=== PATIENT | male | born 1995 | race African-American/Black ===

== ENCOUNTER 2021-08-07 18:01 | Inpatient (IN) | payer OTHER ==
[~2021-08-07] VITALS: Ht 188 cm; Wt 298.4 kg
--- NOTE | 2021-08-07 18:24 | EKG ---
[facility] [address] [place] [address] Test Date: 2021-08-07 Test Time: 18:20:31 Pat Name: GONZALEZ GUERRA Department: Room: Gender: M Director Of Accounts Receivable: : 1995 Requested By: JO BOSS Order Number: [id number] Reading MD: Temo Boss MD Measurements Intervals [place] Rate: 124 P: -109 CT: 134 QRS: 152 QRSD: 80 T: -9 QT: 284 QTc: 412 Interpretive Statements SINUS TACHYCARDIA PROBABLE LIMB LEAD MISPLACEMENT NON-SPECIFIC ST/T CHANGES Electronically Signed On 08-09-2021 13:56:01 PERIOPERATIVE NURSE by Temo Boss MD
--- NOTE | 2021-08-07 18:25 | PHYS DOC ---
Past Medical History Past Medical History: CHF, DVT Additional Past Medical Histor: obesity General Adult EDM: Chief Complaint: SHORTNESS OF BREATH HPI: HPI: Patient is a 26 year old male with hx of severe CHF, obesity, DVT on xarelto who presents with chest pain and shortness of breath. symptoms worsened over past 3-5 days. states he has become more short of breath with laying flat and has become generally weak. Now cannot stand unassisted. He feels that his legs have swollen to a large extent, R>L. He thinks he hasn't taken his xarelto for the past few days but is unsure. He tells me his torsemide has been increased, but that he has not really urinated much the past 2 days. he admits to chills, but denies fevers or cough. vaccinated for covid, and had a negative rapid test. He has been incarcerated for the past year. He is unsure of his EF but states he is on carvedilol and spirinolactone suggesting severe systolic dysfunction. Review of Systems: Review of Systems: Constitutional: Denies fever. Reports chills. [] Eyes: Denies change in visual acuity. [] HENT: Denies nasal congestion or sore throat. [] Respiratory: Denies cough. Reports shortness of breath. [] Cardiovascular: Reports chest pain and increasing lower extremity edema right greater than left. [] GI: Denies abdominal pain, nausea, vomiting, bloody stools or diarrhea. [] : Denies dysuria. Reports decreased urine output. [] Musculoskeletal: Denies back pain or joint pain. [] Integument: Denies rash. [] Neurologic: Denies headache, focal weakness or sensory changes. [] Endocrine: Denies polyuria or polydipsia. [] Lymphatic: Denies swollen glands. [] Psychiatric: Denies depression or anxiety. [] Heart Score: C/O Chest Pain: Yes HEART Score for Chest Pain: HEART Score for Chest Pain Response (Comments) Value History Moderately Suspicious 1 ECG Nonspecific Repolarizatio 1 Age < 45 0 Risk Factors >3 Risk Factors or Hx CAD 2 Total 4 Risk Factors: Risk Factors: DM, Current or recent (<one month) smoker, HTN, HLP, family history of CAD, obesity. Risk Scores: Score 4 - 6: 20.3% MACE over next 6 weeks - Admit for Clinical Observation Allergies: Allergies: Allergies Coded Allergies Type Severity Reaction Last Updated Verified Iodine and Iodide Containing Produc Allergy Unknown UNKNOWN 08/07/21 Yes amoxicillin Allergy Unknown UNKNOWN 08/07/21 Yes azithromycin Allergy Unknown UNKNOWN 08/07/21 Yes shellfish derived Allergy Unknown UNKNOWN 08/07/21 Yes Physical Exam: PE: Constitutional: Morbidly obese. Unable to get himself out of the wheelchair without multiple assistants. HENT: Normocephalic, atraumatic, bilateral external ears normal, oropharynx moist, no oral exudates, nose normal. [] Eyes: PERRLA, EOMI, conjunctiva normal, no discharge. [] Neck: Normal range of motion, no tenderness, supple, no stridor. [] Cardiovascular: Tachycardic and regular. Lungs & Thorax: Anterior chest exam limited with distant breath sounds due to habitus. Increased work of breathing, with tachypnea Abdomen: Bowel sounds normal, soft, no tenderness, no masses, no pulsatile masses. [] Skin: Warm, dry, no erythema, no rash. [] Back: No tenderness, no CVA tenderness. [] Extremities: Bilateral lower extremity edema, right greater than left Neurologic: Alert and oriented X 3, normal motor function, normal sensory function, no focal deficits noted. [] Psychologic: Affect normal, judgement normal, mood normal. [] EKG: EKG: Sinus rhythm. Rate 124. Right axis deviation. T wave inversions inferiorly. [] Radiology/Procedures: Radiology/Procedures: Indication: Vascular access. Difficulty with peripheral access and need for multiple incompatible medications. Consent: The patient provided consent verbally for this procedure. Procedure: The patient was positioned appropriately in a Trendelenburg position and the skin over the left internal jugular vein was prepped and draped in a sterile fashion. Local anesthesia was used. Ultrasound guidance utilized. A large bore needle was used to identify the vein. The vein was very small and was difficult to access. Briefly access with venous colored return, but was not able to maintain access to thread a guidewire. The procedure was aborted after several minutes of attempts to reaccess the internal jugular vein. One needle stick. No evidence of carotid cannulation or hematoma formation during the procedure. The patient tolerated the procedure well. Complications: Unsuccessful procedure. Otherwise no acute complications. Impression: [facility] [address] [place] [address] IMAGING REPORT Signed PATIENT: GONZALEZ GUERRA ACCOUNT: [id number] : 1995 LOCATION: ER AGE: 26 SEX: M EXAM STATUS: REG ER ORD. PHYSICIAN: JO BOSS MD REASON: shortness of breath, chest pain PROCEDURE: CHEST AP ONLY Exam: Chest one view INDICATION: Shortness of breath TECHNIQUE: Frontal view of the chest Comparisons: None FINDINGS: The cardiomediastinal silhouette and pulmonary vessels are within normal limits. Subtle bibasilar airspace disease. No pleural effusion IMPRESSION: Subtle bibasilar airspace disease may relate to atelectasis or developing infectious process. Electronically signed by: Laurent Kearney MD (08/07/2021 8:44 PM) [facility] DICTATED and SIGNED BY: LAURENT KEARNEY MD DATE: 08/07/[id number] 0 Course & Med Decision Making: Course & Med Decision Making Pertinent Labs and Imaging studies reviewed. (See chart for details) Patient 26-year-old mal with history of severe cardiomyopathy, DVT on Xarelto, and obesity who presents with 3-5 days of increasing chest pain dyspnea, lower extremity edema (R>L), and generalized weakness. On arrival is tachycardic to 124. Sinus tach. EKG with inferior T wave inversions. HEART Score prior to troponin is 4. will need further cardiac work up. DDx includes ACS, CHF exacerbation, Pneumonia, PE (states he has been off of his xarelto recently). He cannot have a CTA and he is reportedly too obese for our CT table. Will start IV heparin infusion. Labs including serial troponin, dimer, bnp, cbc, cmp, cxr. 0658 Labs notable for acute kidney failure creatinine 6.1, K5.3, bicarb 18, uric acid 13.4. Fortunately no EKG changes. CK added. Also notable for white count of 36.1 with abnormal differential. Calcium was 5.9. iCal ordered as well as PTH, magnesium, phosphorus. Given 1 g of calcium gluconate. Discussed with nephrology, Dr. Magana, who recommends a bicarb drip over the next 12 hours. Troponin elevated to 383. He is already on high intensity IV heparin infusion. Will add aspirin [address] Zaman of cardiology who will follow. He is given an empiric dose of ceftriaxone given his tachycardia and white count. No source of infection identified to this point. Patient will be admitted to ICU level care. Left internal jugular central line was attempted due to poor peripheral access. Unfortunately was not successful in getting central access. Fortunately, was able to obtain 2 peripheral IVs via ultrasound. [id number] Disclaimer: [employer] Disclaimer: This electronic medical record was generated, in whole or in part, using a voice recognition dictation system. Departure Departure Impression: Primary Impression: Acute renal failure Additional Impressions: NSTEMI (non-ST elevated myocardial infarction) Transaminitis Hypocalcemia Hyponatremia Hyperuricemia Morbid obesity Hyperkalemia Disposition: 09 ADMITTED INPATIENT Admitting Physician: NAGI LUO) Condition: CRITICAL JO BOSS MD Aug 07, 2021 18:25
[2021-08-07] MEDS ORDERED: HEPARIN 25,000UTS/250ML PREMIX 250 ML IV PRN (19:00)
[2021-08-07] MEDS ORDERED: HEPARIN for IV BOLUS 10,000 UNIT/10 ML VIAL. IV PRN ×5 (19:00→23:00)
[2021-08-07 20:34] LABS: BASO # 0.3 x10^3/uL (0.0-0.2); BASO % 1 % (0-3); EOS # 0.5 x10^3/uL (0.0-0.7); EOS % 1 % (0-3); HEMATOCRIT 49.3 % (39.0-53.0); HEMOGLOBIN 16.3 g/dL (13.0-17.5); LYMPH # 1.6 x10^3/uL (1.0-4.8); LYMPH % 4 % (24-48); MEAN CORPUSCULAR HEMOGLOBIN 27 pg (25-35); MEAN CORPUSCULAR HGB CONC 33 g/dL (31-37); MEAN CORPUSCULAR VOLUME 80 fL (79-100); MONO # 1.4 x10^3/uL (0.0-1.1); MONO % 4 % (0-9); NEUT # 32.4 x10^3/uL (1.8-7.7); NEUT % 90 % (31-73); PLATELET COUNT 243 x10^3/uL (140-400); RED BLOOD COUNT 6.15 x10^6/uL (4.30-5.70); RED CELL DISTRIBUTION WIDTH 16.3 % (11.5-14.5); WHITE BLOOD COUNT 36.1 x10^3/uL (4.0-11.0)
--- NOTE | 2021-08-07 20:47 | RAD ---
Exam: Chest one view INDICATION: Shortness of breath TECHNIQUE: Frontal view of the chest Comparisons: None FINDINGS: The cardiomediastinal silhouette and pulmonary vessels are within normal limits. Subtle bibasilar airspace disease. No pleural effusion IMPRESSION: Subtle bibasilar airspace disease may relate to atelectasis or developing infectious process. Electronically signed by: Laurent Avendaño MD (08/07/2021 8:44 PM) ASHLEY
[2021-08-07 20:57] LABS: ALBUMIN 2.5 g/dL (3.4-5.0); ALBUMIN/GLOBULIN RATIO 0.6 (1.0-1.7); CREATININE 6.1 mg/dL (0.7-1.3); GFR 13.6; MAGNESIUM 2.5 mg/dL (1.8-2.4); POTASSIUM 5.3 mmol/L (3.5-5.1); TOTAL BILIRUBIN 1.1 mg/dL (0.2-1.0); TOTAL PROTEIN 6.7 g/dL (6.4-8.2)
[2021-08-07] MEDS ORDERED: HEPARIN for IV BOLUS 10,000 UNIT/10 ML VIAL. IV ONE (21:00)
[2021-08-07 21:02] LABS: CALCIUM 5.9 mg/dL (8.5-10.1)
[2021-08-07 21:05] LABS: % ATYL 1 % (0-0); % BANDS 27 % (0-9); % LYMPHS 6 % (24-48); % MONOS 5 % (0-10); % SEGS 61 % (35-66)
[2021-08-07 21:07] LABS: PLT ESTIMATE ADEQUATE (ADEQUATE); TOXIC GRANULATION SLIGHT; TOXIC VACUOLATION MOD
[2021-08-07] MEDS ORDERED: CALCIUM GLUCONATE 1,000 MG/10 ML VIAL. IVP ONE (21:15)
[2021-08-07] MEDS ORDERED: IV NORMAL SALINE 500ML BAG 500 ML IV ONE (21:15)
[2021-08-07] MEDS ORDERED: cefTRIAXone IV Push 1 GM VIAL. IVP ONE (21:15)
[2021-08-07] MEDS ORDERED: ASPIRIN CHEWABLE 81 MG TABLET. PO ONE (21:30)
[2021-08-07] MEDS ORDERED: SODIUM BICARBONATE VIAL 150 MEQ in IV DEXTROSE 5% 1,000 ML IV ONE (22:00)
[2021-08-07] MEDS ORDERED: ONDANSETRON PF 4 MG/2 ML VIAL. ONE (22:20)
[2021-08-07] MEDS ORDERED: ONDANSETRON PF 4 MG/2 ML VIAL. IVP ONE (22:30)
[2021-08-07] MEDS: HEPARIN 25,000UTS/250ML PREMIX 250 ML IV PRN (23:50)
[2021-08-08] VITALS (23 sets, daily range): BP systolic 110–166; BP diastolic 36–105
--- NOTE | 2021-08-08 01:34 | NUR ---
Patient arrived to ICU room 113 from ED. From [facility] with 2 guards present. Shackles to right arm and left leg. Morbidly obese. Specialty bed. Bicarb and heparin infusing.
[2021-08-08] MEDS ORDERED: RIVA20TA2 PO (04:34)
[2021-08-08] MEDS: DOXYCYCLINE HYCLATE 100 MG TABLET PO SCH ×3 (05:53→21:12)
[2021-08-08 06:03] LABS: CREATININE 6.8 mg/dL (0.7-1.3); POTASSIUM 5.7 mmol/L (3.5-5.1)
[2021-08-08 06:05] LABS: CALCIUM 5.5 mg/dL (8.5-10.1)
[2021-08-08] MEDS ORDERED: CALCIUM GLUCONATE 2,000 MG in IV NORMAL SALINE 100ML 100 ML IV ONE (06:30)
[2021-08-08 06:46] LABS: BASO # 0.2 x10^3/uL (0.0-0.2); BASO % 1 % (0-3); EOS # 0.4 x10^3/uL (0.0-0.7); EOS % 1 % (0-3); HEMATOCRIT 45.5 % (39.0-53.0); HEMOGLOBIN 14.8 g/dL (13.0-17.5); LYMPH # 1.5 x10^3/uL (1.0-4.8); LYMPH % 4 % (24-48); MEAN CORPUSCULAR HEMOGLOBIN 26 pg (25-35); MEAN CORPUSCULAR HGB CONC 33 g/dL (31-37); MEAN CORPUSCULAR VOLUME 81 fL (79-100); MONO # 1.6 x10^3/uL (0.0-1.1); MONO % 4 % (0-9); NEUT % 90 % (31-73); PLATELET COUNT 224 x10^3/uL (140-400); RED BLOOD COUNT 5.64 x10^6/uL (4.30-5.70); RED CELL DISTRIBUTION WIDTH 16.6 % (11.5-14.5); WHITE BLOOD COUNT 36.7 x10^3/uL (4.0-11.0)
[2021-08-08] MEDS ORDERED: SODIUM BICARB ADULT 8.4% 50 MEQ/50 ML DISP.SYRIN. IV ONE (07:15)
[2021-08-08] MEDS: HEPARIN for IV BOLUS 10,000 UNIT/10 ML VIAL. IV PRN ×3 (08:28→21:36)
--- NOTE | 2021-08-08 08:29 | PDOC1 ---
History and Physical Date of Service: DOS: DATE: 08/08/21 TIME: 08:21 Chief Complaint: Chief Complain: Shortness of breath History of Present Illness: HPI: History obtained from discussion with the ED physician and chart review: 26-year-old male with past medical history of CHF, morbid obesity, DVT was on Xarelto comes in with shortness of breath and chest pressure that started on Tuesday. Apparently his symptoms got worse as the week progressed and by Tuesday he was unable to get out of bed and short of breath. He does endorse any exertional dyspnea. Patient is now unable to stand without some assistance. He does endorse swelling in his lower extremities right greater than left. He thinks he has not taken his Xarelto for a few days but he is not sure this. He also endorses that his torsemide dosing these and he has not had much urine in the past 2 days. Currently he does have a Castaneda in urine bag is dark brown. He is incarcerated for the past year. Denies fevers, nausea vomiting, abdominal pain, diarrhea or hematuria or palpitations. Past Medical/Surgical History: PMH/PSH: Past Medical History: CHF, DVT, obesity Allergies: Allergies: Coded Allergies: Iodine and Iodide Containing Produc (Verified Allergy, Unknown, UNKNOWN, 08/07/21) amoxicillin (Verified Allergy, Unknown, UNKNOWN, 08/07/21) azithromycin (Verified Allergy, Unknown, UNKNOWN, 08/07/21) shellfish derived (Verified Allergy, Unknown, UNKNOWN, 08/07/21) Family History: Family History: Reviewed with no relevant findings Social History: Social History: Denies any alcohol, drug or tobacco abuse Current Medications: Current Medications Current Medications Heparin Sodium (Porcine) (Heparin Sodium) 10,000 unit 1X ONCE IV Last administered on 08/07/21at 23:48; Start 08/07/21 at 21:00; Stop 08/07/21 at 21:01; Status DC Heparin Sodium/ Dextrose 250 ml @ 20 mls/hr CONT PRN IV PER PROTOCOL; Start 08/07/21 at 19:00; Status Cancel Heparin Sodium (Porcine) (Heparin Sodium) 7,500 unit PRN Q6HRS PRN IV FOR UFH LEVEL LESS THAN 0.2; Start 08/07/21 at 19:00; Stop 08/07/21 at 22:34; Status DC Heparin Sodium (Porcine) (Heparin Sodium) 3,750 unit PRN Q6HRS PRN IV FOR UFH LEVEL 0.2 - 0.29; Start 08/07/21 at 19:00; Stop 08/07/21 at 22:33; Status DC Ceftriaxone Sodium (Rocephin) 2 gm 1X ONCE IVP Last administered on 08/07/21at 22:11; Start 08/07/21 at 21:15; Stop 08/07/21 at 21:16; Status DC Calcium Gluconate (Calcium Gluconate) 1,000 mg 1X ONCE IVP Last administered on 08/08/21at 02:29; Start 08/07/21 at 21:15; Stop 08/07/21 at 21:16; Status DC Sodium Chloride 500 ml @ 500 mls/hr 1X ONCE IV Last administered on 08/07/21at 21:15; Start 08/07/21 at 21:15; Stop 08/07/21 at 22:14; Status DC Aspirin (Aspirin Chewable) 324 mg 1X ONCE PO Last administered on 08/07/21at 22:12; Start 08/07/21 at 21:30; Stop 08/07/21 at 21:31; Status DC Sodium Bicarbonate 150 meq/Dextrose 1,150 ml @ 100 mls/hr [id number] ONCE IV Last administered on 08/07/21at 23:51; Start 08/07/21 at 22:00; Stop 08/08/21 at 09:29 Ondansetron HCl (Zofran) 4 mg STK-MED ONCE .ROUTE ; Start 08/07/21 at 22:20; Stop 08/07/21 at 22:21; Status DC Ondansetron HCl (Zofran) 4 mg 1X ONCE IVP Last administered on 08/07/21at 22:36; Start 08/07/21 at 22:30; Stop 08/07/21 at 22:31; Status DC Heparin Sodium (Porcine) (Heparin Sodium) 4,300 unit PRN Q6HRS PRN IV FOR UFH LEVEL 0.2 - 0.29; Start 08/07/21 at 22:33; Status Cancel Heparin Sodium (Porcine) (Heparin Sodium) 8,600 unit PRN Q6HRS PRN IV FOR UFH LEVEL LESS THAN 0.2; Start 08/07/21 at 22:45; Status Cancel Heparin Sodium/ Dextrose 250 ml @ 20 mls/hr CONT PRN IV PER PROTOCOL Last administered on 08/07/21at 23:50; Start 08/07/21 at 23:00 Heparin Sodium (Porcine) (Heparin Sodium) 8,600 unit PRN Q6HRS PRN IV FOR PTT < 40; Start 08/07/21 at 23:00 Heparin Sodium (Porcine) (Heparin Sodium) 2,000 unit PRN Q6HRS PRN IV FOR PTT 40 - 58; Start 08/07/21 at 23:00 Heparin Sodium (Porcine) (Heparin Sodium) 1,000 unit PRN Q6HRS PRN IV FOR PTT 59 - 78; Start 08/07/21 at 23:00 Doxycycline Hyclate (Vibra-Tab) 100 mg BID PO ; Start 08/08/21 at 09:00; Stop 08/08/21 at 04:41; Status DC Doxycycline Hyclate (Vibra-Tab) 100 mg BID PO Last administered on 08/08/21at 05:53; Start 08/08/21 at 05:00 Calcium Gluconate 2000 mg/Sodium Chloride 120 ml @ 220 mls/hr 1X ONCE IV Last administered on 08/08/21at 06:30; Start 08/08/21 at 06:30; Stop 08/08/21 at 07:02; Status DC Lactobacillus Rhamnosus (Culturelle) 1 cap BID PO ; Start 08/08/21 at 09:00 Sodium Bicarbonate (Sodium Bicarb Adult 8.4% Syr) 150 meq 1X ONCE IV ; Start 08/08/21 at 07:15; Stop 08/08/21 at 07:19; Status DC Active Scripts Active Reported Xarelto (Rivaroxaban) 20 Mg Tablet Unknown Dose PO DAILY 30 Days with food ROS: Review of Systems Review of System REVIEW OF SYSTEMS: GENERAL: Denies weakness SKIN: No bruising, hair changes or rashes. EYES: No blurred, double or loss of vision. NOSE AND THROAT: No history of nosebleeds, hoarseness or sore throat. HEART: No history of palpitations, chest pain or shortness of breath on exertion. LUNGS: Positive for shortness of breath GASTROINTESTINAL: Denies changes in appetite, nausea, vomiting, diarrhea or constipation. GENITOURINARY: No history of frequency, urgency, hesitancy or nocturia. NEUROLOGIC: Denies history of numbness, tingling, or tremor. PSYCHIATRIC: No history of panic, anxiety or depression. ENDOCRINE: No history of heat or cold intolerance, polyuria or polydipsia. EXTREMITIES: Denies joint pain, pain on walking or stiffness. Physical Exam: Vital Signs: Vital Signs Date Time Temp Pulse Resp B/P (MAP) Pulse Ox O2 Delivery O2 Flow Rate FiO2 08/08/21 08:00 99.4 107 30 136/74 (94) 95 BiPAP/CPAP 99.4 08/08/21 03:13 4.0 Physcial Exam: General: Well developed, well nourished, no acute distress, well appearing HEENT: Pupils equally round and reactive to light, EOMI, no discharge, normal conjunctiva Neck: Supple, no nuchal rigidity, no JVD, trachea midline, no tenderness Cardiac: RRR, no murmurs, no gallops, no rubs Chest/Lungs: CTAB, no wheeze, no rhonchi, no crackles Abdomen: Obese, soft, non-distended, no guarding, no peritoneal signs, non- tender Back: No tenderness Extremities: no edema, pulses intact, non-tender,capillary refill <3 sec bilateral upper and lower extremities, bilateral +3 pedal edema Neuro: Alert and oriented x 4, no focal deficits, normal speech Labs: Labs: Laboratory Tests Test 08/07/21 20:08 08/07/21 21:00 08/07/21 23:46 08/08/21 05:30 White Blood Count 36.1 x10^3/uL (4.0-11.0) 36.7 x10^3/uL (4.0-11.0) Red Blood Count 6.15 x10^6/uL (4.30-5.70) 5.64 x10^6/uL (4.30-5.70) Hemoglobin 16.3 g/dL (13.0-17.5) 14.8 g/dL (13.0-17.5) Hematocrit 49.3 % (39.0-53.0) 45.5 % (39.0-53.0) Mean Corpuscular Volume 80 fL (79-100) 81 fL (79-100) Mean Corpuscular Hemoglobin 27 pg (25-35) 26 pg (25-35) Mean Corpuscular Hemoglobin Concent 33 g/dL (31-37) 33 g/dL (31-37) Red Cell Distribution Width 16.3 % (11.5-14.5) 16.6 % (11.5-14.5) Platelet Count 243 x10^3/uL (140-400) 224 x10^3/uL (140-400) Neutrophils (%) (Auto) 90 % (31-73) 90 % (31-73) Lymphocytes (%) (Auto) 4 % (24-48) 4 % (24-48) Monocytes (%) (Auto) 4 % (0-9) 4 % (0-9) Eosinophils (%) (Auto) 1 % (0-3) 1 % (0-3) Basophils (%) (Auto) 1 % (0-3) 1 % (0-3) Neutrophils # (Auto) 32.4 x10^3/uL (1.8-7.7) 33.0 x10^3/uL (1.8-7.7) Lymphocytes # (Auto) 1.6 x10^3/uL (1.0-4.8) 1.5 x10^3/uL (1.0-4.8) Monocytes # (Auto) 1.4 x10^3/uL (0.0-1.1) 1.6 x10^3/uL (0.0-1.1) Eosinophils # (Auto) 0.5 x10^3/uL (0.0-0.7) 0.4 x10^3/uL (0.0-0.7) Basophils # (Auto) 0.3 x10^3/uL (0.0-0.2) 0.2 x10^3/uL (0.0-0.2) Segmented Neutrophils % 61 % (35-66) Band Neutrophils % 27 % (0-9) Lymphocytes % 6 % (24-48) Atypical Lymphocytes % (Manual) 1 % (0-0) Monocytes % 5 % (0-10) Toxic Granulation Slight Toxic Vacuolation Mod Dohle Bodies Present Platelet Estimate Adequate (ADEQUATE) Large Platelets Mod Activated Partial Thromboplast Time 36 SEC (24-38) D-Dimer (Anna) 10.40 ug/mlFEU (0.00-0.50) Sodium Level 126 mmol/L (136-145) 124 mmol/L (136-145) Potassium Level 5.3 mmol/L (3.5-5.1) 5.7 mmol/L (3.5-5.1) Chloride Level 92 mmol/L (98-107) 93 mmol/L (98-107) Carbon Dioxide Level 18 mmol/L (21-32) 17 mmol/L (21-32) Anion Gap 16 (6-14) 14 (6-14) Blood Urea Nitrogen 49 mg/dL (8-26) 56 mg/dL (8-26) Creatinine 6.1 mg/dL (0.7-1.3) 6.8 mg/dL (0.7-1.3) Estimated GFR (Cockcroft-Gault) 13.6 12.0 BUN/Creatinine Ratio 8 (6-20) Glucose Level 99 mg/dL (70-99) 121 mg/dL (70-99) Uric Acid 13.4 mg/dL (3.5-7.2) Calcium Level 5.9 mg/dL (8.5-10.1) 5.5 mg/dL (8.5-10.1) Phosphorus Level 9.4 mg/dL (2.6-4.7) Magnesium Level 2.5 mg/dL (1.8-2.4) Total Bilirubin 1.1 mg/dL (0.2-1.0) Aspartate Amino Transf (AST/SGOT) 2647 U/L (15-37) Alanine Aminotransferase (ALT/SGPT) 395 U/L (16-63) Alkaline Phosphatase 94 U/L (46-116) Troponin I High Sensitivity 383 ng/L (4-75) 390 ng/L (4-75) AB-Gqg-P-Type Natriuretic Peptide 1502 pg/mL (0-124) Total Protein 6.7 g/dL (6.4-8.2) Albumin 2.5 g/dL (3.4-5.0) Albumin/Globulin Ratio 0.6 (1.0-1.7) Thyroid Stimulating Hormone (TSH) 1.854 uIU/mL (0.358-3.74) SARS-CoV-2 Antigen (Rapid) Negative (NEGATIVE) Ionized Calcium 0.61 mmol/L (1.13-1.32) Hepatitis A IgM Antibody Nonreactive (Nonreactive) Hepatitis B Surface Antigen Nonreactive (Nonreactive) Hepatitis B Core IgM Antibody Nonreactive (Nonreactive) Hepatitis C IgG Antibody Nonreactive (Nonreactive) Creatine Kinase > 356588 U/L (39-308) Test 08/08/21 06:00 Activated Partial Thromboplast Time 43 SEC (24-38) Laboratory Tests Test 08/07/21 20:08 08/07/21 21:00 08/07/21 23:46 08/08/21 05:30 White Blood Count 36.1 x10^3/uL (4.0-11.0) 36.7 x10^3/uL (4.0-11.0) Red Blood Count 6.15 x10^6/uL (4.30-5.70) 5.64 x10^6/uL (4.30-5.70) Hemoglobin 16.3 g/dL (13.0-17.5) 14.8 g/dL (13.0-17.5) Hematocrit 49.3 % (39.0-53.0) 45.5 % (39.0-53.0) Mean Corpuscular Volume 80 fL (79-100) 81 fL (79-100) Mean Corpuscular Hemoglobin 27 pg (25-35) 26 pg (25-35) Mean Corpuscular Hemoglobin Concent 33 g/dL (31-37) 33 g/dL (31-37) Red Cell Distribution Width 16.3 % (11.5-14.5) 16.6 % (11.5-14.5) Platelet Count 243 x10^3/uL (140-400) 224 x10^3/uL (140-400) Neutrophils (%) (Auto) 90 % (31-73) 90 % (31-73) Lymphocytes (%) (Auto) 4 % (24-48) 4 % (24-48) Monocytes (%) (Auto) 4 % (0-9) 4 % (0-9) Eosinophils (%) (Auto) 1 % (0-3) 1 % (0-3) Basophils (%) (Auto) 1 % (0-3) 1 % (0-3) Neutrophils # (Auto) 32.4 x10^3/uL (1.8-7.7) 33.0 x10^3/uL (1.8-7.7) Lymphocytes # (Auto) 1.6 x10^3/uL (1.0-4.8) 1.5 x10^3/uL (1.0-4.8) Monocytes # (Auto) 1.4 x10^3/uL (0.0-1.1) 1.6 x10^3/uL (0.0-1.1) Eosinophils # (Auto) 0.5 x10^3/uL (0.0-0.7) 0.4 x10^3/uL (0.0-0.7) Basophils # (Auto) 0.3 x10^3/uL (0.0-0.2) 0.2 x10^3/uL (0.0-0.2) Segmented Neutrophils % 61 % (35-66) Band Neutrophils % 27 % (0-9) Lymphocytes % 6 % (24-48) Atypical Lymphocytes % (Manual) 1 % (0-0) Monocytes % 5 % (0-10) Toxic Granulation Slight Toxic Vacuolation Mod Dohle Bodies Present Platelet Estimate Adequate (ADEQUATE) Large Platelets Mod Activated Partial Thromboplast Time 36 SEC (24-38) D-Dimer (Anna) 10.40 ug/mlFEU (0.00-0.50) Sodium Level 126 mmol/L (136-145) 124 mmol/L (136-145) Potassium Level 5.3 mmol/L (3.5-5.1) 5.7 mmol/L (3.5-5.1) Chloride Level 92 mmol/L (98-107) 93 mmol/L (98-107) Carbon Dioxide Level 18 mmol/L (21-32) 17 mmol/L (21-32) Anion Gap 16 (6-14) 14 (6-14) Blood Urea Nitrogen 49 mg/dL (8-26) 56 mg/dL (8-26) Creatinine 6.1 mg/dL (0.7-1.3) 6.8 mg/dL (0.7-1.3) Estimated GFR (Cockcroft-Gault) 13.6 12.0 BUN/Creatinine Ratio 8 (6-20) Glucose Level 99 mg/dL (70-99) 121 mg/dL (70-99) Uric Acid 13.4 mg/dL (3.5-7.2) Calcium Level 5.9 mg/dL (8.5-10.1) 5.5 mg/dL (8.5-10.1) Phosphorus Level 9.4 mg/dL (2.6-4.7) Magnesium Level 2.5 mg/dL (1.8-2.4) Total Bilirubin 1.1 mg/dL (0.2-1.0) Aspartate Amino Transf (AST/SGOT) 2647 U/L (15-37) Alanine Aminotransferase (ALT/SGPT) 395 U/L (16-63) Alkaline Phosphatase 94 U/L (46-116) Troponin I High Sensitivity 383 ng/L (4-75) 390 ng/L (4-75) JL-Xmf-J-Type Natriuretic Peptide 1502 pg/mL (0-124) Total Protein 6.7 g/dL (6.4-8.2) Albumin 2.5 g/dL (3.4-5.0) Albumin/Globulin Ratio 0.6 (1.0-1.7) Thyroid Stimulating Hormone (TSH) 1.854 uIU/mL (0.358-3.74) SARS-CoV-2 Antigen (Rapid) Negative (NEGATIVE) Ionized Calcium 0.61 mmol/L (1.13-1.32) Hepatitis A IgM Antibody Nonreactive (Nonreactive) Hepatitis B Surface Antigen Nonreactive (Nonreactive) Hepatitis B Core IgM Antibody Nonreactive (Nonreactive) Hepatitis C IgG Antibody Nonreactive (Nonreactive) Creatine Kinase > 047687 U/L (39-308) Test 08/08/21 06:00 Activated Partial Thromboplast Time 43 SEC (24-38) Images: Images PROCEDURE: CHEST AP ONLY IMPRESSION: Subtle bibasilar airspace disease may relate to atelectasis or developing infectious process. Assessment/Plan Assessment/Plan Sepsis Bilateral pneumonia, possible gram-negative organisms Acute electrolyte derangement due to acute kidney injury Hypocalcemia Metabolic acidosis, non-anion gap Acute renal failure due to vasomotor nephropathy and rhabdomyolysis Acute rhabdomyolysis Atypical chest pain concerning for non-STEMI Elevated troponin troponin suggestive of either type II demand ischemia versus renal disease History of morbid obesity History of CHF History of DVT Admit to ICU for further management Continue empiric IV antibiotics Pending blood cultures Pending MRSA screen and Legionella Nephrology consult Cardiology consult for CHF Counseled on weight loss via diet and exercise Strict I's and O's Avoid further nephrotoxic agents Continue heparin for DVT history Trend electrolytes and replace as needed Heparin drip for DVT prophylaxis Protonix while in the ICU GI prophylaxis ADA diet CODE STATUS full Discussed with RN and SW Disposition inpatient management as above DPOA: Undesignated, and incarcerated A total of 45 minutes of critical care time was spent in reviewing chart, labs, and images. Discussed with RN and SW. Justifications for Admission Other Justification AMOS MADISON MD Aug 08, 2021 08:28
[2021-08-08] MEDS: LACTOBACILLUS RHAMNOSUS GG 1 CAPSULE. PO SCH ×2 (08:38→21:12)
[2021-08-08] MEDS ORDERED: DOXYCYCLINE HYCLATE 100 MG TABLET PO SCH (09:00)
[2021-08-08 10:08] LABS: % BANDS 8 % (0-9); % LYMPHS 3 % (24-48); % MONOS 3 % (0-10); % SEGS 86 % (35-66); PLT ESTIMATE ADEQUATE (ADEQUATE)
--- NOTE | 2021-08-08 11:07 | PDOC2 ---
CONSULT Date of Consult Date of Consult DATE: 08/08/21 TIME: 11:04 Reason for Consult Reason for Consult: Critical calcium Referring Physician Referring Physician: Robert Identification/Chief Complaint Chief Complaint Decreased urination Source Source: Chart review, Patient History of Present Illness Reason for Visit: History obtained from chart review. Patient currently on BiPAP and unable to converse much. He answers "I do not know what happened" to most questions Patient is a 26-year-old morbidly obese -[place] gentleman with history of CHF per the ER notes. He is currently incarcerated. No echocardiogram in our system available at this time. He does not know his EF either. He has been on diuretics which according to him were increased recently. He has not been urinating much for the last few days. He presented to the ER for the same. He became increasingly weak and had some orthopnea also. In the ER he was unable to stand unassisted. It was noted that he had worsening edema in his lower extremities also. I was called by the ER physician regarding he has renal failure and critically low calcium. IV calcium was administered In the ER and has been repeated currently this morning. In the ER his sodium was 126 potassium 5.3 bicarb 18 anion gap 16 BUN 49 creatinine 6.1 and a calcium of 5.9 with a magnesium of 2.5 and an albumin of 2.5. His LFTs were also noted to be grossly elevated. I was again called by the ER physician regarding a critical uric acid of 13.4. BNP was only 1500 with a phosphorus of 9.4. His troponins were elevated and I was informed that he was diagnosed with a non-STEMI. At time of my visit with the patient he has been evaluated by cardiology. Their note is pending at this time hence plan is not known. Calcium was again 5.5 this morning and more supplementation has been ordered. It is now noted that his CPK is greater than 100,000 Past Medical History Past Medical History Past medical history positive for congestive heart failure, atrial fibrillation, hypertension, DVT, sleep apnea, morbid obesity and previous history of smoking. No renal insufficiency noted Family History Family History Unable to reliably obtain from the patient due to BiPAP use Current Problem List Problem List Problems Medical Problems: (1) Acute renal failure Status: Acute (2) Hyperkalemia Status: Acute (3) Hyperuricemia Status: Acute (4) Hypocalcemia Status: Acute (5) Hyponatremia Status: Acute (6) Morbid obesity Status: Acute (7) NSTEMI (non-ST elevated myocardial infarction) Status: Acute (8) Transaminitis Status: Acute Current Medications Current Medications Current Medications Heparin Sodium (Porcine) (Heparin Sodium) 10,000 unit 1X ONCE IV Last administered on 08/07/21at 23:48; Start 08/07/21 at 21:00; Stop 08/07/21 at 21:01; Status DC Heparin Sodium/ Dextrose 250 ml @ 20 mls/hr CONT PRN IV PER PROTOCOL; Start 08/07/21 at 19:00; Status Cancel Heparin Sodium (Porcine) (Heparin Sodium) 7,500 unit PRN Q6HRS PRN IV FOR UFH LEVEL LESS THAN 0.2; Start 08/07/21 at 19:00; Stop 08/07/21 at 22:34; Status DC Heparin Sodium (Porcine) (Heparin Sodium) 3,750 unit PRN Q6HRS PRN IV FOR UFH LEVEL 0.2 - 0.29; Start 08/07/21 at 19:00; Stop 08/07/21 at 22:33; Status DC Ceftriaxone Sodium (Rocephin) 2 gm 1X ONCE IVP Last administered on 08/07/21at 22:11; Start 08/07/21 at 21:15; Stop 08/07/21 at 21:16; Status DC Calcium Gluconate (Calcium Gluconate) 1,000 mg 1X ONCE IVP Last administered on 08/08/21at 02:29; Start 08/07/21 at 21:15; Stop 08/07/21 at 21:16; Status DC Sodium Chloride 500 ml @ 500 mls/hr 1X ONCE IV Last administered on 08/07/21at 21:15; Start 08/07/21 at 21:15; Stop 08/07/21 at 22:14; Status DC Aspirin (Aspirin Chewable) 324 mg 1X ONCE PO Last administered on 08/07/21at 22:12; Start 08/07/21 at 21:30; Stop 08/07/21 at 21:31; Status DC Sodium Bicarbonate 150 meq/Dextrose 1,150 ml @ 100 mls/hr [id number] ONCE IV Last administered on 08/07/21at 23:51; Start 08/07/21 at 22:00; Stop 08/08/21 at 09:29; Status DC Ondansetron HCl (Zofran) 4 mg STK-MED ONCE .ROUTE ; Start 08/07/21 at 22:20; Stop 08/07/21 at 22:21; Status DC Ondansetron HCl (Zofran) 4 mg 1X ONCE IVP Last administered on 08/07/21at 22:36; Start 08/07/21 at 22:30; Stop 08/07/21 at 22:31; Status DC Heparin Sodium (Porcine) (Heparin Sodium) 4,300 unit PRN Q6HRS PRN IV FOR UFH LEVEL 0.2 - 0.29; Start 08/07/21 at 22:33; Status Cancel Heparin Sodium (Porcine) (Heparin Sodium) 8,600 unit PRN Q6HRS PRN IV FOR UFH LEVEL LESS THAN 0.2; Start 08/07/21 at 22:45; Status Cancel Heparin Sodium/ Dextrose 250 ml @ 20 mls/hr CONT PRN IV PER PROTOCOL Last administered on 08/07/21at 23:50; Start 08/07/21 at 23:00 Heparin Sodium (Porcine) (Heparin Sodium) 8,600 unit PRN Q6HRS PRN IV FOR PTT < 40; Start 08/07/21 at 23:00 Heparin Sodium (Porcine) (Heparin Sodium) 2,000 unit PRN Q6HRS PRN IV FOR PTT 40 - 58 Last administered on 08/08/21at 08:28; Start 08/07/21 at 23:00 Heparin Sodium (Porcine) (Heparin Sodium) 1,000 unit PRN Q6HRS PRN IV FOR PTT 59 - 78; Start 08/07/21 at 23:00 Doxycycline Hyclate (Vibra-Tab) 100 mg BID PO ; Start 08/08/21 at 09:00; Stop 08/08/21 at 04:41; Status DC Doxycycline Hyclate (Vibra-Tab) 100 mg BID PO Last administered on 08/08/21at 05:53; Start 08/08/21 at 05:00 Calcium Gluconate 2000 mg/Sodium Chloride 120 ml @ 220 mls/hr 1X ONCE IV Last administered on 08/08/21at 06:30; Start 08/08/21 at 06:30; Stop 08/08/21 at 07:02; Status DC Lactobacillus Rhamnosus (Culturelle) 1 cap BID PO Last administered on 08/08/21at 08:38; Start 08/08/21 at 09:00 Sodium Bicarbonate (Sodium Bicarb Adult 8.4% Syr) 150 meq 1X ONCE IV Last administered on 08/08/21at 08:27; Start 08/08/21 at 07:15; Stop 08/08/21 at 07:19; Status DC Active Scripts Active Reported Xarelto (Rivaroxaban) 20 Mg Tablet Unknown Dose PO DAILY 30 Days with food Allergies Allergies: Coded Allergies: Iodine and Iodide Containing Produc (Verified Allergy, Unknown, UNKNOWN, 08/07/21) amoxicillin (Verified Allergy, Unknown, UNKNOWN, 08/07/21) azithromycin (Verified Allergy, Unknown, UNKNOWN, 08/07/21) shellfish derived (Verified Allergy, Unknown, UNKNOWN, 08/07/21) ROS Review of System As reviewed under HPI. Physical Exam Physical Exam General Appearance: Awake not fully alert Oriented x ? In no obvious respiratory distress while on the BiPAP Eyes: Sclera anicteric conjunctiva Normal EN: No EN Drainage Mucous Memb. Dry on BiPAP Neck: Unable to visualize JVD or JVP due to short thick neck, supple no palpable thyromegaly CVS: S1 S2 unable to hear obvious murmur No Gallop No Rub signi ficant lower extremity edema Resp: No audible Rales or rhonchi no obvious Acc. Muscle use GI: BAS +ve NO Bruit Non Tender Non Distended, morbidly obese : No obvious CVA tenderness; or suprapubic Tenderness SKIN: No visible rashes Breast Exam deferred Mu.Sk: Some lower extremity weakness without obvious muscle Atrophy Heme: Unable to palpate Obvious LAD no palpable splenomegaly NEURO: Decreased strength in lower extremities. Unable to assess currently while on BiPAP Psych: Unable to assess currently while on BiPAP Vital Signs Vital Signs Date Time Temp Pulse Resp B/P (MAP) Pulse Ox O2 Delivery O2 Flow Rate FiO2 08/08/21 10:00 106 27 137/71 (93) 95 BiPAP/CPAP 08/08/21 08:00 99.4 99.4 08/08/21 03:13 4.0 Assessment & Plan Acute kidney injury, possible ATN associated with rhabdomyolysis: Patient remains oligoanuric at this time. We will proceed with dialysis: ARF? ATN : Dialysis as below F 180 NR 3.5 Hrs 3 K 3.5 Ca 135 Na 40 HC03 Qb 350 + Qd 500+ Heparin 0 Units Uf 0 Kgs or to dry weight as tolerated May give 25-50 gms of 25% Albumin if needed to maintain Hemodynamic stability Treatment plan reviewed and discussed with manager field Rhabdomyolysis: Unclear etiology. Currently oligoanuric with possible ATN hence proceed with dialysis Hyperkalemia: Anticipate correction with correction of acidosis Metabolic acidosis probably associated with renal failure Possible volume depletion cannot be ruled out however given patient's history of CHF hesitant to aggressively volume replete at this time. Hyponatremia: We will proceed with isotonic fluids for volume repletion for now. Anticipate some correction with dialysis also Severe hypocalcemia presumably due to rhabdomyolysis History of CHF: Clinically appears to be well compensated at this time. Non-STEMI: Defer to cardiology Possible sepsis of unclear source at this time patient had significant bandemia at presentation yesterday. Critical care time spent 30 minutes reviewing records as well as discussing with the patient who is agreeable to proceed with dialysis. Dialysis catheter arrangement on the weekend and coordination of dialysis arrangements Labs Labs Laboratory Tests Test 08/07/21 20:08 08/07/21 21:00 08/07/21 23:46 08/08/21 05:30 White Blood Count 36.1 x10^3/uL (4.0-11.0) 36.7 x10^3/uL (4.0-11.0) Red Blood Count 6.15 x10^6/uL (4.30-5.70) 5.64 x10^6/uL (4.30-5.70) Hemoglobin 16.3 g/dL (13.0-17.5) 14.8 g/dL (13.0-17.5) Hematocrit 49.3 % (39.0-53.0) 45.5 % (39.0-53.0) Mean Corpuscular Volume 80 fL (79-100) 81 fL (79-100) Mean Corpuscular Hemoglobin 27 pg (25-35) 26 pg (25-35) Mean Corpuscular Hemoglobin Concent 33 g/dL (31-37) 33 g/dL (31-37) Red Cell Distribution Width 16.3 % (11.5-14.5) 16.6 % (11.5-14.5) Platelet Count 243 x10^3/uL (140-400) 224 x10^3/uL (140-400) Neutrophils (%) (Auto) 90 % (31-73) 90 % (31-73) Lymphocytes (%) (Auto) 4 % (24-48) 4 % (24-48) Monocytes (%) (Auto) 4 % (0-9) 4 % (0-9) Eosinophils (%) (Auto) 1 % (0-3) 1 % (0-3) Basophils (%) (Auto) 1 % (0-3) 1 % (0-3) Neutrophils # (Auto) 32.4 x10^3/uL (1.8-7.7) 33.0 x10^3/uL (1.8-7.7) Lymphocytes # (Auto) 1.6 x10^3/uL (1.0-4.8) 1.5 x10^3/uL (1.0-4.8) Monocytes # (Auto) 1.4 x10^3/uL (0.0-1.1) 1.6 x10^3/uL (0.0-1.1) Eosinophils # (Auto) 0.5 x10^3/uL (0.0-0.7) 0.4 x10^3/uL (0.0-0.7) Basophils # (Auto) 0.3 x10^3/uL (0.0-0.2) 0.2 x10^3/uL (0.0-0.2) Segmented Neutrophils % 61 % (35-66) 86 % (35-66) Band Neutrophils % 27 % (0-9) 8 % (0-9) Lymphocytes % 6 % (24-48) 3 % (24-48) Atypical Lymphocytes % (Manual) 1 % (0-0) Monocytes % 5 % (0-10) 3 % (0-10) Toxic Granulation Slight Toxic Vacuolation Mod Dohle Bodies Present Platelet Estimate Adequate (ADEQUATE) Adequate (ADEQUATE) Large Platelets Mod Activated Partial Thromboplast Time 36 SEC (24-38) D-Dimer (Anna) 10.40 ug/mlFEU (0.00-0.50) Sodium Level 126 mmol/L (136-145) 124 mmol/L (136-145) Potassium Level 5.3 mmol/L (3.5-5.1) 5.7 mmol/L (3.5-5.1) Chloride Level 92 mmol/L (98-107) 93 mmol/L (98-107) Carbon Dioxide Level 18 mmol/L (21-32) 17 mmol/L (21-32) Anion Gap 16 (6-14) 14 (6-14) Blood Urea Nitrogen 49 mg/dL (8-26) 56 mg/dL (8-26) Creatinine 6.1 mg/dL (0.7-1.3) 6.8 mg/dL (0.7-1.3) Estimated GFR (Cockcroft-Gault) 13.6 12.0 BUN/Creatinine Ratio 8 (6-20) Glucose Level 99 mg/dL (70-99) 121 mg/dL (70-99) Uric Acid 13.4 mg/dL (3.5-7.2) Calcium Level 5.9 mg/dL (8.5-10.1) 5.5 mg/dL (8.5-10.1) Phosphorus Level 9.4 mg/dL (2.6-4.7) Magnesium Level 2.5 mg/dL (1.8-2.4) Total Bilirubin 1.1 mg/dL (0.2-1.0) Aspartate Amino Transf (AST/SGOT) 2647 U/L (15-37) Alanine Aminotransferase (ALT/SGPT) 395 U/L (16-63) Alkaline Phosphatase 94 U/L (46-116) Troponin I High Sensitivity 383 ng/L (4-75) 390 ng/L (4-75) 324 ng/L (4-75) GC-Zzy-H-Type Natriuretic Peptide 1502 pg/mL (0-124) Total Protein 6.7 g/dL (6.4-8.2) Albumin 2.5 g/dL (3.4-5.0) Albumin/Globulin Ratio 0.6 (1.0-1.7) Thyroid Stimulating Hormone (TSH) 1.854 uIU/mL (0.358-3.74) SARS-CoV-2 Antigen (Rapid) Negative (NEGATIVE) Ionized Calcium 0.61 mmol/L (1.13-1.32) Hepatitis A IgM Antibody Nonreactive (Nonreactive) Hepatitis B Surface Antigen Nonreactive (Nonreactive) Hepatitis B Core IgM Antibody Nonreactive (Nonreactive) Hepatitis C IgG Antibody Nonreactive (Nonreactive) Creatine Kinase > 403041 U/L (39-308) Test 08/08/21 06:00 Activated Partial Thromboplast Time 43 SEC (24-38) Laboratory Tests Test 08/07/21 20:08 08/07/21 21:00 08/07/21 23:46 08/08/21 05:30 White Blood Count 36.1 x10^3/uL (4.0-11.0) 36.7 x10^3/uL (4.0-11.0) Red Blood Count 6.15 x10^6/uL (4.30-5.70) 5.64 x10^6/uL (4.30-5.70) Hemoglobin 16.3 g/dL (13.0-17.5) 14.8 g/dL (13.0-17.5) Hematocrit 49.3 % (39.0-53.0) 45.5 % (39.0-53.0) Mean Corpuscular Volume 80 fL (79-100) 81 fL (79-100) Mean Corpuscular Hemoglobin 27 pg (25-35) 26 pg (25-35) Mean Corpuscular Hemoglobin Concent 33 g/dL (31-37) 33 g/dL (31-37) Red Cell Distribution Width 16.3 % (11.5-14.5) 16.6 % (11.5-14.5) Platelet Count 243 x10^3/uL (140-400) 224 x10^3/uL (140-400) Neutrophils (%) (Auto) 90 % (31-73) 90 % (31-73) Lymphocytes (%) (Auto) 4 % (24-48) 4 % (24-48) Monocytes (%) (Auto) 4 % (0-9) 4 % (0-9) Eosinophils (%) (Auto) 1 % (0-3) 1 % (0-3) Basophils (%) (Auto) 1 % (0-3) 1 % (0-3) Neutrophils # (Auto) 32.4 x10^3/uL (1.8-7.7) 33.0 x10^3/uL (1.8-7.7) Lymphocytes # (Auto) 1.6 x10^3/uL (1.0-4.8) 1.5 x10^3/uL (1.0-4.8) Monocytes # (Auto) 1.4 x10^3/uL (0.0-1.1) 1.6 x10^3/uL (0.0-1.1) Eosinophils # (Auto) 0.5 x10^3/uL (0.0-0.7) 0.4 x10^3/uL (0.0-0.7) Basophils # (Auto) 0.3 x10^3/uL (0.0-0.2) 0.2 x10^3/uL (0.0-0.2) Segmented Neutrophils % 61 % (35-66) 86 % (35-66) Band Neutrophils % 27 % (0-9) 8 % (0-9) Lymphocytes % 6 % (24-48) 3 % (24-48) Atypical Lymphocytes % (Manual) 1 % (0-0) Monocytes % 5 % (0-10) 3 % (0-10) Toxic Granulation Slight Toxic Vacuolation Mod Dohle Bodies Present Platelet Estimate Adequate (ADEQUATE) Adequate (ADEQUATE) Large Platelets Mod Activated Partial Thromboplast Time 36 SEC (24-38) D-Dimer (Anna) 10.40 ug/mlFEU (0.00-0.50) Sodium Level 126 mmol/L (136-145) 124 mmol/L (136-145) Potassium Level 5.3 mmol/L (3.5-5.1) 5.7 mmol/L (3.5-5.1) Chloride Level 92 mmol/L (98-107) 93 mmol/L (98-107) Carbon Dioxide Level 18 mmol/L (21-32) 17 mmol/L (21-32) Anion Gap 16 (6-14) 14 (6-14) Blood Urea Nitrogen 49 mg/dL (8-26) 56 mg/dL (8-26) Creatinine 6.1 mg/dL (0.7-1.3) 6.8 mg/dL (0.7-1.3) Estimated GFR (Cockcroft-Gault) 13.6 12.0 BUN/Creatinine Ratio 8 (6-20) Glucose Level 99 mg/dL (70-99) 121 mg/dL (70-99) Uric Acid 13.4 mg/dL (3.5-7.2) Calcium Level 5.9 mg/dL (8.5-10.1) 5.5 mg/dL (8.5-10.1) Phosphorus Level 9.4 mg/dL (2.6-4.7) Magnesium Level 2.5 mg/dL (1.8-2.4) Total Bilirubin 1.1 mg/dL (0.2-1.0) Aspartate Amino Transf (AST/SGOT) 2647 U/L (15-37) Alanine Aminotransferase (ALT/SGPT) 395 U/L (16-63) Alkaline Phosphatase 94 U/L (46-116) Troponin I High Sensitivity 383 ng/L (4-75) 390 ng/L (4-75) 324 ng/L (4-75) XP-Ffb-H-Type Natriuretic Peptide 1502 pg/mL (0-124) Total Protein 6.7 g/dL (6.4-8.2) Albumin 2.5 g/dL (3.4-5.0) Albumin/Globulin Ratio 0.6 (1.0-1.7) Thyroid Stimulating Hormone (TSH) 1.854 uIU/mL (0.358-3.74) SARS-CoV-2 Antigen (Rapid) Negative (NEGATIVE) Ionized Calcium 0.61 mmol/L (1.13-1.32) Hepatitis A IgM Antibody Nonreactive (Nonreactive) Hepatitis B Surface Antigen Nonreactive (Nonreactive) Hepatitis B Core IgM Antibody Nonreactive (Nonreactive) Hepatitis C IgG Antibody Nonreactive (Nonreactive) Creatine Kinase > 696467 U/L (39-308) Test 08/08/21 06:00 Activated Partial Thromboplast Time 43 SEC (24-38) Review All relevant outside records, renal labs, imaging studies, telemetry/EKG's were reviewed. Images Images FINDINGS: The cardiomediastinal silhouette and pulmonary vessels are within normal limits. Subtle bibasilar airspace disease. No pleural effusion IMPRESSION: Subtle bibasilar airspace disease may relate to atelectasis or developing infectious process. CHRISTIANE SALEH MD Aug 08, 2021 11:07
[2021-08-08] MEDS: HEPARIN 25,000UTS/250ML PREMIX 250 ML IV PRN ×2 (11:10→23:42)
[2021-08-08 11:28] LABS: CLARITY,URINE TURBID; COLOR,URINE RED; PH,URINE 5.5 (<5.0-8.0); PROTEIN,URINE >=300 mg/dL (NEG-TRACE)
[2021-08-08] MEDS ORDERED: ONDANSETRON PF 4 MG/2 ML VIAL. IVP PRN (11:30)
[2021-08-08] MEDS ORDERED: DOCUSATE SODIUM 100 MG CAPSULE. PO PRN (11:30)
[2021-08-08] MEDS ORDERED: SENNOSIDES 8.6 MG TABLET PO PRN (11:30)
[2021-08-08] MEDS ORDERED: cefTRIAXone IV Push 1 GM VIAL. IVP SCH (11:30)
[2021-08-08] MEDS ORDERED: PROCHLORPERAZINE 10 MG/2 ML VIAL. IV PRN (11:30)
[2021-08-08] MEDS ORDERED: DEXTROSE 50% 25 GM / 50ML DISP.SYRIN. IV PRN (11:30)
[2021-08-08] MEDS ORDERED: ACETAMINOPHEN 325 MG TABLET. PO PRN (11:30)
[2021-08-08 11:43] LABS: BACTERIA,URINE FEW /HPF (0-FEW)
[2021-08-08] MEDS: FAMOTIDINE 20 MG/2 ML VIAL IVP SCH (11:43)
[2021-08-08 11:44] LABS: GRANULAR CASTS,URINE OCCASIONAL /HPF; RBC CASTS,URINE FEW /HPF
[2021-08-08] MEDS: cefTRIAXone IV Push 2 GM VIAL. IVP SCH (11:44)
[2021-08-08] MEDS: CALCIUM GLUCONATE 1,000 MG/10 ML VIAL. IVP SCH ×3 (11:51→15:33)
[2021-08-08] MEDS ORDERED: LIDOCAINE WITH 8.4% SOD BICARB 3 ML DISP.SYRIN. ONE (12:10)
[2021-08-08] MEDS ORDERED: LIDOCAINE WITH 8.4% SOD BICARB 3 ML DISP.SYRIN. INJ ONE (13:00)
--- NOTE | 2021-08-08 13:09 | PDOC2 ---
CONSULT Date of Consult Date of Consult DATE: 08/08/21 TIME: 13:01 Reason for Consult Reason for Consult: Acute heart failure. Elevated troponin Referring Physician Referring Physician: Dr. Roberts Identification/Chief Complaint Chief Complaint Increasing shortness of breath Source Source: Chart review, Patient History of Present Illness Reason for Visit: The patient is a 26-year-old incarcerated male who reports of history of 3 to 4 days of increasing shortness of breath associated with occasional episodes of mild chest pressure. He has reported history of a possible cardiomyopathy as well as lower extremity DVTs and super morbid obesity with a weight of 285 kg. His initial chest x-ray showed slight bibasilar airway disease. His EKG showed a sinus tachycardia with mild nonspecific ST-T wave changes. However lab testing is showing a white count of 36.7, potassium 5.7, creatinine 6.8, calcium of 5.5, CK of greater than 100,000, a D-dimer of 10.40 and a peak troponin of 390. He has been placed on IV heparin and antibiotics. He is being evaluated by the renal service for urgent dialysis. This morning he reports his shortness of breath is somewhat improved but is still present. His chest discomfort has largely resolved. He is unclear on his heart cardiac history but may have a history of a cardiomyopathy. Past Medical History Cardiovascular: AFIB, CHF, HTN, Other (Possible cardiomyopathy, DVTs) Pulmonary: Other (Sleep apnea) Musculoskeletal: low back pain Past Surgical History Past Surgical History: No pertinent history Family History Family History: Heart Disease, Hypertension Social History Quit Current Problem List Problem List Problems Medical Problems: (1) Acute renal failure Status: Acute (2) Hyperkalemia Status: Acute (3) Hyperuricemia Status: Acute (4) Hypocalcemia Status: Acute (5) Hyponatremia Status: Acute (6) Morbid obesity Status: Acute (7) NSTEMI (non-ST elevated myocardial infarction) Status: Acute (8) Transaminitis Status: Acute Current Medications Current Medications Current Medications Heparin Sodium (Porcine) (Heparin Sodium) 10,000 unit 1X ONCE IV Last administered on 08/07/21at 23:48; Start 08/07/21 at 21:00; Stop 08/07/21 at 21:01; Status DC Heparin Sodium/ Dextrose 250 ml @ 20 mls/hr CONT PRN IV PER PROTOCOL; Start 08/07/21 at 19:00; Status Cancel Heparin Sodium (Porcine) (Heparin Sodium) 7,500 unit PRN Q6HRS PRN IV FOR UFH LEVEL LESS THAN 0.2; Start 08/07/21 at 19:00; Stop 08/07/21 at 22:34; Status DC Heparin Sodium (Porcine) (Heparin Sodium) 3,750 unit PRN Q6HRS PRN IV FOR UFH LEVEL 0.2 - 0.29; Start 08/07/21 at 19:00; Stop 08/07/21 at 22:33; Status DC Ceftriaxone Sodium (Rocephin) 2 gm 1X ONCE IVP Last administered on 08/07/21at 22:11; Start 08/07/21 at 21:15; Stop 08/07/21 at 21:16; Status DC Calcium Gluconate (Calcium Gluconate) 1,000 mg 1X ONCE IVP Last administered on 08/08/21at 02:29; Start 08/07/21 at 21:15; Stop 08/07/21 at 21:16; Status DC Sodium Chloride 500 ml @ 500 mls/hr 1X ONCE IV Last administered on 08/07/21at 21:15; Start 08/07/21 at 21:15; Stop 08/07/21 at 22:14; Status DC Aspirin (Aspirin Chewable) 324 mg 1X ONCE PO Last administered on 08/07/21at 22:12; Start 08/07/21 at 21:30; Stop 08/07/21 at 21:31; Status DC Sodium Bicarbonate 150 meq/Dextrose 1,150 ml @ 100 mls/hr [id number] ONCE IV Last administered on 08/07/21at 23:51; Start 08/07/21 at 22:00; Stop 08/08/21 at 09:29; Status DC Ondansetron HCl (Zofran) 4 mg STK-MED ONCE .ROUTE ; Start 08/07/21 at 22:20; Stop 08/07/21 at 22:21; Status DC Ondansetron HCl (Zofran) 4 mg 1X ONCE IVP Last administered on 08/07/21at 22:36; Start 08/07/21 at 22:30; Stop 08/07/21 at 22:31; Status DC Heparin Sodium (Porcine) (Heparin Sodium) 4,300 unit PRN Q6HRS PRN IV FOR UFH LEVEL 0.2 - 0.29; Start 08/07/21 at 22:33; Status Cancel Heparin Sodium (Porcine) (Heparin Sodium) 8,600 unit PRN Q6HRS PRN IV FOR UFH LEVEL LESS THAN 0.2; Start 08/07/21 at 22:45; Status Cancel Heparin Sodium/ Dextrose 250 ml @ 20 mls/hr CONT PRN IV PER PROTOCOL Last administered on 08/08/21at 11:10; Start 08/07/21 at 23:00 Heparin Sodium (Porcine) (Heparin Sodium) 8,600 unit PRN Q6HRS PRN IV FOR PTT < 40; Start 08/07/21 at 23:00 Heparin Sodium (Porcine) (Heparin Sodium) 2,000 unit PRN Q6HRS PRN IV FOR PTT 40 - 58 Last administered on 08/08/21at 08:28; Start 08/07/21 at 23:00 Heparin Sodium (Porcine) (Heparin Sodium) 1,000 unit PRN Q6HRS PRN IV FOR PTT 59 - 78; Start 08/07/21 at 23:00 Doxycycline Hyclate (Vibra-Tab) 100 mg BID PO ; Start 08/08/21 at 09:00; Stop 08/08/21 at 04:41; Status DC Doxycycline Hyclate (Vibra-Tab) 100 mg BID PO Last administered on 08/08/21at 11:07; Start 08/08/21 at 05:00 Calcium Gluconate 2000 mg/Sodium Chloride 120 ml @ 220 mls/hr 1X ONCE IV Last administered on 08/08/21at 06:30; Start 08/08/21 at 06:30; Stop 08/08/21 at 07:02; Status DC Lactobacillus Rhamnosus (Culturelle) 1 cap BID PO Last administered on 08/08/21at 08:38; Start 08/08/21 at 09:00 Sodium Bicarbonate (Sodium Bicarb Adult 8.4% Syr) 150 meq 1X ONCE IV Last administered on 08/08/21at 08:27; Start 08/08/21 at 07:15; Stop 08/08/21 at 07:19; Status DC Ceftriaxone Sodium (Rocephin) 1 gm Q24H IVP ; Start 08/08/21 at 11:30; Status UNV Ceftriaxone Sodium (Rocephin) 2 gm Q24H IVP Last administered on 08/08/21at 11:44; Start 08/08/21 at 12:00 Sennosides (Senna) 17.2 mg PRN BID PRN PO CONSTIPATION; Start 08/08/21 at 11:30 Docusate Sodium (Colace) 100 mg PRN DAILY PRN PO HARD STOOLS; Start 08/08/21 at 11:30 Ondansetron HCl (Zofran) 4 mg PRN Q6HRS PRN IVP NAUSEA/VOMITING; Start 08/08/21 at 11:30 Dextrose (Dextrose 50%-Water Syringe) 12.5 gm PRN Q15MIN PRN IV SEE COMMENTS; Start 08/08/21 at 11:30 Acetaminophen (Tylenol) 650 mg PRN Q4HRS PRN PO TEMP OVER 100.4F OR MILD PAIN; Start 08/08/21 at 11:30 Lorazepam (Ativan) 0.5 mg PRN Q6HRS PRN PO ANXIETY / AGITATION; Start 08/08/21 at 11:30 Lorazepam (Ativan Inj) 0.25 mg PRN Q4HRS PRN IV ANXIETY / AGITATION; Start 08/08/21 at 11:30 Famotidine (Pepcid Vial) 20 mg DAILY IVP Last administered on 08/08/21at 11:43; Start 08/08/21 at 12:00 Prochlorperazine Edisylate (Compazine) 10 mg PRN Q6HRS PRN IV NAUSEA/VOMITING, 2ND CHOICE; Start 08/08/21 at 11:30 Zolpidem Tartrate (Ambien) 2.5 mg PRN QHS PRN PO INSOMNIA; Start 08/08/21 at 11:30 Calcium Gluconate (Calcium Gluconate) 1,000 mg Q2H IVP Last administered on 08/08/21at 11:51; Start 08/08/21 at 11:30; Stop 08/08/21 at 15:31 Lidocaine HCl (Buffered Lidocaine 1%) 3 ml STK-MED ONCE .ROUTE ; Start 08/08/21 at 12:10; Stop 08/08/21 at 12:11; Status DC Lidocaine HCl (Buffered Lidocaine 1%) 6 ml 1X ONCE INJ ; Start 08/08/21 at 13:00; Stop 08/08/21 at 13:01 Active Scripts Active Reported Xarelto (Rivaroxaban) 20 Mg Tablet Unknown Dose PO DAILY 30 Days with food Allergies Allergies: Coded Allergies: Iodine and Iodide Containing Produc (Verified Allergy, Unknown, UNKNOWN, 08/07/21) amoxicillin (Verified Allergy, Unknown, UNKNOWN, 08/07/21) azithromycin (Verified Allergy, Unknown, UNKNOWN, 08/07/21) shellfish derived (Verified Allergy, Unknown, UNKNOWN, 08/07/21) ROS General: YES: Fatigue Respiratory: YES: Shortness of breath, SOB with excertion Cardiovascular: yes Chest Pain Physical Exam General: moderate distress HEENT: Atraumatic Lungs: Other (Decreased breath sounds) Heart: Regular rate Abdomen: Normal bowel sounds Vitals VITALS Vital Signs Date Time Temp Pulse Resp B/P (MAP) Pulse Ox O2 Delivery O2 Flow Rate FiO2 08/08/21 12:00 Room Air 08/08/21 12:00 99.6 102 29 122/79 (93) 97 99.6 08/08/21 11:00 21.0 Labs Labs Laboratory Tests Test 08/07/21 20:08 08/07/21 21:00 08/07/21 23:46 08/08/21 05:30 White Blood Count 36.1 x10^3/uL (4.0-11.0) 36.7 x10^3/uL (4.0-11.0) Red Blood Count 6.15 x10^6/uL (4.30-5.70) 5.64 x10^6/uL (4.30-5.70) Hemoglobin 16.3 g/dL (13.0-17.5) 14.8 g/dL (13.0-17.5) Hematocrit 49.3 % (39.0-53.0) 45.5 % (39.0-53.0) Mean Corpuscular Volume 80 fL (79-100) 81 fL (79-100) Mean Corpuscular Hemoglobin 27 pg (25-35) 26 pg (25-35) Mean Corpuscular Hemoglobin Concent 33 g/dL (31-37) 33 g/dL (31-37) Red Cell Distribution Width 16.3 % (11.5-14.5) 16.6 % (11.5-14.5) Platelet Count 243 x10^3/uL (140-400) 224 x10^3/uL (140-400) Neutrophils (%) (Auto) 90 % (31-73) 90 % (31-73) Lymphocytes (%) (Auto) 4 % (24-48) 4 % (24-48) Monocytes (%) (Auto) 4 % (0-9) 4 % (0-9) Eosinophils (%) (Auto) 1 % (0-3) 1 % (0-3) Basophils (%) (Auto) 1 % (0-3) 1 % (0-3) Neutrophils # (Auto) 32.4 x10^3/uL (1.8-7.7) 33.0 x10^3/uL (1.8-7.7) Lymphocytes # (Auto) 1.6 x10^3/uL (1.0-4.8) 1.5 x10^3/uL (1.0-4.8) Monocytes # (Auto) 1.4 x10^3/uL (0.0-1.1) 1.6 x10^3/uL (0.0-1.1) Eosinophils # (Auto) 0.5 x10^3/uL (0.0-0.7) 0.4 x10^3/uL (0.0-0.7) Basophils # (Auto) 0.3 x10^3/uL (0.0-0.2) 0.2 x10^3/uL (0.0-0.2) Segmented Neutrophils % 61 % (35-66) 86 % (35-66) Band Neutrophils % 27 % (0-9) 8 % (0-9) Lymphocytes % 6 % (24-48) 3 % (24-48) Atypical Lymphocytes % (Manual) 1 % (0-0) Monocytes % 5 % (0-10) 3 % (0-10) Toxic Granulation Slight Toxic Vacuolation Mod Dohle Bodies Present Platelet Estimate Adequate (ADEQUATE) Adequate (ADEQUATE) Large Platelets Mod Activated Partial Thromboplast Time 36 SEC (24-38) D-Dimer (Anna) 10.40 ug/mlFEU (0.00-0.50) Sodium Level 126 mmol/L (136-145) 124 mmol/L (136-145) Potassium Level 5.3 mmol/L (3.5-5.1) 5.7 mmol/L (3.5-5.1) Chloride Level 92 mmol/L (98-107) 93 mmol/L (98-107) Carbon Dioxide Level 18 mmol/L (21-32) 17 mmol/L (21-32) Anion Gap 16 (6-14) 14 (6-14) Blood Urea Nitrogen 49 mg/dL (8-26) 56 mg/dL (8-26) Creatinine 6.1 mg/dL (0.7-1.3) 6.8 mg/dL (0.7-1.3) Estimated GFR (Cockcroft-Gault) 13.6 12.0 BUN/Creatinine Ratio 8 (6-20) Glucose Level 99 mg/dL (70-99) 121 mg/dL (70-99) Uric Acid 13.4 mg/dL (3.5-7.2) Calcium Level 5.9 mg/dL (8.5-10.1) 5.5 mg/dL (8.5-10.1) Phosphorus Level 9.4 mg/dL (2.6-4.7) Magnesium Level 2.5 mg/dL (1.8-2.4) Total Bilirubin 1.1 mg/dL (0.2-1.0) Aspartate Amino Transf (AST/SGOT) 2647 U/L (15-37) Alanine Aminotransferase (ALT/SGPT) 395 U/L (16-63) Alkaline Phosphatase 94 U/L (46-116) Troponin I High Sensitivity 383 ng/L (4-75) 390 ng/L (4-75) 324 ng/L (4-75) EI-Hoc-G-Type Natriuretic Peptide 1502 pg/mL (0-124) Total Protein 6.7 g/dL (6.4-8.2) Albumin 2.5 g/dL (3.4-5.0) Albumin/Globulin Ratio 0.6 (1.0-1.7) Thyroid Stimulating Hormone (TSH) 1.854 uIU/mL (0.358-3.74) SARS-CoV-2 RNA (ESTEPHANIE) Negative (Negative) SARS-CoV-2 Antigen (Rapid) Negative (NEGATIVE) Ionized Calcium 0.61 mmol/L (1.13-1.32) Hepatitis A IgM Antibody Nonreactive (Nonreactive) Hepatitis B Surface Antigen Nonreactive (Nonreactive) Hepatitis B Core IgM Antibody Nonreactive (Nonreactive) Hepatitis C IgG Antibody Nonreactive (Nonreactive) Creatine Kinase > 800580 U/L (39-308) Test 08/08/21 06:00 08/08/21 07:30 Activated Partial Thromboplast Time 43 SEC (24-38) Urine Collection Type Unknown Urine Color Red Urine Clarity Turbid Urine pH 5.5 (<5.0-8.0) Urine Specific [place] 1.025 (1.000-1.030) Urine Protein >=300 mg/dL (NEG-TRACE) Urine Glucose (UA) mg/dL (NEG) Urine Ketones (Stick) mg/dL (NEG) Urine Blood Large (NEG) Urine Nitrite (NEG) Urine Bilirubin (NEG) Urine Urobilinogen Dipstick mg/dL (0.2 mg/dL) Urine Leukocyte Esterase (NEG) Urine RBC 11-20 /HPF (0-2) Urine WBC 5-10 /HPF (0-4) Urine Squamous Epithelial Cells Occ /LPF Urine Transitional Epithelial Cells Occ /LPF Urine Renal Epithelial Cells Occ /LPF Urine Bacteria Few /HPF (0-FEW) Urine Granular Casts Occasional /HPF Urine Red Blood Cell Casts Few /HPF Urine Mucus Slight /LPF Laboratory Tests Test 08/07/21 20:08 08/07/21 21:00 08/07/21 23:46 08/08/21 05:30 White Blood Count 36.1 x10^3/uL (4.0-11.0) 36.7 x10^3/uL (4.0-11.0) Red Blood Count 6.15 x10^6/uL (4.30-5.70) 5.64 x10^6/uL (4.30-5.70) Hemoglobin 16.3 g/dL (13.0-17.5) 14.8 g/dL (13.0-17.5) Hematocrit 49.3 % (39.0-53.0) 45.5 % (39.0-53.0) Mean Corpuscular Volume 80 fL (79-100) 81 fL (79-100) Mean Corpuscular Hemoglobin 27 pg (25-35) 26 pg (25-35) Mean Corpuscular Hemoglobin Concent 33 g/dL (31-37) 33 g/dL (31-37) Red Cell Distribution Width 16.3 % (11.5-14.5) 16.6 % (11.5-14.5) Platelet Count 243 x10^3/uL (140-400) 224 x10^3/uL (140-400) Neutrophils (%) (Auto) 90 % (31-73) 90 % (31-73) Lymphocytes (%) (Auto) 4 % (24-48) 4 % (24-48) Monocytes (%) (Auto) 4 % (0-9) 4 % (0-9) Eosinophils (%) (Auto) 1 % (0-3) 1 % (0-3) Basophils (%) (Auto) 1 % (0-3) 1 % (0-3) Neutrophils # (Auto) 32.4 x10^3/uL (1.8-7.7) 33.0 x10^3/uL (1.8-7.7) Lymphocytes # (Auto) 1.6 x10^3/uL (1.0-4.8) 1.5 x10^3/uL (1.0-4.8) Monocytes # (Auto) 1.4 x10^3/uL (0.0-1.1) 1.6 x10^3/uL (0.0-1.1) Eosinophils # (Auto) 0.5 x10^3/uL (0.0-0.7) 0.4 x10^3/uL (0.0-0.7) Basophils # (Auto) 0.3 x10^3/uL (0.0-0.2) 0.2 x10^3/uL (0.0-0.2) Segmented Neutrophils % 61 % (35-66) 86 % (35-66) Band Neutrophils % 27 % (0-9) 8 % (0-9) Lymphocytes % 6 % (24-48) 3 % (24-48) Atypical Lymphocytes % (Manual) 1 % (0-0) Monocytes % 5 % (0-10) 3 % (0-10) Toxic Granulation Slight Toxic Vacuolation Mod Dohle Bodies Present Platelet Estimate Adequate (ADEQUATE) Adequate (ADEQUATE) Large Platelets Mod Activated Partial Thromboplast Time 36 SEC (24-38) D-Dimer (Anna) 10.40 ug/mlFEU (0.00-0.50) Sodium Level 126 mmol/L (136-145) 124 mmol/L (136-145) Potassium Level 5.3 mmol/L (3.5-5.1) 5.7 mmol/L (3.5-5.1) Chloride Level 92 mmol/L (98-107) 93 mmol/L (98-107) Carbon Dioxide Level 18 mmol/L (21-32) 17 mmol/L (21-32) Anion Gap 16 (6-14) 14 (6-14) Blood Urea Nitrogen 49 mg/dL (8-26) 56 mg/dL (8-26) Creatinine 6.1 mg/dL (0.7-1.3) 6.8 mg/dL (0.7-1.3) Estimated GFR (Cockcroft-Gault) 13.6 12.0 BUN/Creatinine Ratio 8 (6-20) Glucose Level 99 mg/dL (70-99) 121 mg/dL (70-99) Uric Acid 13.4 mg/dL (3.5-7.2) Calcium Level 5.9 mg/dL (8.5-10.1) 5.5 mg/dL (8.5-10.1) Phosphorus Level 9.4 mg/dL (2.6-4.7) Magnesium Level 2.5 mg/dL (1.8-2.4) Total Bilirubin 1.1 mg/dL (0.2-1.0) Aspartate Amino Transf (AST/SGOT) 2647 U/L (15-37) Alanine Aminotransferase (ALT/SGPT) 395 U/L (16-63) Alkaline Phosphatase 94 U/L (46-116) Troponin I High Sensitivity 383 ng/L (4-75) 390 ng/L (4-75) 324 ng/L (4-75) VV-Vpv-X-Type Natriuretic Peptide 1502 pg/mL (0-124) Total Protein 6.7 g/dL (6.4-8.2) Albumin 2.5 g/dL (3.4-5.0) Albumin/Globulin Ratio 0.6 (1.0-1.7) Thyroid Stimulating Hormone (TSH) 1.854 uIU/mL (0.358-3.74) SARS-CoV-2 RNA (ESTEPHANIE) Negative (Negative) SARS-CoV-2 Antigen (Rapid) Negative (NEGATIVE) Ionized Calcium 0.61 mmol/L (1.13-1.32) Hepatitis A IgM Antibody Nonreactive (Nonreactive) Hepatitis B Surface Antigen Nonreactive (Nonreactive) Hepatitis B Core IgM Antibody Nonreactive (Nonreactive) Hepatitis C IgG Antibody Nonreactive (Nonreactive) Creatine Kinase > 718288 U/L (39-308) Test 08/08/21 06:00 08/08/21 07:30 Activated Partial Thromboplast Time 43 SEC (24-38) Urine Collection Type Unknown Urine Color Red Urine Clarity Turbid Urine pH 5.5 (<5.0-8.0) Urine Specific [place] 1.025 (1.000-1.030) Urine Protein >=300 mg/dL (NEG-TRACE) Urine Glucose (UA) mg/dL (NEG) Urine Ketones (Stick) mg/dL (NEG) Urine Blood Large (NEG) Urine Nitrite (NEG) Urine Bilirubin (NEG) Urine Urobilinogen Dipstick mg/dL (0.2 mg/dL) Urine Leukocyte Esterase (NEG) Urine RBC 11-20 /HPF (0-2) Urine WBC 5-10 /HPF (0-4) Urine Squamous Epithelial Cells Occ /LPF Urine Transitional Epithelial Cells Occ /LPF Urine Renal Epithelial Cells Occ /LPF Urine Bacteria Few /HPF (0-FEW) Urine Granular Casts Occasional /HPF Urine Red Blood Cell Casts Few /HPF Urine Mucus Slight /LPF Images Images Chest x-ray with mild bibasilar airway disease. Assessment/Plan Assessment/Plan 1. Acute renal failure. Patient is being evaluated by the renal service and probable hemodialysis will be performed today. 2. Acute heart failure. Fluid management as above. Possible history of a c ardiomyopathy. We will check an echo and attempt to obtain further old records although the patient states he has not been hospitalized in more than 2 years. 3. History of bilateral lower extremity DVTs. Apparently previously treated with anticoagulation although he is unclear on his anticoagulation status. We will continue treatment with IV heparin. 4. Occasional episodes of chest pain with a mildly elevated troponin of 390. EKG shows no acute infarct. We will continue heparin as above. Echocardiogram. Continue baseline medications. 5. Possible history of paroxysmal atrial fibrillation. We will continue on monitoring. 6. Sleep apnea. 7. Super morbid obesity. KATY WILLARD MD Aug 08, 2021 13:09
--- NOTE | 2021-08-08 13:20 | NUR ---
Cannot put pneumatic compression deivce on patient's both legs. Patient both lower extremities are swollen. Patient on heparin drip for DVT prophylaxis.
--- NOTE | 2021-08-08 13:22 | RAD ---
EXAM: CHEST 1 VIEW History: Line placement COMPARISON: 08/07/2021 TECHNIQUE: Single portable radiograph of the chest FINDINGS: Mild cardiomegaly. Right internal jugular line identified with the tip projecting in the S VC region. Mild prominent bilateral lung markings likely mild congestive changes. Mild bibasilar lung atelectasis. IMPRESSION: Right internal jugular line placement. No pneumothorax. Electronically signed by: Louis Mohr MD (08/08/2021 1:19 PM) [id number]
[2021-08-08] MEDS ORDERED: IV NORMAL SALINE 1000ML BAG 1,000 ML IV PRN (14:45)
[2021-08-08] MEDS ORDERED: DIALYSIS PATIENT. MC PRN ×2 (14:45)
[2021-08-08] MEDS ORDERED: ALBUMIN HUMAN 25% 200 ML IV PRN (14:45)
[2021-08-08] MEDS ORDERED: CARV25TA2 PO (14:46)
[2021-08-08] MEDS ORDERED: TORS20TA2 PO (14:46)
[2021-08-08] MEDS ORDERED: LOSA-73 PO (14:46)
[2021-08-08] MEDS ORDERED: AMLO-187 PO (14:46)
[2021-08-08] MEDS ORDERED: ALBU2.5V8 INH (14:46)
[2021-08-08] MEDS ORDERED: SPIR100T4 PO (14:46)
[2021-08-08] MEDS ORDERED: SULF1TAB24 PO (14:46)
[2021-08-08] MEDS ORDERED: POTA20TA4 PO (14:46)
[2021-08-08] MEDS ORDERED: BUSP10TA PO (14:46)
--- NOTE | 2021-08-08 15:56 | CONS ---
DATE OF CONSULTATION: 08/08/2021 HISTORY OF PRESENT ILLNESS: I was asked to see this 26-year-old gentleman for acute respiratory failure. He is currently on CPAP of 18, FiO2 of 21% and he has a full face mask on, so it is difficult to obtain information from him. He is incarcerated. For the past few days, he has had increased shortness of breath, chest pain, and apparently has had increased lower extremity edema. His Lasix dose was increased. He has been weak. He has a history of CHF, probable cardiomyopathy, DVT and obstructive sleep apnea-hypopnea syndrome. He is currently on CPAP. He denies cough. The patient was found to have electrolyte abnormality and low calcium and calcium was given. Nephrology and Cardiology are consulted. He had 7 mL urine output. PAST MEDICAL HISTORY: CHF, on Xarelto, but has not showed when the last dose was; obstructive sleep apnea-hypopnea syndrome, CHF, possible atrial fibrillation, possible cardiomyopathy. ALLERGIES: IODINE, AMOXICILLIN, AZITHROMYCIN, SHELLFISH. MEDICATIONS: Currently he is on heparin drip, Pepcid, Rocephin and doxycycline. SOCIAL HISTORY: Ex-smoker, quit smoking a few years ago. FAMILY HISTORY: Hypertension. REVIEW OF SYSTEMS: As mentioned as above, all other systems otherwise negative. PHYSICAL EXAMINATION: GENERAL: This is a morbidly obese gentleman with a BMI of 80.8. VITAL SIGNS: Heart rate 100, blood pressure 135/66, temperature 99.6, respiratory rate 24. He is on CPAP of 18, FiO2 of 21%. HEENT: Normocephalic, atraumatic. Pupils equal, round, reactive to light. He has a BiPAP mask on. NECK: Short, thick, no lymphadenopathy or thyromegaly. CARDIOVASCULAR: Distant heart sounds, regular rate and rhythm. CHEST: Inspection is normal. LUNGS: There are bilateral diminished breath sounds. ABDOMEN: Soft and obese. EXTREMITIES: There are chronic changes and edema. NEUROLOGIC: Alert and oriented. SKIN: Chronic changes. LABORATORY DATA: I reviewed the following lab data: Chest x-ray shows cardiomegaly, increased vascular marking, bibasilar infiltrate versus atelectasis. WBC 36.1, hemoglobin 16.3, platelet 243. On arrival last night, sodium 126, potassium 5.3, chloride 92, CO2 of 18, BUN 49, creatinine 6.1, calcium 5.9, albumin 2.5, total bilirubin 1.1, AST 2647, ALT 395. BNP 1502. CK more than 100,000. Troponin 383, repeat 390, repeat 324. COVID rapid test and RNA negative. Hepatitis A, B and C antibodies nonreactive. IMPRESSION: 1. Acute respiratory failure, multifactorial in etiology including acute kidney injury with volume overload, acute systolic versus diastolic congestive heart failure, pneumonia, rule out thromboembolic disease versus others. 2. Abnormal chest x-ray. 3. Acute kidney injury secondary to rhabdomyolysis. 4. Electrolyte abnormality. 5. Leukocytosis, rule out sepsis. 6. Obstructive sleep apnea-hypopnea syndrome. 7. History of deep venous thrombosis. 8. (?) paroxysmal atrial fibrillation. 9. (?) cardiomyopathy. 10. Ex-smoker. PLAN AND RECOMMENDATION: 1. Titrate FiO2 to keep O2 saturation 92%. 2. Continue CPAP p.r.n. during day, continuously at night. 3. Agree with antibiotic. Monitor liver function test while he is on doxycycline. 4. Follow up cultures. 5. Nephrology is consulted. He would require hemodialysis. 6. Cardiology is consulted. 7. Agree with heparin drip. 8. Pepcid for stress ulcer prophylaxis. 9. Start bronchodilator. 10. Monitor respiratory status very closely. 11. Full code. 12. Check procalcitonin and lactate and influenza A and B. 13. Elevate head of bed. 14. Lower extremity venous Doppler. 15. Monitor electrolyte and CK. 16. Monitor respiratory status very closely in ICU. 17. The findings and recommendations were discussed with Dr. Jones, admitting physician and RN. Thank you very much for allowing me to participate in care of this very nice gentleman. The patient is critically ill. This is critical care time 30 minutes without overlap. FREDERICK DR: Herlinda TID: [id number]
[2021-08-08] MEDS: IPRATROPIUM BROMIDE 0.5 MG/2.5 ML NEBU. NEB SCH (17:56)
[2021-08-08 18:23] LABS: INFLUENZA A PATIENT NEGATIVE (NEGATIVE); INFLUENZA B PATIENT NEGATIVE (NEGATIVE)
--- NOTE | 2021-08-08 23:42 | RAD ---
Bilateral Lower Extremity Venous Doppler Ultrasound History: Reason: le edema / Spl. Instructions: / History: Comparison: None Procedure: Color flow, duplex, spectral analysis and 2D images are obtained with and without compress ion in the area of the common femoral vein, superficial femoral vein - femoral vein junction, main fe moral vein (superficial femoral vein) and popliteal vein. Veins of the proximal calf are also imaged. Findings: The study is extremely limited due to the patient's large body habitus. The patient also had difficul ty tolerating the examination especially on the right. There is normal duplex flow, color flow and compressibility of all visualized vein segments. No evide nce of deep venous thrombus is present. Impression: No evidence of DVT. Electronically signed by: Vernon Soriano III, MD (08/08/2021 11:40 PM) [facility]
--- NOTE | 2021-08-08 23:43 | RAD ---
EXAM: RENAL ULTRASOUND CLINICAL HISTORY: Renal failure, dark urine COMPARISON: None available. TECHNIQUE: Ultrasound examination of the bilateral kidneys and urinary bladder was performed. FINDINGS: The kidneys and bladder could not be visualized due to large body habitus. There is a Castaneda in the ur inary bladder. IMPRESSION: Nondiagnostic examination due to large body habitus. Electronically signed by: Vernon Soriano III, MD (08/08/2021 11:41 PM) [facility]
[2021-08-09] VITALS (19 sets, daily range): BP systolic 101–185; BP diastolic 47–110
[2021-08-09] MEDS ORDERED: CALCIUM CARBONATE 500 MG TAB.CHEW PO PRN (01:30)
--- NOTE | 2021-08-09 01:47 | CONS ---
DATE OF CONSULTATION: 08/08/2021 REFERRING PHYSICIAN: Dr. Roberts. REASON FOR CONSULTATION: Leukocytosis. HISTORY OF PRESENT ILLNESS: A 26-year-old morbidly obese -[place] male with history of DVT, CHF, currently incarcerated at [place], was brought in to the ER with complaints of chest pain and shortness of breath, which started 3 days prior to admission. The patient stopped passing urine about 2 days per staff. Also had swelling of both lower extremities, right greater than left. Left has improved, right remains about the same. The patient had exposure to COVID at his work place, but his was reported negative per history. White count on presentation was 36.1, lymphocyte of 4, bands of 27, calcium of 5.9. Sodium 126, potassium of 5.3, chloride 92, bicarbonate 18, creatinine 6.1. AST 2647, ALT 395, CK greater than 100,000. Hepatitis profile negative. Rapid COVID negative. UA showed large blood, 5-10 wbc's. Chest x-ray showed subtle bibasilar airspace disease, atelectasis versus developing infectious process. The patient is on ceftriaxone and doxycycline. Legionella has been sent. ID consultation has been requested for antibiotic management. The patient is awaiting to be started on dialysis soon. T-max was 100.0, currently he is ____. He has not made any urine for the last 2 days. Currently, has Castaneda in place with dark urine. He denies any fevers, chills, nausea, vomiting, diarrhea, sore throat, headache, abdominal pain, diarrhea, burning while passing urine, or hematuria. PAST MEDICAL HISTORY: History of deep venous thrombosis, CHF, obesity. ALLERGIES: TO IODINE AND AMOXICILLIN, UNKNOWN REACTION A CHILD. AZITHROMYCIN, UNKNOWN REACTION A CHILD. He states his mother told him that he is allergic to these two antibiotics. He does not recall taking AUGMENTIN, SHELLFISH. FAMILY HISTORY: As per HPI. SOCIAL HISTORY: Denies smoking, ETOH, or illicit drug use. Currently incarcerated. CURRENT MEDICATIONS: Ceftriaxone and doxycycline. Other medications reviewed in medication list. REVIEW OF SYSTEMS: Limited, but negative for above in HPI. PHYSICAL EXAMINATION: VITAL SIGNS: Temperature 99.4, pulse 107, respiratory rate 30, blood pressure 136/74, oxygen saturation 95%. GENERAL: Morbidly obese, alert, oriented, well-developed, well-nourished male, in no acute distress, nontoxic appearing. HEENT: Normocephalic, atraumatic. Anicteric. No thrush. Oral mucosa moist. NECK: Supple. Short neck. LUNGS: Clear bilaterally. HEART: S1, S2. No murmurs. ABDOMEN: Soft, nontender, nondistended. No rebound, no guarding. GENITOURINARY: Castaneda in place with concentrated urine. EXTREMITIES: Bilateral lymphedema. Right lower extremity erythematous, mild tenderness, dry scabs present. NEUROLOGIC: Alert and oriented x3, grossly nonfocal. PSYCHIATRIC: Calm and cooperative. LABORATORY DATA: UA shows large blood, 5-10 wbc's. WBC 36.7, hemoglobin 14.8, hematocrit 45.5, platelets 224. Sodium 126, potassium 5.3, chloride 92, bicarbonate 18, BUN 49, creatinine 6.1, calcium is 5.9, total bilirubin 1.1, AST 2647, ALT 395, alkaline phosphatase 94. CK greater than 100,000. Albumin 2.1. SARS COVID rapid antigen negative. Hepatitis B negative. IMAGING: Diagnostic chest x-ray revealed subtle bibasilar airspace disease, may relate to atelectasis or developing infectious process. IMPRESSION: 1. Leukocytosis. 2. Low-grade febrile illness. 3. Acute kidney injury. 4. Hyperkalemia. 5. Hyponatremia. 6. Hypocalcemia. 7. Hypouricemia. 8. Severe rhabdomyolysis. 9. Bilateral lower extremity edema, right greater than left. 10. Right lower extremity cellulitis. 11. Morbid obesity. 12. History of congestive heart failure. 13. History of deep venous thrombosis. 14. History of ALLERGIES TO AMOXICILLIN AND AZITHROMYCIN. 15. Non-STEMI. 16. Metabolic acidosis. 17. Abnormal LFTs, likely from rhabdomyolysis. RECOMMENDATIONS: 1. Continue ceftriaxone and doxycycline. 2. Follow up labs and cultures. 3. Continue supportive care. 4. The patient is awaiting dialysis today. Thank you for allowing me to participate in this patient's care. If you have any questions, do not hesitate to contact me. Discussed with nursing staff. CCT 35 minutes. BRUNO/FLAKITA/CAMILLA SYLVESTER: Yolis TID: [id number]
[2021-08-09] MEDS: HEPARIN for IV BOLUS 10,000 UNIT/10 ML VIAL. IV PRN ×3 (04:44→18:47)
--- NOTE | 2021-08-09 06:02 | PDOC ---
PULMONARY PROGRESS NOTES DATE: 08/09/21 TIME: 05:58 Subjective on cpap removed on RA sob better is tired no cp no uo Vitals Vital Signs Date Time Temp Pulse Resp B/P (MAP) Pulse Ox O2 Delivery O2 Flow Rate FiO2 08/09/21 04:00 Room Air 08/09/21 03:45 97 08/09/21 02:00 105 26 145/85 (105) 08/08/21 20:00 99.0 99.0 08/08/21 11:00 21.0 Comments ros as mentioned as above other sys otherwise neg ROS: No Nausea, No Chest Pain General: Alert HEENT: Other (nc at perrl shallow oropharynx. nose cleaer neck no lad no thyromegaly ) Lungs: Other (b lat diminished ) Cardiovascular: S1, S2 Abdomen: Soft, Non-tender, Other (obese no mass) Neuro Exam: Alert, Oriented Extremities: Other (lymphedema chronic changes) Skin: Warm Labs Laboratory Tests Test 08/07/21 20:08 08/07/21 21:00 08/07/21 23:46 08/08/21 05:30 White Blood Count 36.1 x10^3/uL (4.0-11.0) 36.7 x10^3/uL (4.0-11.0) Red Blood Count 6.15 x10^6/uL (4.30-5.70) 5.64 x10^6/uL (4.30-5.70) Hemoglobin 16.3 g/dL (13.0-17.5) 14.8 g/dL (13.0-17.5) Hematocrit 49.3 % (39.0-53.0) 45.5 % (39.0-53.0) Mean Corpuscular Volume 80 fL (79-100) 81 fL (79-100) Mean Corpuscular Hemoglobin 27 pg (25-35) 26 pg (25-35) Mean Corpuscular Hemoglobin Concent 33 g/dL (31-37) 33 g/dL (31-37) Red Cell Distribution Width 16.3 % (11.5-14.5) 16.6 % (11.5-14.5) Platelet Count 243 x10^3/uL (140-400) 224 x10^3/uL (140-400) Neutrophils (%) (Auto) 90 % (31-73) 90 % (31-73) Lymphocytes (%) (Auto) 4 % (24-48) 4 % (24-48) Monocytes (%) (Auto) 4 % (0-9) 4 % (0-9) Eosinophils (%) (Auto) 1 % (0-3) 1 % (0-3) Basophils (%) (Auto) 1 % (0-3) 1 % (0-3) Neutrophils # (Auto) 32.4 x10^3/uL (1.8-7.7) 33.0 x10^3/uL (1.8-7.7) Lymphocytes # (Auto) 1.6 x10^3/uL (1.0-4.8) 1.5 x10^3/uL (1.0-4.8) Monocytes # (Auto) 1.4 x10^3/uL (0.0-1.1) 1.6 x10^3/uL (0.0-1.1) Eosinophils # (Auto) 0.5 x10^3/uL (0.0-0.7) 0.4 x10^3/uL (0.0-0.7) Basophils # (Auto) 0.3 x10^3/uL (0.0-0.2) 0.2 x10^3/uL (0.0-0.2) Segmented Neutrophils % 61 % (35-66) 86 % (35-66) Band Neutrophils % 27 % (0-9) 8 % (0-9) Lymphocytes % 6 % (24-48) 3 % (24-48) Atypical Lymphocytes % (Manual) 1 % (0-0) Monocytes % 5 % (0-10) 3 % (0-10) Toxic Granulation Slight Toxic Vacuolation Mod Dohle Bodies Present Platelet Estimate Adequate (ADEQUATE) Adequate (ADEQUATE) Large Platelets Mod Activated Partial Thromboplast Time 36 SEC (24-38) D-Dimer (Anna) 10.40 ug/mlFEU (0.00-0.50) Sodium Level 126 mmol/L (136-145) 124 mmol/L (136-145) Potassium Level 5.3 mmol/L (3.5-5.1) 5.7 mmol/L (3.5-5.1) Chloride Level 92 mmol/L (98-107) 93 mmol/L (98-107) Carbon Dioxide Level 18 mmol/L (21-32) 17 mmol/L (21-32) Anion Gap 16 (6-14) 14 (6-14) Blood Urea Nitrogen 49 mg/dL (8-26) 56 mg/dL (8-26) Creatinine 6.1 mg/dL (0.7-1.3) 6.8 mg/dL (0.7-1.3) Estimated GFR (Cockcroft-Gault) 13.6 12.0 BUN/Creatinine Ratio 8 (6-20) Glucose Level 99 mg/dL (70-99) 121 mg/dL (70-99) Uric Acid 13.4 mg/dL (3.5-7.2) Calcium Level 5.9 mg/dL (8.5-10.1) 5.5 mg/dL (8.5-10.1) Phosphorus Level 9.4 mg/dL (2.6-4.7) Magnesium Level 2.5 mg/dL (1.8-2.4) Total Bilirubin 1.1 mg/dL (0.2-1.0) Aspartate Amino Transf (AST/SGOT) 2647 U/L (15-37) Alanine Aminotransferase (ALT/SGPT) 395 U/L (16-63) Alkaline Phosphatase 94 U/L (46-116) Troponin I High Sensitivity 383 ng/L (4-75) 390 ng/L (4-75) 324 ng/L (4-75) EO-Jzp-P-Type Natriuretic Peptide 1502 pg/mL (0-124) Total Protein 6.7 g/dL (6.4-8.2) Albumin 2.5 g/dL (3.4-5.0) Albumin/Globulin Ratio 0.6 (1.0-1.7) Thyroid Stimulating Hormone (TSH) 1.854 uIU/mL (0.358-3.74) SARS-CoV-2 RNA (ESTEPHANIE) Negative (Negative) SARS-CoV-2 Antigen (Rapid) Negative (NEGATIVE) Ionized Calcium 0.61 mmol/L (1.13-1.32) Hepatitis A IgM Antibody Nonreactive (Nonreactive) Hepatitis B Surface Antigen Nonreactive (Nonreactive) Hepatitis B Core IgM Antibody Nonreactive (Nonreactive) Hepatitis C IgG Antibody Nonreactive (Nonreactive) Creatine Kinase > 033535 U/L (39-308) Test 08/08/21 06:00 08/08/21 07:30 08/08/21 13:40 08/08/21 14:55 Activated Partial Thromboplast Time 43 SEC (24-38) 52 SEC (24-38) Urine Collection Type Unknown Urine Color Red Urine Clarity Turbid Urine pH 5.5 (<5.0-8.0) Urine Specific [place] 1.025 (1.000-1.030) Urine Protein >=300 mg/dL (NEG-TRACE) Urine Glucose (UA) mg/dL (NEG) Urine Ketones (Stick) mg/dL (NEG) Urine Blood Large (NEG) Urine Nitrite (NEG) Urine Bilirubin (NEG) Urine Urobilinogen Dipstick mg/dL (0.2 mg/dL) Urine Leukocyte Esterase (NEG) Urine RBC 11-20 /HPF (0-2) Urine WBC 5-10 /HPF (0-4) Urine Squamous Epithelial Cells Occ /LPF Urine Transitional Epithelial Cells Occ /LPF Urine Renal Epithelial Cells Occ /LPF Urine Bacteria Few /HPF (0-FEW) Urine Granular Casts Occasional /HPF Urine Red Blood Cell Casts Few /HPF Urine Mucus Slight /LPF Hepatitis B Surface Antibody Nonreactive Lactic Acid Level 1.2 mmol/L (0.4-2.0) Procalcitonin > 125.00 ng/mL (0.00-0.10) Test 08/08/21 18:00 08/08/21 20:50 08/09/21 03:45 Influenza Type A Antigen Negative (NEGATIVE) Influenza Type B Antigen Negative (NEGATIVE) Activated Partial Thromboplast Time 50 SEC (24-38) 52 SEC (24-38) Laboratory Tests Test 08/08/21 06:00 08/08/21 07:30 08/08/21 13:40 08/08/21 14:55 Activated Partial Thromboplast Time 43 SEC (24-38) 52 SEC (24-38) Urine Collection Type Unknown Urine Color Red Urine Clarity Turbid Urine pH 5.5 (<5.0-8.0) Urine Specific [place] 1.025 (1.000-1.030) Urine Protein >=300 mg/dL (NEG-TRACE) Urine Glucose (UA) mg/dL (NEG) Urine Ketones (Stick) mg/dL (NEG) Urine Blood Large (NEG) Urine Nitrite (NEG) Urine Bilirubin (NEG) Urine Urobilinogen Dipstick mg/dL (0.2 mg/dL) Urine Leukocyte Esterase (NEG) Urine RBC 11-20 /HPF (0-2) Urine WBC 5-10 /HPF (0-4) Urine Squamous Epithelial Cells Occ /LPF Urine Transitional Epithelial Cells Occ /LPF Urine Renal Epithelial Cells Occ /LPF Urine Bacteria Few /HPF (0-FEW) Urine Granular Casts Occasional /HPF Urine Red Blood Cell Casts Few /HPF Urine Mucus Slight /LPF Hepatitis B Surface Antibody Nonreactive Lactic Acid Level 1.2 mmol/L (0.4-2.0) Procalcitonin > 125.00 ng/mL (0.00-0.10) Test 08/08/21 18:00 08/08/21 20:50 08/09/21 03:45 Influenza Type A Antigen Negative (NEGATIVE) Influenza Type B Antigen Negative (NEGATIVE) Activated Partial Thromboplast Time 50 SEC (24-38) 52 SEC (24-38) Medications Active Scripts Medications Dose Route/Sig Max Daily Dose Days Date Category Dose Instructions Torsemide 20 Mg Tablet 4 Tab PO DAILY 08/08/21 Reported Bactrim Ds Tablet (Sulfamethoxazole/Trimethoprim) 1 Each Tablet 1 Tab PO BID 10 08/08/21 Reported Spironolactone 100 Mg Tablet 1 Tab PO DAILY 08/08/21 Reported Potassium Chloride (Potassium Chloride) 20 Meq Tablet.er 1 Meq PO DAILY 08/08/21 Reported Losartan Potassium 50 Mg Tablet 2 Mg PO DAILY 08/08/21 Reported Carvedilol 25 Mg Tablet 2 Mg PO BIDWMEALS 08/08/21 Reported Buspirone Hcl 10 Mg Tablet 10 Mg PO BID 08/08/21 Reported Amlodipine Besylate 10 Mg Tablet 10 Mg PO DAILY 08/08/21 Reported Proair Hfa (Albuterol Sulfate) 8.5 Gm Hfa.aer.ad 1 Puff INH PRN Q6HRS PRN 08/08/21 Reported Xarelto (Rivaroxaban) 20 Mg Tablet Unknown Dose PO DAILY 30 08/08/21 Reported with food Comments cxr reviewed 08/08 Mild cardiomegaly. Right internal jugular line identified with the tip projecting in the SVC region. Mild prominent bilateral lung markings likely mild congestive changes. Mild bibasilar lung atelectasis. Impression . IMPRESSION: 1. Acute respiratory failure, multifactorial in etiology including acute kidney injury with volume overload, acute systolic versus diastolic congestive heart failure, r/o pneumonia, rule out thromboembolic disease versus others. 2. Abnormal chest x-ray. 3. Acute kidney injury secondary to rhabdomyolysis. 4. Electrolyte abnormality. 5. Leukocytosis, rule out sepsis. coming down 6. Obstructive sleep apnea-hypopnea syndrome. 7. History of deep venous thrombosis. 8. ? hx of paroxysmal atrial fibrillation. 9. ? hx of cardiomyopathy. 10. Ex-smoker. Plan . PLAN AND RECOMMENDATION: 1. Titrate FiO2 to keep O2 saturation 92%. 2. Continue CPAP p.r.n. during day, continuously at night. 3. cont antibiotic per id Monitor liver function test while he is on doxycycline. 4. Follow up cultures. 5. follow Nephrology recommendation. s/p hemodialysis 08/08 no uo HD per nephro 6. follow Cardiology recommendation 7. cont heparin drip. add coumadin when stable not a candidate for DOAC bmi 80 8. Pepcid for stress ulcer prophylaxis. 9. bronchodilator. 10. start IS. 11. Full code. 12. procalcitonin elevated lactate nl influenza A and B neg. covid neg 13. Elevate head of bed. 14. Lower extremity venous Doppler. no dvt 15. Monitor electrolyte and CK. 16. Monitor respiratory status very closely in ICU. The findings and recommendations were discussed RN, pt. SOLO MIX MD Aug 09, 2021 06:02
[2021-08-09 06:57] LABS: BASO # 0.1 x10^3/uL (0.0-0.2); BASO % 0 % (0-3); EOS # 0.1 x10^3/uL (0.0-0.7); EOS % 0 % (0-3); HEMATOCRIT 39.1 % (39.0-53.0); HEMOGLOBIN 12.4 g/dL (13.0-17.5); LYMPH # 1.3 x10^3/uL (1.0-4.8); LYMPH % 4 % (24-48); MEAN CORPUSCULAR HEMOGLOBIN 25 pg (25-35); MEAN CORPUSCULAR HGB CONC 32 g/dL (31-37); MEAN CORPUSCULAR VOLUME 80 fL (79-100); MONO # 2.5 x10^3/uL (0.0-1.1); MONO % 8 % (0-9); NEUT # 27.1 x10^3/uL (1.8-7.7); NEUT % 87 % (31-73); PLATELET COUNT 193 x10^3/uL (140-400); RED CELL DISTRIBUTION WIDTH 16.5 % (11.5-14.5); WHITE BLOOD COUNT 31.1 x10^3/uL (4.0-11.0)
[2021-08-09 07:20] LABS: CREATININE 6.8 mg/dL (0.7-1.3); MAGNESIUM 2.3 mg/dL (1.8-2.4); PHOSPHORUS 7.5 mg/dL (2.6-4.7); POTASSIUM 4.6 mmol/L (3.5-5.1)
[2021-08-09 07:25] LABS: CALCIUM 5.8 mg/dL (8.5-10.1)
[2021-08-09] MEDS: FAMOTIDINE 20 MG/2 ML VIAL IVP SCH (08:05)
[2021-08-09] MEDS: DOXYCYCLINE HYCLATE 100 MG TABLET PO SCH ×2 (08:05→22:03)
[2021-08-09] MEDS: LACTOBACILLUS RHAMNOSUS GG 1 CAPSULE. PO SCH ×2 (08:05→21:39)
[2021-08-09] MEDS: IPRATROPIUM BROMIDE 0.5 MG/2.5 ML NEBU. NEB SCH ×4 (08:32→19:50)
[2021-08-09] MEDS: CALCIUM GLUCONATE 1,000 MG/10 ML VIAL. IVP SCH ×3 (09:01→12:16)
[2021-08-09] MEDS: HEPARIN 25,000UTS/250ML PREMIX 250 ML IV PRN ×2 (10:38→20:06)
[2021-08-09] MEDS ORDERED: PERFLUTREN PROTEIN-A MICROSPHR 0.22 MG/ML 3 ML VIAL. IV ONE ×2 (10:56→11:00)
--- NOTE | 2021-08-09 11:00 | PDOC ---
Infectious Disease Note Subjective Subjective pt is feeling ok, some abd pain, loose stool ROS ROS no n/v/cp/fever Vital Sign Vital Signs Vital Signs Date Time Temp Pulse Resp B/P (MAP) Pulse Ox O2 Delivery O2 Flow Rate FiO2 08/09/21 10:00 97 25 185/110 (135) 95 BiPAP/CPAP 08/09/21 08:00 98.6 98.6 08/08/21 11:00 21.0 Physical Exam PHYSICAL EXAM VITAL SIGNS: stable GENERAL: Morbidly obese, alert, oriented, well-developed, well-nourished male, in no acute distress, nontoxic appearing. HEENT: Normocephalic, atraumatic. Anicteric. No thrush. Oral mucosa moist. NECK: Supple. Short neck. LUNGS: Clear bilaterally. HEART: S1, S2. No murmurs. ABDOMEN: Soft, nontender, nondistended. No rebound, no guarding. GENITOURINARY: Castaneda in place with concentrated urine. EXTREMITIES: Bilateral lymphedema. Right lower extremity erythematous, mild tenderness, dry scabs present. NEUROLOGIC: Alert and oriented x3, grossly nonfocal. PSYCHIATRIC: Calm and cooperative. Labs Lab Laboratory Tests Test 08/08/21 12:45 08/08/21 13:40 08/08/21 14:55 08/08/21 18:00 Nasal Screen MRSA (PCR) Negative (NEGATIVE) Activated Partial Thromboplast Time 52 SEC (24-38) Hepatitis B Surface Antibody Nonreactive Lactic Acid Level 1.2 mmol/L (0.4-2.0) Procalcitonin > 125.00 ng/mL (0.00-0.10) Influenza Type A Antigen Negative (NEGATIVE) Influenza Type B Antigen Negative (NEGATIVE) Test 08/08/21 20:50 08/09/21 03:45 08/09/21 06:45 Activated Partial Thromboplast Time 50 SEC (24-38) 52 SEC (24-38) White Blood Count 31.1 x10^3/uL (4.0-11.0) Red Blood Count 4.90 x10^6/uL (4.30-5.70) Hemoglobin 12.4 g/dL (13.0-17.5) Hematocrit 39.1 % (39.0-53.0) Mean Corpuscular Volume 80 fL (79-100) Mean Corpuscular Hemoglobin 25 pg (25-35) Mean Corpuscular Hemoglobin Concent 32 g/dL (31-37) Red Cell Distribution Width 16.5 % (11.5-14.5) Platelet Count 193 x10^3/uL (140-400) Neutrophils (%) (Auto) 87 % (31-73) Lymphocytes (%) (Auto) 4 % (24-48) Monocytes (%) (Auto) 8 % (0-9) Eosinophils (%) (Auto) 0 % (0-3) Basophils (%) (Auto) 0 % (0-3) Neutrophils # (Auto) 27.1 x10^3/uL (1.8-7.7) Lymphocytes # (Auto) 1.3 x10^3/uL (1.0-4.8) Monocytes # (Auto) 2.5 x10^3/uL (0.0-1.1) Eosinophils # (Auto) 0.1 x10^3/uL (0.0-0.7) Basophils # (Auto) 0.1 x10^3/uL (0.0-0.2) Sodium Level 128 mmol/L (136-145) Potassium Level 4.6 mmol/L (3.5-5.1) Chloride Level 93 mmol/L (98-107) Carbon Dioxide Level 27 mmol/L (21-32) Anion Gap 8 (6-14) Blood Urea Nitrogen 50 mg/dL (8-26) Creatinine 6.8 mg/dL (0.7-1.3) Estimated GFR (Cockcroft-Gault) 12.0 Glucose Level 104 mg/dL (70-99) Calcium Level 5.8 mg/dL (8.5-10.1) Phosphorus Level 7.5 mg/dL (2.6-4.7) Magnesium Level 2.3 mg/dL (1.8-2.4) Objective Assessment IMPRESSION: 1. Leukocytosis. 2. Low-grade febrile illness. 3. Acute kidney injury. 4. Hyperkalemia. 5. Hyponatremia. 6. Hypocalcemia. 7. Hypouricemia. 8. Severe rhabdomyolysis. 9. Bilateral lower extremity edema, right greater than left. 10. Right lower extremity cellulitis. 11. Morbid obesity. 12. History of congestive heart failure. 13. History of deep venous thrombosis. 14. History of ALLERGIES TO AMOXICILLIN AND AZITHROMYCIN. 15. Non-STEMI. 16. Metabolic acidosis. 17. Abnormal LFTs, likely from rhabdomyolysis. Plan Plan of Care c diff pending cont rocephine and doxy supportive care start po vanc for now MARIANELA SALEH MD Aug 09, 2021 11:00
--- NOTE | 2021-08-09 11:29 | PDOC ---
[facility] PROGRESS NOTE Date of Service DOS: DATE: 08/09/21 TIME: 11:23 Chief Complaint Chief Complaint Sepsis Bilateral pneumonia, possible gram-negative organisms Acute electrolyte derangement due to acute kidney injury Hypocalcemia Metabolic acidosis, non-anion gap Acute renal failure due to vasomotor nephropathy and rhabdomyolysis Acute severe rhabdomyolysis Atypical chest pain concerning for non-STEMI Elevated troponin troponin suggestive of either type II demand ischemia versus renal disease History of morbid obesity History of CHF History of DVT Pending C. difficile Start p.o. Vanco per ID for possible C. difficile infection Continue empiric IV antibiotics Pending blood cultures Pending MRSA screen and Legionella Nephrology consult Cardiology consult for CHF Counseled on weight loss via diet and exercise Strict I's and O's Avoid further nephrotoxic agents Continue heparin for DVT history Trend electrolytes and replace as needed Heparin drip for DVT prophylaxis Protonix while in the ICU GI prophylaxis ADA diet CODE STATUS full Discussed with RN and SW Disposition inpatient management as above DPOA: Undesignated, and incarcerated History of Present Illness History of Present Illness 26-year-old male with past medical history of CHF, morbid obesity, DVT was on Xarelto comes in with shortness of breath and chest pressure that started on Tuesday. Apparently his symptoms got worse as the week progressed and by Tuesday he was unable to get out of bed and short of breath. He does endorse any exertional dyspnea. Patient is now unable to stand without some assistance. He does endorse swelling in his lower extremities right greater than left. He thinks he has not taken his Xarelto for a few days but he is not sure this. He also endorses that his torsemide dosing these and he has not had much urine in the past 2 days. Currently he does have a Castaneda in urine bag is dark brown. He is incarcerated for the past year. Denies fevers, nausea vomiting, abdominal pain, diarrhea or hematuria or palpitations. 08/09/2021 No acute events overnight. Patient vital signs are stable. Creatinine is stable and elevated at 6.8. Attempt catheter in place for hemodialysis which will start today. Patient's chart, labs, images were reviewed and discussed with RN. Vitals/I&O Vitals/I&O: Vital Signs Date Time Temp Pulse Resp B/P (MAP) Pulse Ox O2 Delivery O2 Flow Rate FiO2 08/09/21 10:00 97 25 185/110 (135) 95 BiPAP/CPAP 08/09/21 08:00 98.6 98.6 08/08/21 11:00 21.0 I & O 08/08/21 08/08/21 08/09/21 15:00 23:00 07:00 Intake Total 1423.1 ml 350.9 ml 240 ml Output Total 7 ml 8 ml 10 ml Balance 1416.1 ml 342.9 ml 230 ml Physical Exam Physical Exam: VITAL SIGNS: stable GENERAL: Morbidly obese, alert, oriented, well-developed, well-nourished male, in no acute distress, nontoxic appearing. HEENT: Normocephalic, atraumatic. Anicteric. No thrush. Oral mucosa moist. NECK: Supple. Short neck. LUNGS: Clear bilaterally. HEART: S1, S2. No murmurs. ABDOMEN: Soft, nontender, nondistended. No rebound, no guarding. GENITOURINARY: Castaneda in place with concentrated urine. EXTREMITIES: Bilateral lymphedema. Right lower extremity erythematous, mild tenderness, dry scabs present. NEUROLOGIC: Alert and oriented x3, grossly nonfocal. PSYCHIATRIC: Calm and cooperative. General: Alert, moderate distress Heart: Regular rate Lungs: Other (b lat diminished ) Abdomen: Normal bowel sounds Extremities: No clubbing, Other (Bilateral +3 pedal edema) Skin: No rashes Labs Labs: Laboratory Tests Test 08/08/21 12:45 08/08/21 13:40 08/08/21 14:55 08/08/21 18:00 Nasal Screen MRSA (PCR) Negative (NEGATIVE) Activated Partial Thromboplast Time 52 SEC (24-38) Hepatitis B Surface Antibody Nonreactive Lactic Acid Level 1.2 mmol/L (0.4-2.0) Procalcitonin > 125.00 ng/mL (0.00-0.10) Influenza Type A Antigen Negative (NEGATIVE) Influenza Type B Antigen Negative (NEGATIVE) Test 08/08/21 20:50 08/09/21 03:45 08/09/21 06:45 Activated Partial Thromboplast Time 50 SEC (24-38) 52 SEC (24-38) White Blood Count 31.1 x10^3/uL (4.0-11.0) Red Blood Count 4.90 x10^6/uL (4.30-5.70) Hemoglobin 12.4 g/dL (13.0-17.5) Hematocrit 39.1 % (39.0-53.0) Mean Corpuscular Volume 80 fL (79-100) Mean Corpuscular Hemoglobin 25 pg (25-35) Mean Corpuscular Hemoglobin Concent 32 g/dL (31-37) Red Cell Distribution Width 16.5 % (11.5-14.5) Platelet Count 193 x10^3/uL (140-400) Neutrophils (%) (Auto) 87 % (31-73) Lymphocytes (%) (Auto) 4 % (24-48) Monocytes (%) (Auto) 8 % (0-9) Eosinophils (%) (Auto) 0 % (0-3) Basophils (%) (Auto) 0 % (0-3) Neutrophils # (Auto) 27.1 x10^3/uL (1.8-7.7) Lymphocytes # (Auto) 1.3 x10^3/uL (1.0-4.8) Monocytes # (Auto) 2.5 x10^3/uL (0.0-1.1) Eosinophils # (Auto) 0.1 x10^3/uL (0.0-0.7) Basophils # (Auto) 0.1 x10^3/uL (0.0-0.2) Sodium Level 128 mmol/L (136-145) Potassium Level 4.6 mmol/L (3.5-5.1) Chloride Level 93 mmol/L (98-107) Carbon Dioxide Level 27 mmol/L (21-32) Anion Gap 8 (6-14) Blood Urea Nitrogen 50 mg/dL (8-26) Creatinine 6.8 mg/dL (0.7-1.3) Estimated GFR (Cockcroft-Gault) 12.0 Glucose Level 104 mg/dL (70-99) Calcium Level 5.8 mg/dL (8.5-10.1) Phosphorus Level 7.5 mg/dL (2.6-4.7) Magnesium Level 2.3 mg/dL (1.8-2.4) Assessment and Plan Assessmemt and Plan Problems Medical Problems: (1) Acute renal failure Status: Acute (2) Hyperkalemia Status: Acute (3) Hyperuricemia Status: Acute (4) Hypocalcemia Status: Acute (5) Hyponatremia Status: Acute (6) Morbid obesity Status: Acute (7) NSTEMI (non-ST elevated myocardial infarction) Status: Acute (8) Transaminitis Status: Acute Comment Review of Relevant I have reviewed the following items sabina (where applicable) has been applied. Medications: Current Medications Medications (Trade) Dose Ordered Sig/Keith Route PRN Reason Start Time Stop Time Status Last Admin Dose Admin Ceftriaxone Sodium (Rocephin) 2 gm Q24H IVP 08/08/21 12:00 08/08/21 11:44 Ondansetron HCl (Zofran) 4 mg PRN Q6HRS PRN IVP NAUSEA/VOMITING 08/08/21 11:30 08/09/21 01:25 Famotidine (Pepcid Vial) 20 mg DAILY IVP 08/08/21 12:00 08/09/21 08:05 Calcium Gluconate (Calcium Gluconate) 1,000 mg Q2H IVP 08/08/21 11:30 08/08/21 15:31 DC 08/08/21 15:33 Ipratropium [place] (Atrovent) 0.5 mg RTQID NEB 08/08/21 16:00 08/09/21 08:32 Calcium Gluconate (Calcium Gluconate) 1,000 mg Q2H IVP 08/09/21 08:30 08/09/21 12:31 08/09/21 10:32 Justifications for Admission Other Justification AMOS MADISON MD Aug 09, 2021 11:29
[2021-08-09] MEDS: cefTRIAXone IV Push 2 GM VIAL. IVP SCH (11:35)
--- NOTE | 2021-08-09 12:09 | PDOC ---
DATE OF SERVICE: DOS: DATE: 08/09/21 TIME: 12:09 SUBJECTIVE ROS Follow-up for acute kidney injury Patient now off of BiPAP currently getting an echocardiogram done. Denies shortness of breath CVS: no Orthopnea, no CP RESP: no SOB, no COOPER GI: no Nausea, no Vomiting : no Dysuria, no Urgency, Castaneda in place with minimal urine output OBJECTIVE Vital Signs Vital Signs Date Time Temp Pulse Resp B/P (MAP) Pulse Ox O2 Delivery O2 Flow Rate FiO2 08/09/21 11:00 95 23 140/72 (94) 96 Room Air 08/09/21 08:00 98.6 98.6 08/08/21 11:00 21.0 I & 0 Intake and Output 08/09/21 07:00 Intake Total 2014.0 ml Output Total 25 ml Balance 1989.0 ml Intake Oral 1050 ml IV Total 964.0 ml Output Urine Total 25 ml # Bowel Movements 3 PHYSICAL EXAM Physical Exam General Appearance: Awake appears more oriented, getting an echocardiogram in no obvious respiratory distress, off BiPAP, morbidly obese Eyes: Sclera anicteric conjunctiva Normal EN: No EN Drainage Mucous Memb. Moist Neck: Unable to visualize JVD or JVP due to short thick neck, supple no palpable thyromegaly CVS: S1 S2 unable to hear obvious murmur No Gallop No Rub significant lower extremity edema Resp: No audible Rales or rhonchi no obvious Acc. Muscle use GI: BS +ve NO Bruit Non Tender Non Distended, morbidly obese : No obvious CVA tenderness; or suprapubic Tenderness SKIN: No visible rashes Breast Exam deferred Mu.Sk: Some lower extremity weakness without obvious muscle Atrophy Heme: Unable to palpate Obvious LAD no palpable splenomegaly NEURO: Decreased strength in lower extremities. Unable to assess currently while getting echocardiogram Psych: Does not appear depressed or actively hallucinating DIAGNOSIS/ASSESSMENT Assessment & Plan Acute kidney injury: ATN now oligoanuric presumably due to rhabdomyolysis. Next dialysis tomorrow Rhabdomyolysis: Unclear etiology. Currently oligoanuric with possible ATN hence proceed with dialysis. Trend CPK Hyperkalemia: Now corrected Metabolic acidosis currently corrected and compensated Possible volume depletion cannot be ruled out however given patient's history of CHF hesitant to aggressively volume replete at this time. Echocardiogram being done at bedside. Will await the same to assess for volume repletion Hyponatremia: Anticipate some correction with dialysis also Severe hypocalcemia presumably due to rhabdomyolysis: Calcium drip will be devised by pharmacy and will check frequent calcium levels to correct the same gradually History of CHF: Clinically appears to be clinically compensated at this time. Await echocardiogram Non-STEMI: Defer to cardiology Possible sepsis of unclear source at this time patient had significant bandemia at presentation yesterday. Defer to infectious disease specialist COMMENT/RELEVANT DATA Meds Current Medications Medications (Trade) Dose Ordered Sig/Keith Start Time Stop Time Status Last Admin Dose Admin Acetaminophen (Tylenol) 650 mg PRN Q4HRS PRN 08/08/21 11:30 Albumin Human 200 ml @ 200 mls/hr 1X PRN PRN 08/08/21 14:45 08/08/21 20:44 DC Aspirin (Aspirin Chewable) 324 mg 1X ONCE 08/07/21 21:30 08/07/21 21:31 DC 08/07/21 22:12 324 MG Calcium Carbonate/ Glycine (Tums) 500 mg PRN AFTMEALHC PRN 08/09/21 01:30 Calcium Gluconate (Calcium Gluconate) 1,000 mg Q2H 08/09/21 08:30 08/09/21 12:31 08/09/21 10:32 1,000 MG Calcium Gluconate 2000 mg/Sodium Chloride 120 ml @ 220 mls/hr 1X ONCE 08/08/21 06:30 08/08/21 07:02 DC 08/08/21 06:30 220 MLS/HR Ceftriaxone Sodium (Rocephin) 2 gm Q24H 08/08/21 12:00 08/09/21 11:35 2 GM Dextrose (Dextrose 50%-Water Syringe) 12.5 gm PRN Q15MIN PRN 08/08/21 11:30 Docusate Sodium (Colace) 100 mg PRN DAILY PRN 08/08/21 11:30 Doxycycline Hyclate (Vibra-Tab) 100 mg BID 08/08/21 05:00 08/09/21 08:05 100 MG Famotidine (Pepcid Vial) 20 mg DAILY 08/08/21 12:00 08/09/21 08:05 20 MG Heparin Sodium (Porcine) (Heparin Sodium) 1,000 unit PRN Q6HRS PRN 08/07/21 23:00 Heparin Sodium/ Dextrose 250 ml @ 20 mls/hr CONT PRN 08/07/21 23:00 08/09/21 10:38 26 MLS/HR Info (PHARMACY MONITORING -- do not chart) 1 each PRN DAILY PRN 08/08/21 14:45 Ipratropium [place] (Atrovent) 0.5 mg RTQID 08/08/21 16:00 08/09/21 08:32 0.5 MG Lactobacillus Rhamnosus (Culturelle) 1 cap BID 08/08/21 09:00 08/09/21 08:05 1 CAP Lidocaine HCl (Buffered Lidocaine 1%) 6 ml 1X ONCE 08/08/21 13:00 08/08/21 13:01 DC Lorazepam (Ativan Inj) 0.25 mg PRN Q4HRS PRN 08/08/21 11:30 Lorazepam (Ativan) 0.5 mg PRN Q6HRS PRN 08/08/21 11:30 Ondansetron HCl (Zofran) 4 mg PRN Q6HRS PRN 08/08/21 11:30 08/09/21 01:25 4 MG Perflutren Protein Type A Microsphe (Optison) 0.66 mg STK-MED ONCE 08/09/21 10:56 08/09/21 10:57 DC Prochlorperazine Edisylate (Compazine) 10 mg PRN Q6HRS PRN 08/08/21 11:30 Sennosides (Senna) 17.2 mg PRN BID PRN 08/08/21 11:30 Sodium Bicarbonate 150 meq/Dextrose 1,150 ml @ 100 mls/hr [id number] ONCE 08/07/21 22:00 08/08/21 09:29 DC 08/07/21 23:51 100 MLS/HR Sodium Bicarbonate (Sodium Bicarb Adult 8.4% Syr) 150 meq 1X ONCE 08/08/21 07:15 08/08/21 07:19 DC 08/08/21 08:27 150 MEQ Sodium Chloride 1,000 ml @ 1,000 mls/hr Q1H PRN 08/08/21 14:45 08/08/21 20:44 DC Vancomycin HCl (Vancomycin Oral Solution) 125 mg [id number] 08/09/21 13:00 Zolpidem Tartrate (Ambien) 2.5 mg PRN QHS PRN 08/08/21 11:30 Lab Laboratory Tests Test 08/08/21 12:45 08/08/21 13:40 08/08/21 14:55 08/08/21 18:00 Nasal Screen MRSA (PCR) Negative (NEGATIVE) Activated Partial Thromboplast Time 52 SEC (24-38) Hepatitis B Surface Antibody Nonreactive Lactic Acid Level 1.2 mmol/L (0.4-2.0) Procalcitonin > 125.00 ng/mL (0.00-0.10) Influenza Type A Antigen Negative (NEGATIVE) Influenza Type B Antigen Negative (NEGATIVE) Test 08/08/21 20:50 08/09/21 03:45 08/09/21 06:45 08/09/21 11:33 Activated Partial Thromboplast Time 50 SEC (24-38) 52 SEC (24-38) 49 SEC (24-38) White Blood Count 31.1 x10^3/uL (4.0-11.0) Red Blood Count 4.90 x10^6/uL (4.30-5.70) Hemoglobin 12.4 g/dL (13.0-17.5) Hematocrit 39.1 % (39.0-53.0) Mean Corpuscular Volume 80 fL (79-100) Mean Corpuscular Hemoglobin 25 pg (25-35) Mean Corpuscular Hemoglobin Concent 32 g/dL (31-37) Red Cell Distribution Width 16.5 % (11.5-14.5) Platelet Count 193 x10^3/uL (140-400) Neutrophils (%) (Auto) 87 % (31-73) Lymphocytes (%) (Auto) 4 % (24-48) Monocytes (%) (Auto) 8 % (0-9) Eosinophils (%) (Auto) 0 % (0-3) Basophils (%) (Auto) 0 % (0-3) Neutrophils # (Auto) 27.1 x10^3/uL (1.8-7.7) Lymphocytes # (Auto) 1.3 x10^3/uL (1.0-4.8) Monocytes # (Auto) 2.5 x10^3/uL (0.0-1.1) Eosinophils # (Auto) 0.1 x10^3/uL (0.0-0.7) Basophils # (Auto) 0.1 x10^3/uL (0.0-0.2) Sodium Level 128 mmol/L (136-145) Potassium Level 4.6 mmol/L (3.5-5.1) Chloride Level 93 mmol/L (98-107) Carbon Dioxide Level 27 mmol/L (21-32) Anion Gap 8 (6-14) Blood Urea Nitrogen 50 mg/dL (8-26) Creatinine 6.8 mg/dL (0.7-1.3) Estimated GFR (Cockcroft-Gault) 12.0 Glucose Level 104 mg/dL (70-99) Calcium Level 5.8 mg/dL (8.5-10.1) Phosphorus Level 7.5 mg/dL (2.6-4.7) Magnesium Level 2.3 mg/dL (1.8-2.4) Results All relevant outside records, renal labs, imaging studies, telemetry/EKG's were reviewed. Justicifation of Admission Dx: Justifications for Admission: Justification of Admission Dx: N/A CHRISTIANE SALEH MD Aug 09, 2021 12:09
[2021-08-09] MEDS: VANCOMYCIN 125 MG/2.5 ML ORAL SOLUTION. PO SCH ×3 (12:31→21:39)
[2021-08-09] MEDS: NORMAL SALINE IV SCH ×2 (12:47→23:24)
[2021-08-09] MEDS: CALCIUM GLUCONATE IV SCH ×2 (12:47→23:24)
--- NOTE | 2021-08-09 12:53 | PDOC2 ---
CONSULT Date of Consult Date of Consult DATE: 08/09/21 TIME: 12:51 Reason for Consult Reason for Consult: transaminitis Past Medical History Cardiovascular: AFIB, CHF, HTN, Other (Possible cardiomyopathy, DVTs) Pulmonary: Other (Sleep apnea) Musculoskeletal: low back pain Past Surgical History Past Surgical History: No pertinent history Family History Family History: Heart Disease, Hypertension Social History Quit Current Problem List Problem List Problems Medical Problems: (1) Acute renal failure Status: Acute (2) Hyperkalemia Status: Acute (3) Hyperuricemia Status: Acute (4) Hypocalcemia Status: Acute (5) Hyponatremia Status: Acute (6) Morbid obesity Status: Acute (7) NSTEMI (non-ST elevated myocardial infarction) Status: Acute (8) Transaminitis Status: Acute Current Medications Current Medications Current Medications Heparin Sodium (Porcine) (Heparin Sodium) 10,000 unit 1X ONCE IV Last administered on 08/07/21at 23:48; Start 08/07/21 at 21:00; Stop 08/07/21 at 21:01; Status DC Heparin Sodium/ Dextrose 250 ml @ 20 mls/hr CONT PRN IV PER PROTOCOL; Start 08/07/21 at 19:00; Status Cancel Heparin Sodium (Porcine) (Heparin Sodium) 7,500 unit PRN Q6HRS PRN IV FOR UFH LEVEL LESS THAN 0.2; Start 08/07/21 at 19:00; Stop 08/07/21 at 22:34; Status DC Heparin Sodium (Porcine) (Heparin Sodium) 3,750 unit PRN Q6HRS PRN IV FOR UFH LEVEL 0.2 - 0.29; Start 08/07/21 at 19:00; Stop 08/07/21 at 22:33; Status DC Ceftriaxone Sodium (Rocephin) 2 gm 1X ONCE IVP Last administered on 08/07/21at 22:11; Start 08/07/21 at 21:15; Stop 08/07/21 at 21:16; Status DC Calcium Gluconate (Calcium Gluconate) 1,000 mg 1X ONCE IVP Last administered on 08/08/21at 02:29; Start 08/07/21 at 21:15; Stop 08/07/21 at 21:16; Status DC Sodium Chloride 500 ml @ 500 mls/hr 1X ONCE IV Last administered on 11/12/21at 21:15; Start 08/07/21 at 21:15; Stop 08/07/21 at 22:14; Status DC Aspirin (Aspirin Chewable) 324 mg 1X ONCE PO Last administered on 08/07/21at 22:12; Start 08/07/21 at 21:30; Stop 08/07/21 at 21:31; Status DC Sodium Bicarbonate 150 meq/Dextrose 1,150 ml @ 100 mls/hr [id number] ONCE IV Last administered on 08/07/21at 23:51; Start 08/07/21 at 22:00; Stop 08/08/21 at 09:29; Status DC Ondansetron HCl (Zofran) 4 mg STK-MED ONCE .ROUTE ; Start 08/07/21 at 22:20; Stop 08/07/21 at 22:21; Status DC Ondansetron HCl (Zofran) 4 mg 1X ONCE IVP Last administered on 08/07/21at 22:36; Start 08/07/21 at 22:30; Stop 08/07/21 at 22:31; Status DC Heparin Sodium (Porcine) (Heparin Sodium) 4,300 unit PRN Q6HRS PRN IV FOR UFH LEVEL 0.2 - 0.29; Start 08/07/21 at 22:33; Status Cancel Heparin Sodium (Porcine) (Heparin Sodium) 8,600 unit PRN Q6HRS PRN IV FOR UFH LEVEL LESS THAN 0.2; Start 08/07/21 at 22:45; Status Cancel Heparin Sodium/ Dextrose 250 ml @ 20 mls/hr CONT PRN IV PER PROTOCOL Last administered on 08/09/21at 10:38; Start 08/07/21 at 23:00 Heparin Sodium (Porcine) (Heparin Sodium) 8,600 unit PRN Q6HRS PRN IV FOR PTT < 40; Start 08/07/21 at 23:00 Heparin Sodium (Porcine) (Heparin Sodium) 2,000 unit PRN Q6HRS PRN IV FOR PTT 40 - 58 Last administered on 08/09/21at 12:15; Start 08/07/21 at 23:00 Heparin Sodium (Porcine) (Heparin Sodium) 1,000 unit PRN Q6HRS PRN IV FOR PTT 59 - 78; Start 08/07/21 at 23:00 Doxycycline Hyclate (Vibra-Tab) 100 mg BID PO ; Start 08/08/21 at 09:00; Stop 08/08/21 at 04:41; Status DC Doxycycline Hyclate (Vibra-Tab) 100 mg BID PO Last administered on 08/09/21at 08:05; Start 08/08/21 at 05:00 Calcium Gluconate 2000 mg/Sodium Chloride 120 ml @ 220 mls/hr 1X ONCE IV Last administered on 08/08/21at 06:30; Start 08/08/21 at 06:30; Stop 08/08/21 at 07:02; Status DC Lactobacillus Rhamnosus (Culturelle) 1 cap BID PO Last administered on 08/09/21at 08:05; Start 08/08/21 at 09:00 Sodium Bicarbonate (Sodium Bicarb Adult 8.4% Syr) 150 meq 1X ONCE IV Last administered on 08/08/21at 08:27; Start 08/08/21 at 07:15; Stop 08/08/21 at 07:19; Status DC Ceftriaxone Sodium (Rocephin) 1 gm Q24H IVP ; Start 08/08/21 at 11:30; Status UNV Ceftriaxone Sodium (Rocephin) 2 gm Q24H IVP Last administered on 08/09/21at 11:35; Start 08/08/21 at 12:00 Sennosides (Senna) 17.2 mg PRN BID PRN PO CONSTIPATION; Start 08/08/21 at 11:30 Docusate Sodium (Colace) 100 mg PRN DAILY PRN PO HARD STOOLS; Start 08/08/21 at 11:30 Ondansetron HCl (Zofran) 4 mg PRN Q6HRS PRN IVP NAUSEA/VOMITING Last administered on 08/09/21at 01:25; Start 08/08/21 at 11:30 Dextrose (Dextrose 50%-Water Syringe) 12.5 gm PRN Q15MIN PRN IV SEE COMMENTS; Start 08/08/21 at 11:30 Acetaminophen (Tylenol) 650 mg PRN Q4HRS PRN PO TEMP OVER 100.4F OR MILD PAIN; Start 08/08/21 at 11:30 Lorazepam (Ativan) 0.5 mg PRN Q6HRS PRN PO ANXIETY / AGITATION; Start 08/08/21 at 11:30 Lorazepam (Ativan Inj) 0.25 mg PRN Q4HRS PRN IV ANXIETY / AGITATION; Start 08/08/21 at 11:30 Famotidine (Pepcid Vial) 20 mg DAILY IVP Last administered on 08/09/21at 08:05; Start 08/08/21 at 12:00 Prochlorperazine Edisylate (Compazine) 10 mg PRN Q6HRS PRN IV NAUSEA/VOMITING, 2ND CHOICE; Start 08/08/21 at 11:30 Zolpidem Tartrate (Ambien) 2.5 mg PRN QHS PRN PO INSOMNIA; Start 08/08/21 at 11:30 Calcium Gluconate (Calcium Gluconate) 1,000 mg Q2H IVP Last administered on 08/08/21at 15:33; Start 08/08/21 at 11:30; Stop 08/08/21 at 15:31; Status DC Lidocaine HCl (Buffered Lidocaine 1%) 3 ml STK-MED ONCE .ROUTE ; Start 08/08/21 at 12:10; Stop 08/08/21 at 12:11; Status DC Lidocaine HCl (Buffered Lidocaine 1%) 6 ml 1X ONCE INJ ; Start 08/08/21 at 13:00; Stop 08/08/21 at 13:01; Status DC Ipratropium [place] (Atrovent) 0.5 mg RTQID NEB Last administered on 08/09/21at 08:32; Start 08/08/21 at 16:00 Sodium Chloride 1,000 ml @ 1,000 mls/hr Q1H PRN IV hypotension; Start 08/08/21 at 14:45; Stop 08/08/21 at 20:44; Status DC Albumin Human 200 ml @ 200 mls/hr 1X PRN PRN IV Hypotension; Start 08/08/21 at 14:45; Stop 08/08/21 at 20:44; Status DC Info (PHARMACY MONITORING -- do not chart) 1 each PRN DAILY PRN MC SEE COMMENTS; Start 08/08/21 at 14:45; Status UNV Info (PHARMACY MONITORING -- do not chart) 1 each PRN DAILY PRN MC SEE COMMENTS; Start 08/08/21 at 14:45 Calcium Carbonate/ Glycine (Tums) 500 mg PRN AFTMEALHC PRN PO INDIGESTION; Start 08/09/21 at 01:30 Calcium Gluconate (Calcium Gluconate) 1,000 mg Q2H IVP Last administered on 08/09/21at 12:16; Start 08/09/21 at 08:30; Stop 08/09/21 at 12:31; Status DC Perflutren Protein Type A Microsphe (Optison) 0.66 mg STK-MED ONCE IV ; Start 08/09/21 at 10:56; Stop 08/09/21 at 10:57; Status DC Vancomycin HCl (Vancomycin Oral Solution) 125 mg [id number] PO Last administered on 08/09/21at 12:31; Start 08/09/21 at 13:00 Calcium Gluconate 5000 mg/Sodium Chloride 500 ml @ 50 mls/hr Q10H IV ; Start 08/09/21 at 12:30 Active Scripts Active Reported Torsemide 20 Mg Tablet 4 Tab PO DAILY Bactrim Ds Tablet (Sulfamethoxazole/Trimethoprim) 1 Each Tablet 1 Tab PO BID 10 Days Spironolactone 100 Mg Tablet 1 Tab PO DAILY Potassium Chloride (Potassium Chloride) 20 Meq Tablet.er 1 Meq PO DAILY Losartan Potassium 50 Mg Tablet 2 Mg PO DAILY Carvedilol 25 Mg Tablet 2 Mg PO BIDWMEALS Buspirone Hcl 10 Mg Tablet 10 Mg PO BID Amlodipine Besylate 10 Mg Tablet 10 Mg PO DAILY Proair Hfa (Albuterol Sulfate) 8.5 Gm Hfa.aer.ad 1 Puff INH PRN Q6HRS PRN Xarelto (Rivaroxaban) 20 Mg Tablet Unknown Dose PO DAILY 30 Days with food Allergies Allergies: Coded Allergies: Iodine and Iodide Containing Produc (Verified Allergy, Unknown, UNKNOWN, 08/07/21) amoxicillin (Verified Allergy, Unknown, UNKNOWN, 08/07/21) azithromycin (Verified Allergy, Unknown, UNKNOWN, 08/07/21) shellfish derived (Verified Allergy, Unknown, UNKNOWN, 08/07/21) Vitals VITALS Vital Signs Date Time Temp Pulse Resp B/P (MAP) Pulse Ox O2 Delivery O2 Flow Rate FiO2 08/09/21 12:00 99.0 101 22 101/47 (65) 93 Room Air 99.0 08/08/21 11:00 21.0 Labs Labs Laboratory Tests Test 08/07/21 20:08 08/07/21 21:00 08/07/21 23:46 08/08/21 05:30 White Blood Count 36.1 x10^3/uL (4.0-11.0) 36.7 x10^3/uL (4.0-11.0) Red Blood Count 6.15 x10^6/uL (4.30-5.70) 5.64 x10^6/uL (4.30-5.70) Hemoglobin 16.3 g/dL (13.0-17.5) 14.8 g/dL (13.0-17.5) Hematocrit 49.3 % (39.0-53.0) 45.5 % (39.0-53.0) Mean Corpuscular Volume 80 fL (79-100) 81 fL (79-100) Mean Corpuscular Hemoglobin 27 pg (25-35) 26 pg (25-35) Mean Corpuscular Hemoglobin Concent 33 g/dL (31-37) 33 g/dL (31-37) Red Cell Distribution Width 16.3 % (11.5-14.5) 16.6 % (11.5-14.5) Platelet Count 243 x10^3/uL (140-400) 224 x10^3/uL (140-400) Neutrophils (%) (Auto) 90 % (31-73) 90 % (31-73) Lymphocytes (%) (Auto) 4 % (24-48) 4 % (24-48) Monocytes (%) (Auto) 4 % (0-9) 4 % (0-9) Eosinophils (%) (Auto) 1 % (0-3) 1 % (0-3) Basophils (%) (Auto) 1 % (0-3) 1 % (0-3) Neutrophils # (Auto) 32.4 x10^3/uL (1.8-7.7) 33.0 x10^3/uL (1.8-7.7) Lymphocytes # (Auto) 1.6 x10^3/uL (1.0-4.8) 1.5 x10^3/uL (1.0-4.8) Monocytes # (Auto) 1.4 x10^3/uL (0.0-1.1) 1.6 x10^3/uL (0.0-1.1) Eosinophils # (Auto) 0.5 x10^3/uL (0.0-0.7) 0.4 x10^3/uL (0.0-0.7) Basophils # (Auto) 0.3 x10^3/uL (0.0-0.2) 0.2 x10^3/uL (0.0-0.2) Segmented Neutrophils % 61 % (35-66) 86 % (35-66) Band Neutrophils % 27 % (0-9) 8 % (0-9) Lymphocytes % 6 % (24-48) 3 % (24-48) Atypical Lymphocytes % (Manual) 1 % (0-0) Monocytes % 5 % (0-10) 3 % (0-10) Toxic Granulation Slight Toxic Vacuolation Mod Dohle Bodies Present Platelet Estimate Adequate (ADEQUATE) Adequate (ADEQUATE) Large Platelets Mod Activated Partial Thromboplast Time 36 SEC (24-38) D-Dimer (Anna) 10.40 ug/mlFEU (0.00-0.50) Sodium Level 126 mmol/L (136-145) 124 mmol/L (136-145) Potassium Level 5.3 mmol/L (3.5-5.1) 5.7 mmol/L (3.5-5.1) Chloride Level 92 mmol/L (98-107) 93 mmol/L (98-107) Carbon Dioxide Level 18 mmol/L (21-32) 17 mmol/L (21-32) Anion Gap 16 (6-14) 14 (6-14) Blood Urea Nitrogen 49 mg/dL (8-26) 56 mg/dL (8-26) Creatinine 6.1 mg/dL (0.7-1.3) 6.8 mg/dL (0.7-1.3) Estimated GFR (Cockcroft-Gault) 13.6 12.0 BUN/Creatinine Ratio 8 (6-20) Glucose Level 99 mg/dL (70-99) 121 mg/dL (70-99) Uric Acid 13.4 mg/dL (3.5-7.2) Calcium Level 5.9 mg/dL (8.5-10.1) 5.5 mg/dL (8.5-10.1) Phosphorus Level 9.4 mg/dL (2.6-4.7) Magnesium Level 2.5 mg/dL (1.8-2.4) Total Bilirubin 1.1 mg/dL (0.2-1.0) Aspartate Amino Transf (AST/SGOT) 2647 U/L (15-37) Alanine Aminotransferase (ALT/SGPT) 395 U/L (16-63) Alkaline Phosphatase 94 U/L (46-116) Troponin I High Sensitivity 383 ng/L (4-75) 390 ng/L (4-75) 324 ng/L (4-75) VL-Oab-T-Type Natriuretic Peptide 1502 pg/mL (0-124) Total Protein 6.7 g/dL (6.4-8.2) Albumin 2.5 g/dL (3.4-5.0) Albumin/Globulin Ratio 0.6 (1.0-1.7) Thyroid Stimulating Hormone (TSH) 1.854 uIU/mL (0.358-3.74) SARS-CoV-2 RNA (ESTEPHANIE) Negative (Negative) SARS-CoV-2 Antigen (Rapid) Negative (NEGATIVE) Ionized Calcium 0.61 mmol/L (1.13-1.32) Hepatitis A IgM Antibody Nonreactive (Nonreactive) Hepatitis B Surface Antigen Nonreactive (Nonreactive) Hepatitis B Core IgM Antibody Nonreactive (Nonreactive) Hepatitis C IgG Antibody Nonreactive (Nonreactive) Creatine Kinase > 132168 U/L (39-308) Test 08/08/21 06:00 08/08/21 07:30 08/08/21 12:45 08/08/21 13:40 Activated Partial Thromboplast Time 43 SEC (24-38) 52 SEC (24-38) Urine Collection Type Unknown Urine Color Red Urine Clarity Turbid Urine pH 5.5 (<5.0-8.0) Urine Specific Lynch 1.025 (1.000-1.030) Urine Protein >=300 mg/dL (NEG-TRACE) Urine Glucose (UA) mg/dL (NEG) Urine Ketones (Stick) mg/dL (NEG) Urine Blood Large (NEG) Urine Nitrite (NEG) Urine Bilirubin (NEG) Urine Urobilinogen Dipstick mg/dL (0.2 mg/dL) Urine Leukocyte Esterase (NEG) Urine RBC 11-20 /HPF (0-2) Urine WBC 5-10 /HPF (0-4) Urine Squamous Epithelial Cells Occ /LPF Urine Transitional Epithelial Cells Occ /LPF Urine Renal Epithelial Cells Occ /LPF Urine Bacteria Few /HPF (0-FEW) Urine Granular Casts Occasional /HPF Urine Red Blood Cell Casts Few /HPF Urine Mucus Slight /LPF Nasal Screen MRSA (PCR) Negative (NEGATIVE) Hepatitis B Surface Antibody Nonreactive Test 08/08/21 14:55 08/08/21 18:00 08/08/21 20:50 08/09/21 03:45 Lactic Acid Level 1.2 mmol/L (0.4-2.0) Procalcitonin > 125.00 ng/mL (0.00-0.10) Influenza Type A Antigen Negative (NEGATIVE) Influenza Type B Antigen Negative (NEGATIVE) Activated Partial Thromboplast Time 50 SEC (24-38) 52 SEC (24-38) Test 08/09/21 06:45 08/09/21 11:33 White Blood Count 31.1 x10^3/uL (4.0-11.0) Red Blood Count 4.90 x10^6/uL (4.30-5.70) Hemoglobin 12.4 g/dL (13.0-17.5) Hematocrit 39.1 % (39.0-53.0) Mean Corpuscular Volume 80 fL (79-100) Mean Corpuscular Hemoglobin 25 pg (25-35) Mean Corpuscular Hemoglobin Concent 32 g/dL (31-37) Red Cell Distribution Width 16.5 % (11.5-14.5) Platelet Count 193 x10^3/uL (140-400) Neutrophils (%) (Auto) 87 % (31-73) Lymphocytes (%) (Auto) 4 % (24-48) Monocytes (%) (Auto) 8 % (0-9) Eosinophils (%) (Auto) 0 % (0-3) Basophils (%) (Auto) 0 % (0-3) Neutrophils # (Auto) 27.1 x10^3/uL (1.8-7.7) Lymphocytes # (Auto) 1.3 x10^3/uL (1.0-4.8) Monocytes # (Auto) 2.5 x10^3/uL (0.0-1.1) Eosinophils # (Auto) 0.1 x10^3/uL (0.0-0.7) Basophils # (Auto) 0.1 x10^3/uL (0.0-0.2) Sodium Level 128 mmol/L (136-145) Potassium Level 4.6 mmol/L (3.5-5.1) Chloride Level 93 mmol/L (98-107) Carbon Dioxide Level 27 mmol/L (21-32) Anion Gap 8 (6-14) Blood Urea Nitrogen 50 mg/dL (8-26) Creatinine 6.8 mg/dL (0.7-1.3) Estimated GFR (Cockcroft-Gault) 12.0 Glucose Level 104 mg/dL (70-99) Calcium Level 5.8 mg/dL (8.5-10.1) Phosphorus Level 7.5 mg/dL (2.6-4.7) Magnesium Level 2.3 mg/dL (1.8-2.4) Activated Partial Thromboplast Time 49 SEC (24-38) Laboratory Tests Test 08/08/21 13:40 08/08/21 14:55 08/08/21 18:00 08/08/21 20:50 Activated Partial Thromboplast Time 52 SEC (24-38) 50 SEC (24-38) Hepatitis B Surface Antibody Nonreactive Lactic Acid Level 1.2 mmol/L (0.4-2.0) Procalcitonin > 125.00 ng/mL (0.00-0.10) Influenza Type A Antigen Negative (NEGATIVE) Influenza Type B Antigen Negative (NEGATIVE) Test 08/09/21 03:45 08/09/21 06:45 08/09/21 11:33 Activated Partial Thromboplast Time 52 SEC (24-38) 49 SEC (24-38) White Blood Count 31.1 x10^3/uL (4.0-11.0) Red Blood Count 4.90 x10^6/uL (4.30-5.70) Hemoglobin 12.4 g/dL (13.0-17.5) Hematocrit 39.1 % (39.0-53.0) Mean Corpuscular Volume 80 fL (79-100) Mean Corpuscular Hemoglobin 25 pg (25-35) Mean Corpuscular Hemoglobin Concent 32 g/dL (31-37) Red Cell Distribution Width 16.5 % (11.5-14.5) Platelet Count 193 x10^3/uL (140-400) Neutrophils (%) (Auto) 87 % (31-73) Lymphocytes (%) (Auto) 4 % (24-48) Monocytes (%) (Auto) 8 % (0-9) Eosinophils (%) (Auto) 0 % (0-3) Basophils (%) (Auto) 0 % (0-3) Neutrophils # (Auto) 27.1 x10^3/uL (1.8-7.7) Lymphocytes # (Auto) 1.3 x10^3/uL (1.0-4.8) Monocytes # (Auto) 2.5 x10^3/uL (0.0-1.1) Eosinophils # (Auto) 0.1 x10^3/uL (0.0-0.7) Basophils # (Auto) 0.1 x10^3/uL (0.0-0.2) Sodium Level 128 mmol/L (136-145) Potassium Level 4.6 mmol/L (3.5-5.1) Chloride Level 93 mmol/L (98-107) Carbon Dioxide Level 27 mmol/L (21-32) Anion Gap 8 (6-14) Blood Urea Nitrogen 50 mg/dL (8-26) Creatinine 6.8 mg/dL (0.7-1.3) Estimated GFR (Cockcroft-Gault) 12.0 Glucose Level 104 mg/dL (70-99) Calcium Level 5.8 mg/dL (8.5-10.1) Phosphorus Level 7.5 mg/dL (2.6-4.7) Magnesium Level 2.3 mg/dL (1.8-2.4) Assessment/Plan Assessment/Plan Transaminitis- most likely secondary to rhabdo-myolysis and/or ARF with hepatic congestions. Viral hepatitis with tattoos possible as well Plan supportive therapy with dialysis serial LFTS hepatitis serologies Full note dictated ROLANDO MORGAN MD Aug 09, 2021 12:53
--- NOTE | 2021-08-09 13:23 | NUR ---
1200h- patient complained of abdominal pain, 6/10 intensity, does not want to take acetaminophen. Ongoing 2d echo. Abdomen is soft, tender, patient withdraws to pain even with light touch. Dr. Wagner seen and examined the patient at around 1230h, noted the abdominal pain and told him that patient does not want to take acetaminophen. He told that abdominal pain might be caused by his liver and kidneys. Will try to distract patient and to do deep breathing exercise, as medications are also affecting patient's liver. 1300, had the patient eat lunch, still with abdominal pain at 5/10 intesity. Will monitor for progress.
--- NOTE | 2021-08-09 13:28 | PDOC ---
PROGRESS NOTES Date of Service DATE: 08/09/21 TIME: 13:26 Subjective Subjective Patient seen and examined Objective Objective Vital Signs Date Time Temp Pulse Resp B/P (MAP) Pulse Ox O2 Delivery O2 Flow Rate FiO2 08/09/21 13:00 101 28 120/89 (99) 95 Room Air 08/09/21 12:00 99.0 99.0 08/08/21 11:00 21.0 Intake and Output 08/09/21 07:00 Intake Total 2014.0 ml Output Total 25 ml Balance 1989.0 ml Intake Oral 1050 ml IV Total 964.0 ml Output Urine Total 25 ml # Bowel Movements 3 Physical Exam Abdomen: Normal bowel sounds Heart: Regular rate General: mild distress Lungs: Other (Mildly decreased breath sounds) Assessment Assessment Problems Medical Problems: (1) Acute renal failure Status: Acute (2) Hyperkalemia Status: Acute (3) Hyperuricemia Status: Acute (4) Hypocalcemia Status: Acute (5) Hyponatremia Status: Acute (6) Morbid obesity Status: Acute (7) NSTEMI (non-ST elevated myocardial infarction) Status: Acute (8) Transaminitis Status: Acute 1. Acute renal failure. Morning lab includes a potassium of 4.6, creatinine of 6.8 and calcium of 5.8. Patient is being followed by the renal service. 2. Acute heart failure. Fluid management as above. Possible history of a c ardiomyopathy. Echo pending. Patient states that he is less short of breath today. 3. History of bilateral lower extremity DVTs. Apparently previously treated with anticoagulation although he is unclear on his anticoagulation status. We will continue treatment with IV heparin. 4. Occasional episodes of chest pain with a mildly elevated troponin of 390. EKG shows no acute infarct. We will continue heparin as above. Echocardiogram pending. Continue baseline medications. 5. Possible history of paroxysmal atrial fibrillation. We will continue on monitoring. 6. Sleep apnea. 7. Super morbid obesity. Comment Review of Relevant I have reviewed the following items sabina (where applicable) has been applied. Labs Laboratory Tests Test 08/07/21 20:08 08/07/21 21:00 08/07/21 23:46 08/08/21 05:30 White Blood Count 36.1 x10^3/uL (4.0-11.0) 36.7 x10^3/uL (4.0-11.0) Red Blood Count 6.15 x10^6/uL (4.30-5.70) 5.64 x10^6/uL (4.30-5.70) Hemoglobin 16.3 g/dL (13.0-17.5) 14.8 g/dL (13.0-17.5) Hematocrit 49.3 % (39.0-53.0) 45.5 % (39.0-53.0) Mean Corpuscular Volume 80 fL (79-100) 81 fL (79-100) Mean Corpuscular Hemoglobin 27 pg (25-35) 26 pg (25-35) Mean Corpuscular Hemoglobin Concent 33 g/dL (31-37) 33 g/dL (31-37) Red Cell Distribution Width 16.3 % (11.5-14.5) 16.6 % (11.5-14.5) Platelet Count 243 x10^3/uL (140-400) 224 x10^3/uL (140-400) Neutrophils (%) (Auto) 90 % (31-73) 90 % (31-73) Lymphocytes (%) (Auto) 4 % (24-48) 4 % (24-48) Monocytes (%) (Auto) 4 % (0-9) 4 % (0-9) Eosinophils (%) (Auto) 1 % (0-3) 1 % (0-3) Basophils (%) (Auto) 1 % (0-3) 1 % (0-3) Neutrophils # (Auto) 32.4 x10^3/uL (1.8-7.7) 33.0 x10^3/uL (1.8-7.7) Lymphocytes # (Auto) 1.6 x10^3/uL (1.0-4.8) 1.5 x10^3/uL (1.0-4.8) Monocytes # (Auto) 1.4 x10^3/uL (0.0-1.1) 1.6 x10^3/uL (0.0-1.1) Eosinophils # (Auto) 0.5 x10^3/uL (0.0-0.7) 0.4 x10^3/uL (0.0-0.7) Basophils # (Auto) 0.3 x10^3/uL (0.0-0.2) 0.2 x10^3/uL (0.0-0.2) Segmented Neutrophils % 61 % (35-66) 86 % (35-66) Band Neutrophils % 27 % (0-9) 8 % (0-9) Lymphocytes % 6 % (24-48) 3 % (24-48) Atypical Lymphocytes % (Manual) 1 % (0-0) Monocytes % 5 % (0-10) 3 % (0-10) Toxic Granulation Slight Toxic Vacuolation Mod Dohle Bodies Present Platelet Estimate Adequate (ADEQUATE) Adequate (ADEQUATE) Large Platelets Mod Activated Partial Thromboplast Time 36 SEC (24-38) D-Dimer (Anna) 10.40 ug/mlFEU (0.00-0.50) Sodium Level 126 mmol/L (136-145) 124 mmol/L (136-145) Potassium Level 5.3 mmol/L (3.5-5.1) 5.7 mmol/L (3.5-5.1) Chloride Level 92 mmol/L (98-107) 93 mmol/L (98-107) Carbon Dioxide Level 18 mmol/L (21-32) 17 mmol/L (21-32) Anion Gap 16 (6-14) 14 (6-14) Blood Urea Nitrogen 49 mg/dL (8-26) 56 mg/dL (8-26) Creatinine 6.1 mg/dL (0.7-1.3) 6.8 mg/dL (0.7-1.3) Estimated GFR (Cockcroft-Gault) 13.6 12.0 BUN/Creatinine Ratio 8 (6-20) Glucose Level 99 mg/dL (70-99) 121 mg/dL (70-99) Uric Acid 13.4 mg/dL (3.5-7.2) Calcium Level 5.9 mg/dL (8.5-10.1) 5.5 mg/dL (8.5-10.1) Phosphorus Level 9.4 mg/dL (2.6-4.7) Magnesium Level 2.5 mg/dL (1.8-2.4) Total Bilirubin 1.1 mg/dL (0.2-1.0) Aspartate Amino Transf (AST/SGOT) 2647 U/L (15-37) Alanine Aminotransferase (ALT/SGPT) 395 U/L (16-63) Alkaline Phosphatase 94 U/L (46-116) Troponin I High Sensitivity 383 ng/L (4-75) 390 ng/L (4-75) 324 ng/L (4-75) JE-Fim-J-Type Natriuretic Peptide 1502 pg/mL (0-124) Total Protein 6.7 g/dL (6.4-8.2) Albumin 2.5 g/dL (3.4-5.0) Albumin/Globulin Ratio 0.6 (1.0-1.7) Thyroid Stimulating Hormone (TSH) 1.854 uIU/mL (0.358-3.74) SARS-CoV-2 RNA (ESTEPHANIE) Negative (Negative) SARS-CoV-2 Antigen (Rapid) Negative (NEGATIVE) Ionized Calcium 0.61 mmol/L (1.13-1.32) Hepatitis A IgM Antibody Nonreactive (Nonreactive) Hepatitis B Surface Antigen Nonreactive (Nonreactive) Hepatitis B Core IgM Antibody Nonreactive (Nonreactive) Hepatitis C IgG Antibody Nonreactive (Nonreactive) Creatine Kinase > 198664 U/L (39-308) Test 08/08/21 06:00 08/08/21 07:30 08/08/21 12:45 08/08/21 13:40 Activated Partial Thromboplast Time 43 SEC (24-38) 52 SEC (24-38) Urine Collection Type Unknown Urine Color Red Urine Clarity Turbid Urine pH 5.5 (<5.0-8.0) Urine Specific [place] 1.025 (1.000-1.030) Urine Protein >=300 mg/dL (NEG-TRACE) Urine Glucose (UA) mg/dL (NEG) Urine Ketones (Stick) mg/dL (NEG) Urine Blood Large (NEG) Urine Nitrite (NEG) Urine Bilirubin (NEG) Urine Urobilinogen Dipstick mg/dL (0.2 mg/dL) Urine Leukocyte Esterase (NEG) Urine RBC 11-20 /HPF (0-2) Urine WBC 5-10 /HPF (0-4) Urine Squamous Epithelial Cells Occ /LPF Urine Transitional Epithelial Cells Occ /LPF Urine Renal Epithelial Cells Occ /LPF Urine Bacteria Few /HPF (0-FEW) Urine Granular Casts Occasional /HPF Urine Red Blood Cell Casts Few /HPF Urine Mucus Slight /LPF Nasal Screen MRSA (PCR) Negative (NEGATIVE) Hepatitis B Surface Antibody Nonreactive Test 08/08/21 14:55 08/08/21 18:00 08/08/21 20:50 08/09/21 03:45 Lactic Acid Level 1.2 mmol/L (0.4-2.0) Procalcitonin > 125.00 ng/mL (0.00-0.10) Influenza Type A Antigen Negative (NEGATIVE) Influenza Type B Antigen Negative (NEGATIVE) Activated Partial Thromboplast Time 50 SEC (24-38) 52 SEC (24-38) Test 08/09/21 06:45 08/09/21 11:33 White Blood Count 31.1 x10^3/uL (4.0-11.0) Red Blood Count 4.90 x10^6/uL (4.30-5.70) Hemoglobin 12.4 g/dL (13.0-17.5) Hematocrit 39.1 % (39.0-53.0) Mean Corpuscular Volume 80 fL (79-100) Mean Corpuscular Hemoglobin 25 pg (25-35) Mean Corpuscular Hemoglobin Concent 32 g/dL (31-37) Red Cell Distribution Width 16.5 % (11.5-14.5) Platelet Count 193 x10^3/uL (140-400) Neutrophils (%) (Auto) 87 % (31-73) Lymphocytes (%) (Auto) 4 % (24-48) Monocytes (%) (Auto) 8 % (0-9) Eosinophils (%) (Auto) 0 % (0-3) Basophils (%) (Auto) 0 % (0-3) Neutrophils # (Auto) 27.1 x10^3/uL (1.8-7.7) Lymphocytes # (Auto) 1.3 x10^3/uL (1.0-4.8) Monocytes # (Auto) 2.5 x10^3/uL (0.0-1.1) Eosinophils # (Auto) 0.1 x10^3/uL (0.0-0.7) Basophils # (Auto) 0.1 x10^3/uL (0.0-0.2) Sodium Level 128 mmol/L (136-145) Potassium Level 4.6 mmol/L (3.5-5.1) Chloride Level 93 mmol/L (98-107) Carbon Dioxide Level 27 mmol/L (21-32) Anion Gap 8 (6-14) Blood Urea Nitrogen 50 mg/dL (8-26) Creatinine 6.8 mg/dL (0.7-1.3) Estimated GFR (Cockcroft-Gault) 12.0 Glucose Level 104 mg/dL (70-99) Calcium Level 5.8 mg/dL (8.5-10.1) Phosphorus Level 7.5 mg/dL (2.6-4.7) Magnesium Level 2.3 mg/dL (1.8-2.4) Activated Partial Thromboplast Time 49 SEC (24-38) Laboratory Tests Test 08/08/21 13:40 08/08/21 14:55 08/08/21 18:00 08/08/21 20:50 Activated Partial Thromboplast Time 52 SEC (24-38) 50 SEC (24-38) Hepatitis B Surface Antibody Nonreactive Lactic Acid Level 1.2 mmol/L (0.4-2.0) Procalcitonin > 125.00 ng/mL (0.00-0.10) Influenza Type A Antigen Negative (NEGATIVE) Influenza Type B Antigen Negative (NEGATIVE) Test 08/09/21 03:45 08/09/21 06:45 08/09/21 11:33 Activated Partial Thromboplast Time 52 SEC (24-38) 49 SEC (24-38) White Blood Count 31.1 x10^3/uL (4.0-11.0) Red Blood Count 4.90 x10^6/uL (4.30-5.70) Hemoglobin 12.4 g/dL (13.0-17.5) Hematocrit 39.1 % (39.0-53.0) Mean Corpuscular Volume 80 fL (79-100) Mean Corpuscular Hemoglobin 25 pg (25-35) Mean Corpuscular Hemoglobin Concent 32 g/dL (31-37) Red Cell Distribution Width 16.5 % (11.5-14.5) Platelet Count 193 x10^3/uL (140-400) Neutrophils (%) (Auto) 87 % (31-73) Lymphocytes (%) (Auto) 4 % (24-48) Monocytes (%) (Auto) 8 % (0-9) Eosinophils (%) (Auto) 0 % (0-3) Basophils (%) (Auto) 0 % (0-3) Neutrophils # (Auto) 27.1 x10^3/uL (1.8-7.7) Lymphocytes # (Auto) 1.3 x10^3/uL (1.0-4.8) Monocytes # (Auto) 2.5 x10^3/uL (0.0-1.1) Eosinophils # (Auto) 0.1 x10^3/uL (0.0-0.7) Basophils # (Auto) 0.1 x10^3/uL (0.0-0.2) Sodium Level 128 mmol/L (136-145) Potassium Level 4.6 mmol/L (3.5-5.1) Chloride Level 93 mmol/L (98-107) Carbon Dioxide Level 27 mmol/L (21-32) Anion Gap 8 (6-14) Blood Urea Nitrogen 50 mg/dL (8-26) Creatinine 6.8 mg/dL (0.7-1.3) Estimated GFR (Cockcroft-Gault) 12.0 Glucose Level 104 mg/dL (70-99) Calcium Level 5.8 mg/dL (8.5-10.1) Phosphorus Level 7.5 mg/dL (2.6-4.7) Magnesium Level 2.3 mg/dL (1.8-2.4) Medications Current Medications Heparin Sodium (Porcine) (Heparin Sodium) 10,000 unit 1X ONCE IV Last administered on 08/07/21at 23:48; Start 08/07/21 at 21:00; Stop 08/07/21 at 21:01; Status DC Heparin Sodium/ Dextrose 250 ml @ 20 mls/hr CONT PRN IV PER PROTOCOL; Start 08/07/21 at 19:00; Status Cancel Heparin Sodium (Porcine) (Heparin Sodium) 7,500 unit PRN Q6HRS PRN IV FOR UFH LEVEL LESS THAN 0.2; Start 08/07/21 at 19:00; Stop 08/07/21 at 22:34; Status DC Heparin Sodium (Porcine) (Heparin Sodium) 3,750 unit PRN Q6HRS PRN IV FOR UFH LEVEL 0.2 - 0.29; Start 08/07/21 at 19:00; Stop 08/07/21 at 22:33; Status DC Ceftriaxone Sodium (Rocephin) 2 gm 1X ONCE IVP Last administered on 08/07/21at 22:11; Start 08/07/21 at 21:15; Stop 08/07/21 at 21:16; Status DC Calcium Gluconate (Calcium Gluconate) 1,000 mg 1X ONCE IVP Last administered on 08/08/21at 02:29; Start 08/07/21 at 21:15; Stop 08/07/21 at 21:16; Status DC Sodium Chloride 500 ml @ 500 mls/hr 1X ONCE IV Last administered on 08/07/21at 21:15; Start 08/07/21 at 21:15; Stop 08/07/21 at 22:14; Status DC Aspirin (Aspirin Chewable) 324 mg 1X ONCE PO Last administered on 08/07/21at 2 2:12; Start 08/07/21 at 21:30; Stop 08/07/21 at 21:31; Status DC Sodium Bicarbonate 150 meq/Dextrose 1,150 ml @ 100 mls/hr [id number] ONCE IV Last administered on 08/07/21at 23:51; Start 08/07/21 at 22:00; Stop 08/08/21 at 09:29; Status DC Ondansetron HCl (Zofran) 4 mg STK-MED ONCE .ROUTE ; Start 08/07/21 at 22:20; Stop 08/07/21 at 22:21; Status DC Ondansetron HCl (Zofran) 4 mg 1X ONCE IVP Last administered on 08/07/21at 22:36; Start 08/07/21 at 22:30; Stop 08/07/21 at 22:31; Status DC Heparin Sodium (Porcine) (Heparin Sodium) 4,300 unit PRN Q6HRS PRN IV FOR UFH LEVEL 0.2 - 0.29; Start 08/07/21 at 22:33; Status Cancel Heparin Sodium (Porcine) (Heparin Sodium) 8,600 unit PRN Q6HRS PRN IV FOR UFH LEVEL LESS THAN 0.2; Start 08/07/21 at 22:45; Status Cancel Heparin Sodium/ Dextrose 250 ml @ 20 mls/hr CONT PRN IV PER PROTOCOL Last administered on 08/09/21at 10:38; Start 08/07/21 at 23:00 Heparin Sodium (Porcine) (Heparin Sodium) 8,600 unit PRN Q6HRS PRN IV FOR PTT < 40; Start 08/07/21 at 23:00 Heparin Sodium (Porcine) (Heparin Sodium) 2,000 unit PRN Q6HRS PRN IV FOR PTT 40 - 58 Last administered on 08/09/21at 12:15; Start 08/07/21 at 23:00 Heparin Sodium (Porcine) (Heparin Sodium) 1,000 unit PRN Q6HRS PRN IV FOR PTT 59 - 78; Start 08/07/21 at 23:00 Doxycycline Hyclate (Vibra-Tab) 100 mg BID PO ; Start 08/08/21 at 09:00; Stop 08/08/21 at 04:41; Status DC Doxycycline Hyclate (Vibra-Tab) 100 mg BID PO Last administered on 08/09/21at 08:05; Start 08/08/21 at 05:00 Calcium Gluconate 2000 mg/Sodium Chloride 120 ml @ 220 mls/hr 1X ONCE IV Last administered on 08/08/21at 06:30; Start 08/08/21 at 06:30; Stop 08/08/21 at 07:02; Status DC Lactobacillus Rhamnosus (Culturelle) 1 cap BID PO Last administered on 08/09/21at 08:05; Start 08/08/21 at 09:00 Sodium Bicarbonate (Sodium Bicarb Adult 8.4% Syr) 150 meq 1X ONCE IV Last administered on 08/08/21at 08:27; Start 08/08/21 at 07:15; Stop 08/08/21 at 07:19; Status DC Ceftriaxone Sodium (Rocephin) 1 gm Q24H IVP ; Start 08/08/21 at 11:30; Status UNV Ceftriaxone Sodium (Rocephin) 2 gm Q24H IVP Last administered on 08/09/21at 11:35; Start 08/08/21 at 12:00 Sennosides (Senna) 17.2 mg PRN BID PRN PO CONSTIPATION; Start 08/08/21 at 11:30 Docusate Sodium (Colace) 100 mg PRN DAILY PRN PO HARD STOOLS; Start 08/08/21 at 11:30 Ondansetron HCl (Zofran) 4 mg PRN Q6HRS PRN IVP NAUSEA/VOMITING Last administered on 08/09/21at 01:25; Start 08/08/21 at 11:30 Dextrose (Dextrose 50%-Water Syringe) 12.5 gm PRN Q15MIN PRN IV SEE COMMENTS; Start 08/08/21 at 11:30 Acetaminophen (Tylenol) 650 mg PRN Q4HRS PRN PO TEMP OVER 100.4F OR MILD PAIN; Start 08/08/21 at 11:30 Lorazepam (Ativan) 0.5 mg PRN Q6HRS PRN PO ANXIETY / AGITATION; Start 08/08/21 at 11:30 Lorazepam (Ativan Inj) 0.25 mg PRN Q4HRS PRN IV ANXIETY / AGITATION; Start 08/08/21 at 11:30 Famotidine (Pepcid Vial) 20 mg DAILY IVP Last administered on 08/09/21at 08:05; Start 08/08/21 at 12:00 Prochlorperazine Edisylate (Compazine) 10 mg PRN Q6HRS PRN IV NAUSEA/VOMITING, 2ND CHOICE; Start 08/08/21 at 11:30 Zolpidem Tartrate (Ambien) 2.5 mg PRN QHS PRN PO INSOMNIA; Start 08/08/21 at 11:30 Calcium Gluconate (Calcium Gluconate) 1,000 mg Q2H IVP Last administered on 08/08/21at 15:33; Start 08/08/21 at 11:30; Stop 08/08/21 at 15:31; Status DC Lidocaine HCl (Buffered Lidocaine 1%) 3 ml STK-MED ONCE .ROUTE ; Start 08/08/21 at 12:10; Stop 08/08/21 at 12:11; Status DC Lidocaine HCl (Buffered Lidocaine 1%) 6 ml 1X ONCE INJ ; Start 08/08/21 at 13:00; Stop 08/08/21 at 13:01; Status DC Ipratropium [place] (Atrovent) 0.5 mg RTQID NEB Last administered on 08/09/21at 08:32; Start 08/08/21 at 16:00 Sodium Chloride 1,000 ml @ 1,000 mls/hr Q1H PRN IV hypotension; Start 08/08/21 at 14:45; Stop 08/08/21 at 20:44; Status DC Albumin Human 200 ml @ 200 mls/hr 1X PRN PRN IV Hypotension; Start 08/08/21 at 14:45; Stop 08/08/21 at 20:44; Status DC Info (PHARMACY MONITORING -- do not chart) 1 each PRN DAILY PRN MC SEE COMMENTS; Start 08/08/21 at 14:45; Status UNV Info (PHARMACY MONITORING -- do not chart) 1 each PRN DAILY PRN MC SEE COMMENTS; Start 08/08/21 at 14:45 Calcium Carbonate/ Glycine (Tums) 500 mg PRN AFTMEALHC PRN PO INDIGESTION; Start 08/09/21 at 01:30 Calcium Gluconate (Calcium Gluconate) 1,000 mg Q2H IVP Last administered on 08/09/21at 12:16; Start 08/09/21 at 08:30; Stop 08/09/21 at 12:31; Status DC Perflutren Protein Type A Microsphe (Optison) 0.66 mg STK-MED ONCE IV ; Start 08/09/21 at 10:56; Stop 08/09/21 at 10:57; Status DC Vancomycin HCl (Vancomycin Oral Solution) 125 mg [id number] PO Last administered on 08/09/21at 12:31; Start 08/09/21 at 13:00 Calcium Gluconate 5000 mg/Sodium Chloride 500 ml @ 50 mls/hr Q10H IV Last administered on 08/09/21at 12:47; Start 08/09/21 at 12:30 Active Scripts Active Reported Torsemide 20 Mg Tablet 4 Tab PO DAILY Bactrim Ds Tablet (Sulfamethoxazole/Trimethoprim) 1 Each Tablet 1 Tab PO BID 10 Days Spironolactone 100 Mg Tablet 1 Tab PO DAILY Potassium Chloride (Potassium Chloride) 20 Meq Tablet.er 1 Meq PO DAILY Losartan Potassium 50 Mg Tablet 2 Mg PO DAILY Carvedilol 25 Mg Tablet 2 Mg PO BIDWMEALS Buspirone Hcl 10 Mg Tablet 10 Mg PO BID Amlodipine Besylate 10 Mg Tablet 10 Mg PO DAILY Proair Hfa (Albuterol Sulfate) 8.5 Gm Hfa.aer.ad 1 Puff INH PRN Q6HRS PRN Xarelto (Rivaroxaban) 20 Mg Tablet Unknown Dose PO DAILY 30 Days with food Vitals/I & O Vital Sign - Last 24 Hours 08/08/21 08/08/21 08/08/21 08/08/21 14:00 15:00 16:00 16:00 Temp 99.0 99.0 Pulse 104 104 101 Resp 27 26 29 B/P (MAP) 135/66 (89) 142/93 (109) 141/36 (71) Pulse Ox 96 95 97 O2 Delivery Room Air Room Air Room Air Room Air 08/08/21 08/08/21 08/08/21 08/08/21 17:00 17:55 18:00 19:00 Pulse 105 105 94 Resp 29 28 25 B/P (MAP) 166/97 (120) 146/93 (110) 147/105 (119) Pulse Ox 92 96 92 99 O2 Delivery Room Air Room Air Room Air Room Air 08/08/21 08/08/21 08/08/21 08/08/21 20:00 20:00 21:00 22:00 Temp 99.0 99.0 Pulse 100 100 108 Resp 30 26 27 B/P (MAP) 137/67 (90) Pulse Ox 100 96 95 O2 Delivery Room Air Room Air Room Air Room Air 08/08/21 08/09/21 08/09/21 08/09/21 23:00 00:00 00:00 01:00 Pulse 108 108 106 Resp 34 27 27 B/P (MAP) 138/67 (90) Pulse Ox 97 97 O2 Delivery Room Air Room Air Room Air 08/09/21 08/09/21 08/09/21 08/09/21 02:00 03:00 03:45 04:00 Temp 98.6 98.6 Pulse 105 106 106 Resp 26 24 24 B/P (MAP) 145/85 (105) 140/77 (98) 112/72 (85) Pulse Ox 95 93 97 93 O2 Delivery Room Air BiPAP/CPAP BiPAP/CPAP Room Air 08/09/21 08/09/21 08/09/21 08/09/21 04:00 05:00 06:00 07:00 Temp 98.3 98.3 Pulse 96 104 102 Resp 25 25 25 B/P (MAP) 135/88 (104) 114/70 (85) 133/70 (91) Pulse Ox 97 92 95 O2 Delivery Room Air BiPAP/CPAP BiPAP/CPAP Room Air 08/09/21 08/09/21 08/09/21 08/09/21 08:00 08:00 08:32 09:00 Temp 98.6 98.6 Pulse 102 102 Resp 25 B/P (MAP) 127/78 (94) 142/106 (118) Pulse Ox 96 96 95 O2 Delivery Room Air Room Air Room Air Room Air 08/09/21 08/09/21 08/09/21 08/09/21 10:00 11:00 12:00 12:00 Temp 99.0 99.0 Pulse 97 95 101 Resp 22 B/P (MAP) 185/110 (135) 140/72 (94) 101/47 (65) Pulse Ox 95 96 93 O2 Delivery BiPAP/CPAP Room Air Room Air Room Air 08/09/21 13:00 Pulse 101 Resp 28 B/P (MAP) 120/89 (99) Pulse Ox 95 O2 Delivery Room Air Intake and Output 08/08/21 08/08/21 08/09/21 15:00 23:00 07:00 Intake Total 1423.1 ml 350.9 ml 240 ml Output Total 7 ml 8 ml 10 ml Balance 1416.1 ml 342.9 ml 230 ml Justifications for Admission Other Justification KATY WILLARD MD Aug 09, 2021 13:28
--- NOTE | 2021-08-09 15:01 | CARD ---
MR#: [id number] Date of Study: 08/09/2021 Ordering Physician: JO BOSS, Referring Physician: JO BOSS, Tech: Amparo Thomson, [facility] APPROVED REPORT EXAM: Two-dimensional and M-mode echocardiogram with Doppler and color Doppler. Other Information Quality : FairHR: 98bpm Technically limited study due to morbid obesity INDICATION Dyspnea Chest Pain Congestive Heart Failure Non STEMI 2D DIMENSIONS Left Atrium(2D)4.0 (1.6-4.0cm)IVSd1.6 (0.7-1.1cm) Aortic Root(2D)3.3 (2.0-3.7cm)LVDd6.0 (3.9-5.9cm) LVOT Diameter2.3 (1.8-2.4cm)PWd1.5 (0.7-1.1cm) LVDs4.7 (2.5-4.0cm)FS (%) 22.1 % SV78.6 ml Aortic Valve AoV Peak Bossman.132.4cm/sAoV VTI19.5cm AO Peak GR.7.0mmHgLVOT VTI 14.92cm AO Mean GR.4mmHg Mitral Valve MV E Apiwfzew72.1cm/sMV E Peak Gr.4mmHg MV A Kthedyot98.4cm/sMV E Mean Gr.3mmHg E/A Ratio1.0 TDI Lateral E' P. V5.92cm/sMedial E' P. V5.66cm/s E/Lateral E'16.4E/Medial E'17.2 Tricuspid Valve TR P. [id number]/sRAP [id number] TR Peak Gr.[id number] Pulmonary Vein S1 Kzsllwoo61.6cm/sS2 Univdsdd48.33cm/s D2 Kkemabjn37.3cm/sPVa [id number] LEFT VENTRICLE The Left Ventricle is mildly dilated. There is milld to moderate concentric left ventricular hypertro phy. LV systolic function is low normal. LV ejection fraction is estimated at 50%. Septal motion co nsistent with a possible conduction abnormality. Tissue Doppler imaging reveals moderate left ventric ular diastolic dysfunction. RIGHT VENTRICLE The right ventricle is not well visualized. The right ventricle is mildly hypertrophied. The right ve ntricular systolic function is normal. ATRIA The left atrium size is normal. The right atrium is mildly dilated. AORTIC VALVE The aortic valve is normal in structure and function. Doppler and Color Flow revealed trace aortic re gurgitation. There is no significant aortic valvular stenosis. Calculated aortic valve area is 2.67 c m2 with maximum pressure gradient of 7 mmHg and mean pressure gradient of 4 mmHg. MITRAL VALVE The mitral valve is normal in structure and function. There is no evidence of mitral valve prolapse. There is no mitral valve stenosis. Doppler and Color-flow revealed trace mitral regurgitation. TRICUSPID VALVE The tricuspid valve is normal in structure and function. Doppler and Color Flow revealed trace to mil d tricuspid regurgitation with an estimated PAP of 51 mmHg. There is no tricuspid valve stenosis. PULMONIC VALVE The pulmonic valve is not well visualized. Doppler and Color Flow revealed no pulmonic valvular regur gitation. GREAT VESSELS The aortic root is normal in size. The IVC is dilated. PERICARDIAL EFFUSION There is no evidence of significant pericardial effusion. Critical Notification Critical Value: No <Conclusion> The Left Ventricle is mildly dilated. LV systolic function is low normal. LV ejection fraction is estimated at 50%. Septal motion consistent with a possible conduction abnormality. There is milld to moderate concentric left ventricular hypertrophy. Doppler and Color Flow revealed trace aortic regurgitation. There is no significant aortic valvular stenosis. Doppler and Color-flow revealed trace mitral regurgitation. Doppler and Color Flow revealed trace to mild tricuspid regurgitation with an estimated PAP of 51 mmH g. Signed by : Baljinder Perales MD Electronically Approved : 08/09/2021 15:00:53
[2021-08-09] MEDS: LORazepam 0.5 MG TABLET PO PRN (21:39)
[2021-08-09] MEDS: ZOLPIDEM 5 MG TABLET. PO PRN (21:40)
[2021-08-10 00:01] VITALS: BP 152/94
[2021-08-10] MEDS: HEPARIN for IV BOLUS 10,000 UNIT/10 ML VIAL. IV PRN ×3 (01:53→18:44)
[2021-08-10] MEDS: HEPARIN 25,000UTS/250ML PREMIX 250 ML IV PRN ×3 (03:59→22:32)
[2021-08-10 04:00] VITALS: BP 153/87
--- NOTE | 2021-08-10 06:18 | CONS ---
DATE OF CONSULTATION: 08/09/2021 GASTROENTEROLOGY CONSULTATION REFERRING PHYSICIAN: Juliane Jones MD REASON FOR CONSULTATION: Transaminitis. HISTORY OF PRESENT ILLNESS: A 26-year-old -Iranian male whose past medical history is significant for congestive heart failure, hypertension, AFib, cardiomyopathy, DVTs, acute renal failure and admitted to [facility] with rhabdomyolysis. The patient does have a history of ____ history, but no recent drug use or other risk factors for viral hepatitis. States that his appetite is poor. He has persistent pain and wishes to have more narcotic analgesics for relief. He is otherwise without additional complaints. PAST MEDICAL HISTORY: AFib, CHF, hypertension, cardiomyopathy. ALLERGIES: IODINE, AMOXICILLIN, ZITHROMAX, SHELLFISH. MEDICATIONS: Include vancomycin, calcium, Atrovent, famotidine, zolpidem, lorazepam, acetaminophen, dextrose, Zofran. SOCIAL HISTORY: He is presently incarcerated. Does not drink or smoke. FAMILY HISTORY: Noncontributory. REVIEW OF SYSTEMS: Per records. PHYSICAL EXAMINATION: GENERAL: Reveals a well-nourished, well-developed male. VITAL SIGNS: Temp is 99, pulse 101, respiratory rate 22, blood pressure 141/47, his weight is 285.4 kilos bedside. HEENT: Normocephalic and atraumatic head. Pupils and extraocular muscles not tested. Sclerae are anicteric. NECK: Supple. LUNGS: Clear. CARDIOVASCULAR: Reveals an S1 and S2 without S3 or S4 or appreciable murmur. ABDOMEN: Reveals a rotund abdomen with diffuse tenderness, multiple tattoos throughout. EXTREMITIES: Reveal 2+ edema and painful extremities. LABORATORY STUDIES: Hemoglobin 12.4, hematocrit 39.1, white count 31.1 and platelet count is 193,000. Sodium 128, potassium 4.6, chloride 93, bicarb is 27, BUN is 50, creatinine is 6.8, calcium is 5.6, phosphorus 7.5. Procalcitonin is greater than 125 and CK is over 100,000. Alk phos is 94, AST is 2647, ALT is 395. IMPRESSION AND PLAN: Transaminitis, most likely is a combination of hepatic congestion, rhabdomyolysis and fatty liver. We therefore recommend medical therapy with dialysis as needed for diuresis. Further consideration in this individual should be considered for possible potential gastric bypass due to the increased morbidity and mortality at young age with end-organ damage at this time. RONALDO/DORYS DR: Jackie TID: [id number] CC: Juliane Jones MD
[2021-08-10 06:57] LABS: CREATININE 8.2 mg/dL (0.7-1.3); GFR 9.6; MAGNESIUM 2.4 mg/dL (1.8-2.4); POTASSIUM 4.8 mmol/L (3.5-5.1)
[2021-08-10 06:58] LABS: BASO % 0 % (0-3); EOS # 0.2 x10^3/uL (0.0-0.7); EOS % 1 % (0-3); HEMATOCRIT 36.1 % (39.0-53.0); HEMOGLOBIN 11.5 g/dL (13.0-17.5); LYMPH # 1.5 x10^3/uL (1.0-4.8); LYMPH % 6 % (24-48); MEAN CORPUSCULAR HEMOGLOBIN 26 pg (25-35); MEAN CORPUSCULAR HGB CONC 32 g/dL (31-37); MEAN CORPUSCULAR VOLUME 81 fL (79-100); MONO # 1.9 x10^3/uL (0.0-1.1); MONO % 8 % (0-9); NEUT # 19.8 x10^3/uL (1.8-7.7); NEUT % 84 % (31-73); PLATELET COUNT 173 x10^3/uL (140-400); RED BLOOD COUNT 4.49 x10^6/uL (4.30-5.70); WHITE BLOOD COUNT 23.5 x10^3/uL (4.0-11.0)
[2021-08-10 07:01] LABS: CALCIUM 5.7 mg/dL (8.5-10.1)
[2021-08-10] MEDS: IPRATROPIUM BROMIDE 0.5 MG/2.5 ML NEBU. NEB SCH ×4 (07:58→20:00)
[2021-08-10 08:00] VITALS: BP 167/100
--- NOTE | 2021-08-10 08:02 | PDOC ---
Infectious Disease Note Subjective Subjective pt is feeling ok, some abd pain, loose stool ROS ROS No nausea vomiting or shortness of breath Vital Sign Vital Signs Vital Signs Date Time Temp Pulse Resp B/P (MAP) Pulse Ox O2 Delivery O2 Flow Rate FiO2 08/10/21 07:59 96 BiPAP/CPAP 08/10/21 04:00 97.9 94 16 153/87 (109) 97.9 08/09/21 23:00 4.0 Physical Exam PHYSICAL EXAM VITAL SIGNS: stable GENERAL: Morbidly obese, alert, oriented, well-developed, well-nourished male, in no acute distress, nontoxic appearing. HEENT: Normocephalic, atraumatic. Anicteric. No thrush. Oral mucosa moist. NECK: Supple. Short neck. LUNGS: Clear bilaterally. HEART: S1, S2. No murmurs. ABDOMEN: Soft, nontender, nondistended. No rebound, no guarding. GENITOURINARY: Castaneda in place with concentrated urine. EXTREMITIES: Bilateral lymphedema. Right lower extremity erythematous, mild tenderness, dry scabs present. NEUROLOGIC: Alert and oriented x3, grossly nonfocal. PSYCHIATRIC: Calm and cooperative. Labs Lab Laboratory Tests Test 08/09/21 11:33 08/09/21 13:05 08/09/21 16:04 08/09/21 18:10 Activated Partial Thromboplast Time 49 SEC (24-38) 52 SEC (24-38) Calcium Level 5.7 mg/dL (8.5-10.1) 5.9 mg/dL (8.5-10.1) Test 08/09/21 18:45 08/09/21 23:10 08/10/21 00:55 08/10/21 06:15 Calcium Level 5.9 mg/dL (8.5-10.1) 5.6 mg/dL (8.5-10.1) 5.7 mg/dL (8.5-10.1) Activated Partial Thromboplast Time 62 SEC (24-38) White Blood Count 23.5 x10^3/uL (4.0-11.0) Red Blood Count 4.49 x10^6/uL (4.30-5.70) Hemoglobin 11.5 g/dL (13.0-17.5) Hematocrit 36.1 % (39.0-53.0) Mean Corpuscular Volume 81 fL (79-100) Mean Corpuscular Hemoglobin 26 pg (25-35) Mean Corpuscular Hemoglobin Concent 32 g/dL (31-37) Red Cell Distribution Width 17.0 % (11.5-14.5) Platelet Count 173 x10^3/uL (140-400) Neutrophils (%) (Auto) 84 % (31-73) Lymphocytes (%) (Auto) 6 % (24-48) Monocytes (%) (Auto) 8 % (0-9) Eosinophils (%) (Auto) 1 % (0-3) Basophils (%) (Auto) 0 % (0-3) Neutrophils # (Auto) 19.8 x10^3/uL (1.8-7.7) Lymphocytes # (Auto) 1.5 x10^3/uL (1.0-4.8) Monocytes # (Auto) 1.9 x10^3/uL (0.0-1.1) Eosinophils # (Auto) 0.2 x10^3/uL (0.0-0.7) Basophils # (Auto) 0.0 x10^3/uL (0.0-0.2) Sodium Level 127 mmol/L (136-145) Potassium Level 4.8 mmol/L (3.5-5.1) Chloride Level 90 mmol/L (98-107) Carbon Dioxide Level 26 mmol/L (21-32) Anion Gap 11 (6-14) Blood Urea Nitrogen 67 mg/dL (8-26) Creatinine 8.2 mg/dL (0.7-1.3) Estimated GFR (Cockcroft-Gault) 9.6 Glucose Level 83 mg/dL (70-99) Magnesium Level 2.4 mg/dL (1.8-2.4) Objective Assessment IMPRESSION: 1. Leukocytosis. 2. Low-grade febrile illness. 3. Acute kidney injury. 4. Hyperkalemia. 5. Hyponatremia. 6. Hypocalcemia. 7. Hypouricemia. 8. Severe rhabdomyolysis. 9. Bilateral lower extremity edema, right greater than left. 10. Right lower extremity cellulitis. 11. Morbid obesity. 12. History of congestive heart failure. 13. History of deep venous thrombosis. 14. History of ALLERGIES TO AMOXICILLIN AND AZITHROMYCIN. 15. Non-STEMI. 16. Metabolic acidosis. 17. Abnormal LFTs, likely from rhabdomyolysis. Plan Plan of Care c diff negative cont rocephine and doxy supportive care MARIANELA SALEH MD Aug 10, 2021 08:02
[2021-08-10 08:09] LABS: CALCIUM PTH 5.3 mg/dL (8.7-10.2); CREATININE PTH 7.49 mg/dL (0.76-1.27); PHOSPHORUS PTH 9.2 mg/dL (2.8-4.1); PTH INTACT 933 pg/mL (15-65)
--- NOTE | 2021-08-10 08:23 | RAD ---
Procedure: Temporary hemodialysis catheter placement Sterility: All elements of maximal sterile barrier technique including the use of a cap, mask, steril e gown, sterile gloves, large sterile sheet, appropriate hand hygiene, and 2% chlorhexidine for cutan eous antisepsis (or acceptable alternative antiseptic per current guidelines) were followed for this procedure. Consent: The procedure was explained in its entirety to the patient or the patients designated repres entative by a member of the treatment team, including a discussion of the risks, benefits and commonl y accepted alternatives to the procedure, as well as the expected consequences of no therapy whatsoev er. Discussion of the risks included, but was not limited to, those that are most frequent and thos e that are rare but possibly severe or life-threatening, as well as the possibility of unforeseen com plications. Technique and Findings: Following informed consent, the patient was prepped and draped in the usual s terile fashion. Ultrasound interrogation of the right neck revealed patency and compressibility of t he right internal jugular vein. A 21-gauge micropuncture was then used to gain access to this vein u nder ultrasound guidance. A hard copy ultrasound image was recorded. A guidewire was advanced centra lly over which, following dilatation, a 20 cm temporary dialysis catheter was placed. The new cathet er was found to flush and aspirate normally. The catheter was secured in place. Sterile dressings wer e applied. No immediate complications were identified. IMPRESSION: Ultrasound-guided placement of right internal jugular temporary hemodialysis catheter Electronically signed by: Gabriele Ma MD (08/10/2021 8:20 AM) [id number]
--- NOTE | 2021-08-10 09:22 | PDOC ---
DATE OF SERVICE DATE: 08/10/21 TIME: 09:22 SUBJECTIVE ROS No acute concerns, stable OBJECTIVE Vital Signs Vital Signs Date Time Temp Pulse Resp B/P (MAP) Pulse Ox O2 Delivery O2 Flow Rate FiO2 08/10/21 07:59 96 BiPAP/CPAP 08/10/21 04:00 97.9 94 16 153/87 (109) 97.9 08/09/21 23:00 4.0 I & 0 Intake and Output 08/10/21 07:00 Intake Total 1682.63 ml Output Total 20 ml Balance 1662.63 ml Intake Oral 1240 ml IV Total 442.63 ml Output Urine Total 20 ml # Bowel Movements 2 PHYSICAL EXAM Physical Exam GENERAL: Morbidly obese, alert, oriented , NAD HEENT: Normocephalic, atraumatic. Anicteric. No thrush. Oral mucosa moist. NECK: Supple. LUNGS: Clear bilaterally. HEART: S1, S2. No murmurs. ABDOMEN: Soft, nontender,Obese GENITOURINARY: Castaneda in place EXTREMITIES: Bilateral lymphedema. Right lower extremity erythematous, mild tenderness NEUROLOGIC: Alert and oriented x3, grossly nonfocal. PSYCHIATRIC: Calm and cooperative. DIAGNOSIS/ASSESSMENT Assessment & Plan Acute kidney injury: ATN , oligoanuric due to rhabdomyolysis. Needing dialysis 1st on Tuesday; No improvement in renal function, No significant UOP, dialysis today, discussed treatment plan with Mary Supportive care, flush Castaneda , avoid Nephrotoxins Rhabdomyolysis: Unclear etiology. Denies statin, reports he was started on new K pill- doesnt recall name, he walks a lot as well, stays hydrated Elevated LFT's Hyperkalemia: corrected Metabolic acidosis currently corrected and compensated Hyponatremia: 2/2 severe Rhabdo Severe hypocalcemia presumably due to rhabdomyolysis: On Calcium gtt ; Ca after Correcting for Low Albumin is 7.6 History of CHF: Clinically appears to be clinically compensated at this time. Non-STEMI: Defer to cardiology COMMENT/RELEVANT DATA Meds Current Medications Medications (Trade) Dose Ordered Sig/Keith Start Time Stop Time Status Last Admin Dose Admin Acetaminophen (Tylenol) 650 mg PRN Q4HRS PRN 08/08/21 11:30 Albumin Human 200 ml @ 200 mls/hr 1X PRN PRN 08/08/21 14:45 08/08/21 20:44 DC Aspirin (Aspirin Chewable) 324 mg 1X ONCE 08/07/21 21:30 08/07/21 21:31 DC 08/07/21 22:12 324 MG Calcium Carbonate/ Glycine (Tums) 500 mg PRN AFTMEALHC PRN 08/09/21 01:30 Calcium Gluconate (Calcium Gluconate) 1,000 mg Q2H 08/09/21 08:30 08/09/21 12:31 DC 08/09/21 12:16 1,000 MG Calcium Gluconate 2000 mg/Sodium Chloride 120 ml @ 220 mls/hr 1X ONCE 08/08/21 06:30 08/08/21 07:02 DC 08/08/21 06:30 220 MLS/HR Calcium Gluconate 5000 mg/Sodium Chloride 500 ml @ 50 mls/hr Q10H 08/09/21 12:30 08/09/21 23:24 50 MLS/HR Ceftriaxone Sodium (Rocephin) 2 gm Q24H 08/08/21 12:00 08/09/21 11:35 2 GM Dextrose (Dextrose 50%-Water Syringe) 12.5 gm PRN Q15MIN PRN 08/08/21 11:30 Docusate Sodium (Colace) 100 mg PRN DAILY PRN 08/08/21 11:30 Doxycycline Hyclate (Vibra-Tab) 100 mg BID 08/08/21 05:00 08/09/21 22:03 100 MG Famotidine (Pepcid Vial) 20 mg DAILY 08/08/21 12:00 08/09/21 08:05 20 MG Heparin Sodium (Porcine) (Heparin Sodium) 1,000 unit PRN Q6HRS PRN 08/07/21 23:00 08/10/21 01:53 1,000 UNIT Heparin Sodium/ Dextrose 250 ml @ 20 mls/hr CONT PRN 08/07/21 23:00 08/10/21 03:59 31 MLS/HR Info (PHARMACY MONITORING -- do not chart) 1 each PRN DAILY PRN 08/08/21 14:45 Ipratropium [place] (Atrovent) 0.5 mg RTQID 08/08/21 16:00 08/10/21 07:58 0.5 MG Lactobacillus Rhamnosus (Culturelle) 1 cap BID 08/08/21 09:00 08/09/21 21:39 1 CAP Lidocaine HCl (Buffered Lidocaine 1%) 6 ml 1X ONCE 08/08/21 13:00 08/08/21 13:01 DC Lorazepam (Ativan Inj) 0.25 mg PRN Q4HRS PRN 08/08/21 11:30 Lorazepam (Ativan) 0.5 mg PRN Q6HRS PRN 08/08/21 11:30 08/09/21 21:39 0.5 MG Ondansetron HCl (Zofran) 4 mg PRN Q6HRS PRN 08/08/21 11:30 08/09/21 01:25 4 MG Perflutren Protein Type A Microsphe (Optison) 0.66 mg STK-MED ONCE 08/09/21 10:56 08/09/21 10:57 DC Prochlorperazine Edisylate (Compazine) 10 mg PRN Q6HRS PRN 08/08/21 11:30 Sennosides (Senna) 17.2 mg PRN BID PRN 08/08/21 11:30 Sodium Bicarbonate 150 meq/Dextrose 1,150 ml @ 100 mls/hr [id number] ONCE 08/07/21 22:00 08/08/21 09:29 DC 08/07/21 23:51 100 MLS/HR Sodium Bicarbonate (Sodium Bicarb Adult 8.4% Syr) 150 meq 1X ONCE 08/08/21 07:15 08/08/21 07:19 DC 08/08/21 08:27 150 MEQ Sodium Chloride 1,000 ml @ 1,000 mls/hr Q1H PRN 08/08/21 14:45 08/08/21 20:44 DC Vancomycin HCl (Vancomycin Oral Solution) 125 mg [id number] 08/09/21 13:00 08/09/21 21:39 125 MG Zolpidem Tartrate (Ambien) 2.5 mg PRN QHS PRN 08/08/21 11:30 08/09/21 21:40 2.5 MG Lab Laboratory Tests Test 08/09/21 11:33 08/09/21 13:05 08/09/21 16:04 08/09/21 18:10 Activated Partial Thromboplast Time 49 SEC (24-38) 52 SEC (24-38) Calcium Level 5.7 mg/dL (8.5-10.1) 5.9 mg/dL (8.5-10.1) Test 08/09/21 18:45 08/09/21 23:10 08/10/21 00:55 08/10/21 06:15 Calcium Level 5.9 mg/dL (8.5-10.1) 5.6 mg/dL (8.5-10.1) 5.7 mg/dL (8.5-10.1) Activated Partial Thromboplast Time 62 SEC (24-38) 53 SEC (24-38) White Blood Count 23.5 x10^3/uL (4.0-11.0) Red Blood Count 4.49 x10^6/uL (4.30-5.70) Hemoglobin 11.5 g/dL (13.0-17.5) Hematocrit 36.1 % (39.0-53.0) Mean Corpuscular Volume 81 fL (79-100) Mean Corpuscular Hemoglobin 26 pg (25-35) Mean Corpuscular Hemoglobin Concent 32 g/dL (31-37) Red Cell Distribution Width 17.0 % (11.5-14.5) Platelet Count 173 x10^3/uL (140-400) Neutrophils (%) (Auto) 84 % (31-73) Lymphocytes (%) (Auto) 6 % (24-48) Monocytes (%) (Auto) 8 % (0-9) Eosinophils (%) (Auto) 1 % (0-3) Basophils (%) (Auto) 0 % (0-3) Neutrophils # (Auto) 19.8 x10^3/uL (1.8-7.7) Lymphocytes # (Auto) 1.5 x10^3/uL (1.0-4.8) Monocytes # (Auto) 1.9 x10^3/uL (0.0-1.1) Eosinophils # (Auto) 0.2 x10^3/uL (0.0-0.7) Basophils # (Auto) 0.0 x10^3/uL (0.0-0.2) Sodium Level 127 mmol/L (136-145) Potassium Level 4.8 mmol/L (3.5-5.1) Chloride Level 90 mmol/L (98-107) Carbon Dioxide Level 26 mmol/L (21-32) Anion Gap 11 (6-14) Blood Urea Nitrogen 67 mg/dL (8-26) Creatinine 8.2 mg/dL (0.7-1.3) Estimated GFR (Cockcroft-Gault) 9.6 Glucose Level 83 mg/dL (70-99) Magnesium Level 2.4 mg/dL (1.8-2.4) Creatine Kinase > 115901 U/L (39-308) Results All relevant outside records, renal labs, imaging studies, telemetry/EKG's were reviewed. Justicifation of Admission Dx: Justifications for Admission: Justification of Admission Dx: N/A JEAN CRUZ MD Aug 10, 2021 09:22
--- NOTE | 2021-08-10 09:25 | PDOC ---
PULMONARY PROGRESS NOTES DATE: 08/10/21 TIME: 09:11 Subjective Patient not more short of air, currently on room air Wore CPAP last night Vitals Vital Signs Date Time Temp Pulse Resp B/P (MAP) Pulse Ox O2 Delivery O2 Flow Rate FiO2 08/10/21 07:59 96 BiPAP/CPAP 08/10/21 04:00 97.9 94 16 153/87 (109) 97.9 08/09/21 23:00 4.0 ROS: No Nausea, No Chest Pain, No Abdominal Pain, No Increase Cough General: Alert Lungs: Other (b lat diminished ) Cardiovascular: S1, S2 Abdomen: Soft, Non-tender, Other (obese no mass) Neuro Exam: Alert, Oriented Extremities: Other (lymphedema chronic changes) Skin: Warm Labs Laboratory Tests Test 08/08/21 12:45 08/08/21 13:40 08/08/21 14:55 08/08/21 16:15 Nasal Screen MRSA (PCR) Negative (NEGATIVE) Activated Partial Thromboplast Time 52 SEC (24-38) Estimated GFR (Non- 9 (>59) EGFR 10 (>59) PTH (Intact) Specimen Description Comment (.) Parathyroid Hormone (Intact) 933 pg/mL (15-65) Calcium (PTH Intact) 5.3 mg/dL (8.7-10.2) Creatinine (PTH Intact) 7.49 mg/dL (0.76-1.27) Phosphorus (PTH Intact) 9.2 mg/dL (2.8-4.1) Hepatitis B Surface Antibody Nonreactive Lactic Acid Level 1.2 mmol/L (0.4-2.0) Procalcitonin > 125.00 ng/mL (0.00-0.10) Clostridium difficile Toxin (PCR) Negative (NEGATIVE) Test 08/08/21 18:00 08/08/21 20:50 08/09/21 03:45 08/09/21 06:45 Influenza Type A Antigen Negative (NEGATIVE) Influenza Type B Antigen Negative (NEGATIVE) Activated Partial Thromboplast Time 50 SEC (24-38) 52 SEC (24-38) White Blood Count 31.1 x10^3/uL (4.0-11.0) Red Blood Count 4.90 x10^6/uL (4.30-5.70) Hemoglobin 12.4 g/dL (13.0-17.5) Hematocrit 39.1 % (39.0-53.0) Mean Corpuscular Volume 80 fL (79-100) Mean Corpuscular Hemoglobin 25 pg (25-35) Mean Corpuscular Hemoglobin Concent 32 g/dL (31-37) Red Cell Distribution Width 16.5 % (11.5-14.5) Platelet Count 193 x10^3/uL (140-400) Neutrophils (%) (Auto) 87 % (31-73) Lymphocytes (%) (Auto) 4 % (24-48) Monocytes (%) (Auto) 8 % (0-9) Eosinophils (%) (Auto) 0 % (0-3) Basophils (%) (Auto) 0 % (0-3) Neutrophils # (Auto) 27.1 x10^3/uL (1.8-7.7) Lymphocytes # (Auto) 1.3 x10^3/uL (1.0-4.8) Monocytes # (Auto) 2.5 x10^3/uL (0.0-1.1) Eosinophils # (Auto) 0.1 x10^3/uL (0.0-0.7) Basophils # (Auto) 0.1 x10^3/uL (0.0-0.2) Sodium Level 128 mmol/L (136-145) Potassium Level 4.6 mmol/L (3.5-5.1) Chloride Level 93 mmol/L (98-107) Carbon Dioxide Level 27 mmol/L (21-32) Anion Gap 8 (6-14) Blood Urea Nitrogen 50 mg/dL (8-26) Creatinine 6.8 mg/dL (0.7-1.3) Estimated GFR (Cockcroft-Gault) 12.0 Glucose Level 104 mg/dL (70-99) Calcium Level 5.8 mg/dL (8.5-10.1) Phosphorus Level 7.5 mg/dL (2.6-4.7) Magnesium Level 2.3 mg/dL (1.8-2.4) Test 08/09/21 11:33 08/09/21 13:05 08/09/21 16:04 08/09/21 18:10 Activated Partial Thromboplast Time 49 SEC (24-38) 52 SEC (24-38) Calcium Level 5.7 mg/dL (8.5-10.1) 5.9 mg/dL (8.5-10.1) Test 08/09/21 18:45 08/09/21 23:10 08/10/21 00:55 08/10/21 06:15 Calcium Level 5.9 mg/dL (8.5-10.1) 5.6 mg/dL (8.5-10.1) 5.7 mg/dL (8.5-10.1) Activated Partial Thromboplast Time 62 SEC (24-38) 53 SEC (24-38) White Blood Count 23.5 x10^3/uL (4.0-11.0) Red Blood Count 4.49 x10^6/uL (4.30-5.70) Hemoglobin 11.5 g/dL (13.0-17.5) Hematocrit 36.1 % (39.0-53.0) Mean Corpuscular Volume 81 fL (79-100) Mean Corpuscular Hemoglobin 26 pg (25-35) Mean Corpuscular Hemoglobin Concent 32 g/dL (31-37) Red Cell Distribution Width 17.0 % (11.5-14.5) Platelet Count 173 x10^3/uL (140-400) Neutrophils (%) (Auto) 84 % (31-73) Lymphocytes (%) (Auto) 6 % (24-48) Monocytes (%) (Auto) 8 % (0-9) Eosinophils (%) (Auto) 1 % (0-3) Basophils (%) (Auto) 0 % (0-3) Neutrophils # (Auto) 19.8 x10^3/uL (1.8-7.7) Lymphocytes # (Auto) 1.5 x10^3/uL (1.0-4.8) Monocytes # (Auto) 1.9 x10^3/uL (0.0-1.1) Eosinophils # (Auto) 0.2 x10^3/uL (0.0-0.7) Basophils # (Auto) 0.0 x10^3/uL (0.0-0.2) Sodium Level 127 mmol/L (136-145) Potassium Level 4.8 mmol/L (3.5-5.1) Chloride Level 90 mmol/L (98-107) Carbon Dioxide Level 26 mmol/L (21-32) Anion Gap 11 (6-14) Blood Urea Nitrogen 67 mg/dL (8-26) Creatinine 8.2 mg/dL (0.7-1.3) Estimated GFR (Cockcroft-Gault) 9.6 Glucose Level 83 mg/dL (70-99) Magnesium Level 2.4 mg/dL (1.8-2.4) Creatine Kinase > 018284 U/L (39-308) Laboratory Tests Test 08/09/21 11:33 08/09/21 13:05 08/09/21 16:04 08/09/21 18:10 Activated Partial Thromboplast Time 49 SEC (24-38) 52 SEC (24-38) Calcium Level 5.7 mg/dL (8.5-10.1) 5.9 mg/dL (8.5-10.1) Test 08/09/21 18:45 08/09/21 23:10 08/10/21 00:55 08/10/21 06:15 Calcium Level 5.9 mg/dL (8.5-10.1) 5.6 mg/dL (8.5-10.1) 5.7 mg/dL (8.5-10.1) Activated Partial Thromboplast Time 62 SEC (24-38) 53 SEC (24-38) White Blood Count 23.5 x10^3/uL (4.0-11.0) Red Blood Count 4.49 x10^6/uL (4.30-5.70) Hemoglobin 11.5 g/dL (13.0-17.5) Hematocrit 36.1 % (39.0-53.0) Mean Corpuscular Volume 81 fL (79-100) Mean Corpuscular Hemoglobin 26 pg (25-35) Mean Corpuscular Hemoglobin Concent 32 g/dL (31-37) Red Cell Distribution Width 17.0 % (11.5-14.5) Platelet Count 173 x10^3/uL (140-400) Neutrophils (%) (Auto) 84 % (31-73) Lymphocytes (%) (Auto) 6 % (24-48) Monocytes (%) (Auto) 8 % (0-9) Eosinophils (%) (Auto) 1 % (0-3) Basophils (%) (Auto) 0 % (0-3) Neutrophils # (Auto) 19.8 x10^3/uL (1.8-7.7) Lymphocytes # (Auto) 1.5 x10^3/uL (1.0-4.8) Monocytes # (Auto) 1.9 x10^3/uL (0.0-1.1) Eosinophils # (Auto) 0.2 x10^3/uL (0.0-0.7) Basophils # (Auto) 0.0 x10^3/uL (0.0-0.2) Sodium Level 127 mmol/L (136-145) Potassium Level 4.8 mmol/L (3.5-5.1) Chloride Level 90 mmol/L (98-107) Carbon Dioxide Level 26 mmol/L (21-32) Anion Gap 11 (6-14) Blood Urea Nitrogen 67 mg/dL (8-26) Creatinine 8.2 mg/dL (0.7-1.3) Estimated GFR (Cockcroft-Gault) 9.6 Glucose Level 83 mg/dL (70-99) Magnesium Level 2.4 mg/dL (1.8-2.4) Creatine Kinase > 304324 U/L (39-308) Medications Active Scripts Medications Dose Route/Sig Max Daily Dose Days Date Category Dose Instructions Torsemide 20 Mg Tablet 4 Tab PO DAILY 08/08/21 Reported Bactrim Ds Tablet (Sulfamethoxazole/Trimethoprim) 1 Each Tablet 1 Tab PO BID 10 08/08/21 Reported Spironolactone 100 Mg Tablet 1 Tab PO DAILY 08/08/21 Reported Potassium Chloride (Potassium Chloride) 20 Meq Tablet.er 1 Meq PO DAILY 08/08/21 Reported Losartan Potassium 50 Mg Tablet 2 Mg PO DAILY 08/08/21 Reported Carvedilol 25 Mg Tablet 2 Mg PO BIDWMEALS 08/08/21 Reported Buspirone Hcl 10 Mg Tablet 10 Mg PO BID 08/08/21 Reported Amlodipine Besylate 10 Mg Tablet 10 Mg PO DAILY 08/08/21 Reported Proair Hfa (Albuterol Sulfate) 8.5 Gm Hfa.aer.ad 1 Puff INH PRN Q6HRS PRN 08/08/21 Reported Xarelto (Rivaroxaban) 20 Mg Tablet Unknown Dose PO DAILY 30 08/08/21 Reported with food Comments cxr reviewed 08/08 Mild cardiomegaly. Right internal jugular line identified with the tip projecting in the SVC region. Mild prominent bilateral lung markings likely mild congestive changes. Mild bibasilar lung atelectasis. Impression . IMPRESSION: 1. Acute respiratory failure, secondary to pulmonary edema 2. Abnormal chest x-ray. Secondary to above 3. Acute kidney injury secondary to rhabdomyolysis. 4. Electrolyte abnormality. 5. Leukocytosis, per ID 6. Obstructive sleep apnea-hypopnea syndrome. 7. History of deep venous thrombosis. Negative venous Dopplers on this admission 8. History of paroxysmal A. fib 9. Secondary pulmonary arterial hypertension, PA pressures calculated at 51 10. Ex-smoker. 11. Morbid obesity BMI of 80 Plan . Updated 08/10 Continue to diurese CPAP nightly No need for oxygen supplementation throughout the day Hemodialysis per nephrology Follow cardiology input Anticoagulation per cardiology Antibiotics per ID PORTIA LARA MD Aug 10, 2021 09:25
--- NOTE | 2021-08-10 09:38 | PDOC ---
SAVANAH GU WENDI 08/10/21 0938: CARDIO Progress Notes Date and Time Date of Service 08/10/21 Time of Evaluation 0940 Subjective Subjective: No Chest Pain, No Palpitations, No Dizziness, Other (breathing improved. Drowsy this morning ) Vitals Vitals Vital Signs Date Time Temp Pulse Resp B/P (MAP) Pulse Ox O2 Delivery O2 Flow Rate FiO2 08/10/21 07:59 96 BiPAP/CPAP 08/10/21 04:00 97.9 94 16 153/87 (109) 97.9 08/09/21 23:00 4.0 Weight Weight [ ] Input and Output Intake and Output Intake and Output 08/10/21 07:00 Intake Total 1682.63 ml Output Total 20 ml Balance 1662.63 ml Intake Oral 1240 ml IV Total 442.63 ml Output Urine Total 20 ml # Bowel Movements 2 Laboratory Labs Laboratory Tests Test 08/09/21 11:33 08/09/21 13:05 08/09/21 16:04 08/09/21 18:10 Activated Partial Thromboplast Time 49 SEC (24-38) 52 SEC (24-38) Calcium Level 5.7 mg/dL (8.5-10.1) 5.9 mg/dL (8.5-10.1) Test 08/09/21 18:45 08/09/21 23:10 08/10/21 00:55 08/10/21 06:15 Calcium Level 5.9 mg/dL (8.5-10.1) 5.6 mg/dL (8.5-10.1) 5.7 mg/dL (8.5-10.1) Activated Partial Thromboplast Time 62 SEC (24-38) 53 SEC (24-38) White Blood Count 23.5 x10^3/uL (4.0-11.0) Red Blood Count 4.49 x10^6/uL (4.30-5.70) Hemoglobin 11.5 g/dL (13.0-17.5) Hematocrit 36.1 % (39.0-53.0) Mean Corpuscular Volume 81 fL (79-100) Mean Corpuscular Hemoglobin 26 pg (25-35) Mean Corpuscular Hemoglobin Concent 32 g/dL (31-37) Red Cell Distribution Width 17.0 % (11.5-14.5) Platelet Count 173 x10^3/uL (140-400) Neutrophils (%) (Auto) 84 % (31-73) Lymphocytes (%) (Auto) 6 % (24-48) Monocytes (%) (Auto) 8 % (0-9) Eosinophils (%) (Auto) 1 % (0-3) Basophils (%) (Auto) 0 % (0-3) Neutrophils # (Auto) 19.8 x10^3/uL (1.8-7.7) Lymphocytes # (Auto) 1.5 x10^3/uL (1.0-4.8) Monocytes # (Auto) 1.9 x10^3/uL (0.0-1.1) Eosinophils # (Auto) 0.2 x10^3/uL (0.0-0.7) Basophils # (Auto) 0.0 x10^3/uL (0.0-0.2) Sodium Level 127 mmol/L (136-145) Potassium Level 4.8 mmol/L (3.5-5.1) Chloride Level 90 mmol/L (98-107) Carbon Dioxide Level 26 mmol/L (21-32) Anion Gap 11 (6-14) Blood Urea Nitrogen 67 mg/dL (8-26) Creatinine 8.2 mg/dL (0.7-1.3) Estimated GFR (Cockcroft-Gault) 9.6 Glucose Level 83 mg/dL (70-99) Magnesium Level 2.4 mg/dL (1.8-2.4) Creatine Kinase > [id number] U/L (39-308) Microbiology Micro Microbiology 08/08/21 Urine Culture - Final, Complete Physical Exam HEENT: Neck Supple W Full Motion Chest: Symmetric LUNGS: Other (diminished ) Heart: RRR Abdomen: Other (obese) Extremities: Other (2+ bilateral LE edema. RLE erythema ) Neurology: alert, oriented, follow commands Assessment Assessment 1. FRAN; HD initiated 2. Rhabdomyolysis; CK > 100,000 3. Acute diastolic CHF; Echo with preserved LV systolic function, PAP of 51 mmHg. 4. Acute respiratory failure; multifactorial with CHF, pulm HTN, obesity- hypoventilation syndrome 5. Mild troponin elevation; trop peak 390. Type II, demand ischemia 6. H/o bilateral LE DVT; on chronic OAC with Xarelto 7. FREYA, obesity- hypoventilation syndrome. BMI 80. CPAP at HS 8. H/o PAFIB?; details unknown presently SR 9. Hypocalcemia, hyponatremia 9. Leukocytosis 10. Elevated LFTs 11. RLE cellulitis Recommendations Fluid offloading via HD Avoid nephrotoxins Weight loss Supportive care from a CV standpoint Justicifation of Admission Dx: Justifications for Admission: Justification of Admission Dx: N/A KATY WILLARD MD 08/10/21 1540: CARDIO Progress Notes Assessment Assessment Patient seen and examined I agree with our nurse practitioners assessment and plan. FRAN; HD initiated. Followed by renal. Rhabdomyolysis; CK > 100,000 Acute diastolic CHF; Echo with preserved LV systolic function, PAP of 51 mmHg. Acute respiratory failure; multifactorial with CHF, pulm HTN, obesity- hypoventilation syndrome Mild troponin elevation; trop peak 390. Type II, demand ischemia H/o bilateral LE DVT; on chronic OAC with Xarelto FREYA, obesity- hypoventilation syndrome. BMI 80. CPAP at HS H/o PAFIB?; details unknown presently SR Hypocalcemia, hyponatremia Elevated LFTs RLE cellulitis SAVANAH GU APRN Aug 10, 2021 09:38 KATY WILLARD MD Aug 10, 2021 15:40
[2021-08-10] MEDS: LACTOBACILLUS RHAMNOSUS GG 1 CAPSULE. PO SCH ×2 (09:43→21:09)
[2021-08-10] MEDS: NORMAL SALINE IV SCH ×2 (09:44→21:09)
[2021-08-10] MEDS: FAMOTIDINE 20 MG/2 ML VIAL IVP SCH (09:44)
[2021-08-10] MEDS: CALCIUM GLUCONATE IV SCH ×2 (09:44→21:09)
--- NOTE | 2021-08-10 09:46 | PDOC ---
Date of Service: DATE: 08/10/21 TIME: 09:37 Subjective: Subjective: Epigastric discomfort, lots of stools. Mostly just drinking - avoiding food. Legs hurt. Objective: Objective: No GI concern per nurse. LFTs last checked 08/07. Vital Signs: Vital Signs Date Time Temp Pulse Resp B/P (MAP) Pulse Ox O2 Delivery O2 Flow Rate FiO2 08/10/21 07:59 96 BiPAP/CPAP 08/10/21 04:00 97.9 94 16 153/87 (109) 97.9 08/09/21 23:00 4.0 Labs: Laboratory Tests Test 08/09/21 11:33 08/09/21 13:05 08/09/21 16:04 08/09/21 18:10 Activated Partial Thromboplast Time 49 SEC 52 SEC Calcium Level 5.7 mg/dL 5.9 mg/dL Test 08/09/21 18:45 08/09/21 23:10 08/10/21 00:55 08/10/21 06:15 Calcium Level 5.9 mg/dL 5.6 mg/dL 5.7 mg/dL Activated Partial Thromboplast Time 62 SEC 53 SEC White Blood Count 23.5 x10^3/uL Red Blood Count 4.49 x10^6/uL Hemoglobin 11.5 g/dL Hematocrit 36.1 % Mean Corpuscular Volume 81 fL Mean Corpuscular Hemoglobin 26 pg Mean Corpuscular Hemoglobin Concent 32 g/dL Red Cell Distribution Width 17.0 % Platelet Count 173 x10^3/uL Neutrophils (%) (Auto) 84 % Lymphocytes (%) (Auto) 6 % Monocytes (%) (Auto) 8 % Eosinophils (%) (Auto) 1 % Basophils (%) (Auto) 0 % Neutrophils # (Auto) 19.8 x10^3/uL Lymphocytes # (Auto) 1.5 x10^3/uL Monocytes # (Auto) 1.9 x10^3/uL Eosinophils # (Auto) 0.2 x10^3/uL Basophils # (Auto) 0.0 x10^3/uL Sodium Level 127 mmol/L Potassium Level 4.8 mmol/L Chloride Level 90 mmol/L Carbon Dioxide Level 26 mmol/L Anion Gap 11 Blood Urea Nitrogen 67 mg/dL Creatinine 8.2 mg/dL Estimated GFR (Cockcroft-Gault) 9.6 Glucose Level 83 mg/dL Magnesium Level 2.4 mg/dL Creatine Kinase > 529864 U/L URINE CULTURE Final Final No Growth on 08/10/21 at 0910 Imaging: Echo <Conclusion> The Left Ventricle is mildly dilated. LV systolic function is low normal. LV ejection fraction is estimated at 50%. Septal motion consistent with a possible conduction abnormality. There is milld to moderate concentric left ventricular hypertrophy. Doppler and Color Flow revealed trace aortic regurgitation. There is no significant aortic valvular stenosis. Doppler and Color-flow revealed trace mitral regurgitation. Doppler and Color Flow revealed trace to mild tricuspid regurgitation with an estimated PAP of 51 mmHg. PE: GEN: NAD LUNGS: diminished HEART: RRR ABD: exam difficult, morbidly obese NEURO/PSYCH: A & O 3 A/P: Rhabdo - FRAN, elevated LFTs - LFTs last checked 08/07, viral Hep panel negative Heart and resp failure, cellulitis Leukocytosis, hypocalcemia Epigastric discomfort Loose stools - C Diff negative Flu and COVID negative BMI 80 -- Imaging difficult due to body habitus. Continue acid-hollock maker in some form - currently receiving IV H2 alyce, could change to PPI if okay w/ nephrology. Monitor stools. Follow labs. Justicifation of Admission Dx: Justifications for Admission: Justification of Admission Dx: N/A ERICH KAY Aug 10, 2021 09:46
[2021-08-10] MEDS ORDERED: LIDO:MAALOX 1:1 20 ML SINGLE DOSE. PO PRN (10:00)
[2021-08-10] MEDS: DOXYCYCLINE HYCLATE 100 MG TABLET PO SCH ×2 (10:13→21:09)
[2021-08-10 12:00] VITALS: BP 154/82
[2021-08-10] MEDS: cefTRIAXone IV Push 2 GM VIAL. IVP SCH (13:02)
--- NOTE | 2021-08-10 13:18 | PDOC ---
[facility] PROGRESS NOTE Date of Service DOS: DATE: 08/10/21 TIME: 13:11 Chief Complaint Chief Complaint Sepsis Bilateral pneumonia, possible gram-negative organisms Acute electrolyte derangement due to acute kidney injury Hypocalcemia Metabolic acidosis, non-anion gap Acute renal failure due to vasomotor nephropathy and rhabdomyolysis Acute severe rhabdomyolysis Atypical chest pain concerning for non-STEMI Elevated troponin troponin suggestive of either type II demand ischemia versus renal disease Severe transaminitis possible shock liver versus hepatotoxicity versus medication induced Concern for OHS/FREYA History of morbid obesity History of CHF History of DVT Continue BiPAP as needed and nocturnal Pending C. difficile Start p.o. Vanco per ID for possible C. difficile infection Continue empiric IV antibiotics Pending blood cultures Pending MRSA screen and Legionella Nephrology consult Cardiology consult for CHF Counseled on weight loss via diet and exercise Strict I's and O's Avoid further nephrotoxic agents Continue heparin for DVT history Trend electrolytes and replace as needed Heparin drip for DVT prophylaxis Protonix while in the ICU GI prophylaxis ADA diet CODE STATUS full Discussed with RN and SW Disposition inpatient management as above DPOA: Undesignated, and incarcerated History of Present Illness History of Present Illness 26-year-old male with past medical history of CHF, morbid obesity, DVT was on Xarelto comes in with shortness of breath and chest pressure that started on Tuesday. Apparently his symptoms got worse as the week progressed and by Tuesday he was unable to get out of bed and short of breath. He does endorse any exertional dyspnea. Patient is now unable to stand without some assistance. He does endorse swelling in his lower extremities right greater than left. He thinks he has not taken his Xarelto for a few days but he is not sure this. He also endorses that his torsemide dosing these and he has not had much urine in the past 2 days. Currently he does have a Castaneda in urine bag is dark brown. He is incarcerated for the past year. Denies fevers, nausea vomiting, abdominal pain, diarrhea or hematuria or palpitations. 08/09/2021 No acute events overnight. Patient vital signs are stable. Creatinine is stable and elevated at 6.8. Attempt catheter in place for hemodialysis which will start today. Patient's chart, labs, images were reviewed and discussed with RN. 08/10/2021 No acute events overnight. Patient seen and examined bedside. Creatinine elevating to 8.2. Pending dialysis. Patient's chart, labs, images were reviewed and discussed with RN Vitals/I&O Vitals/I&O: Vital Signs Date Time Temp Pulse Resp B/P (MAP) Pulse Ox O2 Delivery O2 Flow Rate FiO2 08/10/21 11:15 96 BiPAP/CPAP 08/10/21 04:00 97.9 94 16 153/87 (109) 97.9 08/09/21 23:00 4.0 I & O 08/09/21 08/09/21 08/10/21 15:00 23:00 07:00 Intake Total 770 ml 912.63 ml Output Total 0 ml 15 ml 5 ml Balance 770 ml 897.63 ml -5 ml Physical Exam Physical Exam: VITAL SIGNS: stable GENERAL: Morbidly obese, alert, oriented, well-developed, well-nourished male, in no acute distress, nontoxic appearing. HEENT: Normocephalic, atraumatic. Anicteric. No thrush. Oral mucosa moist. NECK: Supple. Short neck. LUNGS: Clear bilaterally. HEART: S1, S2. No murmurs. ABDOMEN: Soft, nontender, nondistended. No rebound, no guarding. GENITOURINARY: Castaneda in place with concentrated urine. EXTREMITIES: Bilateral lymphedema. Right lower extremity erythematous, mild tenderness, dry scabs present. NEUROLOGIC: Alert and oriented x3, grossly nonfocal. PSYCHIATRIC: Calm and cooperative. General: Alert, mild distress Heart: Regular rate Lungs: Other (b lat diminished ) Abdomen: Normal bowel sounds Extremities: No clubbing, Other (Bilateral +3 pedal edema) Skin: No rashes Labs Labs: Laboratory Tests Test 08/09/21 16:04 08/09/21 18:10 08/09/21 18:45 08/09/21 23:10 Calcium Level 5.9 mg/dL (8.5-10.1) 5.9 mg/dL (8.5-10.1) 5.6 mg/dL (8.5-10.1) Activated Partial Thromboplast Time 52 SEC (24-38) Test 08/10/21 00:55 08/10/21 06:15 Activated Partial Thromboplast Time 62 SEC (24-38) 53 SEC (24-38) White Blood Count 23.5 x10^3/uL (4.0-11.0) Red Blood Count 4.49 x10^6/uL (4.30-5.70) Hemoglobin 11.5 g/dL (13.0-17.5) Hematocrit 36.1 % (39.0-53.0) Mean Corpuscular Volume 81 fL (79-100) Mean Corpuscular Hemoglobin 26 pg (25-35) Mean Corpuscular Hemoglobin Concent 32 g/dL (31-37) Red Cell Distribution Width 17.0 % (11.5-14.5) Platelet Count 173 x10^3/uL (140-400) Neutrophils (%) (Auto) 84 % (31-73) Lymphocytes (%) (Auto) 6 % (24-48) Monocytes (%) (Auto) 8 % (0-9) Eosinophils (%) (Auto) 1 % (0-3) Basophils (%) (Auto) 0 % (0-3) Neutrophils # (Auto) 19.8 x10^3/uL (1.8-7.7) Lymphocytes # (Auto) 1.5 x10^3/uL (1.0-4.8) Monocytes # (Auto) 1.9 x10^3/uL (0.0-1.1) Eosinophils # (Auto) 0.2 x10^3/uL (0.0-0.7) Basophils # (Auto) 0.0 x10^3/uL (0.0-0.2) Sodium Level 127 mmol/L (136-145) Potassium Level 4.8 mmol/L (3.5-5.1) Chloride Level 90 mmol/L (98-107) Carbon Dioxide Level 26 mmol/L (21-32) Anion Gap 11 (6-14) Blood Urea Nitrogen 67 mg/dL (8-26) Creatinine 8.2 mg/dL (0.7-1.3) Estimated GFR (Cockcroft-Gault) 9.6 Glucose Level 83 mg/dL (70-99) Calcium Level 5.7 mg/dL (8.5-10.1) Magnesium Level 2.4 mg/dL (1.8-2.4) Creatine Kinase > 812452 U/L (39-308) Assessment and Plan Assessmemt and Plan Problems Medical Problems: (1) Acute renal failure Status: Acute (2) Hyperkalemia Status: Acute (3) Hyperuricemia Status: Acute (4) Hypocalcemia Status: Acute (5) Hyponatremia Status: Acute (6) Morbid obesity Status: Acute (7) NSTEMI (non-ST elevated myocardial infarction) Status: Acute (8) Transaminitis Status: Acute Comment Review of Relevant I have reviewed the following items sabina (where applicable) has been applied. Justifications for Admission Other Justification AMOS MADISON MD Aug 10, 2021 13:18
[2021-08-10 13:36] LABS: ALBUMIN 1.6 g/dL (3.4-5.0); DIRECT BILIRUBIN 0.5 mg/dL (0.0-0.2); TOTAL BILIRUBIN 0.6 mg/dL (0.2-1.0); TOTAL PROTEIN 5.1 g/dL (6.4-8.2)
[2021-08-10 16:00] VITALS: BP 134/80
[2021-08-10] MEDS ORDERED: IV NORMAL SALINE 1000ML BAG 1,000 ML IV PRN ×2 (16:45)
[2021-08-10] MEDS ORDERED: DIALYSIS PATIENT. MC PRN (16:45)
[2021-08-10] MEDS ORDERED: ALBUMIN HUMAN 25% 200 ML IV PRN (16:45)
[2021-08-10 20:00] VITALS: BP 160/88
[2021-08-11] VITALS (7 sets, daily range): BP systolic 144–192; BP diastolic 75–104
[2021-08-11] MEDS: HEPARIN for IV BOLUS 10,000 UNIT/10 ML VIAL. IV PRN (01:18)
[2021-08-11] MEDS: HEPARIN 25,000UTS/250ML PREMIX 250 ML IV PRN ×2 (05:38→20:22)
[2021-08-11 06:35] LABS: BASO # 0.1 x10^3/uL (0.0-0.2); BASO % 0 % (0-3); EOS # 0.4 x10^3/uL (0.0-0.7); EOS % 2 % (0-3); HEMATOCRIT 33.8 % (39.0-53.0); HEMOGLOBIN 11.2 g/dL (13.0-17.5); LYMPH # 1.4 x10^3/uL (1.0-4.8); LYMPH % 6 % (24-48); MEAN CORPUSCULAR HEMOGLOBIN 27 pg (25-35); MEAN CORPUSCULAR HGB CONC 33 g/dL (31-37); MEAN CORPUSCULAR VOLUME 80 fL (79-100); MONO # 1.4 x10^3/uL (0.0-1.1); MONO % 6 % (0-9); NEUT # 19.8 x10^3/uL (1.8-7.7); NEUT % 86 % (31-73); PLATELET COUNT 203 x10^3/uL (140-400); RED BLOOD COUNT 4.22 x10^6/uL (4.30-5.70); RED CELL DISTRIBUTION WIDTH 16.6 % (11.5-14.5); WHITE BLOOD COUNT 23.1 x10^3/uL (4.0-11.0)
[2021-08-11 06:54] LABS: CALCIUM 6.6 mg/dL (8.5-10.1); CREATININE 7.4 mg/dL (0.7-1.3); GFR 10.9; MAGNESIUM 2.2 mg/dL (1.8-2.4); POTASSIUM 4.5 mmol/L (3.5-5.1)
[2021-08-11 06:56] LABS: ALBUMIN 1.4 g/dL (3.4-5.0); PHOSPHORUS 6.6 mg/dL (2.6-4.7)
[2021-08-11] MEDS: IPRATROPIUM BROMIDE 0.5 MG/2.5 ML NEBU. NEB SCH ×4 (07:32→19:15)
--- NOTE | 2021-08-11 07:59 | PDOC ---
Infectious Disease Note Subjective Subjective pt is feeling ok, right leg pain ROS ROS No nausea vomiting diarrhea chest pain shortness of breath Vital Sign Vital Signs Vital Signs Date Time Temp Pulse Resp B/P (MAP) Pulse Ox O2 Delivery O2 Flow Rate FiO2 08/11/21 07:34 94 Room Air 08/11/21 04:00 98.4 95 18 149/77 (101) 98.4 08/10/21 21:00 4.0 Physical Exam PHYSICAL EXAM VITAL SIGNS: stable GENERAL: Morbidly obese, alert, oriented, well-developed, well-nourished male, in no acute distress, nontoxic appearing. HEENT: Normocephalic, atraumatic. Anicteric. No thrush. Oral mucosa moist. NECK: Supple. Short neck. LUNGS: Clear bilaterally. HEART: S1, S2. No murmurs. ABDOMEN: Soft, nontender, nondistended. No rebound, no guarding. GENITOURINARY: Castaneda in place with concentrated urine. EXTREMITIES: Bilateral lymphedema. Right lower extremity erythematous, mild tenderness, dry scabs present. NEUROLOGIC: Alert and oriented x3, grossly nonfocal. PSYCHIATRIC: Calm and cooperative. Labs Lab Laboratory Tests Test 08/10/21 16:30 08/11/21 00:30 08/11/21 06:00 Activated Partial Thromboplast Time 70 SEC (24-38) 75 SEC (24-38) Calcium Level 6.2 mg/dL (8.5-10.1) 6.6 mg/dL (8.5-10.1) White Blood Count 23.1 x10^3/uL (4.0-11.0) Red Blood Count 4.22 x10^6/uL (4.30-5.70) Hemoglobin 11.2 g/dL (13.0-17.5) Hematocrit 33.8 % (39.0-53.0) Mean Corpuscular Volume 80 fL (79-100) Mean Corpuscular Hemoglobin 27 pg (25-35) Mean Corpuscular Hemoglobin Concent 33 g/dL (31-37) Red Cell Distribution Width 16.6 % (11.5-14.5) Platelet Count 203 x10^3/uL (140-400) Neutrophils (%) (Auto) 86 % (31-73) Lymphocytes (%) (Auto) 6 % (24-48) Monocytes (%) (Auto) 6 % (0-9) Eosinophils (%) (Auto) 2 % (0-3) Basophils (%) (Auto) 0 % (0-3) Neutrophils # (Auto) 19.8 x10^3/uL (1.8-7.7) Lymphocytes # (Auto) 1.4 x10^3/uL (1.0-4.8) Monocytes # (Auto) 1.4 x10^3/uL (0.0-1.1) Eosinophils # (Auto) 0.4 x10^3/uL (0.0-0.7) Basophils # (Auto) 0.1 x10^3/uL (0.0-0.2) Sodium Level 128 mmol/L (136-145) Potassium Level 4.5 mmol/L (3.5-5.1) Chloride Level 90 mmol/L (98-107) Carbon Dioxide Level 25 mmol/L (21-32) Anion Gap 13 (6-14) Blood Urea Nitrogen 58 mg/dL (8-26) Creatinine 7.4 mg/dL (0.7-1.3) Estimated GFR (Cockcroft-Gault) 10.9 Glucose Level 94 mg/dL (70-99) Phosphorus Level 6.6 mg/dL (2.6-4.7) Magnesium Level 2.2 mg/dL (1.8-2.4) Creatine Kinase > 586842 U/L (39-308) Albumin 1.4 g/dL (3.4-5.0) Micro Microbiology 08/08/21 Urine Culture - Final, Complete Objective Assessment IMPRESSION: 1. Leukocytosis. 2. Low-grade febrile illness. 3. Acute kidney injury. 4. Hyperkalemia. 5. Hyponatremia. 6. Hypocalcemia. 7. Hypouricemia. 8. Severe rhabdomyolysis. 9. Bilateral lower extremity edema, right greater than left. 10. Right lower extremity cellulitis. 11. Morbid obesity. 12. History of congestive heart failure. 13. History of deep venous thrombosis. 14. History of ALLERGIES TO AMOXICILLIN AND AZITHROMYCIN. 15. Non-STEMI. 16. Metabolic acidosis. 17. Abnormal LFTs, likely from rhabdomyolysis. Plan Plan of Care c diff negative cont rocephine and doxy supportive care Right leg CT MARIANELA SALEH MD Aug 11, 2021 07:59
--- NOTE | 2021-08-11 08:29 | PDOC ---
PULMONARY PROGRESS NOTES DATE: 08/11/21 TIME: 08:29 Subjective Patient currently on CPAP Not short of air Vitals Vital Signs Date Time Temp Pulse Resp B/P (MAP) Pulse Ox O2 Delivery O2 Flow Rate FiO2 08/11/21 08:06 98.3 96 18 167/75 (105) 96 Room Air 98.3 08/10/21 21:00 4.0 ROS: No Nausea, No Chest Pain, No Abdominal Pain, No Increase Cough General: Alert Lungs: Other (b lat diminished ) Cardiovascular: S1, S2 Abdomen: Soft, Non-tender, Other (obese no mass) Neuro Exam: Alert, Oriented Extremities: Other (lymphedema chronic changes) Skin: Warm Labs Laboratory Tests Test 08/09/21 11:33 08/09/21 13:05 08/09/21 16:04 08/09/21 18:10 Activated Partial Thromboplast Time 49 SEC (24-38) 52 SEC (24-38) Calcium Level 5.7 mg/dL (8.5-10.1) 5.9 mg/dL (8.5-10.1) Test 08/09/21 18:45 08/09/21 23:10 08/10/21 00:55 08/10/21 06:15 Calcium Level 5.9 mg/dL (8.5-10.1) 5.6 mg/dL (8.5-10.1) 5.7 mg/dL (8.5-10.1) Activated Partial Thromboplast Time 62 SEC (24-38) 53 SEC (24-38) White Blood Count 23.5 x10^3/uL (4.0-11.0) Red Blood Count 4.49 x10^6/uL (4.30-5.70) Hemoglobin 11.5 g/dL (13.0-17.5) Hematocrit 36.1 % (39.0-53.0) Mean Corpuscular Volume 81 fL (79-100) Mean Corpuscular Hemoglobin 26 pg (25-35) Mean Corpuscular Hemoglobin Concent 32 g/dL (31-37) Red Cell Distribution Width 17.0 % (11.5-14.5) Platelet Count 173 x10^3/uL (140-400) Neutrophils (%) (Auto) 84 % (31-73) Lymphocytes (%) (Auto) 6 % (24-48) Monocytes (%) (Auto) 8 % (0-9) Eosinophils (%) (Auto) 1 % (0-3) Basophils (%) (Auto) 0 % (0-3) Neutrophils # (Auto) 19.8 x10^3/uL (1.8-7.7) Lymphocytes # (Auto) 1.5 x10^3/uL (1.0-4.8) Monocytes # (Auto) 1.9 x10^3/uL (0.0-1.1) Eosinophils # (Auto) 0.2 x10^3/uL (0.0-0.7) Basophils # (Auto) 0.0 x10^3/uL (0.0-0.2) Sodium Level 127 mmol/L (136-145) Potassium Level 4.8 mmol/L (3.5-5.1) Chloride Level 90 mmol/L (98-107) Carbon Dioxide Level 26 mmol/L (21-32) Anion Gap 11 (6-14) Blood Urea Nitrogen 67 mg/dL (8-26) Creatinine 8.2 mg/dL (0.7-1.3) Estimated GFR (Cockcroft-Gault) 9.6 Glucose Level 83 mg/dL (70-99) Magnesium Level 2.4 mg/dL (1.8-2.4) Total Bilirubin 0.6 mg/dL (0.2-1.0) Direct Bilirubin 0.5 mg/dL (0.0-0.2) Aspartate Amino Transf (AST/SGOT) 1129 U/L (15-37) Alanine Aminotransferase (ALT/SGPT) 267 U/L (16-63) Alkaline Phosphatase 90 U/L (46-116) Creatine Kinase > 874470 U/L (39-308) Total Protein 5.1 g/dL (6.4-8.2) Albumin 1.6 g/dL (3.4-5.0) Test 08/10/21 16:30 08/11/21 00:30 08/11/21 06:00 08/11/21 07:30 Activated Partial Thromboplast Time 70 SEC (24-38) 75 SEC (24-38) 79 SEC (24-38) Calcium Level 6.2 mg/dL (8.5-10.1) 6.6 mg/dL (8.5-10.1) White Blood Count 23.1 x10^3/uL (4.0-11.0) Red Blood Count 4.22 x10^6/uL (4.30-5.70) Hemoglobin 11.2 g/dL (13.0-17.5) Hematocrit 33.8 % (39.0-53.0) Mean Corpuscular Volume 80 fL (79-100) Mean Corpuscular Hemoglobin 27 pg (25-35) Mean Corpuscular Hemoglobin Concent 33 g/dL (31-37) Red Cell Distribution Width 16.6 % (11.5-14.5) Platelet Count 203 x10^3/uL (140-400) Neutrophils (%) (Auto) 86 % (31-73) Lymphocytes (%) (Auto) 6 % (24-48) Monocytes (%) (Auto) 6 % (0-9) Eosinophils (%) (Auto) 2 % (0-3) Basophils (%) (Auto) 0 % (0-3) Neutrophils # (Auto) 19.8 x10^3/uL (1.8-7.7) Lymphocytes # (Auto) 1.4 x10^3/uL (1.0-4.8) Monocytes # (Auto) 1.4 x10^3/uL (0.0-1.1) Eosinophils # (Auto) 0.4 x10^3/uL (0.0-0.7) Basophils # (Auto) 0.1 x10^3/uL (0.0-0.2) Sodium Level 128 mmol/L (136-145) Potassium Level 4.5 mmol/L (3.5-5.1) Chloride Level 90 mmol/L (98-107) Carbon Dioxide Level 25 mmol/L (21-32) Anion Gap 13 (6-14) Blood Urea Nitrogen 58 mg/dL (8-26) Creatinine 7.4 mg/dL (0.7-1.3) Estimated GFR (Cockcroft-Gault) 10.9 Glucose Level 94 mg/dL (70-99) Phosphorus Level 6.6 mg/dL (2.6-4.7) Magnesium Level 2.2 mg/dL (1.8-2.4) Creatine Kinase > 070098 U/L (39-308) Albumin 1.4 g/dL (3.4-5.0) Laboratory Tests Test 08/10/21 16:30 08/11/21 00:30 08/11/21 06:00 08/11/21 07:30 Activated Partial Thromboplast Time 70 SEC (24-38) 75 SEC (24-38) 79 SEC (24-38) Calcium Level 6.2 mg/dL (8.5-10.1) 6.6 mg/dL (8.5-10.1) White Blood Count 23.1 x10^3/uL (4.0-11.0) Red Blood Count 4.22 x10^6/uL (4.30-5.70) Hemoglobin 11.2 g/dL (13.0-17.5) Hematocrit 33.8 % (39.0-53.0) Mean Corpuscular Volume 80 fL (79-100) Mean Corpuscular Hemoglobin 27 pg (25-35) Mean Corpuscular Hemoglobin Concent 33 g/dL (31-37) Red Cell Distribution Width 16.6 % (11.5-14.5) Platelet Count 203 x10^3/uL (140-400) Neutrophils (%) (Auto) 86 % (31-73) Lymphocytes (%) (Auto) 6 % (24-48) Monocytes (%) (Auto) 6 % (0-9) Eosinophils (%) (Auto) 2 % (0-3) Basophils (%) (Auto) 0 % (0-3) Neutrophils # (Auto) 19.8 x10^3/uL (1.8-7.7) Lymphocytes # (Auto) 1.4 x10^3/uL (1.0-4.8) Monocytes # (Auto) 1.4 x10^3/uL (0.0-1.1) Eosinophils # (Auto) 0.4 x10^3/uL (0.0-0.7) Basophils # (Auto) 0.1 x10^3/uL (0.0-0.2) Sodium Level 128 mmol/L (136-145) Potassium Level 4.5 mmol/L (3.5-5.1) Chloride Level 90 mmol/L (98-107) Carbon Dioxide Level 25 mmol/L (21-32) Anion Gap 13 (6-14) Blood Urea Nitrogen 58 mg/dL (8-26) Creatinine 7.4 mg/dL (0.7-1.3) Estimated GFR (Cockcroft-Gault) 10.9 Glucose Level 94 mg/dL (70-99) Phosphorus Level 6.6 mg/dL (2.6-4.7) Magnesium Level 2.2 mg/dL (1.8-2.4) Creatine Kinase > 095794 U/L (39-308) Albumin 1.4 g/dL (3.4-5.0) Medications Active Scripts Medications Dose Route/Sig Max Daily Dose Days Date Category Dose Instructions Torsemide 20 Mg Tablet 4 Tab PO DAILY 08/08/21 Reported Bactrim Ds Tablet (Sulfamethoxazole/Trimethoprim) 1 Each Tablet 1 Tab PO BID 10 08/08/21 Reported Spironolactone 100 Mg Tablet 1 Tab PO DAILY 08/08/21 Reported Potassium Chloride (Potassium Chloride) 20 Meq Tablet.er 1 Meq PO DAILY 08/08/21 Reported Losartan Potassium 50 Mg Tablet 2 Mg PO DAILY 08/08/21 Reported Carvedilol 25 Mg Tablet 2 Mg PO BIDWMEALS 08/08/21 Reported Buspirone Hcl 10 Mg Tablet 10 Mg PO BID 08/08/21 Reported Amlodipine Besylate 10 Mg Tablet 10 Mg PO DAILY 08/08/21 Reported Proair Hfa (Albuterol Sulfate) 8.5 Gm Hfa.aer.ad 1 Puff INH PRN Q6HRS PRN 08/08/21 Reported Xarelto (Rivaroxaban) 20 Mg Tablet Unknown Dose PO DAILY 30 08/08/21 Reported with food Comments cxr reviewed 08/08 Mild cardiomegaly. Right internal jugular line identified with the tip projecting in the SVC region. Mild prominent bilateral lung markings likely mild congestive changes. Mild bibasilar lung atelectasis. Impression . IMPRESSION: 1. Acute respiratory failure, secondary to pulmonary edema 2. Abnormal chest x-ray. Secondary to above 3. Acute kidney injury secondary to rhabdomyolysis. 4. Electrolyte abnormality. 5. Leukocytosis, per ID 6. Obstructive sleep apnea-hypopnea syndrome. 7. History of deep venous thrombosis. Negative venous Dopplers on this admission 8. History of paroxysmal A. fib 9. Secondary pulmonary arterial hypertension, PA pressures calculated at 51 10. Ex-smoker. 11. Morbid obesity BMI of 80 Plan . Updated 11/16 Continue CPAP Hemodialysis per nephrology Antibiotics per ID Respiratory status appears to be compensated Updated 08/10 Continue to diurese CPAP nightly No need for oxygen supplementation throughout the day Hemodialysis per nephrology Follow cardiology input Anticoagulation per cardiology Antibiotics per ID PORTIA LARA MD Aug 11, 2021 08:29
--- NOTE | 2021-08-11 08:58 | PDOC ---
DATE OF SERVICE DATE: 08/11/21 TIME: 08:56 SUBJECTIVE ROS No acute concerns, stablE. Denies increase in SOB. OBJECTIVE Vital Signs Vital Signs Date Time Temp Pulse Resp B/P (MAP) Pulse Ox O2 Delivery O2 Flow Rate FiO2 08/11/21 08:06 98.3 96 18 167/75 (105) 96 Room Air 98.3 08/10/21 21:00 4.0 I & 0 Intake and Output 08/11/21 07:00 Intake Total 2314 ml Output Total 85 ml Balance 2229 ml Intake Oral 1330 ml IV Total 984 ml Output Urine Total 85 ml PHYSICAL EXAM Physical Exam GENERAL: Morbidly obese, alert, oriented , NAD HEENT: Normocephalic, atraumatic. Anicteric. No thrush. Oral mucosa moist. NECK: Supple. LUNGS: Clear bilaterally. HEART: S1, S2. No murmurs. ABDOMEN: Soft, nontender,Obese GENITOURINARY: Castaneda in place EXTREMITIES: Bilateral lymphedema. Right lower extremity erythematous, mild tenderness NEUROLOGIC: Alert and oriented x3, grossly nonfocal. PSYCHIATRIC: Calm and cooperative. DIAGNOSIS/ASSESSMENT Assessment & Plan Acute kidney injury: ATN , oligoanuric due to rhabdomyolysis. Needing dialysis 1st on Tuesday; No improvement in renal function, tolerated HD well yesterday Dialysis again today discussed treatment plan with Mary . Supportive care, flush Castaneda , avoid Nephrotoxins Rhabdomyolysis: Unclear etiology. Denies statin, reports he was started on new K pill- doesnt recall name, he walks a lot as well, stays hydrated Elevated LFT's Hyperkalemia: corrected Metabolic acidosis currently corrected and compensated Hyponatremia: 2/2 severe Rhabdo Severe hypocalcemia presumably due to rhabdomyolysis: On Calcium gtt ; Ca after Correcting for Low Albumin is 7.6 History of CHF: Clinically appears to be clinically compensated at this time. Non-STEMI: Defer to cardiology COMMENT/RELEVANT DATA Meds Current Medications Medications (Trade) Dose Ordered Sig/Keith Start Time Stop Time Status Last Admin Dose Admin Acetaminophen (Tylenol) 650 mg PRN Q4HRS PRN 08/08/21 11:30 Albumin Human 200 ml @ 200 mls/hr 1X PRN PRN 08/10/21 16:45 08/10/21 22:45 DC Aspirin (Aspirin Chewable) 324 mg 1X ONCE 08/07/21 21:30 08/07/21 21:31 DC 08/07/21 22:12 324 MG Calcium Carbonate/ Glycine (Tums) 500 mg PRN AFTMEALHC PRN 08/09/21 01:30 Calcium Gluconate (Calcium Gluconate) 1,000 mg Q2H 08/09/21 08:30 08/09/21 12:31 DC 08/09/21 12:16 1,000 MG Calcium Gluconate 2000 mg/Sodium Chloride 120 ml @ 220 mls/hr 1X ONCE 08/08/21 06:30 08/08/21 07:02 DC 08/08/21 06:30 220 MLS/HR Calcium Gluconate 5000 mg/Sodium Chloride 500 ml @ 50 mls/hr Q10H 08/09/21 12:30 08/10/21 21:09 50 MLS/HR Ceftriaxone Sodium (Rocephin) 2 gm Q24H 08/08/21 12:00 08/10/21 13:02 2 GM Dextrose (Dextrose 50%-Water Syringe) 12.5 gm PRN Q15MIN PRN 08/08/21 11:30 Docusate Sodium (Colace) 100 mg PRN DAILY PRN 08/08/21 11:30 Doxycycline Hyclate (Vibra-Tab) 100 mg BID 08/08/21 05:00 08/10/21 21:09 100 MG Famotidine (Pepcid Vial) 20 mg DAILY 08/08/21 12:00 08/10/21 09:44 20 MG Heparin Sodium (Porcine) (Heparin Sodium) 1,000 unit PRN Q6HRS PRN 08/07/21 23:00 08/11/21 01:18 1,000 UNIT Heparin Sodium/ Dextrose 250 ml @ 20 mls/hr CONT PRN 08/07/21 23:00 08/11/21 05:38 35 MLS/HR Info (PHARMACY MONITORING -- do not chart) 1 each PRN DAILY PRN 08/10/21 16:45 Ipratropium Moseley (Atrovent) 0.5 mg RTQID 08/08/21 16:00 08/11/21 07:32 0.5 MG Lactobacillus Rhamnosus (Culturelle) 1 cap BID 08/08/21 09:00 08/10/21 21:09 1 CAP Lidocaine HCl (Buffered Lidocaine 1%) 6 ml 1X ONCE 08/08/21 13:00 08/08/21 13:01 DC Lorazepam (Ativan Inj) 0.25 mg PRN Q4HRS PRN 08/08/21 11:30 Lorazepam (Ativan) 0.5 mg PRN Q6HRS PRN 08/08/21 11:30 08/09/21 21:39 0.5 MG Multi-Ingredient Mouthwash/Gargle (Gi Cocktail) 20 ml PRN QID PRN 08/10/21 10:00 Ondansetron HCl (Zofran) 4 mg PRN Q6HRS PRN 08/08/21 11:30 08/09/21 01:25 4 MG Perflutren Protein Type A Microsphe (Optison) 0.66 mg STK-MED ONCE 08/09/21 11:00 08/10/21 12:58 DC Prochlorperazine Edisylate (Compazine) 10 mg PRN Q6HRS PRN 08/08/21 11:30 Sennosides (Senna) 17.2 mg PRN BID PRN 08/08/21 11:30 Sodium Bicarbonate 150 meq/Dextrose 1,150 ml @ 100 mls/hr [id number] ONCE 08/07/21 22:00 08/08/21 09:29 DC 08/07/21 23:51 100 MLS/HR Sodium Bicarbonate (Sodium Bicarb Adult 8.4% Syr) 150 meq 1X ONCE 08/08/21 07:15 08/08/21 07:19 DC 08/08/21 08:27 150 MEQ Sodium Chloride 1,000 ml @ 400 mls/hr [id number] PRN 08/10/21 16:45 08/11/21 04:44 DC Vancomycin HCl (Vancomycin Oral Solution) 125 mg [id number] 08/09/21 13:00 08/10/21 09:44 DC 08/09/21 21:39 125 MG Zolpidem Tartrate (Ambien) 2.5 mg PRN QHS PRN 08/08/21 11:30 08/09/21 21:40 2.5 MG Lab Laboratory Tests Test 08/10/21 16:30 08/11/21 00:30 08/11/21 06:00 08/11/21 07:30 Activated Partial Thromboplast Time 70 SEC (24-38) 75 SEC (24-38) 79 SEC (24-38) Calcium Level 6.2 mg/dL (8.5-10.1) 6.6 mg/dL (8.5-10.1) White Blood Count 23.1 x10^3/uL (4.0-11.0) Red Blood Count 4.22 x10^6/uL (4.30-5.70) Hemoglobin 11.2 g/dL (13.0-17.5) Hematocrit 33.8 % (39.0-53.0) Mean Corpuscular Volume 80 fL (79-100) Mean Corpuscular Hemoglobin 27 pg (25-35) Mean Corpuscular Hemoglobin Concent 33 g/dL (31-37) Red Cell Distribution Width 16.6 % (11.5-14.5) Platelet Count 203 x10^3/uL (140-400) Neutrophils (%) (Auto) 86 % (31-73) Lymphocytes (%) (Auto) 6 % (24-48) Monocytes (%) (Auto) 6 % (0-9) Eosinophils (%) (Auto) 2 % (0-3) Basophils (%) (Auto) 0 % (0-3) Neutrophils # (Auto) 19.8 x10^3/uL (1.8-7.7) Lymphocytes # (Auto) 1.4 x10^3/uL (1.0-4.8) Monocytes # (Auto) 1.4 x10^3/uL (0.0-1.1) Eosinophils # (Auto) 0.4 x10^3/uL (0.0-0.7) Basophils # (Auto) 0.1 x10^3/uL (0.0-0.2) Sodium Level 128 mmol/L (136-145) Potassium Level 4.5 mmol/L (3.5-5.1) Chloride Level 90 mmol/L (98-107) Carbon Dioxide Level 25 mmol/L (21-32) Anion Gap 13 (6-14) Blood Urea Nitrogen 58 mg/dL (8-26) Creatinine 7.4 mg/dL (0.7-1.3) Estimated GFR (Cockcroft-Gault) 10.9 Glucose Level 94 mg/dL (70-99) Phosphorus Level 6.6 mg/dL (2.6-4.7) Magnesium Level 2.2 mg/dL (1.8-2.4) Creatine Kinase > 324893 U/L (39-308) Albumin 1.4 g/dL (3.4-5.0) Results All relevant outside records, renal labs, imaging studies, telemetry/EKG's were reviewed. Justicifation of Admission Dx: Justifications for Admission: Justification of Admission Dx: N/A JEAN CRUZ MD Aug 11, 2021 08:58
[2021-08-11] MEDS: FAMOTIDINE 20 MG/2 ML VIAL IVP SCH (09:16)
[2021-08-11] MEDS: LACTOBACILLUS RHAMNOSUS GG 1 CAPSULE. PO SCH ×2 (09:16→20:57)
[2021-08-11] MEDS: DOXYCYCLINE HYCLATE 100 MG TABLET PO SCH ×2 (09:16→20:58)
--- NOTE | 2021-08-11 10:18 | PDOC ---
Date of Service: DATE: 08/11/21 TIME: 10:12 Objective: Objective: D/w nurse - requesting a big breakfast, has been sleeping so far this morning w/ CPAP. Unable to do CT of leg due to body habitus. 2 stools charted yesterday. Vital Signs: Vital Signs Date Time Temp Pulse Resp B/P (MAP) Pulse Ox O2 Delivery O2 Flow Rate FiO2 08/11/21 08:06 98.3 96 18 167/75 (105) 96 Room Air 98.3 08/10/21 21:00 4.0 Labs: Laboratory Tests Test 08/10/21 16:30 08/11/21 00:30 08/11/21 06:00 08/11/21 07:30 Activated Partial Thromboplast Time 70 SEC 75 SEC 79 SEC Calcium Level 6.2 mg/dL 6.6 mg/dL White Blood Count 23.1 x10^3/uL Red Blood Count 4.22 x10^6/uL Hemoglobin 11.2 g/dL Hematocrit 33.8 % Mean Corpuscular Volume 80 fL Mean Corpuscular Hemoglobin 27 pg Mean Corpuscular Hemoglobin Concent 33 g/dL Red Cell Distribution Width 16.6 % Platelet Count 203 x10^3/uL Neutrophils (%) (Auto) 86 % Lymphocytes (%) (Auto) 6 % Monocytes (%) (Auto) 6 % Eosinophils (%) (Auto) 2 % Basophils (%) (Auto) 0 % Neutrophils # (Auto) 19.8 x10^3/uL Lymphocytes # (Auto) 1.4 x10^3/uL Monocytes # (Auto) 1.4 x10^3/uL Eosinophils # (Auto) 0.4 x10^3/uL Basophils # (Auto) 0.1 x10^3/uL Sodium Level 128 mmol/L Potassium Level 4.5 mmol/L Chloride Level 90 mmol/L Carbon Dioxide Level 25 mmol/L Anion Gap 13 Blood Urea Nitrogen 58 mg/dL Creatinine 7.4 mg/dL Estimated GFR (Cockcroft-Gault) 10.9 Glucose Level 94 mg/dL Phosphorus Level 6.6 mg/dL Magnesium Level 2.2 mg/dL Creatine Kinase > [id number] U/L Albumin 1.4 g/dL PE: GEN: NAD, guard present LUNGS: CPAP HEART: RRR ABD: obese, soft NEURO/PSYCH: sleeping, did not awaken A/P: Rhabdo, FRAN, elevated AST and ALT (better) - CK still >100,000 Heart and resp failure, cellulitis -- Yesterday c/o not wanting to eat - apparently better today. 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 Justicifation of Admission Dx: Justifications for Admission: Justification of Admission Dx: N/A ERICH KAY Aug 11, 2021 10:18
--- NOTE | 2021-08-11 10:52 | PDOC ---
CARDIO Progress Notes Date and Time Date of Service 08/11/21 Time of Evaluation 1220 Subjective Subjective: No Chest Pain, No Palpitations, No Dizziness, Other (legs hurt ) Vitals Vitals Vital Signs Date Time Temp Pulse Resp B/P (MAP) Pulse Ox O2 Delivery O2 Flow Rate FiO2 08/11/21 08:06 98.3 96 18 167/75 (105) 96 Room Air 98.3 08/10/21 21:00 4.0 Weight Weight [ ] Input and Output Intake and Output Intake and Output 08/11/21 07:00 Intake Total 2314 ml Output Total 85 ml Balance 2229 ml Intake Oral 1330 ml IV Total 984 ml Output Urine Total 85 ml Laboratory Labs Laboratory Tests Test 08/10/21 16:30 08/11/21 00:30 08/11/21 06:00 08/11/21 07:30 Activated Partial Thromboplast Time 70 SEC (24-38) 75 SEC (24-38) 79 SEC (24-38) Calcium Level 6.2 mg/dL (8.5-10.1) 6.6 mg/dL (8.5-10.1) White Blood Count 23.1 x10^3/uL (4.0-11.0) Red Blood Count 4.22 x10^6/uL (4.30-5.70) Hemoglobin 11.2 g/dL (13.0-17.5) Hematocrit 33.8 % (39.0-53.0) Mean Corpuscular Volume 80 fL (79-100) Mean Corpuscular Hemoglobin 27 pg (25-35) Mean Corpuscular Hemoglobin Concent 33 g/dL (31-37) Red Cell Distribution Width 16.6 % (11.5-14.5) Platelet Count 203 x10^3/uL (140-400) Neutrophils (%) (Auto) 86 % (31-73) Lymphocytes (%) (Auto) 6 % (24-48) Monocytes (%) (Auto) 6 % (0-9) Eosinophils (%) (Auto) 2 % (0-3) Basophils (%) (Auto) 0 % (0-3) Neutrophils # (Auto) 19.8 x10^3/uL (1.8-7.7) Lymphocytes # (Auto) 1.4 x10^3/uL (1.0-4.8) Monocytes # (Auto) 1.4 x10^3/uL (0.0-1.1) Eosinophils # (Auto) 0.4 x10^3/uL (0.0-0.7) Basophils # (Auto) 0.1 x10^3/uL (0.0-0.2) Sodium Level 128 mmol/L (136-145) Potassium Level 4.5 mmol/L (3.5-5.1) Chloride Level 90 mmol/L (98-107) Carbon Dioxide Level 25 mmol/L (21-32) Anion Gap 13 (6-14) Blood Urea Nitrogen 58 mg/dL (8-26) Creatinine 7.4 mg/dL (0.7-1.3) Estimated GFR (Cockcroft-Gault) 10.9 Glucose Level 94 mg/dL (70-99) Phosphorus Level 6.6 mg/dL (2.6-4.7) Magnesium Level 2.2 mg/dL (1.8-2.4) Creatine Kinase > 911197 U/L (39-308) Albumin 1.4 g/dL (3.4-5.0) Microbiology Micro Microbiology 08/08/21 Urine Culture - Final, Complete Physical Exam HEENT: Neck Supple W Full Motion Chest: Symmetric LUNGS: Other (diminished ) Heart: RRR Abdomen: Other (obese) Extremities: Other (2+ bilateral LE edema. RLE erythema ) Neurology: alert, oriented, follow commands Assessment Assessment 1. FRAN; HD initiated 2. Rhabdomyolysis; CK > 100,000 3. Acute on chronic diastolic CHF; Echo with preserved LV systolic function, PAP of 51 mmHg. 4. Acute respiratory failure; multifactorial with CHF, pulm HTN, obesity- hypoventilation syndrome 5. Mild troponin elevation; trop peak 390. Type II, demand ischemia 6. H/o bilateral LE DVT; previously on chronic OAC with Xarelto. currently on heparin gtt. as per IM 7. FREYA, obesity- hypoventilation syndrome. BMI 80. CPAP at HS 8. H/o PAFIB?; details unknown presently SR 9. Hypocalcemia, hyponatremia 9. Leukocytosis 10. Elevated LFTs 11. RLE cellulitis Recommendations Fluid offloading via HD Avoid nephrotoxins Weight loss Supportive care from a CV standpoint Justicifation of Admission Dx: Justifications for Admission: Justification of Admission Dx: N/A BRITTANIE,SAVANAH SWEATBAND DRUMMER Aug 11, 2021 10:52
[2021-08-11] MEDS: CALCIUM GLUCONATE IV SCH ×2 (12:00→20:57)
[2021-08-11] MEDS: NORMAL SALINE IV SCH ×2 (12:00→20:57)
[2021-08-11] MEDS: cefTRIAXone IV Push 2 GM VIAL. IVP SCH (12:41)
--- NOTE | 2021-08-11 14:50 | PDOC ---
[facility] PROGRESS NOTE Date of Service DOS: DATE: 08/11/21 TIME: 14:48 Chief Complaint Chief Complaint Sepsis Bilateral pneumonia, possible gram-negative organisms Acute electrolyte derangement due to acute kidney injury Hypocalcemia Metabolic acidosis, non-anion gap Acute renal failure due to vasomotor nephropathy and rhabdomyolysis Acute severe rhabdomyolysis Atypical chest pain concerning for non-STEMI Elevated troponin troponin suggestive of either type II demand ischemia versus renal disease Severe transaminitis possible shock liver versus hepatotoxicity versus medication induced Concern for OHS/FREYA History of morbid obesity History of CHF History of DVT Continue BiPAP as needed and nocturnal Pending C. difficile Start p.o. Vanco per ID for possible C. difficile infection Continue empiric IV antibiotics Pending blood cultures Pending MRSA screen and Legionella Nephrology consult Cardiology consult for CHF Counseled on weight loss via diet and exercise Strict I's and O's Avoid further nephrotoxic agents Continue heparin for DVT history Trend electrolytes and replace as needed Heparin drip for DVT prophylaxis Protonix while in the ICU GI prophylaxis ADA diet CODE STATUS full Discussed with RN and SW Disposition inpatient management as above DPOA: Undesignated, and incarcerated History of Present Illness History of Present Illness 26-year-old male with past medical history of CHF, morbid obesity, DVT was on Xarelto comes in with shortness of breath and chest pressure that started on Tuesday. Apparently his symptoms got worse as the week progressed and by Tuesday he was unable to get out of bed and short of breath. He does endorse any exertional dyspnea. Patient is now unable to stand without some assistance. He does endorse swelling in his lower extremities right greater than left. He thinks he has not taken his Xarelto for a few days but he is not sure this. He also endorses that his torsemide dosing these and he has not had much urine in the past 2 days. Currently he does have a Castaneda in urine bag is dark brown. He is incarcerated for the past year. Denies fevers, nausea vomiting, abdominal pain, diarrhea or hematuria or palpitations. 08/09/2021 No acute events overnight. Patient vital signs are stable. Creatinine is stable and elevated at 6.8. Attempt catheter in place for hemodialysis which will start today. Patient's chart, labs, images were reviewed and discussed with RN. 08/10/2021 No acute events overnight. Patient seen and examined bedside. Creatinine elevating to 8.2. Pending dialysis. Patient's chart, labs, images were reviewed and discussed with RN 08/11/2021 No acute events overnight. Patient seen and examined bedside. Dialysis today and yesterday. Creatinine improved to 7.4. CK level still greater than 100,000. Patient is complaining of right leg pain and ID recommended for CT of the lower extremity. Unfortunately, patient is unable to fit in the scanner. We will continue with heparin drip. Patient's chart, labs, images were reviewed and discussed with RN Vitals/I&O Vitals/I&O: Vital Signs Date Time Temp Pulse Resp B/P (MAP) Pulse Ox O2 Delivery O2 Flow Rate FiO2 08/11/21 12:15 96 167/75 (105) 95 Room Air 4.0 08/11/21 08:06 98.3 18 98.3 I & O 08/10/21 08/10/21 08/11/21 15:00 23:00 07:00 Intake Total 1584 ml 730 ml Output Total 20 ml 5 ml 60 ml Balance -20 ml 1579 ml 670 ml Physical Exam Physical Exam: VITAL SIGNS: stable GENERAL: Morbidly obese, alert, oriented, well-developed, well-nourished male, in no acute distress, nontoxic appearing. HEENT: Normocephalic, atraumatic. Anicteric. No thrush. Oral mucosa moist. NECK: Supple. Short neck. LUNGS: Clear bilaterally. HEART: S1, S2. No murmurs. ABDOMEN: Soft, nontender, nondistended. No rebound, no guarding. GENITOURINARY: Castaneda in place with concentrated urine. EXTREMITIES: Bilateral lymphedema. Right lower extremity erythematous, mild tenderness, dry scabs present. NEUROLOGIC: Alert and oriented x3, grossly nonfocal. PSYCHIATRIC: Calm and cooperative. General: Alert, mild distress Heart: Regular rate Lungs: Other (b lat diminished ) Abdomen: Normal bowel sounds Extremities: No clubbing, Other (Bilateral +3 pedal edema) Skin: No rashes Labs Labs: Laboratory Tests Test 08/10/21 16:30 08/11/21 00:30 08/11/21 06:00 08/11/21 07:30 Activated Partial Thromboplast Time 70 SEC (24-38) 75 SEC (24-38) 79 SEC (24-38) Calcium Level 6.2 mg/dL (8.5-10.1) 6.6 mg/dL (8.5-10.1) White Blood Count 23.1 x10^3/uL (4.0-11.0) Red Blood Count 4.22 x10^6/uL (4.30-5.70) Hemoglobin 11.2 g/dL (13.0-17.5) Hematocrit 33.8 % (39.0-53.0) Mean Corpuscular Volume 80 fL (79-100) Mean Corpuscular Hemoglobin 27 pg (25-35) Mean Corpuscular Hemoglobin Concent 33 g/dL (31-37) Red Cell Distribution Width 16.6 % (11.5-14.5) Platelet Count 203 x10^3/uL (140-400) Neutrophils (%) (Auto) 86 % (31-73) Lymphocytes (%) (Auto) 6 % (24-48) Monocytes (%) (Auto) 6 % (0-9) Eosinophils (%) (Auto) 2 % (0-3) Basophils (%) (Auto) 0 % (0-3) Neutrophils # (Auto) 19.8 x10^3/uL (1.8-7.7) Lymphocytes # (Auto) 1.4 x10^3/uL (1.0-4.8) Monocytes # (Auto) 1.4 x10^3/uL (0.0-1.1) Eosinophils # (Auto) 0.4 x10^3/uL (0.0-0.7) Basophils # (Auto) 0.1 x10^3/uL (0.0-0.2) Sodium Level 128 mmol/L (136-145) Potassium Level 4.5 mmol/L (3.5-5.1) Chloride Level 90 mmol/L (98-107) Carbon Dioxide Level 25 mmol/L (21-32) Anion Gap 13 (6-14) Blood Urea Nitrogen 58 mg/dL (8-26) Creatinine 7.4 mg/dL (0.7-1.3) Estimated GFR (Cockcroft-Gault) 10.9 Glucose Level 94 mg/dL (70-99) Phosphorus Level 6.6 mg/dL (2.6-4.7) Magnesium Level 2.2 mg/dL (1.8-2.4) Creatine Kinase > 188638 U/L (39-308) Albumin 1.4 g/dL (3.4-5.0) Assessment and Plan Assessmemt and Plan Problems Medical Problems: (1) Acute renal failure Status: Acute (2) Hyperkalemia Status: Acute (3) Hyperuricemia Status: Acute (4) Hypocalcemia Status: Acute (5) Hyponatremia Status: Acute (6) Morbid obesity Status: Acute (7) NSTEMI (non-ST elevated myocardial infarction) Status: Acute (8) Transaminitis Status: Acute Comment Review of Relevant I have reviewed the following items sabina (where applicable) has been applied. Justifications for Admission Other Justification AMOS MADISON MD Aug 11, 2021 14:50
[2021-08-11] MEDS ORDERED: DIALYSIS PATIENT. MC PRN (15:00)
[2021-08-11] MEDS ORDERED: IV NORMAL SALINE 1000ML BAG 1,000 ML IV PRN ×2 (15:00)
[2021-08-11] MEDS: FAMOTIDINE 20 MG TABLET. PO SCH (20:57)
[2021-08-12] VITALS (7 sets, daily range): BP systolic 154–185; BP diastolic 76–97
[2021-08-12] MEDS: HEPARIN 25,000UTS/250ML PREMIX 250 ML IV PRN ×2 (03:09→11:00)
[2021-08-12 07:09] LABS: ALBUMIN 1.3 g/dL (3.4-5.0); CALCIUM 7.3 mg/dL (8.5-10.1); CREATININE 6.9 mg/dL (0.7-1.3); GFR 11.8; PHOSPHORUS 5.3 mg/dL (2.6-4.7); POTASSIUM 4.5 mmol/L (3.5-5.1)
[2021-08-12] MEDS: IPRATROPIUM BROMIDE 0.5 MG/2.5 ML NEBU. NEB SCH ×4 (07:34→20:00)
--- NOTE | 2021-08-12 07:58 | PDOC ---
Infectious Disease Note Subjective Subjective pt is feeling ok, right leg pain ROS ROS No nausea vomiting diarrhea chest pain shortness of breath Vital Sign Vital Signs Vital Signs Date Time Temp Pulse Resp B/P (MAP) Pulse Ox O2 Delivery O2 Flow Rate FiO2 08/12/21 07:34 99 BiPAP/CPAP 08/12/21 03:00 98.1 97 24 154/76 (102) 98.1 08/11/21 16:25 4.0 Physical Exam PHYSICAL EXAM VITAL SIGNS: stable GENERAL: Morbidly obese, alert, oriented, well-developed, well-nourished male, in no acute distress, nontoxic appearing. HEENT: Normocephalic, atraumatic. Anicteric. No thrush. Oral mucosa moist. NECK: Supple. Short neck. LUNGS: Clear bilaterally. HEART: S1, S2. No murmurs. ABDOMEN: Soft, nontender, nondistended. No rebound, no guarding. GENITOURINARY: Castaneda in place with concentrated urine. EXTREMITIES: Bilateral lymphedema. Right lower extremity erythematous, mild tenderness, dry scabs present. NEUROLOGIC: Alert and oriented x3, grossly nonfocal. PSYCHIATRIC: Calm and cooperative. Labs Lab Laboratory Tests Test 08/12/21 06:33 08/12/21 06:38 Sodium Level 128 mmol/L (136-145) Potassium Level 4.5 mmol/L (3.5-5.1) Chloride Level 91 mmol/L (98-107) Carbon Dioxide Level 27 mmol/L (21-32) Anion Gap 10 (6-14) Blood Urea Nitrogen 54 mg/dL (8-26) Creatinine 6.9 mg/dL (0.7-1.3) Estimated GFR (Cockcroft-Gault) 11.8 Glucose Level 75 mg/dL (70-99) Calcium Level 7.3 mg/dL (8.5-10.1) Phosphorus Level 5.3 mg/dL (2.6-4.7) Creatine Kinase 90674 U/L (39-308) Albumin 1.3 g/dL (3.4-5.0) Activated Partial Thromboplast Time 81 SEC (24-38) Micro Microbiology 08/08/21 Urine Culture - Final, Complete Objective Assessment IMPRESSION: 1. Leukocytosis. 2. Low-grade febrile illness. 3. Acute kidney injury. 4. Hyperkalemia. 5. Hyponatremia. 6. Hypocalcemia. 7. Hypouricemia. 8. Severe rhabdomyolysis. 9. Bilateral lower extremity edema, right greater than left. 10. Right lower extremity cellulitis. 11. Morbid obesity. 12. History of congestive heart failure. 13. History of deep venous thrombosis. 14. History of ALLERGIES TO AMOXICILLIN AND AZITHROMYCIN. 15. Non-STEMI. 16. Metabolic acidosis. 17. Abnormal LFTs, likely from rhabdomyolysis. Plan Plan of Care c diff negative cont rocephine and doxy supportive care Right leg CT unable to do because of the patient weight MARIANELA SALEH MD Aug 12, 2021 07:58
[2021-08-12] MEDS: NORMAL SALINE IV SCH (09:13)
[2021-08-12] MEDS: CALCIUM GLUCONATE IV SCH (09:13)
[2021-08-12] MEDS: LACTOBACILLUS RHAMNOSUS GG 1 CAPSULE. PO SCH ×2 (09:13→20:33)
[2021-08-12] MEDS: DOXYCYCLINE HYCLATE 100 MG TABLET PO SCH ×2 (09:13→20:33)
[2021-08-12] MEDS: HYDROcodone/APAP 5/325MG 1 TAB TABLET PO PRN ×2 (09:13→20:37)
--- NOTE | 2021-08-12 09:15 | PDOC ---
PULMONARY PROGRESS NOTES DATE: 08/12/21 TIME: 09:15 Subjective Patient on BiPAP, no respiratory distress Vitals Vital Signs Date Time Temp Pulse Resp B/P (MAP) Pulse Ox O2 Delivery O2 Flow Rate FiO2 08/12/21 09:13 18 94 Room Air 08/12/21 03:00 98.1 97 154/76 (102) 98.1 08/11/21 16:25 4.0 ROS: No Nausea, No Chest Pain, No Abdominal Pain, No Increase Cough General: Alert Lungs: Other (b lat diminished ) Cardiovascular: S1, S2 Abdomen: Soft, Non-tender, Other (obese no mass) Neuro Exam: Alert, Oriented Extremities: Other (lymphedema chronic changes) Skin: Warm Labs Laboratory Tests Test 08/10/21 16:30 08/11/21 00:30 08/11/21 06:00 08/11/21 07:30 Activated Partial Thromboplast Time 70 SEC (24-38) 75 SEC (24-38) 79 SEC (24-38) Calcium Level 6.2 mg/dL (8.5-10.1) 6.6 mg/dL (8.5-10.1) White Blood Count 23.1 x10^3/uL (4.0-11.0) Red Blood Count 4.22 x10^6/uL (4.30-5.70) Hemoglobin 11.2 g/dL (13.0-17.5) Hematocrit 33.8 % (39.0-53.0) Mean Corpuscular Volume 80 fL (79-100) Mean Corpuscular Hemoglobin 27 pg (25-35) Mean Corpuscular Hemoglobin Concent 33 g/dL (31-37) Red Cell Distribution Width 16.6 % (11.5-14.5) Platelet Count 203 x10^3/uL (140-400) Neutrophils (%) (Auto) 86 % (31-73) Lymphocytes (%) (Auto) 6 % (24-48) Monocytes (%) (Auto) 6 % (0-9) Eosinophils (%) (Auto) 2 % (0-3) Basophils (%) (Auto) 0 % (0-3) Neutrophils # (Auto) 19.8 x10^3/uL (1.8-7.7) Lymphocytes # (Auto) 1.4 x10^3/uL (1.0-4.8) Monocytes # (Auto) 1.4 x10^3/uL (0.0-1.1) Eosinophils # (Auto) 0.4 x10^3/uL (0.0-0.7) Basophils # (Auto) 0.1 x10^3/uL (0.0-0.2) Sodium Level 128 mmol/L (136-145) Potassium Level 4.5 mmol/L (3.5-5.1) Chloride Level 90 mmol/L (98-107) Carbon Dioxide Level 25 mmol/L (21-32) Anion Gap 13 (6-14) Blood Urea Nitrogen 58 mg/dL (8-26) Creatinine 7.4 mg/dL (0.7-1.3) Estimated GFR (Cockcroft-Gault) 10.9 Glucose Level 94 mg/dL (70-99) Phosphorus Level 6.6 mg/dL (2.6-4.7) Magnesium Level 2.2 mg/dL (1.8-2.4) Creatine Kinase > 341915 U/L (39-308) Albumin 1.4 g/dL (3.4-5.0) Test 08/12/21 06:33 08/12/21 06:38 Sodium Level 128 mmol/L (136-145) Potassium Level 4.5 mmol/L (3.5-5.1) Chloride Level 91 mmol/L (98-107) Carbon Dioxide Level 27 mmol/L (21-32) Anion Gap 10 (6-14) Blood Urea Nitrogen 54 mg/dL (8-26) Creatinine 6.9 mg/dL (0.7-1.3) Estimated GFR (Cockcroft-Gault) 11.8 Glucose Level 75 mg/dL (70-99) Calcium Level 7.3 mg/dL (8.5-10.1) Phosphorus Level 5.3 mg/dL (2.6-4.7) Creatine Kinase 82267 U/L (39-308) Albumin 1.3 g/dL (3.4-5.0) Activated Partial Thromboplast Time 81 SEC (24-38) Laboratory Tests Test 08/12/21 06:33 08/12/21 06:38 Sodium Level 128 mmol/L (136-145) Potassium Level 4.5 mmol/L (3.5-5.1) Chloride Level 91 mmol/L (98-107) Carbon Dioxide Level 27 mmol/L (21-32) Anion Gap 10 (6-14) Blood Urea Nitrogen 54 mg/dL (8-26) Creatinine 6.9 mg/dL (0.7-1.3) Estimated GFR (Cockcroft-Gault) 11.8 Glucose Level 75 mg/dL (70-99) Calcium Level 7.3 mg/dL (8.5-10.1) Phosphorus Level 5.3 mg/dL (2.6-4.7) Creatine Kinase 14345 U/L (39-308) Albumin 1.3 g/dL (3.4-5.0) Activated Partial Thromboplast Time 81 SEC (24-38) Medications Active Scripts Medications Dose Route/Sig Max Daily Dose Days Date Category Dose Instructions Torsemide 20 Mg Tablet 4 Tab PO DAILY 08/08/21 Reported Bactrim Ds Tablet (Sulfamethoxazole/Trimethoprim) 1 Each Tablet 1 Tab PO BID 10 08/08/21 Reported Spironolactone 100 Mg Tablet 1 Tab PO DAILY 08/08/21 Reported Potassium Chloride (Potassium Chloride) 20 Meq Tablet.er 1 Meq PO DAILY 08/08/21 Reported Losartan Potassium 50 Mg Tablet 2 Mg PO DAILY 08/08/21 Reported Carvedilol 25 Mg Tablet 2 Mg PO BIDWMEALS 08/08/21 Reported Buspirone Hcl 10 Mg Tablet 10 Mg PO BID 08/08/21 Reported Amlodipine Besylate 10 Mg Tablet 10 Mg PO DAILY 08/08/21 Reported Proair Hfa (Albuterol Sulfate) 8.5 Gm Hfa.aer.ad 1 Puff INH PRN Q6HRS PRN 08/08/21 Reported Xarelto (Rivaroxaban) 20 Mg Tablet Unknown Dose PO DAILY 30 08/08/21 Reported with food Comments cxr reviewed 08/08 Mild cardiomegaly. Right internal jugular line identified with the tip projecting in the SVC region. Mild prominent bilateral lung markings likely mild congestive changes. Mild bibasilar lung atelectasis. Impression . IMPRESSION: 1. Acute respiratory failure, secondary to pulmonary edema 2. Abnormal chest x-ray. Secondary to above 3. Acute kidney injury secondary to rhabdomyolysis. 4. Electrolyte abnormality. 5. Leukocytosis, per ID 6. Obstructive sleep apnea-hypopnea syndrome. 7. History of deep venous thrombosis. Negative venous Dopplers on this admission 8. History of paroxysmal A. fib 9. Secondary pulmonary arterial hypertension, PA pressures calculated at 51 10. Ex-smoker. 11. Morbid obesity BMI of 80 Note from nephrology, 08/02 DIAGNOSIS/ASSESSMENT Assessment & Plan Acute kidney injury: ATN , oligoanuric due to rhabdomyolysis. Needing dialysis 1st on Tuesday; No improvement in renal function, tolerated HD well yesterday. Hold Off Dialysis today. IVF today , Dw nursing Supportive care, flush Castaneda , avoid Nephrotoxins . Monitor for renal Recovery . Access Currently has Temp HDC Rhabdomyolysis: Unclear etiology. Denies statin, reports he was started on new K pill- doesnt recall name, he walks a lot as well, stays hydrated . CK trending down . Phos Improving Plan . Updated 08/12 See nephrology note Continue current support Antibiotics per ID Currently on CPAP 16 cm of water pressure, FiO2 21% Updated 08/11 Continue CPAP Hemodialysis per nephrology Antibiotics per ID Respiratory status appears to be compensated Updated 08/10 Continue to diurese CPAP nightly No need for oxygen supplementation throughout the day Hemodialysis per nephrology Follow cardiology input Anticoagulation per cardiology Antibiotics per ID PORTIA LARA MD Aug 12, 2021 09:15
--- NOTE | 2021-08-12 09:24 | PDOC ---
Date of Service: DATE: 08/12/21 TIME: 09:12 Subjective: Subjective: Feels so-so, has a little stomach pain but better. Going to eat breakfast in a bit. Objective: Objective: 1 stool charted. Vital Signs: Vital Signs Date Time Temp Pulse Resp B/P (MAP) Pulse Ox O2 Delivery O2 Flow Rate FiO2 08/12/21 07:34 99 BiPAP/CPAP 08/12/21 03:00 98.1 97 24 154/76 (102) 98.1 08/11/21 16:25 4.0 Labs: Laboratory Tests Test 08/12/21 06:33 08/12/21 06:38 Sodium Level 128 mmol/L Potassium Level 4.5 mmol/L Chloride Level 91 mmol/L Carbon Dioxide Level 27 mmol/L Anion Gap 10 Blood Urea Nitrogen 54 mg/dL Creatinine 6.9 mg/dL Estimated GFR (Cockcroft-Gault) 11.8 Glucose Level 75 mg/dL Calcium Level 7.3 mg/dL Phosphorus Level 5.3 mg/dL Creatine Kinase 94967 U/L Albumin 1.3 g/dL Activated Partial Thromboplast Time 81 SEC PE: GEN: was sleeping LUNGS: BiPAP HEART: RRR ABD: morbidly obese, non-tender NEURO/PSYCH: briefly opens eyes, nods and shakes head A/P: Rhabdo, elevated AST and ALT (better) - CK dropped a bit Morbid obesity, heart/resp/renal failure, cellulitis -- Continue support GI-freitas, follow labs. Justicifation of Admission Dx: Justifications for Admission: Justification of Admission Dx: N/A ERICH KAY Aug 12, 2021 09:24
--- NOTE | 2021-08-12 10:45 | PDOC ---
DATE OF SERVICE DATE: 08/12/21 TIME: 10:42 SUBJECTIVE ROS No acute concerns stable, No SOB, No N/V Still No UOP OBJECTIVE Vital Signs Vital Signs Date Time Temp Pulse Resp B/P (MAP) Pulse Ox O2 Delivery O2 Flow Rate FiO2 08/12/21 09:43 18 94 Room Air 08/12/21 03:00 98.1 97 154/76 (102) 98.1 08/11/21 16:25 4.0 I & 0 Intake and Output 08/12/21 07:00 Intake Total 3178 ml Output Total 35 ml Balance 3143 ml Intake Oral 1900 ml IV Total 1278 ml Output Urine Total 35 ml # Bowel Movements 1 PHYSICAL EXAM Physical Exam GENERAL: Morbidly obese, alert, oriented , NAD HEENT: Normocephalic, atraumatic. Anicteric. No thrush. Oral mucosa moist. NECK: Supple. LUNGS: Clear bilaterally. HEART: S1, S2. No murmurs. ABDOMEN: Soft, nontender,Obese GENITOURINARY: Castaneda in place EXTREMITIES: Bilateral lymphedema. Right lower extremity erythematous, mild tenderness NEUROLOGIC: Alert and oriented x3, grossly nonfocal. PSYCHIATRIC: Calm and cooperative. DIAGNOSIS/ASSESSMENT Assessment & Plan Acute kidney injury: ATN , oligoanuric due to rhabdomyolysis. Needing dialysis 1st on Tuesday; No improvement in renal function, tolerated HD well yesterday. Hold Off Dialysis today. IVF today , Dw nursing Supportive care, flush Castaneda , avoid Nephrotoxins . Monitor for renal Recovery . Access Currently has Temp HDC Rhabdomyolysis: Unclear etiology. Denies statin, reports he was started on new K pill- doesnt recall name, he walks a lot as well, stays hydrated . CK trending down . Phos Improving Elevated LFT's Hyperkalemia: corrected Metabolic acidosis currently corrected and compensated Hyponatremia: 2/2 severe Rhabdo , IV NS today Severe hypocalcemia presumably due to rhabdomyolysis POA : Improved, DC Calcium gtt History of CHF: Clinically appears to be clinically compensated at this time. Non-STEMI: Defer to cardiology COMMENT/RELEVANT DATA Meds Current Medications Medications (Trade) Dose Ordered Sig/Keith Start Time Stop Time Status Last Admin Dose Admin Acetaminophen (Tylenol) 650 mg PRN Q4HRS PRN 08/08/21 11:30 Acetaminophen/ Hydrocodone Bitart (Lortab 5/325) 1 tab PRN Q6HRS PRN 08/12/21 09:00 08/12/21 09:13 1 TAB Albumin Human 200 ml @ 200 mls/hr 1X PRN PRN 08/10/21 16:45 08/10/21 22:45 DC Aspirin (Aspirin Chewable) 324 mg 1X ONCE 08/07/21 21:30 08/07/21 21:31 DC 08/07/21 22:12 324 MG Calcium Carbonate/ Glycine (Tums) 500 mg PRN AFTMEALHC PRN 08/09/21 01:30 Calcium Gluconate (Calcium Gluconate) 1,000 mg Q2H 08/09/21 08:30 08/09/21 12:31 DC 08/09/21 12:16 1,000 MG Calcium Gluconate 2000 mg/Sodium Chloride 120 ml @ 220 mls/hr 1X ONCE 08/08/21 06:30 08/08/21 07:02 DC 08/08/21 06:30 220 MLS/HR Calcium Gluconate 5000 mg/Sodium Chloride 500 ml @ 50 mls/hr Q10H 08/09/21 12:30 08/12/21 10:19 DC 08/12/21 09:13 50 MLS/HR Ceftriaxone Sodium (Rocephin) 2 gm Q24H 08/08/21 12:00 08/11/21 12:41 2 GM Dextrose (Dextrose 50%-Water Syringe) 12.5 gm PRN Q15MIN PRN 08/08/21 11:30 Docusate Sodium (Colace) 100 mg PRN DAILY PRN 08/08/21 11:30 Doxycycline Hyclate (Vibra-Tab) 100 mg BID 08/08/21 05:00 08/12/21 09:13 100 MG Famotidine (Pepcid Vial) 20 mg DAILY 08/08/21 12:00 08/11/21 10:19 DC 08/11/21 09:16 20 MG Famotidine (Pepcid) 20 mg QHS 08/11/21 21:00 08/11/21 20:57 20 MG Heparin Sodium (Porcine) (Heparin Sodium) 1,000 unit PRN Q6HRS PRN 08/07/21 23:00 08/11/21 01:18 1,000 UNIT Heparin Sodium/ Dextrose 250 ml @ 20 mls/hr CONT PRN 08/07/21 23:00 08/12/21 03:09 35 MLS/HR Info (PHARMACY MONITORING -- do not chart) 1 each PRN DAILY PRN 08/11/21 15:00 Ipratropium [place] (Atrovent) 0.5 mg RTQID 08/08/21 16:00 08/12/21 07:34 0.5 MG Lactobacillus Rhamnosus (Culturelle) 1 cap BID 08/08/21 09:00 08/12/21 09:13 1 CAP Lidocaine HCl (Buffered Lidocaine 1%) 6 ml 1X ONCE 08/08/21 13:00 08/08/21 13:01 DC Lorazepam (Ativan Inj) 0.25 mg PRN Q4HRS PRN 08/08/21 11:30 Lorazepam (Ativan) 0.5 mg PRN Q6HRS PRN 08/08/21 11:30 08/09/21 21:39 0.5 MG Multi-Ingredient Mouthwash/Gargle (Gi Cocktail) 20 ml PRN QID PRN 08/10/21 10:00 Ondansetron HCl (Zofran) 4 mg PRN Q6HRS PRN 08/08/21 11:30 08/09/21 01:25 4 MG Perflutren Protein Type A Microsphe (Optison) 0.66 mg STK-MED ONCE 08/09/21 11:00 08/10/21 12:58 DC Prochlorperazine Edisylate (Compazine) 10 mg PRN Q6HRS PRN 08/08/21 11:30 Sennosides (Senna) 17.2 mg PRN BID PRN 08/08/21 11:30 Sodium Bicarbonate 150 meq/Dextrose 1,150 ml @ 100 mls/hr [id number] ONCE 08/07/21 22:00 08/08/21 09:29 DC 08/07/21 23:51 100 MLS/HR Sodium Bicarbonate (Sodium Bicarb Adult 8.4% Syr) 150 meq 1X ONCE 08/08/21 07:15 08/08/21 07:19 DC 08/08/21 08:27 150 MEQ Sodium Chloride 1,000 ml @ 400 mls/hr Q2H30M PRN 08/11/21 15:00 08/12/21 02:59 DC Vancomycin HCl (Vancomycin Oral Solution) 125 mg [id number] 08/09/21 13:00 08/10/21 09:44 DC 08/09/21 21:39 125 MG Zolpidem Tartrate (Ambien) 2.5 mg PRN QHS PRN 08/08/21 11:30 08/09/21 21:40 2.5 MG Lab Laboratory Tests Test 08/12/21 06:33 08/12/21 06:38 Sodium Level 128 mmol/L (136-145) Potassium Level 4.5 mmol/L (3.5-5.1) Chloride Level 91 mmol/L (98-107) Carbon Dioxide Level 27 mmol/L (21-32) Anion Gap 10 (6-14) Blood Urea Nitrogen 54 mg/dL (8-26) Creatinine 6.9 mg/dL (0.7-1.3) Estimated GFR (Cockcroft-Gault) 11.8 Glucose Level 75 mg/dL (70-99) Calcium Level 7.3 mg/dL (8.5-10.1) Phosphorus Level 5.3 mg/dL (2.6-4.7) Creatine Kinase 23470 U/L (39-308) Albumin 1.3 g/dL (3.4-5.0) Activated Partial Thromboplast Time 81 SEC (24-38) Results All relevant outside records, renal labs, imaging studies, telemetry/EKG's were reviewed. Justicifation of Admission Dx: Justifications for Admission: Justification of Admission Dx: N/A JEAN CRUZ MD Aug 12, 2021 10:45
--- NOTE | 2021-08-12 11:39 | NUR ---
morning pt assessment completed. pt right lower extremity very painful, multiple very large blisters weeping, chux under it changed when saturated. pt c/o pain and Dr Roberts ordered pain meds prn, given per order. Discussed POC with Dr Willingham and TAMIE, referral to be sent to [facility].
--- NOTE | 2021-08-12 11:53 | PDOC ---
[facility] PROGRESS NOTE Date of Service DOS: DATE: 08/12/21 TIME: 11:51 Chief Complaint Chief Complaint Sepsis Bilateral pneumonia, possible gram-negative organisms Acute electrolyte derangement due to acute kidney injury Hypocalcemia Metabolic acidosis, non-anion gap Acute renal failure due to vasomotor nephropathy and rhabdomyolysis Acute severe rhabdomyolysis Atypical chest pain concerning for non-STEMI Elevated troponin troponin suggestive of either type II demand ischemia versus renal disease Severe transaminitis possible shock liver versus hepatotoxicity versus medication induced Concern for OHS/FREYA History of morbid obesity History of CHF History of DVT Continue BiPAP as needed and nocturnal Pending C. difficile Start p.o. Vanco per ID for possible C. difficile infection Continue empiric IV antibiotics Pending blood cultures Pending MRSA screen and Legionella Nephrology consult Cardiology consult for CHF Counseled on weight loss via diet and exercise Strict I's and O's Avoid further nephrotoxic agents Continue heparin for DVT history Trend electrolytes and replace as needed Heparin drip for DVT prophylaxis Protonix while in the ICU GI prophylaxis ADA diet CODE STATUS full Discussed with RN and SW Disposition inpatient management as above DPOA: Undesignated, and incarcerated History of Present Illness History of Present Illness 26-year-old male with past medical history of CHF, morbid obesity, DVT was on Xarelto comes in with shortness of breath and chest pressure that started on Tuesday. Apparently his symptoms got worse as the week progressed and by Tuesday he was unable to get out of bed and short of breath. He does endorse any exertional dyspnea. Patient is now unable to stand without some assistance. He does endorse swelling in his lower extremities right greater than left. He thinks he has not taken his Xarelto for a few days but he is not sure this. He also endorses that his torsemide dosing these and he has not had much urine in the past 2 days. Currently he does have a Castaneda in urine bag is dark brown. He is incarcerated for the past year. Denies fevers, nausea vomiting, abdominal pain, diarrhea or hematuria or palpitations. 08/09/2021 No acute events overnight. Patient vital signs are stable. Creatinine is stable and elevated at 6.8. Attempt catheter in place for hemodialysis which will start today. Patient's chart, labs, images were reviewed and discussed with RN. 08/10/2021 No acute events overnight. Patient seen and examined bedside. Creatinine elevating to 8.2. Pending dialysis. Patient's chart, labs, images were reviewed and discussed with RN 08/11/2021 No acute events overnight. Patient seen and examined bedside. Dialysis today and yesterday. Creatinine improved to 7.4. CK level still greater than 100,000. Patient is complaining of right leg pain and ID recommended for CT of the lower extremity. Unfortunately, patient is unable to fit in the scanner. We will continue with heparin drip. Patient's chart, labs, images were reviewed and discussed with RN 08/12/2021 No acute events overnight. Patient seen examined bedside still requiring BiPAP as needed. Creatinine improved to 6.9. CK decreased to 84,000. Wound care consulted for right lower extremity blisters. I have asked that US Vince's to possibly relax the left lower extremity leg cuff to avoid erosion of an already fragile skin integrity due to edema of the left lower extremity. Patient's chart, labs, images were reviewed and discussed with RN Vitals/I&O Vitals/I&O: Vital Signs Date Time Temp Pulse Resp B/P (MAP) Pulse Ox O2 Delivery O2 Flow Rate FiO2 08/12/21 09:43 18 94 Room Air 08/12/21 08:00 98.7 94 161/79 (106) 98.7 08/11/21 16:25 4.0 I & O 08/11/21 08/11/21 08/12/21 15:00 23:00 07:00 Intake Total 940 ml 1150 ml 1088 ml Output Total 0 ml 0 ml 35 ml Balance 940 ml 1150 ml 1053 ml Physical Exam Physical Exam: VITAL SIGNS: stable GENERAL: Morbidly obese, alert, oriented, well-developed, well-nourished male, in no acute distress, nontoxic appearing. HEENT: Normocephalic, atraumatic. Anicteric. No thrush. Oral mucosa moist. NECK: Supple. Short neck. LUNGS: Clear bilaterally. HEART: S1, S2. No murmurs. ABDOMEN: Soft, nontender, nondistended. No rebound, no guarding. GENITOURINARY: Castaneda in place with concentrated urine. EXTREMITIES: Bilateral lymphedema. Right lower extremity erythematous, mild tenderness, dry scabs present. NEUROLOGIC: Alert and oriented x3, grossly nonfocal. PSYCHIATRIC: Calm and cooperative. General: Alert, mild distress Heart: Regular rate Lungs: Other (b lat diminished ) Abdomen: Normal bowel sounds Extremities: No clubbing, Other (Bilateral +3 pedal edema) Skin: No rashes Labs Labs: Laboratory Tests Test 08/12/21 06:33 08/12/21 06:38 Sodium Level 128 mmol/L (136-145) Potassium Level 4.5 mmol/L (3.5-5.1) Chloride Level 91 mmol/L (98-107) Carbon Dioxide Level 27 mmol/L (21-32) Anion Gap 10 (6-14) Blood Urea Nitrogen 54 mg/dL (8-26) Creatinine 6.9 mg/dL (0.7-1.3) Estimated GFR (Cockcroft-Gault) 11.8 Glucose Level 75 mg/dL (70-99) Calcium Level 7.3 mg/dL (8.5-10.1) Phosphorus Level 5.3 mg/dL (2.6-4.7) Creatine Kinase 66555 U/L (39-308) Albumin 1.3 g/dL (3.4-5.0) Activated Partial Thromboplast Time 81 SEC (24-38) Assessment and Plan Assessmemt and Plan Problems Medical Problems: (1) Acute renal failure Status: Acute (2) Hyperkalemia Status: Acute (3) Hyperuricemia Status: Acute (4) Hypocalcemia Status: Acute (5) Hyponatremia Status: Acute (6) Morbid obesity Status: Acute (7) NSTEMI (non-ST elevated myocardial infarction) Status: Acute (8) Transaminitis Status: Acute Comment Review of Relevant I have reviewed the following items sabina (where applicable) has been applied. Medications: Current Medications Medications (Trade) Dose Ordered Sig/Keith Route PRN Reason Start Time Stop Time Status Last Admin Dose Admin Famotidine (Pepcid) 20 mg QHS PO 08/11/21 21:00 08/11/21 20:57 Acetaminophen/ Hydrocodone Bitart (Lortab 5/325) 1 tab PRN Q6HRS PRN PO MOD-SEVERE PAIN 08/12/21 09:00 08/12/21 09:13 Justifications for Admission Other Justification AMOS MADISON MD Aug 12, 2021 11:53
--- NOTE | 2021-08-12 11:53 | NUR ---
SS following for discharge planning. SS reviewed pt chart and discussed with pt RN. [facility] Pt is currently on room air. COVID19 negative. Pt has temporary hemodialysis. Heparin. CPAP at HS. Pt on IV Rocephin. Wounds per RN. Technician requesting referral to [facility] at this time. SS discussed with Wool Puller, Teresa. SS phoned and faxed referral to [facility], ; fax [phone]. SS will continue to follow for discharge planning. Addendum: 08/12/21 at 1638 by BENTLEY GUTIÉRREZ Pt clinically accepted at [facility] pending [facility] approval.
--- NOTE | 2021-08-12 12:22 | PDOC ---
CARDIO Progress Notes Date and Time Date of Service 08/12/2021 Time of Evaluation 1200 Subjective Subjective: No Chest Pain, No shortness of breath, No Palpitations, Other (complains of body aches) Vitals Vitals Vital Signs Date Time Temp Pulse Resp B/P (MAP) Pulse Ox O2 Delivery O2 Flow Rate FiO2 08/12/21 12:00 96 BiPAP/CPAP 08/12/21 09:43 18 08/12/21 08:00 98.7 94 161/79 (106) 98.7 08/11/21 16:25 4.0 Weight Weight [ ] Input and Output Intake and Output Intake and Output 08/12/21 07:00 Intake Total 3178 ml Output Total 35 ml Balance 3143 ml Intake Oral 1900 ml IV Total 1278 ml Output Urine Total 35 ml # Bowel Movements 1 Laboratory Labs Laboratory Tests Test 08/12/21 06:33 08/12/21 06:38 Sodium Level 128 mmol/L (136-145) Potassium Level 4.5 mmol/L (3.5-5.1) Chloride Level 91 mmol/L (98-107) Carbon Dioxide Level 27 mmol/L (21-32) Anion Gap 10 (6-14) Blood Urea Nitrogen 54 mg/dL (8-26) Creatinine 6.9 mg/dL (0.7-1.3) Estimated GFR (Cockcroft-Gault) 11.8 Glucose Level 75 mg/dL (70-99) Calcium Level 7.3 mg/dL (8.5-10.1) Phosphorus Level 5.3 mg/dL (2.6-4.7) Creatine Kinase 36285 U/L (39-308) Albumin 1.3 g/dL (3.4-5.0) Activated Partial Thromboplast Time 81 SEC (24-38) Microbiology Micro Microbiology 08/08/21 Urine Culture - Final, Complete Physical Exam HEENT: Neck Supple W Full Motion Chest: Symmetric LUNGS: Other (bipap in place) Heart: RRR (SR) Abdomen: Other (morbidly obese) Extremities: Other (bilateral lyphedema RLE erythema ) Neurology: alert, oriented, follow commands Assessment Assessment 1. FRAN; HD initiated 2. Severe Rhabdomyolysis; CK > 100,000 3. Acute on chronic diastolic CHF; Echo with preserved LV systolic function, PAP of 51 mmHg. 4. Acute respiratory failure; multifactorial with CHF, pulm HTN, obesity- hypoventilation syndrome 5. Mild troponin elevation; trop peak 390. Type II, demand ischemia 6. H/o bilateral LE DVT; previously on chronic OAC with Xarelto. currently on heparin gtt. as per IM 7. FREYA, obesity- hypoventilation syndrome. BMI 80. CPAP at HS 8. H/o PAFIB?; details unknown presently SR 9. Hypocalcemia, hyponatremia 9. Leukocytosis 10. Elevated LFTs 11. RLE cellulitis 12. Severe hypoalbuminemia 13. HTN: labile Recommendations Fluid offloading via HD Avoid nephrotoxins. Start coreg. Hydralazine IV PRN Weight loss Supportive care from a CV standpoint Justicifation of Admission Dx: Justifications for Admission: Justification of Admission Dx: N/A ADONAY HOPKINS [employer] Aug 12, 2021 12:22
[2021-08-12] MEDS ORDERED: hydrALAZINE 20 MG/ML VIAL. IVP PRN (12:30)
[2021-08-12] MEDS: cefTRIAXone IV Push 2 GM VIAL. IVP SCH (12:42)
[2021-08-12] MEDS: IV NORMAL SALINE 1000ML BAG 1,000 ML IV SCH ×2 (16:56→23:16)
[2021-08-12] MEDS: CARVEDILOL 6.25 MG TABLET. PO SCH (17:12)
--- NOTE | 2021-08-12 17:30 | NUR ---
Wound Care Wound Type/Assessment: Patient seen per wound care consult. see wound assessment. patient has an intact and open blister to the RLE, the blister is draining at this time from some of the open areas. the wound was cleaned, measured, pictured and a new trish was placed under with the leg elevated on a pillow. Treatment Recommendations/Plan: Recommendations of elevation, change the trish pad as needed. Education provided: Educated the pt on the POC Offloading surface/device: patient on a Terry Bed. Recommended Referrals/Tests: Will notify the Physician regarding the patients wound for any further recommendations. Discharge Recommendations for dressings: Wound care will continue to f/u for changes.
[2021-08-12] MEDS: FAMOTIDINE 20 MG TABLET. PO SCH (20:33)
[2021-08-12] MEDS: LORazepam 0.5 MG TABLET PO PRN (20:36)
[2021-08-13] MEDS: HEPARIN 25,000UTS/250ML PREMIX 250 ML IV PRN ×3 (00:34→21:30)
[2021-08-13 02:53] VITALS: BP 140/69
[2021-08-13] MEDS: IV NORMAL SALINE 1000ML BAG 1,000 ML IV SCH ×3 (05:15→19:10)
[2021-08-13 06:09] LABS: BASO # 0.1 x10^3/uL (0.0-0.2); BASO % 1 % (0-3); EOS # 0.6 x10^3/uL (0.0-0.7); EOS % 2 % (0-3); HEMATOCRIT 33.2 % (39.0-53.0); HEMOGLOBIN 10.7 g/dL (13.0-17.5); LYMPH # 1.4 x10^3/uL (1.0-4.8); LYMPH % 5 % (24-48); MEAN CORPUSCULAR HEMOGLOBIN 26 pg (25-35); MEAN CORPUSCULAR HGB CONC 32 g/dL (31-37); MEAN CORPUSCULAR VOLUME 81 fL (79-100); MONO # 1.4 x10^3/uL (0.0-1.1); MONO % 6 % (0-9); NEUT # 22.2 x10^3/uL (1.8-7.7); NEUT % 86 % (31-73); PLATELET COUNT 334 x10^3/uL (140-400); RED BLOOD COUNT 4.11 x10^6/uL (4.30-5.70); RED CELL DISTRIBUTION WIDTH 16.6 % (11.5-14.5); WHITE BLOOD COUNT 25.6 x10^3/uL (4.0-11.0)
[2021-08-13 06:18] LABS: ALBUMIN 1.2 g/dL (3.4-5.0); CALCIUM 7.2 mg/dL (8.5-10.1); CREATININE 7.9 mg/dL (0.7-1.3); GFR 10.1; PHOSPHORUS 5.7 mg/dL (2.6-4.7); POTASSIUM 4.6 mmol/L (3.5-5.1)
[2021-08-13 06:28] LABS: ALBUMIN 1.2 g/dL (3.4-5.0); DIRECT BILIRUBIN 0.2 mg/dL (0.0-0.2); TOTAL BILIRUBIN 0.4 mg/dL (0.2-1.0); TOTAL PROTEIN 5.7 g/dL (6.4-8.2)
[2021-08-13 07:00] VITALS: BP 154/76
--- NOTE | 2021-08-13 07:41 | PDOC ---
CARDIO Progress Notes Date and Time Date of Service 08/13/2021 Time of Evaluation 0730 Subjective Subjective: No Chest Pain, No shortness of breath, No Palpitations, Other (complains of body aches) Vitals Vitals Vital Signs Date Time Temp Pulse Resp B/P (MAP) Pulse Ox O2 Delivery O2 Flow Rate FiO2 08/13/21 07:00 98.5 96 17 154/76 (102) 98 BiPAP/CPAP 98.5 08/12/21 21:07 4.0 Weight Weight [ ] Input and Output Intake and Output Intake and Output 08/13/21 07:00 Intake Total 4161 ml Output Total 58 ml Balance 4103 ml Intake Oral 2580 ml IV Total 1581 ml Output Urine Total 50 ml Stool Total 8 ml # Bowel Movements 1 Laboratory Labs Laboratory Tests Test 08/13/21 05:00 White Blood Count 25.6 x10^3/uL (4.0-11.0) Red Blood Count 4.11 x10^6/uL (4.30-5.70) Hemoglobin 10.7 g/dL (13.0-17.5) Hematocrit 33.2 % (39.0-53.0) Mean Corpuscular Volume 81 fL (79-100) Mean Corpuscular Hemoglobin 26 pg (25-35) Mean Corpuscular Hemoglobin Concent 32 g/dL (31-37) Red Cell Distribution Width 16.6 % (11.5-14.5) Platelet Count 334 x10^3/uL (140-400) Neutrophils (%) (Auto) 86 % (31-73) Lymphocytes (%) (Auto) 5 % (24-48) Monocytes (%) (Auto) 6 % (0-9) Eosinophils (%) (Auto) 2 % (0-3) Basophils (%) (Auto) 1 % (0-3) Neutrophils # (Auto) 22.2 x10^3/uL (1.8-7.7) Lymphocytes # (Auto) 1.4 x10^3/uL (1.0-4.8) Monocytes # (Auto) 1.4 x10^3/uL (0.0-1.1) Eosinophils # (Auto) 0.6 x10^3/uL (0.0-0.7) Basophils # (Auto) 0.1 x10^3/uL (0.0-0.2) Activated Partial Thromboplast Time 70 SEC (24-38) Sodium Level 127 mmol/L (136-145) Potassium Level 4.6 mmol/L (3.5-5.1) Chloride Level 91 mmol/L (98-107) Carbon Dioxide Level 24 mmol/L (21-32) Anion Gap 12 (6-14) Blood Urea Nitrogen 71 mg/dL (8-26) Creatinine 7.9 mg/dL (0.7-1.3) Estimated GFR (Cockcroft-Gault) 10.1 Glucose Level 85 mg/dL (70-99) Calcium Level 7.2 mg/dL (8.5-10.1) Phosphorus Level 5.7 mg/dL (2.6-4.7) Iron Level 22 ug/dL (65-175) Total Bilirubin 0.4 mg/dL (0.2-1.0) Direct Bilirubin 0.2 mg/dL (0.0-0.2) Aspartate Amino Transf (AST/SGOT) 365 U/L (15-37) Alanine Aminotransferase (ALT/SGPT) 160 U/L (16-63) Alkaline Phosphatase 74 U/L (46-116) Creatine Kinase 65963 U/L (39-308) Total Protein 5.7 g/dL (6.4-8.2) Albumin 1.2 g/dL (3.4-5.0) Microbiology Micro Microbiology 08/08/21 Urine Culture - Final, Complete Physical Exam HEENT: Neck Supple W Full Motion Chest: Symmetric LUNGS: Other (bipap in place) Heart: RRR (SR) Abdomen: Other (morbidly obese) Extremities: Other (bilateral lyphedema RLE erythema ) Neurology: alert, oriented, follow commands Assessment Assessment 1. FRAN; HD initiated 2. Severe Rhabdomyolysis; CK down [place] [id number] 3. Acute on chronic diastolic CHF; Echo with preserved LV systolic function, PAP of 51 mmHg. 4. Acute respiratory failure; multifactorial with CHF, pulm HTN, obesity- hypoventilation syndrome 5. Mild troponin elevation; trop peak 390. Type II, demand ischemia 6. H/o bilateral LE DVT; previously on chronic OAC with Xarelto. currently on heparin gtt. as per IM 7. FREYA, obesity- hypoventilation syndrome. BMI 80. CPAP at HS 8. H/o PAFIB?; details unknown presently SR 9. Hypocalcemia, hyponatremia 9. Leukocytosis 10. Elevated LFTs 11. RLE cellulitis 12. Severe hypoalbuminemia 13. HTN: better with coreg Recommendations Fluid offloading via HD Avoid nephrotoxins. Continue coreg. Hydralazine IV PRN Weight loss Supportive care from a CV standpoint Possible select specialty hospital transfer for HD Justicifation of Admission Dx: Justifications for Admission: Justification of Admission Dx: N/A ADONAY HOPKINS MANAGING CONSULTANT CLINICAL PROFESSOR Aug 13, 2021 07:41
--- NOTE | 2021-08-13 08:10 | PDOC ---
Infectious Disease Note Subjective Subjective pt is feeling ok, right leg pain ROS ROS Breathing is better some abdominal pain Vital Sign Vital Signs Vital Signs Date Time Temp Pulse Resp B/P (MAP) Pulse Ox O2 Delivery O2 Flow Rate FiO2 08/13/21 07:44 Room Air 08/13/21 07:00 98.5 96 17 154/76 (102) 98 98.5 08/12/21 21:07 4.0 Physical Exam PHYSICAL EXAM VITAL SIGNS: stable GENERAL: Morbidly obese, alert, oriented, well-developed, well-nourished male, in no acute distress, nontoxic appearing. HEENT: Normocephalic, atraumatic. Anicteric. No thrush. Oral mucosa moist. NECK: Supple. Short neck. LUNGS: Clear bilaterally. HEART: S1, S2. No murmurs. ABDOMEN: Soft, nontender, nondistended. No rebound, no guarding. GENITOURINARY: Castaneda in place with concentrated urine. EXTREMITIES: Bilateral lymphedema. Right lower extremity erythematous, mild tenderness, dry scabs present. NEUROLOGIC: Alert and oriented x3, grossly nonfocal. PSYCHIATRIC: Calm and cooperative. Labs Lab Laboratory Tests Test 08/13/21 05:00 White Blood Count 25.6 x10^3/uL (4.0-11.0) Red Blood Count 4.11 x10^6/uL (4.30-5.70) Hemoglobin 10.7 g/dL (13.0-17.5) Hematocrit 33.2 % (39.0-53.0) Mean Corpuscular Volume 81 fL (79-100) Mean Corpuscular Hemoglobin 26 pg (25-35) Mean Corpuscular Hemoglobin Concent 32 g/dL (31-37) Red Cell Distribution Width 16.6 % (11.5-14.5) Platelet Count 334 x10^3/uL (140-400) Neutrophils (%) (Auto) 86 % (31-73) Lymphocytes (%) (Auto) 5 % (24-48) Monocytes (%) (Auto) 6 % (0-9) Eosinophils (%) (Auto) 2 % (0-3) Basophils (%) (Auto) 1 % (0-3) Neutrophils # (Auto) 22.2 x10^3/uL (1.8-7.7) Lymphocytes # (Auto) 1.4 x10^3/uL (1.0-4.8) Monocytes # (Auto) 1.4 x10^3/uL (0.0-1.1) Eosinophils # (Auto) 0.6 x10^3/uL (0.0-0.7) Basophils # (Auto) 0.1 x10^3/uL (0.0-0.2) Activated Partial Thromboplast Time 70 SEC (24-38) Sodium Level 127 mmol/L (136-145) Potassium Level 4.6 mmol/L (3.5-5.1) Chloride Level 91 mmol/L (98-107) Carbon Dioxide Level 24 mmol/L (21-32) Anion Gap 12 (6-14) Blood Urea Nitrogen 71 mg/dL (8-26) Creatinine 7.9 mg/dL (0.7-1.3) Estimated GFR (Cockcroft-Gault) 10.1 Glucose Level 85 mg/dL (70-99) Calcium Level 7.2 mg/dL (8.5-10.1) Phosphorus Level 5.7 mg/dL (2.6-4.7) Iron Level 22 ug/dL (65-175) Total Bilirubin 0.4 mg/dL (0.2-1.0) Direct Bilirubin 0.2 mg/dL (0.0-0.2) Aspartate Amino Transf (AST/SGOT) 365 U/L (15-37) Alanine Aminotransferase (ALT/SGPT) 160 U/L (16-63) Alkaline Phosphatase 74 U/L (46-116) Creatine Kinase 23283 U/L (39-308) Total Protein 5.7 g/dL (6.4-8.2) Albumin 1.2 g/dL (3.4-5.0) Micro Microbiology 08/08/21 Urine Culture - Final, Complete Objective Assessment IMPRESSION: 1. Leukocytosis. 2. Low-grade febrile illness. 3. Acute kidney injury. 4. Hyperkalemia. 5. Hyponatremia. 6. Hypocalcemia. 7. Hypouricemia. 8. Severe rhabdomyolysis. 9. Bilateral lower extremity edema, right greater than left. 10. Right lower extremity cellulitis. 11. Morbid obesity. 12. History of congestive heart failure. 13. History of deep venous thrombosis. 14. History of ALLERGIES TO AMOXICILLIN AND AZITHROMYCIN. 15. Non-STEMI. 16. Metabolic acidosis. 17. Abnormal LFTs, likely from rhabdomyolysis. Plan Plan of Care c diff negative supportive care Right leg CT unable to do because of the patient weight Change Jennifer coppola to meropenem MARIANELA SALEH MD Aug 13, 2021 08:10
--- NOTE | 2021-08-13 08:17 | PDOC ---
PULMONARY PROGRESS NOTES DATE: 08/13/21 TIME: 08:17 Subjective Patient currently undergoing hemodialysis on CPAP Due to get a permanent hemodialysis catheter Vitals Vital Signs Date Time Temp Pulse Resp B/P (MAP) Pulse Ox O2 Delivery O2 Flow Rate FiO2 08/13/21 07:44 Room Air 08/13/21 07:00 98.5 96 17 154/76 (102) 98 98.5 08/12/21 21:07 4.0 ROS: No Nausea, No Chest Pain, No Abdominal Pain, No Increase Cough General: Alert Lungs: Other (b lat diminished ) Cardiovascular: S1, S2 Abdomen: Soft, Non-tender, Other (obese no mass) Neuro Exam: Alert, Oriented Extremities: Other (lymphedema chronic changes) Skin: Warm Labs Laboratory Tests Test 08/12/21 06:33 08/12/21 06:38 08/13/21 05:00 Sodium Level 128 mmol/L (136-145) 127 mmol/L (136-145) Potassium Level 4.5 mmol/L (3.5-5.1) 4.6 mmol/L (3.5-5.1) Chloride Level 91 mmol/L (98-107) 91 mmol/L (98-107) Carbon Dioxide Level 27 mmol/L (21-32) 24 mmol/L (21-32) Anion Gap 10 (6-14) 12 (6-14) Blood Urea Nitrogen 54 mg/dL (8-26) 71 mg/dL (8-26) Creatinine 6.9 mg/dL (0.7-1.3) 7.9 mg/dL (0.7-1.3) Estimated GFR (Cockcroft-Gault) 11.8 10.1 Glucose Level 75 mg/dL (70-99) 85 mg/dL (70-99) Calcium Level 7.3 mg/dL (8.5-10.1) 7.2 mg/dL (8.5-10.1) Phosphorus Level 5.3 mg/dL (2.6-4.7) 5.7 mg/dL (2.6-4.7) Creatine Kinase 64587 U/L (39-308) 84512 U/L (39-308) Albumin 1.3 g/dL (3.4-5.0) 1.2 g/dL (3.4-5.0) Activated Partial Thromboplast Time 81 SEC (24-38) 70 SEC (24-38) White Blood Count 25.6 x10^3/uL (4.0-11.0) Red Blood Count 4.11 x10^6/uL (4.30-5.70) Hemoglobin 10.7 g/dL (13.0-17.5) Hematocrit 33.2 % (39.0-53.0) Mean Corpuscular Volume 81 fL (79-100) Mean Corpuscular Hemoglobin 26 pg (25-35) Mean Corpuscular Hemoglobin Concent 32 g/dL (31-37) Red Cell Distribution Width 16.6 % (11.5-14.5) Platelet Count 334 x10^3/uL (140-400) Neutrophils (%) (Auto) 86 % (31-73) Lymphocytes (%) (Auto) 5 % (24-48) Monocytes (%) (Auto) 6 % (0-9) Eosinophils (%) (Auto) 2 % (0-3) Basophils (%) (Auto) 1 % (0-3) Neutrophils # (Auto) 22.2 x10^3/uL (1.8-7.7) Lymphocytes # (Auto) 1.4 x10^3/uL (1.0-4.8) Monocytes # (Auto) 1.4 x10^3/uL (0.0-1.1) Eosinophils # (Auto) 0.6 x10^3/uL (0.0-0.7) Basophils # (Auto) 0.1 x10^3/uL (0.0-0.2) Iron Level 22 ug/dL (65-175) Total Bilirubin 0.4 mg/dL (0.2-1.0) Direct Bilirubin 0.2 mg/dL (0.0-0.2) Aspartate Amino Transf (AST/SGOT) 365 U/L (15-37) Alanine Aminotransferase (ALT/SGPT) 160 U/L (16-63) Alkaline Phosphatase 74 U/L (46-116) Total Protein 5.7 g/dL (6.4-8.2) Laboratory Tests Test 08/13/21 05:00 White Blood Count 25.6 x10^3/uL (4.0-11.0) Red Blood Count 4.11 x10^6/uL (4.30-5.70) Hemoglobin 10.7 g/dL (13.0-17.5) Hematocrit 33.2 % (39.0-53.0) Mean Corpuscular Volume 81 fL (79-100) Mean Corpuscular Hemoglobin 26 pg (25-35) Mean Corpuscular Hemoglobin Concent 32 g/dL (31-37) Red Cell Distribution Width 16.6 % (11.5-14.5) Platelet Count 334 x10^3/uL (140-400) Neutrophils (%) (Auto) 86 % (31-73) Lymphocytes (%) (Auto) 5 % (24-48) Monocytes (%) (Auto) 6 % (0-9) Eosinophils (%) (Auto) 2 % (0-3) Basophils (%) (Auto) 1 % (0-3) Neutrophils # (Auto) 22.2 x10^3/uL (1.8-7.7) Lymphocytes # (Auto) 1.4 x10^3/uL (1.0-4.8) Monocytes # (Auto) 1.4 x10^3/uL (0.0-1.1) Eosinophils # (Auto) 0.6 x10^3/uL (0.0-0.7) Basophils # (Auto) 0.1 x10^3/uL (0.0-0.2) Activated Partial Thromboplast Time 70 SEC (24-38) Sodium Level 127 mmol/L (136-145) Potassium Level 4.6 mmol/L (3.5-5.1) Chloride Level 91 mmol/L (98-107) Carbon Dioxide Level 24 mmol/L (21-32) Anion Gap 12 (6-14) Blood Urea Nitrogen 71 mg/dL (8-26) Creatinine 7.9 mg/dL (0.7-1.3) Estimated GFR (Cockcroft-Gault) 10.1 Glucose Level 85 mg/dL (70-99) Calcium Level 7.2 mg/dL (8.5-10.1) Phosphorus Level 5.7 mg/dL (2.6-4.7) Iron Level 22 ug/dL (65-175) Total Bilirubin 0.4 mg/dL (0.2-1.0) Direct Bilirubin 0.2 mg/dL (0.0-0.2) Aspartate Amino Transf (AST/SGOT) 365 U/L (15-37) Alanine Aminotransferase (ALT/SGPT) 160 U/L (16-63) Alkaline Phosphatase 74 U/L (46-116) Creatine Kinase 54088 U/L (39-308) Total Protein 5.7 g/dL (6.4-8.2) Albumin 1.2 g/dL (3.4-5.0) Medications Active Scripts Medications Dose Route/Sig Max Daily Dose Days Date Category Dose Instructions Torsemide 20 Mg Tablet 4 Tab PO DAILY 08/08/21 Reported Bactrim Ds Tablet (Sulfamethoxazole/Trimethoprim) 1 Each Tablet 1 Tab PO BID 10 08/08/21 Reported Spironolactone 100 Mg Tablet 1 Tab PO DAILY 08/08/21 Reported Potassium Chloride (Potassium Chloride) 20 Meq Tablet.er 1 Meq PO DAILY 08/08/21 Reported Losartan Potassium 50 Mg Tablet 2 Mg PO DAILY 08/08/21 Reported Carvedilol 25 Mg Tablet 2 Mg PO BIDWMEALS 08/08/21 Reported Buspirone Hcl 10 Mg Tablet 10 Mg PO BID 08/08/21 Reported Amlodipine Besylate 10 Mg Tablet 10 Mg PO DAILY 08/08/21 Reported Proair Hfa (Albuterol Sulfate) 8.5 Gm Hfa.aer.ad 1 Puff INH PRN Q6HRS PRN 08/08/21 Reported Xarelto (Rivaroxaban) 20 Mg Tablet Unknown Dose PO DAILY 30 08/08/21 Reported with food Comments cxr reviewed 08/08 Mild cardiomegaly. Right internal jugular line identified with the tip projecting in the SVC region. Mild prominent bilateral lung markings likely mild congestive changes. Mild bibasilar lung atelectasis. Impression . IMPRESSION: 1. Acute respiratory failure, secondary to pulmonary edema 2. Abnormal chest x-ray. Secondary to above 3. Acute kidney injury secondary to rhabdomyolysis. 4. Electrolyte abnormality. 5. Leukocytosis, per ID 6. Obstructive sleep apnea-hypopnea syndrome. 7. History of deep venous thrombosis. Negative venous Dopplers on this admission 8. History of paroxysmal A. fib 9. Secondary pulmonary arterial hypertension, PA pressures calculated at 51 10. Ex-smoker. 11. Morbid obesity BMI of 80 Note from nephrology, 08/02 DIAGNOSIS/ASSESSMENT Assessment & Plan Acute kidney injury: ATN , oligoanuric due to rhabdomyolysis. Needing dialysis 1st on Tuesday; No improvement in renal function, tolerated HD well yesterday. Hold Off Dialysis today. IVF today , Dw nursing Supportive care, flush Castaneda , avoid Nephrotoxins . Monitor for renal Recovery . Access Currently has Temp HDC Rhabdomyolysis: Unclear etiology. Denies statin, reports he was started on new K pill- doesnt recall name, he walks a lot as well, stays hydrated . CK trending down . Phos Improving Plan . Updated 08/13 Continue current support CPAP Hemodialysis patient due to get permanent catheter today Patient respiratory status is compensated enough to transfer to LTAC today, after his permanent catheterization placement. Antibiotics per ID Discussed with hemodialysis nurse and RN. Updated 08/12 See nephrology note Continue current support Antibiotics per ID Currently on CPAP 16 cm of water pressure, FiO2 21% Updated 08/11 Continue CPAP Hemodialysis per nephrology Antibiotics per ID Respiratory status appears to be compensated Updated 08/10 Continue to diurese CPAP nightly No need for oxygen supplementation throughout the day Hemodialysis per nephrology Follow cardiology input Anticoagulation per cardiology Antibiotics per ID PORTIA LARA MD Aug 13, 2021 08:17
[2021-08-13] MEDS: CARVEDILOL 6.25 MG TABLET. PO SCH ×2 (08:29→16:49)
[2021-08-13] MEDS: LACTOBACILLUS RHAMNOSUS GG 1 CAPSULE. PO SCH ×2 (08:29→20:58)
[2021-08-13] MEDS: HEPARIN for IV BOLUS 10,000 UNIT/10 ML VIAL. IV PRN (08:31)
--- NOTE | 2021-08-13 08:59 | PDOC ---
DATE OF SERVICE DATE: 08/13/21 TIME: 08:56 SUBJECTIVE ROS No acute concerns stable, No SOB, No N/V OBJECTIVE Vital Signs Vital Signs Date Time Temp Pulse Resp B/P (MAP) Pulse Ox O2 Delivery O2 Flow Rate FiO2 08/13/21 08:29 88 154/76 08/13/21 07:44 Room Air 08/13/21 07:00 98.5 17 98 98.5 08/12/21 21:07 4.0 I & 0 Intake and Output 08/13/21 07:00 Intake Total 4161 ml Output Total 58 ml Balance 4103 ml Intake Oral 2580 ml IV Total 1581 ml Output Urine Total 50 ml Stool Total 8 ml # Bowel Movements 1 PHYSICAL EXAM Physical Exam GENERAL: Morbidly obese, alert, oriented , NAD HEENT: Normocephalic, atraumatic. Anicteric. No thrush. Oral mucosa moist. NECK: Supple. LUNGS: Clear bilaterally. HEART: S1, S2. No murmurs. ABDOMEN: Soft, nontender,Obese GENITOURINARY: Castaneda in place EXTREMITIES: Bilateral lymphedema. Right lower extremity erythematous, mild tenderness NEUROLOGIC: Alert and oriented x3, grossly nonfocal. PSYCHIATRIC: Calm and cooperative. DIAGNOSIS/ASSESSMENT Assessment & Plan Acute kidney injury: ATN , oligoanuric due to rhabdomyolysis. Needing dialysis 1st on Tuesday; No improvement in renal function to IVF today ,continue fluids, trial of IV Lasix Seen during dialysis, tolerating well. Continue as ordered. Dennis Hernandez . Supportive care, flush Castaneda , avoid Nephrotoxins . Monitor for renal Recovery . Access Currently has Temp HDC ; Replace Tunneled HDC - scheduled for later today Rhabdomyolysis: Unclear etiology. Denies statin, reports he was started on new K pill- doesnt recall name, he walks a lot as well, stays hydrated . CK trending down . Phos Improving Elevated LFT's - improving Hyperkalemia: corrected Metabolic acidosis currently corrected and compensated Hyponatremia: 2/2 severe Rhabdo ,stable Continue IV NS Severe hypocalcemia presumably due to rhabdomyolysis POA : Improved, DCed Calcium gtt . Phos Mildly elevated, Monitor History of CHF: Clinically appears to be clinically compensated at this time. Non-STEMI: Defer to cardiology COMMENT/RELEVANT DATA Meds Current Medications Medications (Trade) Dose Ordered Sig/Keith Start Time Stop Time Status Last Admin Dose Admin Acetaminophen (Tylenol) 650 mg PRN Q4HRS PRN 08/08/21 11:30 Acetaminophen/ Hydrocodone Bitart (Lortab 5/325) 1 tab PRN Q6HRS PRN 08/12/21 09:00 08/12/21 20:37 1 TAB Albumin Human 200 ml @ 200 mls/hr 1X PRN PRN 08/10/21 16:45 08/10/21 22:45 DC Aspirin (Aspirin Chewable) 324 mg 1X ONCE 08/07/21 21:30 08/07/21 21:31 DC 08/07/21 22:12 324 MG Calcium Carbonate/ Glycine (Tums) 500 mg PRN AFTMEALHC PRN 08/09/21 01:30 Calcium Gluconate (Calcium Gluconate) 1,000 mg Q2H 08/09/21 08:30 08/09/21 12:31 DC 08/09/21 12:16 1,000 MG Calcium Gluconate 2000 mg/Sodium Chloride 120 ml @ 220 mls/hr 1X ONCE 08/08/21 06:30 08/08/21 07:02 DC 08/08/21 06:30 220 MLS/HR Calcium Gluconate 5000 mg/Sodium Chloride 500 ml @ 50 mls/hr Q10H 08/09/21 12:30 08/12/21 10:19 DC 08/12/21 09:13 50 MLS/HR Carvedilol (Coreg) 6.25 mg BIDWMEALS 08/12/21 17:00 08/13/21 08:29 6.25 MG Ceftriaxone Sodium (Rocephin) 2 gm Q24H 08/08/21 12:00 08/13/21 08:10 DC 08/12/21 12:42 2 GM Dextrose (Dextrose 50%-Water Syringe) 12.5 gm PRN Q15MIN PRN 08/08/21 11:30 Docusate Sodium (Colace) 100 mg PRN DAILY PRN 08/08/21 11:30 Doxycycline Hyclate (Vibra-Tab) 100 mg BID 08/08/21 05:00 08/13/21 08:10 DC 08/12/21 20:33 100 MG Famotidine (Pepcid Vial) 20 mg DAILY 08/08/21 12:00 08/11/21 10:19 DC 08/11/21 09:16 20 MG Famotidine (Pepcid) 20 mg QHS 08/11/21 21:00 08/12/21 20:33 20 MG Heparin Sodium (Porcine) (Heparin Sodium) 1,000 unit PRN Q6HRS PRN 08/07/21 23:00 08/13/21 08:31 1,000 UNIT Heparin Sodium/ Dextrose 250 ml @ 20 mls/hr CONT PRN 08/07/21 23:00 08/13/21 08:31 36 MLS/HR Hydralazine HCl (Apresoline Inj) 10 mg PRN Q4HRS PRN 08/12/21 12:30 08/12/21 20:30 10 MG Info (PHARMACY MONITORING -- do not chart) 1 each PRN DAILY PRN 08/11/21 15:00 Ipratropium [place] (Atrovent) 0.5 mg RTQID 08/08/21 16:00 08/12/21 20:00 0.5 MG Lactobacillus Rhamnosus (Culturelle) 1 cap BID 08/08/21 09:00 08/13/21 08:29 1 CAP Lidocaine HCl (Buffered Lidocaine 1%) 6 ml 1X ONCE 08/08/21 13:00 08/08/21 13:01 DC Lorazepam (Ativan Inj) 0.25 mg PRN Q4HRS PRN 08/08/21 11:30 Lorazepam (Ativan) 0.5 mg PRN Q6HRS PRN 08/08/21 11:30 08/12/21 20:36 0.5 MG Meropenem 500 mg/ Sodium Chloride 50 ml @ 100 mls/hr Q24H 08/13/21 16:00 Multi-Ingredient Mouthwash/Gargle (Gi Cocktail) 20 ml PRN QID PRN 08/10/21 10:00 Ondansetron HCl (Zofran) 4 mg PRN Q6HRS PRN 08/08/21 11:30 08/09/21 01:25 4 MG Perflutren Protein Type A Microsphe (Optison) 0.66 mg STK-MED ONCE 08/09/21 11:00 08/10/21 12:58 DC Prochlorperazine Edisylate (Compazine) 10 mg PRN Q6HRS PRN 08/08/21 11:30 Sennosides (Senna) 17.2 mg PRN BID PRN 08/08/21 11:30 Sodium Bicarbonate 150 meq/Dextrose 1,150 ml @ 100 mls/hr [id number] ONCE 08/07/21 22:00 08/08/21 09:29 DC 08/07/21 23:51 100 MLS/HR Sodium Bicarbonate (Sodium Bicarb Adult 8.4% Syr) 150 meq 1X ONCE 08/08/21 07:15 08/08/21 07:19 DC 08/08/21 08:27 150 MEQ Sodium Chloride 1,000 ml @ 150 mls/hr Q6H40M 08/12/21 16:30 08/13/21 05:15 150 MLS/HR Vancomycin HCl (Vancomycin Oral Solution) 125 mg [id number] 08/09/21 13:00 08/10/21 09:44 DC 08/09/21 21:39 125 MG Zolpidem Tartrate (Ambien) 2.5 mg PRN QHS PRN 08/08/21 11:30 08/09/21 21:40 2.5 MG Lab Laboratory Tests Test 08/13/21 05:00 White Blood Count 25.6 x10^3/uL (4.0-11.0) Red Blood Count 4.11 x10^6/uL (4.30-5.70) Hemoglobin 10.7 g/dL (13.0-17.5) Hematocrit 33.2 % (39.0-53.0) Mean Corpuscular Volume 81 fL (79-100) Mean Corpuscular Hemoglobin 26 pg (25-35) Mean Corpuscular Hemoglobin Concent 32 g/dL (31-37) Red Cell Distribution Width 16.6 % (11.5-14.5) Platelet Count 334 x10^3/uL (140-400) Neutrophils (%) (Auto) 86 % (31-73) Lymphocytes (%) (Auto) 5 % (24-48) Monocytes (%) (Auto) 6 % (0-9) Eosinophils (%) (Auto) 2 % (0-3) Basophils (%) (Auto) 1 % (0-3) Neutrophils # (Auto) 22.2 x10^3/uL (1.8-7.7) Lymphocytes # (Auto) 1.4 x10^3/uL (1.0-4.8) Monocytes # (Auto) 1.4 x10^3/uL (0.0-1.1) Eosinophils # (Auto) 0.6 x10^3/uL (0.0-0.7) Basophils # (Auto) 0.1 x10^3/uL (0.0-0.2) Activated Partial Thromboplast Time 70 SEC (24-38) Sodium Level 127 mmol/L (136-145) Potassium Level 4.6 mmol/L (3.5-5.1) Chloride Level 91 mmol/L (98-107) Carbon Dioxide Level 24 mmol/L (21-32) Anion Gap 12 (6-14) Blood Urea Nitrogen 71 mg/dL (8-26) Creatinine 7.9 mg/dL (0.7-1.3) Estimated GFR (Cockcroft-Gault) 10.1 Glucose Level 85 mg/dL (70-99) Calcium Level 7.2 mg/dL (8.5-10.1) Phosphorus Level 5.7 mg/dL (2.6-4.7) Iron Level 22 ug/dL (65-175) Total Bilirubin 0.4 mg/dL (0.2-1.0) Direct Bilirubin 0.2 mg/dL (0.0-0.2) Aspartate Amino Transf (AST/SGOT) 365 U/L (15-37) Alanine Aminotransferase (ALT/SGPT) 160 U/L (16-63) Alkaline Phosphatase 74 U/L (46-116) Creatine Kinase 39578 U/L (39-308) Total Protein 5.7 g/dL (6.4-8.2) Albumin 1.2 g/dL (3.4-5.0) Vitamin B12 Level 399 pg/mL (247-911) Results All relevant outside records, renal labs, imaging studies, telemetry/EKG's were reviewed. Justicifation of Admission Dx: Justifications for Admission: Justification of Admission Dx: N/A JEAN CRUZ MD Aug 13, 2021 08:59
[2021-08-13] MEDS ORDERED: ALBUMIN HUMAN 25% 200 ML IV PRN (09:00)
[2021-08-13] MEDS ORDERED: 0.9 % SODIUM CHLORIDE 10 ML DISP.SYRIN. IV PRN ×2 (09:00)
[2021-08-13] MEDS ORDERED: IV NORMAL SALINE 1000ML BAG 1,000 ML IV PRN ×2 (09:00)
[2021-08-13] MEDS ORDERED: DIALYSIS PATIENT. MC PRN ×2 (09:00)
[2021-08-13] MEDS ORDERED: FUROSEMIDE 40 MG/4 ML VIAL. IVP ONE (09:15)
[2021-08-13] MEDS: IPRATROPIUM BROMIDE 0.5 MG/2.5 ML NEBU. NEB SCH ×4 (09:26→20:00)
[2021-08-13 11:00] VITALS: BP 141/72
--- NOTE | 2021-08-13 11:16 | PDOC ---
Date of Service: DATE: 08/13/21 TIME: 11:12 Subjective: Subjective: Feels like crap, whole body hurts. Objective: Objective: No GI concerns per nurse. Vital Signs: Vital Signs Date Time Temp Pulse Resp B/P (MAP) Pulse Ox O2 Delivery O2 Flow Rate FiO2 08/13/21 09:26 96 BiPAP/CPAP 08/13/21 08:29 88 154/76 08/13/21 07:00 98.5 17 98.5 08/12/21 21:07 4.0 Labs: Laboratory Tests Test 08/13/21 05:00 White Blood Count 25.6 x10^3/uL Red Blood Count 4.11 x10^6/uL Hemoglobin 10.7 g/dL Hematocrit 33.2 % Mean Corpuscular Volume 81 fL Mean Corpuscular Hemoglobin 26 pg Mean Corpuscular Hemoglobin Concent 32 g/dL Red Cell Distribution Width 16.6 % Platelet Count 334 x10^3/uL Neutrophils (%) (Auto) 86 % Lymphocytes (%) (Auto) 5 % Monocytes (%) (Auto) 6 % Eosinophils (%) (Auto) 2 % Basophils (%) (Auto) 1 % Neutrophils # (Auto) 22.2 x10^3/uL Lymphocytes # (Auto) 1.4 x10^3/uL Monocytes # (Auto) 1.4 x10^3/uL Eosinophils # (Auto) 0.6 x10^3/uL Basophils # (Auto) 0.1 x10^3/uL Activated Partial Thromboplast Time 70 SEC Sodium Level 127 mmol/L Potassium Level 4.6 mmol/L Chloride Level 91 mmol/L Carbon Dioxide Level 24 mmol/L Anion Gap 12 Blood Urea Nitrogen 71 mg/dL Creatinine 7.9 mg/dL Estimated GFR (Cockcroft-Gault) 10.1 Glucose Level 85 mg/dL Calcium Level 7.2 mg/dL Phosphorus Level 5.7 mg/dL Iron Level 22 ug/dL Total Bilirubin 0.4 mg/dL Direct Bilirubin 0.2 mg/dL Aspartate Amino Transf (AST/SGOT) 365 U/L Alanine Aminotransferase (ALT/SGPT) 160 U/L Alkaline Phosphatase 74 U/L Creatine Kinase 04870 U/L Total Protein 5.7 g/dL Albumin 1.2 g/dL Vitamin B12 Level 399 pg/mL PE: GEN: NAD, guard present LUNGS: room air when I saw HEART: RRR ABD: obese NEURO/PSYCH: A & O 3 A/P: Elevated AST and ALT - improving Morbid obesity -- Labs improving. Justicifation of Admission Dx: Justifications for Admission: Justification of Admission Dx: N/A ERICH KAY Aug 13, 2021 11:16
--- NOTE | 2021-08-13 11:39 | PDOC ---
[employer] PROGRESS NOTE Date of Service DOS: DATE: 08/13/21 TIME: 11:36 Chief Complaint Chief Complaint Sepsis Bilateral pneumonia, possible gram-negative organisms Acute electrolyte derangement due to acute kidney injury Hypocalcemia Metabolic acidosis, non-anion gap Acute renal failure due to vasomotor nephropathy and rhabdomyolysis currently on hemodialysis. Acute severe rhabdomyolysis with unclear etiology Atypical chest pain concerning for non-STEMI Elevated troponin troponin suggestive of either type II demand ischemia versus renal disease Severe transaminitis possible shock liver versus hepatotoxicity versus medication induced Concern for OHS/FREYA History of morbid obesity History of CHF History of DVT Continue BiPAP as needed and nocturnal Pending C. difficile Start p.o. Vanco per ID for possible C. difficile infection Continue empiric IV antibiotics Pending blood cultures Pending MRSA screen and Legionella Nephrology consult Cardiology consult for CHF Counseled on weight loss via diet and exercise Strict I's and O's Avoid further nephrotoxic agents Continue heparin for DVT history Trend electrolytes and replace as needed Heparin drip for DVT prophylaxis Protonix while in the ICU GI prophylaxis ADA diet CODE STATUS full Discussed with RN and TAMIE Disposition inpatient management as above DPOA: Undesignated, and incarcerated History of Present Illness History of Present Illness 26-year-old male with past medical history of CHF, morbid obesity, DVT was on Xarelto comes in with shortness of breath and chest pressure that started on Tuesday. Apparently his symptoms got worse as the week progressed and by Tuesday he was unable to get out of bed and short of breath. He does endorse any exertional dyspnea. Patient is now unable to stand without some assistance. He does endorse swelling in his lower extremities right greater than left. He thinks he has not taken his Xarelto for a few days but he is not sure this. He also endorses that his torsemide dosing these and he has not had much urine in the past 2 days. Currently he does have a Castaneda in urine bag is dark brown. He is incarcerated for the past year. Denies fevers, nausea vomiting, abdominal pain, diarrhea or hematuria or palpitations. 08/09/2021 No acute events overnight. Patient vital signs are stable. Creatinine is stable and elevated at 6.8. Attempt catheter in place for hemodialysis which will start today. Patient's chart, labs, images were reviewed and discussed with RN. 08/10/2021 No acute events overnight. Patient seen and examined bedside. Creatinine elevating to 8.2. Pending dialysis. Patient's chart, labs, images were reviewed and discussed with RN 08/11/2021 No acute events overnight. Patient seen and examined bedside. Dialysis today and yesterday. Creatinine improved to 7.4. CK level still greater than 100,000. Patient is complaining of right leg pain and ID recommended for CT of the lower extremity. Unfortunately, patient is unable to fit in the scanner. We will continue with heparin drip. Patient's chart, labs, images were reviewed and discussed with RN 08/12/2021 No acute events overnight. Patient seen examined bedside still requiring BiPAP as needed. Creatinine improved to 6.9. CK decreased to 84,000. Wound care consulted for right lower extremity blisters. I have asked that US Vince's to possibly relax the left lower extremity leg cuff to avoid erosion of an already fragile skin integrity due to edema of the left lower extremity. Patient's chart, labs, images were reviewed and discussed with RN 08/13/2021 No acute events overnight. Patient tolerated hemodialysis. CK level significantly improved down to 30,000. Patient will need tunneled catheter exchanged out from his temporary hemodialysis catheter before discharge [facility]. Patient has already been accepted to [facility] and can continue with his hemodialysis there. Patient's chart, labs, images were reviewed and discussed with RN Vitals/I&O Vitals/I&O: Vital Signs Date Time Temp Pulse Resp B/P (MAP) Pulse Ox O2 Delivery O2 Flow Rate FiO2 08/13/21 11:00 98.6 89 16 141/72 (95) 96 BiPAP/CPAP 98.6 08/12/21 21:07 4.0 I & O 08/12/21 08/12/21 08/13/21 15:00 23:00 07:00 Intake Total 1380 ml 2061 ml 720 ml Output Total 8 ml 50 ml Balance 1380 ml 2053 ml 670 ml Physical Exam Physical Exam: VITAL SIGNS: stable GENERAL: Morbidly obese, alert, oriented, well-developed, well-nourished male, in no acute distress, nontoxic appearing. HEENT: Normocephalic, atraumatic. Anicteric. No thrush. Oral mucosa moist. NECK: Supple. Short neck. LUNGS: Clear bilaterally. HEART: S1, S2. No murmurs. ABDOMEN: Soft, nontender, nondistended. No rebound, no guarding. GENITOURINARY: Castaneda in place with concentrated urine. EXTREMITIES: Bilateral lymphedema. Right lower extremity erythematous, mild tenderness, dry scabs present. NEUROLOGIC: Alert and oriented x3, grossly nonfocal. PSYCHIATRIC: Calm and cooperative. General: Alert, mild distress Heart: Regular rate Lungs: Other (b lat diminished ) Abdomen: Normal bowel sounds Extremities: No clubbing, Other (Bilateral +3 pedal edema) Skin: No rashes Labs Labs: Laboratory Tests Test 08/13/21 05:00 White Blood Count 25.6 x10^3/uL (4.0-11.0) Red Blood Count 4.11 x10^6/uL (4.30-5.70) Hemoglobin 10.7 g/dL (13.0-17.5) Hematocrit 33.2 % (39.0-53.0) Mean Corpuscular Volume 81 fL (79-100) Mean Corpuscular Hemoglobin 26 pg (25-35) Mean Corpuscular Hemoglobin Concent 32 g/dL (31-37) Red Cell Distribution Width 16.6 % (11.5-14.5) Platelet Count 334 x10^3/uL (140-400) Neutrophils (%) (Auto) 86 % (31-73) Lymphocytes (%) (Auto) 5 % (24-48) Monocytes (%) (Auto) 6 % (0-9) Eosinophils (%) (Auto) 2 % (0-3) Basophils (%) (Auto) 1 % (0-3) Neutrophils # (Auto) 22.2 x10^3/uL (1.8-7.7) Lymphocytes # (Auto) 1.4 x10^3/uL (1.0-4.8) Monocytes # (Auto) 1.4 x10^3/uL (0.0-1.1) Eosinophils # (Auto) 0.6 x10^3/uL (0.0-0.7) Basophils # (Auto) 0.1 x10^3/uL (0.0-0.2) Activated Partial Thromboplast Time 70 SEC (24-38) Sodium Level 127 mmol/L (136-145) Potassium Level 4.6 mmol/L (3.5-5.1) Chloride Level 91 mmol/L (98-107) Carbon Dioxide Level 24 mmol/L (21-32) Anion Gap 12 (6-14) Blood Urea Nitrogen 71 mg/dL (8-26) Creatinine 7.9 mg/dL (0.7-1.3) Estimated GFR (Cockcroft-Gault) 10.1 Glucose Level 85 mg/dL (70-99) Calcium Level 7.2 mg/dL (8.5-10.1) Phosphorus Level 5.7 mg/dL (2.6-4.7) Iron Level 22 ug/dL (65-175) Total Bilirubin 0.4 mg/dL (0.2-1.0) Direct Bilirubin 0.2 mg/dL (0.0-0.2) Aspartate Amino Transf (AST/SGOT) 365 U/L (15-37) Alanine Aminotransferase (ALT/SGPT) 160 U/L (16-63) Alkaline Phosphatase 74 U/L (46-116) Creatine Kinase 40646 U/L (39-308) Total Protein 5.7 g/dL (6.4-8.2) Albumin 1.2 g/dL (3.4-5.0) Vitamin B12 Level 399 pg/mL (247-911) Assessment and Plan Assessmemt and Plan Problems Medical Problems: (1) Acute renal failure Status: Acute (2) Hyperkalemia Status: Acute (3) Hyperuricemia Status: Acute (4) Hypocalcemia Status: Acute (5) Hyponatremia Status: Acute (6) Morbid obesity Status: Acute (7) NSTEMI (non-ST elevated myocardial infarction) Status: Acute (8) Transaminitis Status: Acute Comment Review of Relevant I have reviewed the following items sabina (where applicable) has been applied. Medications: Current Medications Medications (Trade) Dose Ordered Sig/Keith Route PRN Reason Start Time Stop Time Status Last Admin Dose Admin Carvedilol (Coreg) 6.25 mg BIDWMEALS PO 08/12/21 17:00 08/13/21 08:29 Hydralazine HCl (Apresoline Inj) 10 mg PRN Q4HRS PRN IVP ELEVATED BP, SEE COMMENTS 08/12/21 12:30 08/12/21 20:30 Sodium Chloride 1,000 ml @ 150 mls/hr Q6H40M IV 08/12/21 16:30 08/13/21 05:15 Furosemide (Lasix) 40 mg 1X ONCE IVP 08/13/21 09:15 08/13/21 09:16 DC 08/13/21 09:26 Justifications for Admission Other Justification AMOS MADISON MD Aug 13, 2021 11:39
[2021-08-13] MEDS ORDERED: LIDOCAINE 1%/EPI 1:100,000 20 ML VIAL. ONE (13:46)
[2021-08-13] MEDS ORDERED: LIDOCAINE 1%/EPI 1:100,000 20 ML VIAL. INJ ONE (14:15)
--- NOTE | 2021-08-13 14:59 | RAD ---
EXAM: Chest, single view. HISTORY: Dialysis catheter placement. COMPARISON: 08/08/2021 FINDINGS: There is a right internal jugular dialysis catheter with the tip overlying expected locatio n of the superior right atrium. There is no pneumothorax. There is diffuse increased interstitial opa city. There is no consolidation or pleural effusion. There is a stable prominent cardiac silhouette. IMPRESSION: 1. Right internal to the catheter with the tip overlying expected location of the superior right atri um. 2. Diffuse increased interstitial opacity due to atelectasis or infiltrate. There is no consolidation . Electronically signed by: Eboni Bee MD (08/13/2021 2:57 PM) [id number]
[2021-08-13 15:00] VITALS: BP 154/76
--- NOTE | 2021-08-13 15:07 | NUR ---
Wound/Ostomy Care Wound Type/Assessment: RLE wound assessed by Millicent Nowak who did a bedside debridement of some of the roof of blister. Will plan on reassessment by physician on Tuesday. Consent signed, wound pictured, measured and redressed. Treatment Recommendations/Plan: Cleanse wound, apply xeroform single layer and cover with chux pad, change daily and PRN for drainage. Education provided: PU prevention and WC POC Offloading surface/device: ICU bariatric bed Recommended Referrals/Tests: na Discharge Recommendations for dressings: see above
--- NOTE | 2021-08-13 15:28 | RAD ---
Conversion of right internal jugular temporary hemodialysis catheter to tunneled catheter 08/13/2021 INDICATION: Longer term dialysis access needed Consent: The procedure was explained in its entirety to the patient or the patients designated repres entative by a member of the treatment team, including a discussion of the risks, benefits and commonl y accepted alternatives to the procedure, as well as the expected consequences of no therapy whatsoev er. Discussion of the risks included, but was not limited to, those that are most frequent and thos e that are rare but possibly severe or life-threatening, as well as the possibility of unforeseen com plications. Discussion: The right neck and chest including the pre-existing temporary dialysis catheter were prep ped and draped using sterile barrier technique. 1% lidocaine was administered for local anesthesia. A n Amplatz wire was advanced to the pre-existing catheter. The catheter was removed over the wire and replaced with a peel-away sheath. 20 cm tip to cuff palindrome dialysis catheter was advanced from a small dermatotomy several centimeters inferior to the right clavicle, to the access site, and ultimat elier through the peel-away sheath such that the catheter tip is at the cavoatrial junction with the pa tient supine. This was confirmed with a chest radiograph performed at the bedside immediately followi ng line placement. Catheter was found to flush and aspirate normally. The catheter was secured in aixa ce. Sterile dressings were applied. IMPRESSION: Conversion of right internal jugular temporary dialysis catheter to tunneled catheter as described Electronically signed by: Gabriele Ma MD (08/13/2021 3:26 PM) [id number]
[2021-08-13] MEDS ORDERED: MEROPENEM 500 MG in IV NORMAL SALINE 50ML 50 ML IV SCH (16:00)
--- NOTE | 2021-08-13 16:19 | PDOC2 ---
Chief Complaint: Chief Complaint: Right lower extremity cellulitis with associated bullae Vital Signs: Vital Signs: Vital Signs Date Time Temp Pulse Resp B/P (MAP) Pulse Ox O2 Delivery O2 Flow Rate FiO2 08/12/21 07:34 99 BiPAP/CPAP 08/12/21 08:00 98.7 94 23 161/79 (106) 98.7 08/12/21 21:07 4.0 Vital Signs Date Time Temp Pulse Resp B/P (MAP) Pulse Ox O2 Delivery O2 Flow Rate FiO2 08/13/21 15:49 Room Air 08/13/21 15:00 98.4 95 24 154/76 (102) 96 98.4 08/12/21 21:07 4.0 Allergies: Allergies: Allergies Coded Allergies Type Severity Reaction Last Updated Verified Iodine and Iodide Containing Produc Allergy Intermediate 08/13/21 Yes amoxicillin Allergy Intermediate 08/13/21 Yes azithromycin Allergy Intermediate 08/13/21 Yes shellfish derived Allergy Intermediate 08/13/21 Yes Medications: Home Meds Reported Medications Carvedilol (CARVEDILOL) 25 Mg Tablet, 2 MG PO BIDWMEALS for CARDIAC, TAB 08/08/21 Buspirone Hcl (BUSPIRONE HCL) 10 Mg Tablet, 10 MG PO BID for anxiolytic, TAB 08/08/21 Albuterol Sulfate (Proair Hfa) 8.5 Gm Hfa.aer.ad, 1 PUFF INH PRN Q6HRS PRN for SHORTNESS OF BREATH, EACH 08/08/21 Rivaroxaban (XARELTO) 20 Mg Tablet, PO DAILY for DVT for 30 Days, TAB 0 Refills with food 08/08/21 Discontinued Reported Medications Torsemide (TORSEMIDE) 20 Mg Tablet, 4 TAB PO DAILY for diuretic, #90 TAB 1 Refill 08/08/21 Sulfamethoxazole/Trimethoprim (BACTRIM DS TABLET) 1 Each Tablet, 1 TAB PO BID for antibiotic for 10 Days, #20 TAB 0 Refills 08/08/21 Spironolactone (SPIRONOLACTONE) 100 Mg Tablet, 1 TAB PO DAILY for diuretic, #30 TAB 11 Refills 08/08/21 Potassium Chloride (POTASSIUM CHLORIDE ) 20 Meq Tablet.er, 1 MEQ PO DAILY for SUPPLEMENT, TAB.SR 08/08/21 Losartan Potassium (LOSARTAN POTASSIUM) 50 Mg Tablet, 2 MG PO DAILY for HYPERTENSION, TAB 08/08/21 Amlodipine Besylate (AMLODIPINE BESYLATE) 10 Mg Tablet, 10 MG PO DAILY for htn, TAB 08/08/21 PCP: PCP: Dr. Roberts Pain: Pain Location: Leg (Right leg, 7 out of 10 with palpation and cleansing) Scale (pain): 8 Date of Onset Patient admitted with renal failure with history of CHF, morbid obesity and lymphedema. Patient developed large bullae to his right lower extremity which were noted 3 days ago, however patient states he noticed some scabbed areas to his right lower extremity approximately 3 weeks ago. Bullae spontaneously ruptured with copious serous drainage present. Patient states the entire leg is painful to touch. Patient denies history of difficulty with wound healing in the past. Patient was initiated on hemodialysis yesterday. Review of Systems: Patient continues to complain of exertional dyspnea. Patient denies cough. Patient states that he continues to have a good appetite without nausea, vomiting or diarrhea. Patient denies fever or body aches. Patient does complain of painful symptoms as noted above to the right lower extremity. Physical Exam Patient awake and alert 26-year-old -Stateless male in no apparent distress. Patient is seen in ICU. Patient pleasant in conversation and appears to be a good historian. Respirations are even and unlabored. Patient with O2 per nasal cannula. Vital signs are stable. Patient is afebrile. Abdomen is soft, nondistended, nontender to palpation and obese. Skin is warm, dry and pink. The right lower extremity presents with 2 large popped bullae. Copious serous drainage noted on underlying Chux pad. No odor present. Patient with bilateral 3+ hardened edema, more prominent on the right lower extremity. Following patient consent bullae deroofed to right burkett region using dry gauze. Patient tolerated with minimal painful symptoms. Underlying wound bed 100% pink smooth. Attempted deroofing of the bullae to the right calf region. Patient did not tolerate secondary to painful symptoms. A/P Right lower extremity cellulitis with lymphedema associated bullae. Complicated by morbid obesity and renal failure. -Bullae to right burkett deroofed at bedside -We will plan on deroofing right calf bullae on Tuesday -Cleanse and pat dry. Apply skin prep to surrounding tissue. Cover with Xeroform and Chux pad. Change twice daily or as needed if loose or saturated. -ID following patient for antibiotics -Patient initiated on dialysis which will help with fluid overload and lymphedema DUSTIN PRAJAPATI [employer] Aug 13, 2021 16:19
[2021-08-13 19:00] VITALS: BP 185/84
[2021-08-13] MEDS: FAMOTIDINE 20 MG TABLET. PO SCH (20:58)
[2021-08-13] MEDS: ZOLPIDEM 5 MG TABLET. PO PRN (20:58)
[2021-08-13 23:00] VITALS: BP 164/83
[2021-08-14] MEDS: HEPARIN for IV BOLUS 10,000 UNIT/10 ML VIAL. IV PRN (00:17)
[2021-08-14] MEDS: IV NORMAL SALINE 1000ML BAG 1,000 ML IV SCH ×2 (01:50→08:30)
[2021-08-14 03:00] VITALS: BP 124/72
[2021-08-14] MEDS: HEPARIN 25,000UTS/250ML PREMIX 250 ML IV PRN ×2 (05:16→14:14)
[2021-08-14 06:24] LABS: ALBUMIN 1.2 g/dL (3.4-5.0); CALCIUM 7.3 mg/dL (8.5-10.1); CREATININE 7.6 mg/dL (0.7-1.3); GFR 10.5; PHOSPHORUS 5.1 mg/dL (2.6-4.7); POTASSIUM 4.7 mmol/L (3.5-5.1)
[2021-08-14 07:00] VITALS: BP 124/72
[2021-08-14] MEDS: IPRATROPIUM BROMIDE 0.5 MG/2.5 ML NEBU. NEB SCH ×2 (07:14→11:45)
--- NOTE | 2021-08-14 07:45 | PDOC ---
Infectious Disease Note Subjective Subjective pt is feeling ok, continues to have right leg pain ROS ROS No nausea vomiting diarrhea or fever breathing has improved Vital Sign Vital Signs Vital Signs Date Time Temp Pulse Resp B/P (MAP) Pulse Ox O2 Delivery O2 Flow Rate FiO2 08/14/21 07:14 99 Room Air 08/14/21 03:00 98.4 101 24 124/72 (89) 98.4 Physical Exam PHYSICAL EXAM VITAL SIGNS: stable GENERAL: Morbidly obese, alert, oriented, well-developed, well-nourished male, in no acute distress, nontoxic appearing. HEENT: Normocephalic, atraumatic. Anicteric. No thrush. Oral mucosa moist. NECK: Supple. Short neck. LUNGS: Clear bilaterally. HEART: S1, S2. No murmurs. ABDOMEN: Soft, nontender, nondistended. No rebound, no guarding. GENITOURINARY: Castaneda in place with concentrated urine. EXTREMITIES: Bilateral lymphedema. Right lower extremity erythematous, mild tenderness, dry scabs present. NEUROLOGIC: Alert and oriented x3, grossly nonfocal. PSYCHIATRIC: Calm and cooperative. Labs Lab Laboratory Tests Test 08/13/21 23:10 08/14/21 05:00 Activated Partial Thromboplast Time 60 SEC (24-38) 70 SEC (24-38) Sodium Level 129 mmol/L (136-145) Potassium Level 4.7 mmol/L (3.5-5.1) Chloride Level 93 mmol/L (98-107) Carbon Dioxide Level 23 mmol/L (21-32) Anion Gap 13 (6-14) Blood Urea Nitrogen 68 mg/dL (8-26) Creatinine 7.6 mg/dL (0.7-1.3) Estimated GFR (Cockcroft-Gault) 10.5 Glucose Level 90 mg/dL (70-99) Calcium Level 7.3 mg/dL (8.5-10.1) Phosphorus Level 5.1 mg/dL (2.6-4.7) Creatine Kinase 49115 U/L (39-308) Albumin 1.2 g/dL (3.4-5.0) Micro Microbiology 08/08/21 Urine Culture - Final, Complete Objective Assessment IMPRESSION: 1. Leukocytosis. 2. Low-grade febrile illness. 3. Acute kidney injury. 4. Hyperkalemia. 5. Hyponatremia. 6. Hypocalcemia. 7. Hypouricemia. 8. Severe rhabdomyolysis. 9. Bilateral lower extremity edema, right greater than left. 10. Right lower extremity cellulitis. 11. Morbid obesity. 12. History of congestive heart failure. 13. History of deep venous thrombosis. 14. History of ALLERGIES TO AMOXICILLIN AND AZITHROMYCIN. 15. Non-STEMI. 16. Metabolic acidosis. 17. Abnormal LFTs, likely from rhabdomyolysis. Plan Plan of Care c diff negative supportive care Right leg CT unable to do because of the patient weight Continue meropenem Add Zyvox MARIANELA SALEH MD Aug 14, 2021 07:45
--- NOTE | 2021-08-14 08:01 | PDOC ---
DATE OF SERVICE DATE: 08/14/21 TIME: 08:00 SUBJECTIVE ROS No acute concerns stable, No SOB, No N/V OBJECTIVE Vital Signs Vital Signs Date Time Temp Pulse Resp B/P (MAP) Pulse Ox O2 Delivery O2 Flow Rate FiO2 08/14/21 07:14 99 Room Air 08/14/21 03:00 98.4 101 24 124/72 (89) 98.4 I & 0 Intake and Output 08/14/21 07:00 Intake Total 1690 ml Output Total 10 ml Balance 1680 ml Intake Oral 1640 ml IV Total 50 ml Output Urine Total 10 ml # Bowel Movements 1 PHYSICAL EXAM Physical Exam ENT: Normocephalic, atraumatic. Anicteric. No thrush. Oral mucosa moist. NECK: Supple. LUNGS: Clear bilaterally. HEART: S1, S2. No murmurs. ABDOMEN: Soft, nontender,Obese GENITOURINARY: Castaneda in place EXTREMITIES: Bilateral lymphedema. Right lower extremity erythematous, mild tenderness NEUROLOGIC: Alert and oriented x3, grossly nonfocal. PSYCHIATRIC: Calm and cooperative. DIAGNOSIS/ASSESSMENT Assessment & Plan Acute kidney injury: ATN , oligoanuric due to rhabdomyolysis. Needing cosme lysis 1st on Tuesday; No improvement in renal function - tried IVF and IV Lasix as well Dialyzed yesterday , not completed due to Dialyzer clotting . Possible trenafer to [facility] today - Dialysis today prior to transfer - towerman ; If unable will need HD at [facility] tomorrow Supportive care, flush Castaneda , avoid Nephrotoxins . Monitor for renal Recovery . Access - Tunneled HDC replaced on 08/13 Rhabdomyolysis: Unclear etiology. Denies statin, reports he was started on new K pill- doesnt recall name, he walks a lot as well, stays hydrated . CK trending down . Phos Improving Elevated LFT's - improving Hyperkalemia: corrected Metabolic acidosis currently corrected and compensated Hyponatremia: 2/2 severe Rhabdo ,stable Continue IV NS Severe hypocalcemia presumably due to rhabdomyolysis POA : Improved, DCed Calcium gtt . Phos Mildly elevated, Monitor History of CHF: Clinically appears to be clinically compensated at this time. Non-STEMI: Defer to cardiology COMMENT/RELEVANT DATA Meds Current Medications Medications (Trade) Dose Ordered Sig/Keith Start Time Stop Time Status Last Admin Dose Admin Acetaminophen (Tylenol) 650 mg PRN Q4HRS PRN 08/08/21 11:30 Acetaminophen/ Hydrocodone Bitart (Lortab 5/325) 1 tab PRN Q6HRS PRN 08/12/21 09:00 08/12/21 20:37 1 TAB Albumin Human 200 ml @ 200 mls/hr 1X PRN PRN 08/13/21 09:00 08/13/21 14:59 DC Aspirin (Aspirin Chewable) 324 mg 1X ONCE 08/07/21 21:30 08/07/21 21:31 DC 08/07/21 22:12 324 MG Calcium Carbonate/ Glycine (Tums) 500 mg PRN AFTMEALHC PRN 08/09/21 01:30 Calcium Gluconate (Calcium Gluconate) 1,000 mg Q2H 08/09/21 08:30 08/09/21 12:31 DC 08/09/21 12:16 1,000 MG Calcium Gluconate 2000 mg/Sodium Chloride 120 ml @ 220 mls/hr 1X ONCE 08/08/21 06:30 08/08/21 07:02 DC 08/08/21 06:30 220 MLS/HR Calcium Gluconate 5000 mg/Sodium Chloride 500 ml @ 50 mls/hr Q10H 08/09/21 12:30 08/12/21 10:19 DC 08/12/21 09:13 50 MLS/HR Carvedilol (Coreg) 6.25 mg BIDWMEALS 08/12/21 17:00 08/13/21 16:49 6.25 MG Ceftriaxone Sodium (Rocephin) 2 gm Q24H 08/08/21 12:00 08/13/21 08:10 DC 08/12/21 12:42 2 GM Dextrose (Dextrose 50%-Water Syringe) 12.5 gm PRN Q15MIN PRN 08/08/21 11:30 Docusate Sodium (Colace) 100 mg PRN DAILY PRN 08/08/21 11:30 Doxycycline Hyclate (Vibra-Tab) 100 mg BID 08/08/21 05:00 08/13/21 08:10 DC 08/12/21 20:33 100 MG Famotidine (Pepcid Vial) 20 mg DAILY 08/08/21 12:00 08/11/21 10:19 DC 08/11/21 09:16 20 MG Famotidine (Pepcid) 20 mg QHS 08/11/21 21:00 08/13/21 20:58 20 MG Furosemide (Lasix) 40 mg 1X ONCE 08/13/21 09:15 08/13/21 09:16 DC 08/13/21 09:26 40 MG Heparin Sodium (Porcine) (Heparin Sodium) 1,000 unit PRN Q6HRS PRN 08/07/21 23:00 08/14/21 00:17 1,000 UNIT Heparin Sodium/ Dextrose 250 ml @ 20 mls/hr CONT PRN 08/07/21 23:00 08/14/21 05:16 37 MLS/HR Hydralazine HCl (Apresoline Inj) 10 mg PRN Q4HRS PRN 08/12/21 12:30 08/12/21 20:30 10 MG Info (PHARMACY MONITORING -- do not chart) 1 each PRN DAILY PRN 08/13/21 09:00 Ipratropium [place] (Atrovent) 0.5 mg RTQID 08/08/21 16:00 08/14/21 07:14 0.5 MG Lactobacillus Rhamnosus (Culturelle) 1 cap BID 08/08/21 09:00 08/13/21 20:58 1 CAP Lidocaine HCl (Buffered Lidocaine 1%) 6 ml 1X ONCE 08/08/21 13:00 08/08/21 13:01 DC Lidocaine/ Epinephrine (LIDOCAINE 1%-EPI 1:100,000 Multi-Dose) 20 ml 1X ONCE 08/13/21 14:15 08/13/21 14:16 DC 08/13/21 14:13 12 ML Lorazepam (Ativan Inj) 0.25 mg PRN Q4HRS PRN 08/08/21 11:30 Lorazepam (Ativan) 0.5 mg PRN Q6HRS PRN 08/08/21 11:30 08/12/21 20:36 0.5 MG Meropenem 500 mg/ Sodium Chloride 50 ml @ 100 mls/hr Q24H 08/13/21 16:00 08/13/21 15:56 100 MLS/HR Multi-Ingredient Mouthwash/Gargle (Gi Cocktail) 20 ml PRN QID PRN 08/10/21 10:00 Ondansetron HCl (Zofran) 4 mg PRN Q6HRS PRN 08/08/21 11:30 08/09/21 01:25 4 MG Perflutren Protein Type A Microsphe (Optison) 0.66 mg STK-MED ONCE 08/09/21 11:00 08/10/21 12:58 DC Prochlorperazine Edisylate (Compazine) 10 mg PRN Q6HRS PRN 08/08/21 11:30 Sennosides (Senna) 17.2 mg PRN BID PRN 08/08/21 11:30 Sodium Bicarbonate 150 meq/Dextrose 1,150 ml @ 100 mls/hr [id number] ONCE 08/07/21 22:00 08/08/21 09:29 DC 08/07/21 23:51 100 MLS/HR Sodium Bicarbonate (Sodium Bicarb Adult 8.4% Syr) 150 meq 1X ONCE 08/08/21 07:15 08/08/21 07:19 DC 08/08/21 08:27 150 MEQ Sodium Chloride 1,000 ml @ 400 mls/hr Q2H30M PRN 08/13/21 09:00 08/13/21 20:59 DC Sodium Chloride (Normal Saline Flush) 10 ml 1X PRN PRN 08/13/21 09:00 08/14/21 08:59 Vancomycin HCl (Vancomycin Oral Solution) 125 mg [id number] 08/09/21 13:00 08/10/21 09:44 DC 08/09/21 21:39 125 MG Zolpidem Tartrate (Ambien) 2.5 mg PRN QHS PRN 08/08/21 11:30 08/13/21 20:58 2.5 MG Lab Laboratory Tests Test 08/13/21 23:10 08/14/21 05:00 Activated Partial Thromboplast Time 60 SEC (24-38) 70 SEC (24-38) Sodium Level 129 mmol/L (136-145) Potassium Level 4.7 mmol/L (3.5-5.1) Chloride Level 93 mmol/L (98-107) Carbon Dioxide Level 23 mmol/L (21-32) Anion Gap 13 (6-14) Blood Urea Nitrogen 68 mg/dL (8-26) Creatinine 7.6 mg/dL (0.7-1.3) Estimated GFR (Cockcroft-Gault) 10.5 Glucose Level 90 mg/dL (70-99) Calcium Level 7.3 mg/dL (8.5-10.1) Phosphorus Level 5.1 mg/dL (2.6-4.7) Creatine Kinase 96299 U/L (39-308) Albumin 1.2 g/dL (3.4-5.0) Results All relevant outside records, renal labs, imaging studies, telemetry/EKG's were reviewed. Justicifation of Admission Dx: Justifications for Admission: Justification of Admission Dx: N/A JEAN CRUZ MD Aug 14, 2021 08:01
--- NOTE | 2021-08-14 08:07 | PDOC ---
PULMONARY PROGRESS NOTES DATE: 08/14/21 TIME: 08:06 Subjective Patient currently off of CPAP, not more short of air. Vitals Vital Signs Date Time Temp Pulse Resp B/P (MAP) Pulse Ox O2 Delivery O2 Flow Rate FiO2 08/14/21 07:14 99 Room Air 08/14/21 03:00 98.4 101 24 124/72 (89) 98.4 ROS: No Nausea, No Chest Pain, No Abdominal Pain, No Increase Cough General: Alert Lungs: Other (b lat diminished ) Cardiovascular: S1, S2 Abdomen: Soft, Non-tender, Other (obese no mass) Neuro Exam: Alert, Oriented Extremities: Other (lymphedema chronic changes) Skin: Warm Labs Laboratory Tests Test 08/13/21 05:00 08/13/21 23:10 08/14/21 05:00 White Blood Count 25.6 x10^3/uL (4.0-11.0) Red Blood Count 4.11 x10^6/uL (4.30-5.70) Hemoglobin 10.7 g/dL (13.0-17.5) Hematocrit 33.2 % (39.0-53.0) Mean Corpuscular Volume 81 fL (79-100) Mean Corpuscular Hemoglobin 26 pg (25-35) Mean Corpuscular Hemoglobin Concent 32 g/dL (31-37) Red Cell Distribution Width 16.6 % (11.5-14.5) Platelet Count 334 x10^3/uL (140-400) Neutrophils (%) (Auto) 86 % (31-73) Lymphocytes (%) (Auto) 5 % (24-48) Monocytes (%) (Auto) 6 % (0-9) Eosinophils (%) (Auto) 2 % (0-3) Basophils (%) (Auto) 1 % (0-3) Neutrophils # (Auto) 22.2 x10^3/uL (1.8-7.7) Lymphocytes # (Auto) 1.4 x10^3/uL (1.0-4.8) Monocytes # (Auto) 1.4 x10^3/uL (0.0-1.1) Eosinophils # (Auto) 0.6 x10^3/uL (0.0-0.7) Basophils # (Auto) 0.1 x10^3/uL (0.0-0.2) Activated Partial Thromboplast Time 70 SEC (24-38) 60 SEC (24-38) 70 SEC (24-38) Sodium Level 127 mmol/L (136-145) 129 mmol/L (136-145) Potassium Level 4.6 mmol/L (3.5-5.1) 4.7 mmol/L (3.5-5.1) Chloride Level 91 mmol/L (98-107) 93 mmol/L (98-107) Carbon Dioxide Level 24 mmol/L (21-32) 23 mmol/L (21-32) Anion Gap 12 (6-14) 13 (6-14) Blood Urea Nitrogen 71 mg/dL (8-26) 68 mg/dL (8-26) Creatinine 7.9 mg/dL (0.7-1.3) 7.6 mg/dL (0.7-1.3) Estimated GFR (Cockcroft-Gault) 10.1 10.5 Glucose Level 85 mg/dL (70-99) 90 mg/dL (70-99) Calcium Level 7.2 mg/dL (8.5-10.1) 7.3 mg/dL (8.5-10.1) Phosphorus Level 5.7 mg/dL (2.6-4.7) 5.1 mg/dL (2.6-4.7) Iron Level 22 ug/dL (65-175) Total Bilirubin 0.4 mg/dL (0.2-1.0) Direct Bilirubin 0.2 mg/dL (0.0-0.2) Aspartate Amino Transf (AST/SGOT) 365 U/L (15-37) Alanine Aminotransferase (ALT/SGPT) 160 U/L (16-63) Alkaline Phosphatase 74 U/L (46-116) Creatine Kinase 97863 U/L (39-308) 61928 U/L (39-308) Total Protein 5.7 g/dL (6.4-8.2) Albumin 1.2 g/dL (3.4-5.0) 1.2 g/dL (3.4-5.0) Vitamin B12 Level 399 pg/mL (247-911) Laboratory Tests Test 08/13/21 23:10 08/14/21 05:00 Activated Partial Thromboplast Time 60 SEC (24-38) 70 SEC (24-38) Sodium Level 129 mmol/L (136-145) Potassium Level 4.7 mmol/L (3.5-5.1) Chloride Level 93 mmol/L (98-107) Carbon Dioxide Level 23 mmol/L (21-32) Anion Gap 13 (6-14) Blood Urea Nitrogen 68 mg/dL (8-26) Creatinine 7.6 mg/dL (0.7-1.3) Estimated GFR (Cockcroft-Gault) 10.5 Glucose Level 90 mg/dL (70-99) Calcium Level 7.3 mg/dL (8.5-10.1) Phosphorus Level 5.1 mg/dL (2.6-4.7) Creatine Kinase 15016 U/L (39-308) Albumin 1.2 g/dL (3.4-5.0) Medications Active Scripts Medications Dose Route/Sig Max Daily Dose Days Date Category Dose Instructions Torsemide 20 Mg Tablet 4 Tab PO DAILY 08/08/21 Reported Bactrim Ds Tablet (Sulfamethoxazole/Trimethoprim) 1 Each Tablet 1 Tab PO BID 10 08/08/21 Reported Spironolactone 100 Mg Tablet 1 Tab PO DAILY 08/08/21 Reported Potassium Chloride (Potassium Chloride) 20 Meq Tablet.er 1 Meq PO DAILY 08/08/21 Reported Losartan Potassium 50 Mg Tablet 2 Mg PO DAILY 08/08/21 Reported Carvedilol 25 Mg Tablet 2 Mg PO BIDWMEALS 08/08/21 Reported Buspirone Hcl 10 Mg Tablet 10 Mg PO BID 08/08/21 Reported Amlodipine Besylate 10 Mg Tablet 10 Mg PO DAILY 08/08/21 Reported Proair Hfa (Albuterol Sulfate) 8.5 Gm Hfa.aer.ad 1 Puff INH PRN Q6HRS PRN 08/08/21 Reported Xarelto (Rivaroxaban) 20 Mg Tablet Unknown Dose PO DAILY 30 08/08/21 Reported with food Comments cxr reviewed 08/08 Mild cardiomegaly. Right internal jugular line identified with the tip projecting in the SVC region. Mild prominent bilateral lung markings likely mild congestive changes. Mild bibasilar lung atelectasis. Impression . IMPRESSION: 1. Acute respiratory failure, secondary to pulmonary edema 2. Abnormal chest x-ray. Secondary to above 3. Acute kidney injury secondary to rhabdomyolysis. 4. Electrolyte abnormality. 5. Leukocytosis, per ID 6. Obstructive sleep apnea-hypopnea syndrome. 7. History of deep venous thrombosis. Negative venous Dopplers on this admission 8. History of paroxysmal A. fib 9. Secondary pulmonary arterial hypertension, PA pressures calculated at 51 10. Ex-smoker. 11. Morbid obesity BMI of 80 Note from nephrology, 08/02 DIAGNOSIS/ASSESSMENT Assessment & Plan Acute kidney injury: ATN , oligoanuric due to rhabdomyolysis. Needing dialysis 1st on Tuesday; No improvement in renal function, tolerated HD well yesterday. Hold Off Dialysis today. IVF today , Dw nursing Supportive care, flush Castaneda , avoid Nephrotoxins . Monitor for renal Recovery . Access Currently has Temp HDC Rhabdomyolysis: Unclear etiology. Denies statin, reports he was started on new K pill- doesnt recall name, he walks a lot as well, stays hydrated . CK trending down . Phos Improving Plan . Updated 08/14 Continue CPAP nightly Hemodialysis Okay to transfer to LTAC, respiratory status compensated Updated 08/13 Continue current support CPAP Hemodialysis patient due to get permanent catheter today Patient respiratory status is compensated enough to transfer to LTAC today, after his permanent catheterization placement. Antibiotics per ID Discussed with hemodialysis nurse and RN. Updated 08/12 See nephrology note Continue current support Antibiotics per ID Currently on CPAP 16 cm of water pressure, FiO2 21% PORTIA LARA MD Aug 14, 2021 08:07
[2021-08-14] MEDS: LACTOBACILLUS RHAMNOSUS GG 1 CAPSULE. PO SCH (08:23)
[2021-08-14] MEDS: CARVEDILOL 6.25 MG TABLET. PO SCH (08:24)
--- NOTE | 2021-08-14 09:11 | NUR ---
SS following up with discharge planning. SS reviewed pt chart and discussed with pt RN. Pt is accepted at [facility], ; fax [phone], and care home approved transfer. Discharge orders received and phoned and faxed to [facility]. Pt will discharge today and transfer to [facility] at 1400 via [facility] transport, . Packet and ambulance form on the chart. Guards notified and will ride with pt to [facility]. Pt's RN notified.
--- NOTE | 2021-08-14 10:26 | PDOC ---
Date of Service: DATE: 08/14/21 TIME: 10:24 Subjective: Subjective: No GI complaints - eating well. Body pain is "unbearable." Objective: Objective: D/w nurse - DC to [facility] today. Vital Signs: Vital Signs Date Time Temp Pulse Resp B/P (MAP) Pulse Ox O2 Delivery O2 Flow Rate FiO2 08/14/21 10:11 95 BiPAP/CPAP 08/14/21 08:24 101 124/72 08/14/21 07:00 98.4 24 98.4 Labs: Laboratory Tests Test 08/13/21 23:10 08/14/21 05:00 Activated Partial Thromboplast Time 60 SEC 70 SEC Sodium Level 129 mmol/L Potassium Level 4.7 mmol/L Chloride Level 93 mmol/L Carbon Dioxide Level 23 mmol/L Anion Gap 13 Blood Urea Nitrogen 68 mg/dL Creatinine 7.6 mg/dL Estimated GFR (Cockcroft-Gault) 10.5 Glucose Level 90 mg/dL Calcium Level 7.3 mg/dL Phosphorus Level 5.1 mg/dL Creatine Kinase 01816 U/L Albumin 1.2 g/dL PE: GEN: NAD, guards present ABD: morbidly obese EXTREM: dressings NEURO/PSYCH: A & O 3 A/P: Rhabo, elevated AST and ALT - improving Morbid obesity -- DC per primary. Justicifation of Admission Dx: Justifications for Admission: Justification of Admission Dx: N/A ERICH KAY Aug 14, 2021 10:26
[2021-08-14 11:00] VITALS: BP 165/82
--- NOTE | 2021-08-14 15:27 | NUR ---
Patient report given to Lawrence MATHEWS @ [facility]. Patient transported via [facility] with all lines and drains intact upon discharge. Report given to transportation. 2 guards transported with the patient. Patient also sent with a red bag of belongings and wheelchair and O2 tank. Patient on Heparin gtt at time of discharge and instructions given to Lawrence MATHEWS on how to manage this drip.
--- NOTE | 2021-08-14 17:22 | PDOC ---
PROGRESS NOTES Date of Service DATE: 08/14/21 TIME: 17:19 Subjective Subjective Patient seen and examined Objective Objective Vital Signs Date Time Temp Pulse Resp B/P (MAP) Pulse Ox O2 Delivery O2 Flow Rate FiO2 08/14/21 11:45 96 Room Air 08/14/21 11:00 98.2 88 22 165/82 (109) 98.2 08/12/21 21:07 4.0 Intake and Output 08/14/21 07:00 Intake Total 1690 ml Output Total 10 ml Balance 1680 ml Intake Oral 1640 ml IV Total 50 ml Output Urine Total 10 ml # Bowel Movements 1 Physical Exam Abdomen: Normal bowel sounds Heart: Regular rate General: mild distress Lungs: Other (Mildly decreased breath sounds) Assessment Assessment Problems Medical Problems: (1) Acute renal failure Status: Acute (2) Hyperkalemia Status: Acute (3) Hyperuricemia Status: Acute (4) Hypocalcemia Status: Acute (5) Hyponatremia Status: Acute (6) Morbid obesity Status: Acute (7) NSTEMI (non-ST elevated myocardial infarction) Status: Acute (8) Transaminitis Status: Acute FRAN; continuing with hemodialysis. Followed by the renal service. Severe Rhabdomyolysis; CK down to [id number] Acute on chronic diastolic CHF; Echo with preserved LV systolic function, but with an elevated PAP of 51 mmHg. Acute respiratory failure; multifactorial with CHF, pulm HTN, obesity- hypoventilation syndrome Mild troponin elevation; trop peak 390. Type II, demand ischemia H/o bilateral LE DVT; previously on chronic OAC with Xarelto. currently on heparin gtt. as per IM FREYA, obesity- hypoventilation syndrome. BMI 80. CPAP at HS H/o PAFIB?; details unknown presently SR Elevated LFTs RLE cellulitis HTN: better with coreg Comment Review of Relevant I have reviewed the following items sabina (where applicable) has been applied. Labs Laboratory Tests Test 08/13/21 05:00 08/13/21 23:10 08/14/21 05:00 08/14/21 12:47 White Blood Count 25.6 x10^3/uL (4.0-11.0) Red Blood Count 4.11 x10^6/uL (4.30-5.70) Hemoglobin 10.7 g/dL (13.0-17.5) Hematocrit 33.2 % (39.0-53.0) Mean Corpuscular Volume 81 fL (79-100) Mean Corpuscular Hemoglobin 26 pg (25-35) Mean Corpuscular Hemoglobin Concent 32 g/dL (31-37) Red Cell Distribution Width 16.6 % (11.5-14.5) Platelet Count 334 x10^3/uL (140-400) Neutrophils (%) (Auto) 86 % (31-73) Lymphocytes (%) (Auto) 5 % (24-48) Monocytes (%) (Auto) 6 % (0-9) Eosinophils (%) (Auto) 2 % (0-3) Basophils (%) (Auto) 1 % (0-3) Neutrophils # (Auto) 22.2 x10^3/uL (1.8-7.7) Lymphocytes # (Auto) 1.4 x10^3/uL (1.0-4.8) Monocytes # (Auto) 1.4 x10^3/uL (0.0-1.1) Eosinophils # (Auto) 0.6 x10^3/uL (0.0-0.7) Basophils # (Auto) 0.1 x10^3/uL (0.0-0.2) Activated Partial Thromboplast Time 70 SEC (24-38) 60 SEC (24-38) 70 SEC (24-38) 79 SEC (24-38) Sodium Level 127 mmol/L (136-145) 129 mmol/L (136-145) Potassium Level 4.6 mmol/L (3.5-5.1) 4.7 mmol/L (3.5-5.1) Chloride Level 91 mmol/L (98-107) 93 mmol/L (98-107) Carbon Dioxide Level 24 mmol/L (21-32) 23 mmol/L (21-32) Anion Gap 12 (6-14) 13 (6-14) Blood Urea Nitrogen 71 mg/dL (8-26) 68 mg/dL (8-26) Creatinine 7.9 mg/dL (0.7-1.3) 7.6 mg/dL (0.7-1.3) Estimated GFR (Cockcroft-Gault) 10.1 10.5 Glucose Level 85 mg/dL (70-99) 90 mg/dL (70-99) Calcium Level 7.2 mg/dL (8.5-10.1) 7.3 mg/dL (8.5-10.1) Phosphorus Level 5.7 mg/dL (2.6-4.7) 5.1 mg/dL (2.6-4.7) Iron Level 22 ug/dL (65-175) Total Bilirubin 0.4 mg/dL (0.2-1.0) Direct Bilirubin 0.2 mg/dL (0.0-0.2) Aspartate Amino Transf (AST/SGOT) 365 U/L (15-37) Alanine Aminotransferase (ALT/SGPT) 160 U/L (16-63) Alkaline Phosphatase 74 U/L (46-116) Creatine Kinase 05137 U/L (39-308) 76191 U/L (39-308) Total Protein 5.7 g/dL (6.4-8.2) Albumin 1.2 g/dL (3.4-5.0) 1.2 g/dL (3.4-5.0) Vitamin B12 Level 399 pg/mL (247-911) Laboratory Tests Test 08/13/21 23:10 08/14/21 05:00 08/14/21 12:47 Activated Partial Thromboplast Time 60 SEC (24-38) 70 SEC (24-38) 79 SEC (24-38) Sodium Level 129 mmol/L (136-145) Potassium Level 4.7 mmol/L (3.5-5.1) Chloride Level 93 mmol/L (98-107) Carbon Dioxide Level 23 mmol/L (21-32) Anion Gap 13 (6-14) Blood Urea Nitrogen 68 mg/dL (8-26) Creatinine 7.6 mg/dL (0.7-1.3) Estimated GFR (Cockcroft-Gault) 10.5 Glucose Level 90 mg/dL (70-99) Calcium Level 7.3 mg/dL (8.5-10.1) Phosphorus Level 5.1 mg/dL (2.6-4.7) Creatine Kinase 91523 U/L (39-308) Albumin 1.2 g/dL (3.4-5.0) Microbiology 08/08/21 Urine Culture - Final, Complete Medications Current Medications Heparin Sodium (Porcine) (Heparin Sodium) 10,000 unit 1X ONCE IV Last administered on 08/07/21at 23:48; Start 08/07/21 at 21:00; Stop 08/07/21 at 21:01; Status DC Heparin Sodium/ Dextrose 250 ml @ 20 mls/hr CONT PRN IV PER PROTOCOL; Start 1 10/07/20 at 19:00; Status Cancel Heparin Sodium (Porcine) (Heparin Sodium) 7,500 unit PRN Q6HRS PRN IV FOR UFH LEVEL LESS THAN 0.2; Start 08/07/21 at 19:00; Stop 08/07/21 at 22:34; Status DC Heparin Sodium (Porcine) (Heparin Sodium) 3,750 unit PRN Q6HRS PRN IV FOR UFH LEVEL 0.2 - 0.29; Start 08/07/21 at 19:00; Stop 08/07/21 at 22:33; Status DC Ceftriaxone Sodium (Rocephin) 2 gm 1X ONCE IVP Last administered on 08/07/21at 22:11; Start 08/07/21 at 21:15; Stop 08/07/21 at 21:16; Status DC Calcium Gluconate (Calcium Gluconate) 1,000 mg 1X ONCE IVP Last administered on 08/08/21at 02:29; Start 08/07/21 at 21:15; Stop 08/07/21 at 21:16; Status DC Sodium Chloride 500 ml @ 500 mls/hr 1X ONCE IV Last administered on 08/07/21at 21:15; Start 08/07/21 at 21:15; Stop 08/07/21 at 22:14; Status DC Aspirin (Aspirin Chewable) 324 mg 1X ONCE PO Last administered on 08/07/21at 22:12; Start 08/07/21 at 21:30; Stop 08/07/21 at 21:31; Status DC Sodium Bicarbonate 150 meq/Dextrose 1,150 ml @ 100 mls/hr [id number] ONCE IV Last administered on 08/07/21at 23:51; Start 08/07/21 at 22:00; Stop 08/08/21 at 09:29; Status DC Ondansetron HCl (Zofran) 4 mg STK-MED ONCE .ROUTE ; Start 08/07/21 at 22:20; Stop 08/07/21 at 22:21; Status DC Ondansetron HCl (Zofran) 4 mg 1X ONCE IVP Last administered on 08/07/21at 22:36; Start 08/07/21 at 22:30; Stop 08/07/21 at 22:31; Status DC Heparin Sodium (Porcine) (Heparin Sodium) 4,300 unit PRN Q6HRS PRN IV FOR UFH LEVEL 0.2 - 0.29; Start 08/07/21 at 22:33; Status Cancel Heparin Sodium (Porcine) (Heparin Sodium) 8,600 unit PRN Q6HRS PRN IV FOR UFH LEVEL LESS THAN 0.2; Start 08/07/21 at 22:45; Status Cancel Heparin Sodium/ Dextrose 250 ml @ 20 mls/hr CONT PRN IV PER PROTOCOL Last administered on 08/14/21at 14:14; Start 08/07/21 at 23:00 Heparin Sodium (Porcine) (Heparin Sodium) 8,600 unit PRN Q6HRS PRN IV FOR PTT < 40; Start 08/07/21 at 23:00 Heparin Sodium (Porcine) (Heparin Sodium) 2,000 unit PRN Q6HRS PRN IV FOR PTT 40 - 58 Last administered on 08/10/21at 10:20; Start 08/07/21 at 23:00 Heparin Sodium (Porcine) (Heparin Sodium) 1,000 unit PRN Q6HRS PRN IV FOR PTT 59 - 78 Last administered on 08/14/21at 00:17; Start 08/07/21 at 23:00 Doxycycline Hyclate (Vibra-Tab) 100 mg BID PO ; Start 08/08/21 at 09:00; Stop 08/08/21 at 04:41; Status DC Doxycycline Hyclate (Vibra-Tab) 100 mg BID PO Last administered on 08/12/21at 20:33; Start 08/08/21 at 05:00; Stop 08/13/21 at 08:10; Status DC Calcium Gluconate 2000 mg/Sodium Chloride 120 ml @ 220 mls/hr 1X ONCE IV Last administered on 08/08/21at 06:30; Start 08/08/21 at 06:30; Stop 08/08/21 at 07:02; Status DC Lactobacillus Rhamnosus (Culturelle) 1 cap BID PO Last administered on 08/14/21at 08:23; Start 08/08/21 at 09:00 Sodium Bicarbonate (Sodium Bicarb Adult 8.4% Syr) 150 meq 1X ONCE IV Last administered on 08/08/21at 08:27; Start 08/08/21 at 07:15; Stop 08/08/21 at 07:19; Status DC Ceftriaxone Sodium (Rocephin) 1 gm Q24H IVP ; Start 08/08/21 at 11:30; Status UNV Ceftriaxone Sodium (Rocephin) 2 gm Q24H IVP Last administered on 08/12/21at 12:42; Start 08/08/21 at 12:00; Stop 08/13/21 at 08:10; Status DC Sennosides (Senna) 17.2 mg PRN BID PRN PO CONSTIPATION; Start 08/08/21 at 11:30 Docusate Sodium (Colace) 100 mg PRN DAILY PRN PO HARD STOOLS; Start 08/08/21 at 11:30 Ondansetron HCl (Zofran) 4 mg PRN Q6HRS PRN IVP NAUSEA/VOMITING Last administered on 08/09/21at 01:25; Start 08/08/21 at 11:30 Dextrose (Dextrose 50%-Water Syringe) 12.5 gm PRN Q15MIN PRN IV SEE COMMENTS; Start 08/08/21 at 11:30 Acetaminophen (Tylenol) 650 mg PRN Q4HRS PRN PO TEMP OVER 100.4F OR MILD PAIN; Start 08/08/21 at 11:30 Lorazepam (Ativan) 0.5 mg PRN Q6HRS PRN PO ANXIETY / AGITATION Last administered on 08/12/21at 20:36; Start 08/08/21 at 11:30 Lorazepam (Ativan Inj) 0.25 mg PRN Q4HRS PRN IV ANXIETY / AGITATION; Start 08/08/21 at 11:30 Famotidine (Pepcid Vial) 20 mg DAILY IVP Last administered on 08/11/21at 09:16; Start 08/08/21 at 12:00; Stop 08/11/21 at 10:19; Status DC Prochlorperazine Edisylate (Compazine) 10 mg PRN Q6HRS PRN IV NAUSEA/VOMITING, 2ND CHOICE; Start 08/08/21 at 11:30 Zolpidem Tartrate (Ambien) 2.5 mg PRN QHS PRN PO INSOMNIA Last administered on 08/13/21at 20:58; Start 08/08/21 at 11:30 Calcium Gluconate (Calcium Gluconate) 1,000 mg Q2H IVP Last administered on 08/08/21at 15:33; Start 08/08/21 at 11:30; Stop 08/08/21 at 15:31; Status DC Lidocaine HCl (Buffered Lidocaine 1%) 3 ml STK-MED ONCE .ROUTE ; Start 08/08/21 at 12:10; Stop 08/08/21 at 12:11; Status DC Lidocaine HCl (Buffered Lidocaine 1%) 6 ml 1X ONCE INJ ; Start 08/08/21 at 13:00; Stop 08/08/21 at 13:01; Status DC Ipratropium [place] (Atrovent) 0.5 mg RTQID NEB Last administered on 08/14/21at 11:45; Start 08/08/21 at 16:00 Sodium Chloride 1,000 ml @ 1,000 mls/hr Q1H PRN IV hypotension; Start 08/08/21 at 14:45; Stop 08/08/21 at 20:44; Status DC Albumin Human 200 ml @ 200 mls/hr 1X PRN PRN IV Hypotension; Start 08/08/21 at 14:45; Stop 08/08/21 at 20:44; Status DC Info (PHARMACY MONITORING -- do not chart) 1 each PRN DAILY PRN MC SEE COMMENTS; Start 08/08/21 at 14:45; Status UNV Info (PHARMACY MONITORING -- do not chart) 1 each PRN DAILY PRN MC SEE COMMENTS; Start 08/08/21 at 14:45; Status Cancel Calcium Carbonate/ Glycine (Tums) 500 mg PRN AFTMEALHC PRN PO INDIGESTION; Start 08/09/21 at 01:30 Calcium Gluconate (Calcium Gluconate) 1,000 mg Q2H IVP Last administered on 08/09/21at 12:16; Start 08/09/21 at 08:30; Stop 08/09/21 at 12:31; Status DC Perflutren Protein Type A Microsphe (Optison) 0.66 mg STK-MED ONCE IV ; Start 08/09/21 at 10:56; Stop 08/09/21 at 10:57; Status DC Vancomycin HCl (Vancomycin Oral Solution) 125 mg [id number] PO Last administered on 08/09/21at 21:39; Start 08/09/21 at 13:00; Stop 08/10/21 at 09:44; Status DC Calcium Gluconate 5000 mg/Sodium Chloride 500 ml @ 50 mls/hr Q10H IV Last administered on 08/12/21at 09:13; Start 08/09/21 at 12:30; Stop 08/12/21 at 10:19; Status DC Multi-Ingredient Mouthwash/Gargle (Gi Cocktail) 20 ml PRN QID PRN PO epigastric discomfort; Start 08/10/21 at 10:00 Perflutren Protein Type A Microsphe (Optison) 0.66 mg STK-MED ONCE IV ; Start 08/09/21 at 11:00; Stop 08/10/21 at 12:58; Status DC Sodium Chloride 1,000 ml @ 1,000 mls/hr Q1H PRN IV hypotension; Start 08/10/21 at 16:45; Stop 08/10/21 at 22:45; Status DC Albumin Human 200 ml @ 200 mls/hr 1X PRN PRN IV Hypotension; Start 08/10/21 at 16:45; Stop 08/10/21 at 22:45; Status DC Sodium Chloride 1,000 ml @ 400 mls/hr Q2H30M PRN IV PATENCY; Start 08/10/21 at 16:45; Stop 08/11/21 at 04:44; Status DC Info (PHARMACY MONITORING -- do not chart) 1 each PRN DAILY PRN MC SEE COMMENTS; Start 08/10/21 at 16:45; Status Cancel Famotidine (Pepcid) 20 mg QHS PO Last administered on 08/13/21at 20:58; Start 08/11/21 at 21:00 Sodium Chloride 1,000 ml @ 1,000 mls/hr Q1H PRN IV hypotension; Start 08/11/21 at 15:00; Stop 08/11/21 at 20:59; Status DC Sodium Chloride 1,000 ml @ 400 mls/hr Q2H30M PRN IV PATENCY; Start 08/11/21 at 15:00; Stop 08/12/21 at 02:59; Status DC Info (PHARMACY MONITORING -- do not chart) 1 each PRN DAILY PRN MC SEE COMMENTS; Start 08/11/21 at 15:00; Status Cancel Acetaminophen/ Hydrocodone Bitart (Lortab 5/325) 1 tab PRN Q6HRS PRN PO MOD- SEVERE PAIN Last administered on 08/12/21at 20:37; Start 08/12/21 at 09:00 Carvedilol (Coreg) 6.25 mg BIDWMEALS PO Last administered on 08/14/21at 08:24; Start 08/12/21 at 17:00 Hydralazine HCl (Apresoline Inj) 10 mg PRN Q4HRS PRN IVP ELEVATED BP, SEE COMMENTS Last administered on 08/12/21at 20:30; Start 08/12/21 at 12:30 Sodium Chloride 1,000 ml @ 150 mls/hr Q6H40M IV Last administered on 08/14/21at 01:50; Start 08/12/21 at 16:30 Meropenem 500 mg/ Sodium Chloride 50 ml @ 100 mls/hr Q24H IV Last administered on 08/13/21at 15:56; Start 08/13/21 at 16:00 Furosemide (Lasix) 40 mg 1X ONCE IVP Last administered on 08/13/21at 09:26; Start 08/13/21 at 09:15; Stop 08/13/21 at 09:16; Status DC Sodium Chloride 1,000 ml @ 1,000 mls/hr Q1H PRN IV hypotension; Start 08/13/21 at 09:00; Stop 08/13/21 at 14:59; Status DC Albumin Human 200 ml @ 200 mls/hr 1X PRN PRN IV Hypotension; Start 08/13/21 at 09:00; Stop 08/13/21 at 14:59; Status DC Sodium Chloride (Normal Saline Flush) 10 ml 1X PRN PRN IV AP catheter pack; Start 08/13/21 at 09:00; Stop 08/14/21 at 08:59; Status DC Sodium Chloride (Normal Saline Flush) 10 ml 1X PRN PRN IV SUPERINTENDENT LOGGING catheter pack; Start 08/13/21 at 09:00; Stop 08/14/21 at 08:59; Status DC Sodium Chloride 1,000 ml @ 400 mls/hr Q2H30M PRN IV PATENCY; Start 08/13/21 at 09:00; Stop 08/13/21 at 20:59; Status DC Info (PHARMACY MONITORING -- do not chart) 1 each PRN DAILY PRN MC SEE COMMENTS; Start 08/13/21 at 09:00; Status UNV Info (PHARMACY MONITORING -- do not chart) 1 each PRN DAILY PRN MC SEE COMMENTS; Start 08/13/21 at 09:00 Lidocaine/ Epinephrine (LIDOCAINE 1%-EPI 1:100,000 Multi-Dose) 20 ml STK-MED ONCE .ROUTE ; Start 08/13/21 at 13:46; Stop 08/13/21 at 13:46; Status DC Lidocaine/ Epinephrine (LIDOCAINE 1%-EPI 1:100,000 Multi-Dose) 20 ml 1X ONCE INJ Last administered on 08/13/21at 14:13; Start 08/13/21 at 14:15; Stop 08/13/21 at 14:16; Status DC Linezolid/Dextrose 300 ml @ 300 mls/hr Q12HR IV Last administered on 08/14/21at 08:43; Start 08/14/21 at 09:00 Active Scripts Active Reported Carvedilol 25 Mg Tablet 2 Mg PO BIDWMEALS Buspirone Hcl 10 Mg Tablet 10 Mg PO BID Proair Hfa (Albuterol Sulfate) 8.5 Gm Hfa.aer.ad 1 Puff INH PRN Q6HRS PRN Xarelto (Rivaroxaban) 20 Mg Tablet Unknown Dose PO DAILY 30 Days with food Vitals/I & O Vital Sign - Last 24 Hours 08/13/21 08/13/21 08/13/21 08/13/21 19:00 20:00 20:15 23:00 Temp 98.6 98.3 98.6 98.3 Pulse 96 97 Resp 24 24 B/P (MAP) 185/84 (117) 164/83 (110) Pulse Ox 96 98 97 O2 Delivery BiPAP/CPAP Room Air Room Air BiPAP/CPAP 08/14/21 08/14/21 08/14/21 08/14/21 01:41 03:00 07:00 07:14 Temp 98.4 98.4 98.4 98.4 Pulse 101 101 Resp 24 24 B/P (MAP) 124/72 (89) 124/72 (89) Pulse Ox 96 94 94 99 O2 Delivery BiPAP/CPAP BiPAP/CPAP BiPAP/CPAP Room Air 08/14/21 08/14/21 08/14/2108/14/21 08:00 08:24 10:11 11:00 Temp 98.2 98.2 Pulse 101 88 Resp 22 B/P (MAP) 124/72 165/82 (109) Pulse Ox 95 96 O2 Delivery Room Air BiPAP/CPAP BiPAP/CPAP 08/14/21 08/14/21 11:39 11:45 Pulse Ox 95 96 O2 Delivery BiPAP/CPAP Room Air Intake and Output 08/13/21 08/13/21 08/14/21 15:00 23:00 07:00 Intake Total 200 ml 1290 ml 200 ml Output Total 5 ml 5 ml 0 ml Balance 195 ml 1285 ml 200 ml Justifications for Admission Other Justification KATY WILLARD MD Aug 14, 2021 17:22
--- NOTE | 2021-08-16 11:13 | PDOC3 ---
[facility]-Discharge Summary Date of Admission: Date of Admission: Aug 08, 2021 Date of Discharge: Date of Discharge: Aug 14, 2021 Discharge Diagnosis: Discharge Diagnosis: Sepsis Bilateral pneumonia, possible gram-negative organisms Acute electrolyte derangement due to acute kidney injury Hypocalcemia Metabolic acidosis, non-anion gap Acute renal failure due to vasomotor nephropathy and rhabdomyolysis currently on hemodialysis. Acute severe rhabdomyolysis with unclear etiology Atypical chest pain concerning for non-STEMI Elevated troponin troponin suggestive of either type II demand ischemia versus renal disease Severe transaminitis possible shock liver versus hepatotoxicity versus medication induced Concern for OHS/FREYA History of morbid obesity History of CHF History of DVT Hospital Course: Hospital Course: 26-year-old male with past medical history of CHF, morbid obesity, DVT was on Xarelto comes in with shortness of breath and chest pressure that started on Tuesday. Apparently his symptoms got worse as the week progressed and by Tuesday he was unable to get out of bed and short of breath. He does endorse any exertional dyspnea. Patient is now unable to stand without some assistance. He does endorse swelling in his lower extremities right greater than left. He thinks he has not taken his Xarelto for a few days but he is not sure this. He also endorses that his torsemide dosing these and he has not had much urine in the past 2 days. Currently he does have a Castaneda in urine bag is dark brown. He is incarcerated for the past year. Denies fevers, nausea vomiting, abdominal pain, diarrhea or hematuria or palpitations. 08/09/2021 No acute events overnight. Patient vital signs are stable. Creatinine is stable and elevated which is a 6.8. Attempt catheter in place for hemodialysis which will start today. Patient's chart, labs, images were reviewed and discussed with RN. 08/10/2021 No acute events overnight. Patient seen and examined bedside. Creatinine elevating to 8.2. Pending dialysis. Patient's chart, labs, images were reviewed and discussed with RN 08/11/2021 No acute events overnight. Patient seen and examined bedside. Dialysis today and yesterday. Creatinine improved to 7.4. CK level still greater than 100,000. Patient is complaining of right leg pain and ID recommended for CT of the lower extremity. Unfortunately, patient is unable to fit in the scanner. We will continue with heparin drip. Patient's chart, labs, images were reviewed and discussed with RN 08/12/2021 No acute events overnight. Patient seen examined bedside still requiring BiPAP as needed. Creatinine improved to 6.9. CK decreased to 84,000. Wound care consulted for right lower extremity blisters. I have asked that US Vince's to possibly relax the left lower extremity leg cuff to avoid erosion of an already fragile skin integrity due to edema of the left lower extremity. Patient's chart, labs, images were reviewed and discussed with RN 08/13/2021 No acute events overnight. Patient tolerated hemodialysis. CK level significantly improved down to 30,000. Patient will need tunneled catheter exchanged out from his temporary hemodialysis catheter before discharge [facility]. [facility] accepted [facility] and can continue with his hemodialysis there. Patient's chart, labs, images were reviewed and discussed with RN By time of discharge patient was clinically stable and CK levels were normalizing. Creatinine levels were also improving. This is all improved with hemodialysis. Temporary catheter was exchanged for a tunneled catheter before discharge. Patient will be transferred to [facility] for further management. Disposition: Disposition/Orders: D/C to Another Facility Activity: Activity: Resume previous activity Diet: Diet: Renal, Cardiac Medications: Home Meds Reported Medications Carvedilol (CARVEDILOL) 25 Mg Tablet, 2 MG PO BIDWMEALS for CARDIAC, TAB 08/08/21 Buspirone Hcl (BUSPIRONE HCL) 10 Mg Tablet, 10 MG PO BID for anxiolytic, TAB 08/08/21 Albuterol Sulfate (Proair Hfa) 8.5 Gm Hfa.aer.ad, 1 PUFF INH PRN Q6HRS PRN for SHORTNESS OF BREATH, EACH 08/08/21 Rivaroxaban (XARELTO) 20 Mg Tablet, PO DAILY for DVT for 30 Days, TAB 0 Refills with food 08/08/21 Discontinued Reported Medications Torsemide (TORSEMIDE) 20 Mg Tablet, 4 TAB PO DAILY for diuretic, #90 TAB 1 Refill 08/08/21 Sulfamethoxazole/Trimethoprim (BACTRIM DS TABLET) 1 Each Tablet, 1 TAB PO BID for antibiotic for 10 Days, #20 TAB 0 Refills 08/08/21 Spironolactone (SPIRONOLACTONE) 100 Mg Tablet, 1 TAB PO DAILY for diuretic, #30 TAB 11 Refills 08/08/21 Potassium Chloride (POTASSIUM CHLORIDE ) 20 Meq Tablet.er, 1 MEQ PO DAILY for SUPPLEMENT, TAB.SR 08/08/21 Losartan Potassium (LOSARTAN POTASSIUM) 50 Mg Tablet, 2 MG PO DAILY for HYPERTENSION, TAB 08/08/21 Amlodipine Besylate (AMLODIPINE BESYLATE) 10 Mg Tablet, 10 MG PO DAILY for htn, TAB 08/08/21 Scheduled Buspirone Hcl (Buspirone Hcl), 10 MG PO BID, (Reported) Carvedilol (Carvedilol), 2 MG PO BIDWMEALS, (Reported) Rivaroxaban (Xarelto), Unknown Dose PO DAILY, (Reported) Scheduled PRN Albuterol Sulfate (Proair Hfa), 1 PUFF INH PRN Q6HRS PRN for SHORTNESS OF BREATH, (Reported) Discontinued Medications Amlodipine Besylate (Amlodipine Besylate), 10 MG PO DAILY, (Reported) Losartan Potassium (Losartan Potassium), 2 MG PO DAILY, (Reported) Potassium Chloride (Potassium Chloride ), 1 MEQ PO DAILY, (Reported) Spironolactone (Spironolactone), 1 TAB PO DAILY, (Reported) Sulfamethoxazole/Trimethoprim (Bactrim Ds Tablet), 1 TAB PO BID, (Reported) Torsemide (Torsemide), 4 TAB PO DAILY, (Reported) Total Time: Total Time: Total time spent was 40 minutes in preparing scripts, discharge planning with [facility] and RN and preparing this discharge summary Patient seen and examined on day of discharge. No acute abnormal findings. Justicifation of Admission Dx: Justifications for Admission: Justification of Admission Dx: N/A AMOS MADISON MD Aug 16, 2021 11:13
== END 2021-08-14 11:46 | DRG 871 ==
LOC: EDBD 18:01 → EEVIPCON 18:01 → ER 18:01 → 1 WEST ICU 22:12
PROVIDERS: ADMIT Internal Medicine; ATTEND Internal Medicine
PROC: 5A09357 Assistance with Respiratory Ventilation, Less than 24 Consecutive Hours, Continuous Positive Airway Pressure (ICD-10-PCS; 2021-08-08)
PROC: 5A1D70Z Performance of Urinary Filtration, Intermittent, Less than 6 Hours Per Day (ICD-10-PCS; 2021-08-08)
PROC: 5A09357 Assistance with Respiratory Ventilation, Less than 24 Consecutive Hours, Continuous Positive Airway Pressure (ICD-10-PCS; 2021-08-09)
PROC: 02HV33Z Insertion of Infusion Device into Superior Vena Cava, Percutaneous Approach (ICD-10-PCS; 2021-08-10)
PROC: B548ZZA Ultrasonography of Superior Vena Cava, Guidance (ICD-10-PCS; 2021-08-10)
PROC: 5A09357 Assistance with Respiratory Ventilation, Less than 24 Consecutive Hours, Continuous Positive Airway Pressure (ICD-10-PCS; 2021-08-10)
PROC: 5A1D70Z Performance of Urinary Filtration, Intermittent, Less than 6 Hours Per Day (ICD-10-PCS; 2021-08-10)
PROC: 5A09357 Assistance with Respiratory Ventilation, Less than 24 Consecutive Hours, Continuous Positive Airway Pressure (ICD-10-PCS; 2021-08-11)
PROC: 5A1D70Z Performance of Urinary Filtration, Intermittent, Less than 6 Hours Per Day (ICD-10-PCS; 2021-08-11)
PROC: 0JH63XZ Insertion of Tunneled Vascular Access Device into Chest Subcutaneous Tissue and Fascia, Percutaneous Approach (ICD-10-PCS; 2021-08-12)
PROC: 5A09357 Assistance with Respiratory Ventilation, Less than 24 Consecutive Hours, Continuous Positive Airway Pressure (ICD-10-PCS; 2021-08-12)
PROC: 02HV33Z Insertion of Infusion Device into Superior Vena Cava, Percutaneous Approach (ICD-10-PCS; 2021-08-13)
PROC: 5A1D70Z Performance of Urinary Filtration, Intermittent, Less than 6 Hours Per Day (ICD-10-PCS; 2021-08-13)
PROC: 02PYX3Z Removal of Infusion Device from Great Vessel, External Approach (ICD-10-PCS; principal; 2021-08-14)
DX: A41.9 Sepsis, unspecified organism (principal); I21.4 Non-ST elevation (NSTEMI) myocardial infarction; I50.33 Acute on chronic diastolic (congestive) heart failure; J96.00 Acute respiratory failure, unspecified whether with hypoxia or hypercapnia; N17.0 Acute kidney failure with tubular necrosis; J15.6 Pneumonia due to other Gram-negative bacteria; K72.00 Acute and subacute hepatic failure without coma; B19.9 Unspecified viral hepatitis without hepatic coma; E66.2 Morbid (severe) obesity with alveolar hypoventilation; E87.1 Hypo-osmolality and hyponatremia; I42.9 Cardiomyopathy, unspecified; J98.11 Atelectasis; L03.115 Cellulitis of right lower limb; M62.82 Rhabdomyolysis; Z68.45 Body mass index [BMI] 70 or greater, adult; E83.51 Hypocalcemia; E87.5 Hyperkalemia; E88.09 Other disorders of plasma-protein metabolism, not elsewhere classified; I11.0 Hypertensive heart disease with heart failure; I27.21 Secondary pulmonary arterial hypertension; I48.0 Paroxysmal atrial fibrillation; K76.0 Fatty (change of) liver, not elsewhere classified; K76.1 Chronic passive congestion of liver; Z20.822 Contact with and (suspected) exposure to COVID-19; Z79.01 Long term (current) use of anticoagulants; Z82.49 Family history of ischemic heart disease and other diseases of the circulatory system; Z86.718 Personal history of other venous thrombosis and embolism; Z87.891 Personal history of nicotine dependence; Z88.0 Allergy status to penicillin; Z98.84 Bariatric surgery status; Z88.8 Allergy status to other drugs, medicaments and biological substances; Z91.013 Allergy to seafood
CPT/HCPCS: 36415; 36556; 36581; 71045; 76770; 76937; 80048; 80053; 80069; 80076; 81001; 82040; 82310; 82550; 82607; 83540; 83605; 83735; 83880; 83970; 84100; 84145; 84443; 84484; 84550; 85007; 85025; 85379; 85730; 86705; 86706; 86709; 86803; 87086; 87340; 87426; 87449; 87493; 87641; 87804; 93005; 93306; 93970; 94640; 94660; 94760; 96361; 96365; 96375; C1750; C1892; G0238; J0360; J0610; J0696; J1644; J1940; J2020; J2185; J2405; J3490; J7030; J7040; J7060; Q9956; U0003; U0005; 99285-25; G0378; J7644